=== PATIENT | male | born 1985 | race Two or more races ===

== ENCOUNTER 2023-12-23 13:46 | Inpatient (IN) | payer OTHER, SELFPAY ==
--- NOTE | 2023-12-23 | ECG_ITS ---
Test Reason : QTC Prolongation Blood Pressure : / mmHG Vent. Rate : 071 BPM Atrial Rate : 071 BPM P-R Int : 154 ms QRS Dur : 098 ms QT Int : 452 ms P-R-T Axes : 053 065 063 degrees QTc Int : 491 ms Normal sinus rhythm Nonspecific T wave abnormality Prolonged QT Abnormal ECG No previous ECGs available Referred By: Lucero Kauffman Electronically Signed By:ANTOINE GIRON
[2023-12-23 14:03] VITALS: BP 143/92; PULSE 73; RESP 16; TEMP 36.8; O2SAT 94
[2023-12-23 14:57] VITALS: BMI 35.6
--- NOTE | 2023-12-23 16:34 | HE.PHANOTE ---
Re Methadone Received Methadone verification from nursing. Pt gets 190 mg of Methadone from [facility] and last dose was given 12/23/2023 @1000 at [facility]
--- NOTE | 2023-12-23 17:31 | P.CONHOSP_ITS ---
History of Present Illness Data of Consult Service Date: 12/23/23 Primary Care Provider: Unknown Physician HPI Reason for consult: Admission H&P Pt is a 38-year-old male with a PMH significant for ymx-ntyuwag-lcnkgymqe type 2 diabetes, peripheral neuropathy, ADHD, polysubstance use disorder, and PTSD?who is admitted to [facility] psychiatry unit for increasing depression with SI. Medical consult for admission H&P. ?Patient reports that he is feeling quite depressed and does not want to do anything but lay in bed all day. Otherwise patient has no acute medical complaints. Denies chest pain/pressure, palpitations. No shortness a breath or difficulty breathing. Denies headache or acute vision changes. No fever, chills, nausea, vomiting. Denies diarrhea or abdominal pain. Review of Systems Review of Systems: Depression, anhedonia Patient otherwise denies any acute medical complaints at this time [facility] Medical History (Updated 12/23/23 @ 19:09 by ADILIA Sanford) ADHD Non-insulin dependent type 2 diabetes mellitus Polysubstance use disorder PTSD (post-traumatic stress disorder) Social History Housing: Homeless Do you presently have visiting nurse or other home services: No Patient Tobacco Use Status: Current everyday Tobacco user Tobacco use type: Cigarette Cigarette Packs Per Day: 1 Cigarettes Per Day: 20.0 Years Smoked: unsure Smoked in Last 30 Days: Yes e-Cigarette/Vaping Use: Currently Using Patient Interested in Nicotine Replacement: Yes Patient Given Instructions on How to Stop Smoking: No Second Hand Smoke Exposure: No Substance Use Type: Crack/Cocaine, Heroin, Marijuana and Other Substance Use Type Other:: fentanyl Substance Use Frequency: Chronic Longstanding Last Used Substance: Just Prior to Admission Currently Displaying Signs/Symptoms of Drug Intoxication Withdrawal: No Any prior treatment program specific to substance use: Yes Have you been hit, kicked, punched, or otherwise hurt by someone within the past year? If so, by whom?: No Do you feel safe in your current relationship?: No Current Relationship Is there a partner from a previous relationship who is making you feel unsafe now?: No Are you made to feel afraid or neglected: No Spiritual Healthcare Practices: none Sikhism Healthcare Practices: none Cultural Healthcare Practices: none Advance Directives: No Advance Directives Information Provided: No Do you have a plan to hurt others: No Plan Recently lost weight without trying: Yes How much weight loss: 2-13 pounds Eating poorly because of decreased appetite: No Nutrition screen score: 3 Nutrition Risks: No Nutritional Risk Poor oral hygiene: Yes Meds Allergies Allergy/AdvReac Type Severity Reaction Status Date / Time vancomycin Allergy Severe Rash Verified 12/23/23 14:11 Active Medications: Current Medications Acetaminophen (Acetaminophen 325 Mg Tablet) 650 mg PO Q6H PRN PRN Reason: Headache/Pain Mild Scale (1-3) Al Hydroxide/Mg Hydroxide (Magnesium Hydrox/Alum Hydrox 30 Ml Oral.Susp) 30 ml PO Q6H PRN PRN Reason: Heartburn/Nausea Hydroxyzine HCl (Hydroxyzine Hcl 25 Mg Tablet) 25 mg PO Q6H PRN PRN Reason: Anxiety Magnesium Hydroxide (Milk Of Magnesia 30 Ml Oral.Susp) 30 ml PO DAILY PRN PRN Reason: Constipation Nicotine (Nicotine 21 Mg Patch.Td24) 21 mg TRANSDERMA DAILY PRN PRN Reason: nicotine cravings Nicotine Polacrilex (Nicotine Polacrilex 2 Mg Gum) 4 mg BUCCAL Q2H PRN PRN Reason: Nicotine Cravings Trazodone HCl (Trazodone Hcl 50 Mg Tablet) 50 mg PO BEDTIME MRX1 PRN PRN Reason: Insomnia Home Medications ?Medication ?Instructions ?Recorded ?Confirmed ?Last Taken ?Type buspirone 5 mg tablet 5 mg PO BID 12/23/23 12/23/23 Unknown History escitalopram oxalate 10 mg tablet 10 mg PO DAILY 12/23/23 12/23/23 Unknown History gabapentin 300 mg capsule 600 mg PO TID 12/23/23 12/23/23 Unknown History hydroxyzine pamoate 50 mg capsule 50 mg PO QID PRN moderate to 12/23/23 12/23/23 Unknown History severe anxiety metformin 500 mg tablet 500 mg PO BID 12/23/23 12/23/23 Unknown History mirtazapine 30 mg tablet 30 mg PO BEDTIME 12/23/23 12/23/23 Unknown History nicotine (polacrilex) 4 mg gum 4 mg buccal Q1H 12/23/23 12/23/23 Unknown History nicotine 21 mg/24 hr daily 21 mg topical DAILY 12/23/23 12/23/23 Unknown History transdermal patch olanzapine 10 mg tablet 10 mg PO BEDTIME 12/23/23 12/23/23 Unknown History prazosin 1 mg capsule 1 mg PO BID 12/23/23 12/23/23 Unknown History trazodone 50 mg tablet 50 mg PO BEDTIME PRN Sleep 12/23/23 12/23/23 Unknown History Physical Exam Vital Signs and Narrative: Vital Signs: Last Vital Signs Temp 98.3 F 12/23/23 14:03 Pulse 73 12/23/23 14:03 Resp 16 12/23/23 14:03 BP 143/92 H 12/23/23 14:03 Pulse Ox 94 12/23/23 14:03 O2 Del Method Room Air 12/23/23 14:03 BMI result Body Mass Index 35.6 General: AOx3, no acute distress Resp: CTA bilaterally CVS: S1, S2, RRR GI: +BS, NT, no distention Skin: Warm, dry Neuro: Cranial nerves II-XII grossly intact bilaterally. Motor grossly intact bilaterally Extremities: No edema Psych: Flat affect Assessment and Plan (1) Medical clearance for psychiatric admission: Status: Acute Plan Pt is a 38-year-old male with a PMH significant for ibq-biyyncn-nwceovgbs type 2 diabetes, peripheral neuropathy, ADHD, polysubstance use disorder, and PTSD?who is admitted to [facility] psychiatry unit for increasing depression with SI. Medical consult for admission H&P. Mood disorder Plan as per Psychiatry Ypi-opdeket-ajwvsysrp type 2 diabetes Continue metformin Encouraged diabetic diet and diabetic snacking Peripheral neuropathy Continue gabapentin Polysubstance use disorder Plan as per Psychiatry Thank you for allowing us to participate in the care of this patient. Signing off at this time. Please re-consult if any acute complaints or issues arise.
--- NOTE | 2023-12-23 17:51 | PC.ADMIT ---
Aron arrived via ambulance from [facility] ED. He is awake, but eyes are reddened and teary. He complains of being so tired . He cooperated with skin and safety check. Skin check unremarkable except for healing bruises on either side of base of spine, those are old he says. Aron says he went to ED
--- NOTE | 2023-12-23 18:22 | PC.ADMIT ---
Aron arrived via ambulance from [facility] ED. He is awake, but eyes are reddened and teary. He complains of being so tired . He cooperated with skin and safety check. Skin check unremarkable except for healing bruises on either side of base of spine, those are old he says. He met with Oriana Santos NP but declined to sign a CV so he remains on a 12b. He is oriented x4. Aron says he went to ED on his own because I am so tired, so many things are going wrong in my life and I just want to hang myself or do something like that. He states that he will seek staff if he feels like he will act on it. Per crisis report, he has a lengthy substance use history including some periods of recovery (while at [facility]) His utox was positive for marijuana, cocaine, fentanyl. He reports using heroin at times and drinking alcohol occasionally. he is is 1 ppd cigarette smoker. He currently goes to [facility] clinic for his methadone. 190mg dose was confirmed, and last dose was given today at [facility]. He is currently homeless. Aron has a medical history consisting of type 2 diabetes, PTSD, ADD. During the intake, he was falling asleep and asked just to go lie down. He completed menu for tonight, but declined reviewing and/or signing any additional paperwork.
[2023-12-23 20:00] VITALS: BP 123/77; PULSE 73; RESP 16; TEMP 36.2; O2SAT 94
[2023-12-23] MEDS: Mirtazapine 30 MG TABLET PO (20:51)
[2023-12-23] MEDS: OLANZapine 10 MG TABLET PO (20:51)
[2023-12-23] MEDS: busPIRone HCl 5 MG TABLET PO (20:51)
[2023-12-23 20:52] VITALS: BP 146/85
[2023-12-23] MEDS: Gabapentin 600 MG TABLET PO (20:52)
[2023-12-23] MEDS: traZODone HCL 50 MG TABLET PO (20:52)
[2023-12-23] MEDS: Prazosin HCL 1 MG CAPSULE PO (20:52)
[2023-12-24 08:00] VITALS: BP 106/68; PULSE 63; RESP 16; TEMP 36.6; O2SAT 94
[2023-12-24] MEDS: methADONE HCl 20 MG/2 ML ORAL.CONC 190 MG PO (08:06)
[2023-12-24 08:49] VITALS: BP 126/68
[2023-12-24] MEDS: Escitalopram Oxalate 10 MG TABLET PO (08:49)
[2023-12-24] MEDS: metFORMIN HCl 500 MG TABLET PO ×2 (08:49→18:38)
[2023-12-24] MEDS: Prazosin HCL 1 MG CAPSULE PO ×2 (08:49→20:51)
[2023-12-24] MEDS: Gabapentin 600 MG TABLET PO (08:50)
[2023-12-24] MEDS: Nicotine Polacrilex 2 MG GUM 4 MG BUCCAL ×2 (08:50→14:31)
[2023-12-24] MEDS: busPIRone HCl 5 MG TABLET PO ×2 (08:50→20:52)
--- NOTE | 2023-12-24 09:58 | P.HPPS_ITS ---
HPI Date of Service: 12/24/23 Chief Complaint: Depression, substance use Sources of Information: patient interviewed, chart reviewed and crisis/core team assessment reviewed HPI Subjective Notes: Section 12B Narrative: Aron is a 38-year-old [place], single, unemployed, homeless man. He moved here from [place] over a year ago and stayed with his father and grandmother until 2 or 3 months ago and had to leave because the facilities for elderly people. He has been staying on the streets and has been feeling very stressed. He is seen at in for depression, anxiety and heroin dependence plus other substances such as cocaine, opiates. He is currently on methadone 190 mg. He still feels anxious. He self-referred to the emergency room because of wanting to hang himself. No prior history of attempts. Current medications include BuSpar 5.0 mg b.i.d. which I will increase to 10 mg b.i.d. he is also on Lexapro 10 mg daily, gabapentin 600 mg t.i.d., hydroxyzine p.r.n., Remeron 30 mg q.h.s., Zyprexa 10 mg q.h.s. and prazosin 1 mg b.i.d... He is a very poor historian and was falling asleep throughout the interview and had to be awakened. Past Psychiatric History: Outpatient Medical Evaluation Reviewed: Yes [facility] Medical History (Updated 12/24/23 @ 10:07 by Steve Clark MD) ADHD Non-insulin dependent type 2 diabetes mellitus Polysubstance use disorder PTSD (post-traumatic stress disorder) Family History: Could not obtain Social History: Could not obtain due to his current mental status Substance History: Percocets, cocaine, IV heroin use, last used several days ago Trauma History: Unobtainable Diagnostics Vital Signs (24Hr): Vital Signs - 24 hr 12/23/23 14:03 12/23/23 20:00 12/23/23 20:52 Temperature 98.3 F 97.2 F Pulse Rate 73 73 Respiratory Rate 16 16 Blood Pressure 143/92 H 123/77 146/85 H Pulse Oximetry 94 94 Oxygen Delivery Method Room Air Room Air 12/24/23 08:49 Temperature Pulse Rate Respiratory Rate Blood Pressure 126/68 Pulse Oximetry Oxygen Delivery Method BMI result Body Mass Index 35.6 Meds/Allergies Meds Home Medications ?Medication ?Instructions ?Recorded ?Confirmed ?Type buspirone 5 mg tablet 5 mg PO BID 12/23/23 12/23/23 History escitalopram oxalate 10 mg tablet 10 mg PO DAILY 12/23/23 12/23/23 History gabapentin 300 mg capsule 600 mg PO TID 12/23/23 12/23/23 History hydroxyzine pamoate 50 mg capsule 50 mg PO QID PRN moderate to 12/23/23 12/23/23 History severe anxiety metformin 500 mg tablet 500 mg PO BID 12/23/23 12/23/23 History mirtazapine 30 mg tablet 30 mg PO BEDTIME 12/23/23 12/23/23 History nicotine (polacrilex) 4 mg gum 4 mg buccal Q1H 12/23/23 12/23/23 History nicotine 21 mg/24 hr daily 21 mg topical DAILY 12/23/23 12/23/23 History transdermal patch olanzapine 10 mg tablet 10 mg PO BEDTIME 12/23/23 12/23/23 History prazosin 1 mg capsule 1 mg PO BID 12/23/23 12/23/23 History trazodone 50 mg tablet 50 mg PO BEDTIME PRN Sleep 12/23/23 12/23/23 History Allergies Allergies Allergy/AdvReac Type Severity Reaction Status Date / Time vancomycin Allergy Severe Rash Verified 12/23/23 14:11 Mental Status Exam Mental Status Exam Narrative: In today's visit he is drowsy and falling sleep. Speech is slurred and hard to understand. No eye contact. Affect is constricted and subdued. No acute signs of psychosis and denies any AVH. He admits to having had suicidal ideations and plans to hang himself but denies any currently. Thought processes are slowed. Judgment is grossly intact Assessment & Plan Assessment & Plan (1) Major depression, recurrent: Status: Acute Code(s): F33.9 - Major depressive disorder, recurrent, unspecified (2) Heroin dependence: Status: Acute Code(s): F11.20 - Opioid dependence, uncomplicated Plan Aron was admitted to the unit for safety and stabilization. He declined to sign a CV but we will approach him later on when he is more alert. Current medications were continued. He was requesting Klonopin which I did not order for him. Patient educated on: diagnosis, medication risk/benefits and substance abuse Reason for continued inpatient stay Substantial Risk for: harm to self and med/psych decompensation Statement Statement: I have reviewed the history and physical and performed a pertinent examination on my patient. No changes have occurred unless specified. If the History and Physical was not performed prior to admission, the Hospitalist's service will be consulted for completing the admission sallie swenson Time Spent With Patient Time: Total time managing care of this patient today ____ minutes.
[2023-12-24] MEDS: Gabapentin 300 MG CAPSULE 600 MG PO ×2 (14:31→20:51)
[2023-12-24] MEDS: hydrOXYzine HCL 50 MG TABLET PO (14:32)
[2023-12-24 20:00] VITALS: BP 117/71; PULSE 76; TEMP 36.7; O2SAT 98
[2023-12-24] MEDS: Mirtazapine 30 MG TABLET PO (20:51)
[2023-12-24] MEDS: busPIRone HCl 10 MG TABLET PO (20:52)
[2023-12-24] MEDS: OLANZapine 10 MG TABLET PO (20:52)
[2023-12-25] MEDS: methADONE HCl 20 MG/2 ML ORAL.CONC 190 MG PO (07:50)
[2023-12-25 08:00] VITALS: BP 139/84; PULSE 84; RESP 18; TEMP 2.7; TEMP 36.8; O2SAT 97
[2023-12-25 08:22] VITALS: BP 139/84
[2023-12-25] MEDS: Escitalopram Oxalate 10 MG TABLET PO (08:22)
[2023-12-25] MEDS: Gabapentin 300 MG CAPSULE 600 MG PO ×3 (08:22→20:02)
[2023-12-25] MEDS: Prazosin HCL 1 MG CAPSULE PO ×2 (08:22→20:02)
[2023-12-25] MEDS: busPIRone HCl 10 MG TABLET PO ×2 (08:22→20:02)
[2023-12-25] MEDS: metFORMIN HCl 500 MG TABLET PO ×2 (08:22→16:07)
[2023-12-25] MEDS: busPIRone HCl 5 MG TABLET PO (08:22)
--- NOTE | 2023-12-25 08:57 | P.PNPSI_ITS ---
Subjective Subjective Date of Service: 12/25/23 Reason For Visit: Depression, substance use Subjective Notes: Section 12B Interim History: Patient was seen and discussed in rounds today. Records and plans were reviewed. He continues to endorse auditory hallucinations, sometimes command in nature but contracts for safety on the unit. He is anxious at times. No SI. Mostly isolative and flat affect. No complaints. No changes were made today Review of Systems Review of Systems Yes all other systems are reviewed and are negative Mental Status Exam Mental Status Exam Narrative: In today's visit he is alert and more interactive.. Speech is still somewhat slow. Some eye contact. Affect is constricted and subdued. No acute signs of psychosis and admits to some auditory hallucinations that are at times command in nature. No active SI but has had thoughts of hanging.. Thought processes are slowed. Judgment is grossly intact Diagnostics Vital Signs (24Hr): Vital Signs - 24 hr 12/24/23 20:00 12/25/23 08:22 Temperature 98.1 F Pulse Rate 76 Blood Pressure 117/71 139/84 Pulse Oximetry 98 Oxygen Delivery Method Room Air BMI result Body Mass Index 35.6 Medications Medications Current Medications Acetaminophen (Acetaminophen 325 Mg Tablet) 650 mg PO Q6H PRN PRN Reason: Headache/Pain Mild Scale (1-3) Al Hydroxide/Mg Hydroxide (Magnesium Hydrox/Alum Hydrox 30 Ml Oral.Susp) 30 ml PO Q6H PRN PRN Reason: Heartburn/Nausea Buspirone HCl (Buspirone Hcl 5 Mg Tablet) 5 mg PO BID [facility] Last Admin: 12/25/23 08:22 Dose: 5 mg Buspirone HCl (Buspirone Hcl 10 Mg Tablet) 10 mg PO BID [facility] Last Admin: 12/25/23 08:22 Dose: 10 mg Escitalopram Oxalate (Escitalopram Oxalate 10 Mg Tablet) 10 mg PO DAILY [facility] Last Admin: 12/25/23 08:22 Dose: 10 mg Gabapentin (Gabapentin 300 Mg Capsule) 600 mg PO TID [facility] Last Admin: 12/25/23 08:22 Dose: 600 mg Hydroxyzine HCl (Hydroxyzine Hcl 50 Mg Tablet) 50 mg PO QID PRN PRN Reason: moderate to severe anxiety Last Admin: 12/24/23 14:32 Dose: 50 mg Magnesium Hydroxide (Milk Of Magnesia 30 Ml Oral.Susp) 30 ml PO DAILY PRN PRN Reason: Constipation Metformin HCl (Metformin Hcl 500 Mg Tablet) 500 mg PO BIDWM JENELLE Last Admin: 12/25/23 08:22 Dose: 500 mg Methadone HCl (Methadone Hcl 20 Mg/2 Ml Oral.Conc) 190 mg PO DAILY J[facility] Last Admin: 12/25/23 07:50 Dose: 190 mg Mirtazapine (Mirtazapine 30 Mg Tablet) 30 mg PO BEDTIME JENELLE Last Admin: 12/24/23 20:51 Dose: 30 mg Nicotine (Nicotine 21 Mg Patch.Td24) 21 mg TRANSDERMA DAILY PRN PRN Reason: nicotine cravings Nicotine Polacrilex (Nicotine Polacrilex 2 Mg Gum) 4 mg BUCCAL Q2H PRN PRN Reason: Nicotine Cravings Last Admin: 12/24/23 14:31 Dose: 4 mg Olanzapine (Olanzapine 10 Mg Tablet) 10 mg PO BEDTIME JENELLE Last Admin: 12/24/23 20:52 Dose: 10 mg Prazosin HCl (Prazosin Hcl 1 Mg Capsule) 1 mg PO BID JENELLE; Protocol Last Admin: 12/25/23 08:22 Dose: 1 mg Trazodone HCl (Trazodone Hcl 50 Mg Tablet) 50 mg PO BEDTIME MRX1 PRN PRN Reason: Insomnia Last Admin: 12/23/23 20:52 Dose: 50 mg Allergies Allergies Allergy/AdvReac Type Severity Reaction Status Date / Time vancomycin Allergy Severe Rash Verified 12/23/23 14:11 Assessment & Plan Assessment & Plan (1) Major depression, recurrent: Status: Acute Code(s): F33.9 - Major depressive disorder, recurrent, unspecified (2) Heroin dependence: Status: Acute Code(s): F11.20 - Opioid dependence, uncomplicated Plan Aron was admitted to the unit for safety and stabilization. He declined to sign a CV but we will approach him later on when he is more alert. Current medications were continued. He was requesting Klonopin which I did not order for him. 12/24: Continue current regimen and plans Reason for continued inpatient stay Substantial Risk for: med/psych decompensation Time Spent With Patient Time: Total time managing care of this patient today ____ minutes.
[2023-12-25] MEDS: Nicotine Polacrilex 2 MG GUM 4 MG BUCCAL (12:18)
[2023-12-25] MEDS: hydrOXYzine HCL 50 MG TABLET PO (12:18)
[2023-12-25 19:45] VITALS: BP 144/84; PULSE 86; TEMP 36.3; O2SAT 95
[2023-12-25] MEDS: OLANZapine 10 MG TABLET PO (20:02)
[2023-12-25] MEDS: traZODone HCL 50 MG TABLET PO (20:02)
[2023-12-25] MEDS: Mirtazapine 30 MG TABLET PO (20:02)
[2023-12-26] MEDS: methADONE HCl 20 MG/2 ML ORAL.CONC 190 MG PO (07:44)
[2023-12-26 08:00] VITALS: BP 120/66; PULSE 63; RESP 16; TEMP 36.3; O2SAT 97
[2023-12-26] MEDS: Gabapentin 300 MG CAPSULE 600 MG PO ×3 (08:44→21:01)
[2023-12-26 08:45] VITALS: BP 120/66
[2023-12-26] MEDS: Prazosin HCL 1 MG CAPSULE PO ×2 (08:45→21:01)
[2023-12-26] MEDS: busPIRone HCl 10 MG TABLET PO ×2 (08:45→21:01)
[2023-12-26] MEDS: metFORMIN HCl 500 MG TABLET PO ×2 (08:45→15:22)
[2023-12-26] MEDS: Escitalopram Oxalate 10 MG TABLET PO (08:45)
[2023-12-26] MEDS: Nicotine Polacrilex 2 MG GUM 4 MG BUCCAL ×4 (08:45→21:04)
[2023-12-26] MEDS: hydrOXYzine HCL 50 MG TABLET PO (12:53)
--- NOTE | 2023-12-26 15:04 | MHC.RECOVRN ---
AUDIT-C Brief Intervention Pt had positive screen for unhealthy alcohol use on admission, subsequently met with t/w to discuss alcohol use and recovery supports/options. Pt does not voice regarding alcohol use but is aware that drinking at unhealthy levels is known to increase risk of alcohol related health problems. Pt reports 1 bottle Yeimy daily, however, during AUDIT C pt reported alcohol use 2-4 times per month. Pt expresses how alcohol use can impact health, including negative impact on mental health. Discussed risk reduction strategies including drinking below the recommended limit. Provided pt with written resources including information on inpatient and outpatient treatment, [facility], harm reduction, and recovery coaching. Pt plans to meet with project manager/team coach on 12/26 to further discuss resources. Pt provided with t/w contact information if questions or concerns arise. Denies other questions or concerns at this time.
[2023-12-26] MEDS: LORazepam 1 MG TABLET PO ×2 (15:22→21:00)
--- NOTE | 2023-12-26 15:35 | P.PNPSI_ITS ---
Subjective Subjective Date of Service: 12/26/23 Reason For Visit: Depression, substance use Subjective Notes: Conditional Voluntary (signed today) Healthcare Proxy: No Guardianship: No Medical Problems Affecting Mental Status: No Interim History: Review of history, precipitants to admission. Reports depression, feeling down, tired, voices, SI. States the only med that helps is Klonopin. This was not prescribed. Discussed with pt risks due to high doses of Methadone, relapse risk, doc being fentanyl. Pt looking for CSS- Team will assist with applications to [facility] Medication Compliance: Yes Side effects from medications: No Attending Groups: Intermittent Review of Systems Acute medical concerns: No Medical Review of Systems: unchanged Review of Systems Review of Systems Yes all other systems are reviewed and are negative Mental Status Exam Mental Status Exam Narrative: In today's visit he is alert and more interactive.. Speech is still somewhat slow. Some eye contact. Affect is constricted and subdued. No acute signs of psychosis and admits to some auditory hallucinations that are at times command in nature. No active SI but has had thoughts of hanging.. Thought processes are slowed. Judgment is grossly intact Diagnostics Vital Signs (24Hr): Vital Signs - 24 hr 12/25/23 19:45 12/26/23 08:00 12/26/23 08:45 Temperature 97.4 F 97.3 F Pulse Rate 86 63 Respiratory Rate 16 Blood Pressure 144/84 H 120/66 120/66 Pulse Oximetry 95 97 Oxygen Delivery Method Room Air Room Air BMI result Body Mass Index 35.6 Labs 12/27/23 10:41 Medications Medications Current Medications Acetaminophen (Acetaminophen 325 Mg Tablet) 650 mg PO Q6H PRN PRN Reason: Headache/Pain Mild Scale (1-3) Al Hydroxide/Mg Hydroxide (Magnesium Hydrox/Alum Hydrox 30 Ml Oral.Susp) 30 ml PO Q6H PRN PRN Reason: Heartburn/Nausea Buspirone HCl (Buspirone Hcl 10 Mg Tablet) 10 mg PO BID [facility] Last Admin: 12/26/23 08:45 Dose: 10 mg Escitalopram Oxalate (Escitalopram Oxalate 10 Mg Tablet) 10 mg PO DAILY [facility] Last Admin: 12/26/23 08:45 Dose: 10 mg Gabapentin (Gabapentin 300 Mg Capsule) 600 mg PO TID [facility] Last Admin: 12/26/23 14:14 Dose: 600 mg Hydroxyzine HCl (Hydroxyzine Hcl 50 Mg Tablet) 50 mg PO QID PRN PRN Reason: moderate to severe anxiety Last Admin: 12/26/23 12:53 Dose: 50 mg Lorazepam (Lorazepam 1 Mg Tablet) 1 mg PO Q4H PRN PRN Reason: ciwa 6-15 Last Admin: 12/26/23 15:22 Dose: 1 mg Magnesium Hydroxide (Milk Of Magnesia 30 Ml Oral.Susp) 30 ml PO DAILY PRN PRN Reason: Constipation Metformin HCl (Metformin Hcl 500 Mg Tablet) 500 mg PO BIDWM JENELLE Last Admin: 12/26/23 15:22 Dose: 500 mg Methadone HCl (Methadone Hcl 20 Mg/2 Ml Oral.Conc) 190 mg PO DAILY [facility] Last Admin: 12/26/23 07:44 Dose: 190 mg Mirtazapine (Mirtazapine 30 Mg Tablet) 30 mg PO BEDTIME [facility]EL[facility] Last Admin: 12/25/23 20:02 Dose: 30 mg Nicotine (Nicotine 21 Mg Patch.Td24) 21 mg TRANSDERMA DAILY PRN PRN Reason: nicotine cravings Nicotine Polacrilex (Nicotine Polacrilex 2 Mg Gum) 4 mg BUCCAL Q2H PRN PRN Reason: Nicotine Cravings Last Admin: 12/26/23 14:15 Dose: 4 mg Olanzapine (Olanzapine 10 Mg Tablet) 10 mg PO BEDTIME JENELLE Last Admin: 12/25/23 20:02 Dose: 10 mg Prazosin HCl (Prazosin Hcl 1 Mg Capsule) 1 mg PO BID [facility]; Protocol Last Admin: 12/26/23 08:45 Dose: 1 mg Trazodone HCl (Trazodone Hcl 50 Mg Tablet) 50 mg PO BEDTIME MRX1 PRN PRN Reason: Insomnia Last Admin: 12/25/23 20:02 Dose: 50 mg Allergies Allergies Allergy/AdvReac Type Severity Reaction Status Date / Time vancomycin Allergy Severe Rash Verified 12/23/23 14:11 Assessment & Plan Assessment & Plan (1) Major depression, recurrent: Status: Acute Code(s): F33.9 - Major depressive disorder, recurrent, unspecified (2) Heroin dependence: Status: Acute Code(s): F11.20 - Opioid dependence, uncomplicated Plan Aron was admitted to the unit for safety and stabilization. He declined to sign a CV but we will approach him later on when he is more alert. Current medications were continued. He was requesting Klonopin which I did not order for him. 12/24: Continue current regimen and plans 12/26/23: Continue treatment Reason for continued inpatient stay Substantial Risk for: rapid decompensation Time Spent With Patient Time: Total time managing care of this patient today ____ minutes.
[2023-12-26 20:00] VITALS: BP 129/74; PULSE 85; RESP 16; TEMP 36.2; O2SAT 94
[2023-12-26 21:01] VITALS: BP 126/73
[2023-12-26] MEDS: Mirtazapine 30 MG TABLET PO (21:01)
[2023-12-26] MEDS: OLANZapine 10 MG TABLET PO (21:01)
[2023-12-26] MEDS: traZODone HCL 50 MG TABLET PO (21:23)
[2023-12-27] MEDS: methADONE HCl 20 MG/2 ML ORAL.CONC 190 MG PO (07:48)
[2023-12-27 08:00] VITALS: BP 119/71; PULSE 65; RESP 18; TEMP 36.6; O2SAT 97
[2023-12-27] MEDS: Nicotine Polacrilex 2 MG GUM 4 MG BUCCAL ×4 (08:00→19:28)
[2023-12-27] MEDS: Gabapentin 300 MG CAPSULE 600 MG PO ×3 (08:41→19:45)
[2023-12-27] MEDS: busPIRone HCl 10 MG TABLET PO ×2 (08:42→19:46)
[2023-12-27] MEDS: Prazosin HCL 1 MG CAPSULE PO ×2 (08:42→19:46)
[2023-12-27] MEDS: Escitalopram Oxalate 10 MG TABLET PO (08:42)
[2023-12-27] MEDS: metFORMIN HCl 500 MG TABLET PO ×2 (08:42→16:21)
[2023-12-27] MEDS: LORazepam 1 MG TABLET PO ×4 (08:46→19:47)
[2023-12-27 10:58] LABS: Creatinine Clr Calc Pharmacy 120.8; Estimated Glomerular Filt Rate > 60
[2023-12-27] MEDS: Acetaminophen 325 MG TABLET 650 MG PO (11:07)
[2023-12-27] MEDS: hydrOXYzine HCL 50 MG TABLET PO ×2 (11:56→19:46)
--- NOTE | 2023-12-27 12:34 | HO.PSYCHPN ---
Subjective Subjective Date of Service: 12/27/23 Reason For Visit: Depression, substance use Subjective Notes: Conditional Voluntary Healthcare Proxy: No Guardianship: No Medical Problems Affecting Mental Status: No Interim History: Pt continues to request Klonopin. Reports to addiction medicine that he is detoxing from alcohol. CIWA ordered with Lorazepam prn, however, pt reported no alcohol use to team when admitted. Discussed other options for anxiety/mood at this time. He will consider but declines. Met with team who reports pt states he speaks street Urdu . 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 Tells team of . Will trial Olanzapine at HS. Medication Compliance: Yes Side effects from medications: No Attending Groups: Intermittent Review of Systems Acute medical concerns: No Review of Systems Review of Systems Yes all other systems are reviewed and are negative Mental Status Exam Mental Status Exam Narrative: In today's visit he is alert and more interactive.. Speech is still somewhat slow. Some eye contact. Affect is constricted and subdued. No acute signs of psychosis and admits to some auditory hallucinations that are at times command in nature. No active SI but has had thoughts of hanging.. Thought processes are slowed. Judgment is grossly intact Diagnostics Vital Signs (24Hr): Vital Signs - 24 hr 12/26/23 20:00 12/26/23 21:01 12/27/23 08:00 Temperature 97.1 F 98 F Pulse Rate 85 65 Respiratory Rate 16 18 Blood Pressure 129/74 126/73 119/71 Pulse Oximetry 94 97 Oxygen Delivery Method Room Air Room Air BMI result Body Mass Index 35.6 Labs 12/27/23 10:41 Labs: Laboratory Results - last 48 hr 12/27/23 10:41 Creatinine 0.90 Estim Creat Clear Calc 120.8 Estimated GFR > 60 Medications Medications Current Medications Acetaminophen (Acetaminophen 325 Mg Tablet) 650 mg PO Q6H PRN PRN Reason: Headache/Pain Mild Scale (1-3) Last Admin: 12/27/23 11:07 Dose: 650 mg Al Hydroxide/Mg Hydroxide (Magnesium Hydrox/Alum Hydrox 30 Ml Oral.Susp) 30 ml PO Q6H PRN PRN Reason: Heartburn/Nausea Buspirone HCl (Buspirone Hcl 10 Mg Tablet) 10 mg PO BID [facility]ENELLE Last Admin: 12/27/23 08:42 Dose: 10 mg Escitalopram Oxalate (Escitalopram Oxalate 10 Mg Tablet) 10 mg PO DAILY [facility] Last Admin: 12/27/23 08:42 Dose: 10 mg Gabapentin (Gabapentin 300 Mg Capsule) 600 mg PO TID [facility] Last Admin: 12/27/23 08:41 Dose: 600 mg Hydroxyzine HCl (Hydroxyzine Hcl 50 Mg Tablet) 50 mg PO QID PRN PRN Reason: moderate to severe anxiety Last Admin: 12/27/23 11:56 Dose: 50 mg Lorazepam (Lorazepam 1 Mg Tablet) 1 mg PO Q4H PRN PRN Reason: ciwa 6-15 Last Admin: 12/27/23 11:56 Dose: 1 mg Magnesium Hydroxide (Milk Of Magnesia 30 Ml Oral.Susp) 30 ml PO DAILY PRN PRN Reason: Constipation Metformin HCl (Metformin Hcl 500 Mg Tablet) 500 mg PO BIDWM [facility] Last Admin: 12/27/23 08:42 Dose: 500 mg Methadone HCl (Methadone Hcl 20 Mg/2 Ml Oral.Conc) 190 mg PO DAILY [facility] Last Admin: 12/27/23 07:48 Dose: 190 mg Mirtazapine (Mirtazapine 30 Mg Tablet) 30 mg PO BEDTIME [facility] Last Admin: 12/26/23 21:01 Dose: 30 mg Nicotine (Nicotine 21 Mg Patch.Td24) 21 mg TRANSDERMA DAILY PRN PRN Reason: nicotine cravings Nicotine Polacrilex (Nicotine Polacrilex 2 Mg Gum) 4 mg BUCCAL Q2H PRN PRN Reason: Nicotine Cravings Last Admin: 12/27/23 08:00 Dose: 4 mg Olanzapine (Olanzapine 10 Mg Tablet) 10 mg PO BEDTIME [facility] Last Admin: 12/26/23 21:01 Dose: 10 mg Prazosin HCl (Prazosin Hcl 1 Mg Capsule) 1 mg PO BID [facility]; Protocol Last Admin: 12/27/23 08:42 Dose: 1 mg Trazodone HCl (Trazodone Hcl 50 Mg Tablet) 50 mg PO BEDTIME MRX1 PRN PRN Reason: Insomnia Last Admin: 12/26/23 21:23 Dose: 50 mg Allergies Allergies Allergy/AdvReac Type Severity Reaction Status Date / Time vancomycin Allergy Severe Rash Verified 12/23/23 14:11 Assessment & Plan Assessment & Plan (1) Major depression, recurrent: Status: Acute Code(s): F33.9 - Major depressive disorder, recurrent, unspecified (2) Heroin dependence: Status: Acute Code(s): F11.20 - Opioid dependence, uncomplicated Plan Aron was admitted to the unit for safety and stabilization. He declined to sign a CV but we will approach him later on when he is more alert. Current medications were continued. He was requesting Klonopin which I did not order for him. 12/24: Continue current regimen and plans 12/26: Olanzapine 10 mg HS Reason for continued inpatient stay Substantial Risk for: rapid decompensation Time Spent With Patient Time: Total time managing care of this patient today ____ minutes.
[2023-12-27 19:30] VITALS: BP 157/87; PULSE 75; RESP 20; TEMP 36.1; O2SAT 92
[2023-12-27] MEDS: Mirtazapine 30 MG TABLET PO (19:46)
[2023-12-27] MEDS: traZODone HCL 50 MG TABLET PO (19:46)
[2023-12-27] MEDS: OLANZapine 10 MG TABLET PO (19:46)
[2023-12-28] MEDS: traZODone HCL 50 MG TABLET PO ×2 (02:27→20:10)
[2023-12-28] MEDS: hydrOXYzine HCL 50 MG TABLET PO ×3 (02:27→20:10)
[2023-12-28] MEDS: LORazepam 1 MG TABLET PO ×5 (04:12→20:56)
[2023-12-28 08:00] VITALS: BP 160/100; PULSE 72; RESP 16; TEMP 36.6; O2SAT 96
[2023-12-28] MEDS: methADONE HCl 20 MG/2 ML ORAL.CONC 190 MG PO (08:04)
[2023-12-28 08:45] VITALS: BP 150/88
[2023-12-28 09:01] VITALS: BP 160/100
[2023-12-28] MEDS: Prazosin HCL 1 MG CAPSULE PO ×2 (09:01→20:10)
[2023-12-28] MEDS: metFORMIN HCl 500 MG TABLET PO ×2 (09:02→17:08)
[2023-12-28] MEDS: busPIRone HCl 10 MG TABLET PO ×2 (09:02→20:10)
[2023-12-28] MEDS: Escitalopram Oxalate 10 MG TABLET PO (09:02)
[2023-12-28] MEDS: Acetaminophen 325 MG TABLET 650 MG PO (09:02)
[2023-12-28] MEDS: Gabapentin 300 MG CAPSULE 600 MG PO ×3 (09:03→20:10)
[2023-12-28] MEDS: Nicotine Polacrilex 2 MG GUM 4 MG BUCCAL ×4 (09:05→20:10)
--- NOTE | 2023-12-28 11:15 | P.PNPSI_ITS ---
Subjective Subjective Date of Service: 12/28/23 Reason For Visit: Depression, substance use Subjective Notes: Conditional Voluntary Healthcare Proxy: No Guardianship: No Medical Problems Affecting Mental Status: No Interim History: Pt continues to request Lorazepam/Klonopin. Discussed with pt his Methadone dosing and risks with this high a dose and benzodiazepines. Everyone else gets it, and I want it too Visable in milieu. Labile at times. Discussed sx mgt with other agents which have a better safety profile. No, Klonopin . Medication Compliance: Yes Side effects from medications: No Attending Groups: Intermittent Review of Systems Acute medical concerns: No Medical Review of Systems: unchanged Review of Systems Review of Systems Yes all other systems are reviewed and are negative Mental Status Exam Mental Status Exam Patient Appearance: Appropriate Patient Orientation: Person, Place, Time and Situation Level of Consciousness: Alert Patient Behavior: Talkative and Good Eye Contact Mood Description: Hostile and Labile Affect Description: Labile Patient Cognition Impaired: No Ability to Follow Directions: Good Speech Pattern: Spontaneous Speech and Pressured Memory Description: Episodic Impaired Hallucinations: None Thought Process: Distracted Depressive Symptoms: Increased Irritability Abnormal Motor Activity Signs and Symptoms: Restlessness Judgement: Fair Diagnostics Vital Signs (24Hr): Vital Signs - 24 hr 12/27/23 19:30 12/28/23 08:00 12/28/23 08:45 Temperature 97.0 F 97.9 F Pulse Rate 75 72 Respiratory Rate 20 16 Blood Pressure 157/87 H 160/100 H 150/88 H Pulse Oximetry 92 96 Oxygen Delivery Method Room Air Room Air 12/28/23 09:01 Temperature Pulse Rate Respiratory Rate Blood Pressure 160/100 H Pulse Oximetry Oxygen Delivery Method BMI result Body Mass Index 35.6 Labs 12/27/23 10:41 Labs: Laboratory Results - last 48 hr 12/27/23 10:41 Creatinine 0.90 Estim Creat Clear Calc 120.8 Estimated GFR > 60 Medications Medications Current Medications Acetaminophen (Acetaminophen 325 Mg Tablet) 650 mg PO Q6H PRN PRN Reason: Headache/Pain Mild Scale (1-3) Last Admin: 12/28/23 09:02 Dose: 650 mg Al Hydroxide/Mg Hydroxide (Magnesium Hydrox/Alum Hydrox 30 Ml Oral.Susp) 30 ml PO Q6H PRN PRN Reason: Heartburn/Nausea Buspirone HCl (Buspirone Hcl 10 Mg Tablet) 10 mg PO BID [facility] Last Admin: 12/28/23 09:02 Dose: 10 mg Escitalopram Oxalate (Escitalopram Oxalate 10 Mg Tablet) 10 mg PO DAILY [facility] Last Admin: 12/28/23 09:02 Dose: 10 mg Gabapentin (Gabapentin 300 Mg Capsule) 600 mg PO TID JENELLE Last Admin: 12/28/23 09:03 Dose: 600 mg Hydroxyzine HCl (Hydroxyzine Hcl 50 Mg Tablet) 50 mg PO QID PRN PRN Reason: moderate to severe anxiety Last Admin: 12/28/23 09:02 Dose: 50 mg Lorazepam (Lorazepam 1 Mg Tablet) 1 mg PO Q4H PRN PRN Reason: ciwa 6-15 Last Admin: 12/28/23 09:02 Dose: 1 mg Magnesium Hydroxide (Milk Of Magnesia 30 Ml Oral.Susp) 30 ml PO DAILY PRN PRN Reason: Constipation Metformin HCl (Metformin Hcl 500 Mg Tablet) 500 mg PO BIDWM [facility] Last Admin: 12/28/23 09:02 Dose: 500 mg Methadone HCl (Methadone Hcl 20 Mg/2 Ml Oral.Conc) 190 mg PO DAILY [facility] Last Admin: 12/28/23 08:04 Dose: 190 mg Mirtazapine (Mirtazapine 30 Mg Tablet) 30 mg PO BEDTIME [facility] Last Admin: 12/27/23 19:46 Dose: 30 mg Nicotine (Nicotine 21 Mg Patch.Td24) 21 mg TRANSDERMA DAILY PRN PRN Reason: nicotine cravings Nicotine Polacrilex (Nicotine Polacrilex 2 Mg Gum) 4 mg BUCCAL Q2H PRN PRN Reason: Nicotine Cravings Last Admin: 12/28/23 09:05 Dose: 4 mg Olanzapine (Olanzapine 10 Mg Tablet) 10 mg PO BEDTIME [facility] Last Admin: 12/27/23 19:46 Dose: 10 mg Prazosin HCl (Prazosin Hcl 1 Mg Capsule) 1 mg PO BID [facility]; Protocol Last Admin: 12/28/23 09:01 Dose: 1 mg Trazodone HCl (Trazodone Hcl 50 Mg Tablet) 50 mg PO BEDTIME MRX1 PRN PRN Reason: Insomnia Last Admin: 12/28/23 02:27 Dose: 50 mg Allergies Allergies Allergy/AdvReac Type Severity Reaction Status Date / Time vancomycin Allergy Severe Rash Verified 12/23/23 14:11 Assessment & Plan Assessment & Plan (1) Major depression, recurrent: Status: Acute Code(s): F33.9 - Major depressive disorder, recurrent, unspecified (2) Heroin dependence: Status: Acute Code(s): F11.20 - Opioid dependence, uncomplicated Plan Aron was admitted to the unit for safety and stabilization. He declined to sign a CV but we will approach him later on when he is more alert. Current medications were continued. He was requesting Klonopin which I did not order for him. 12/24: Continue current regimen and plans 12/26: Olanzapine 10 mg HS 12/27: Continue tx Reason for continued inpatient stay Substantial Risk for: rapid decompensation Time Spent With Patient Time: Total time managing care of this patient today ____ minutes.
[2023-12-28 20:00] VITALS: BP 119/61; PULSE 92; RESP 20; TEMP 36.3; O2SAT 96
[2023-12-28] MEDS: OLANZapine 10 MG TABLET PO (20:10)
[2023-12-28] MEDS: Mirtazapine 30 MG TABLET PO (20:10)
[2023-12-29] MEDS: LORazepam 1 MG TABLET PO (04:05)
[2023-12-29] MEDS: methADONE HCl 20 MG/2 ML ORAL.CONC 190 MG PO (07:38)
[2023-12-29 08:00] VITALS: BP 138/91; PULSE 83; TEMP 36.9; O2SAT 94
[2023-12-29] MEDS: Escitalopram Oxalate 10 MG TABLET PO (08:21)
[2023-12-29] MEDS: Prazosin HCL 1 MG CAPSULE PO ×2 (08:21→20:01)
[2023-12-29] MEDS: metFORMIN HCl 500 MG TABLET PO ×2 (08:21→17:31)
[2023-12-29] MEDS: busPIRone HCl 10 MG TABLET PO ×2 (08:21→20:01)
[2023-12-29] MEDS: Gabapentin 300 MG CAPSULE 600 MG PO ×3 (08:21→20:02)
[2023-12-29] MEDS: hydrOXYzine HCL 50 MG TABLET PO ×2 (08:35→15:03)
[2023-12-29] MEDS: Nicotine Polacrilex 2 MG GUM 4 MG BUCCAL ×5 (08:35→20:02)
--- NOTE | 2023-12-29 10:29 | P.PNPSI_ITS ---
Subjective Subjective Date of Service: 12/29/23 Reason For Visit: Depression, substance use Subjective Notes: Conditional Voluntary Healthcare Proxy: No Guardianship: No Medical Problems Affecting Mental Status: No Interim History: Met with pt, team, [facility] [place] Team reports pt with poor boundaries, verbally abusive, sexually inappropriate sx. Pt reports headache, anxiety, light sensitivity. States he requires Klonopin/Lorazepam. Review of rationale for not offering these agents. Valproate initiated. Pt accepting of these parameters, states he is considering a three day notice as we are not providing the medicine he wants. Medication Compliance: Yes Side effects from medications: No Attending Groups: Intermittent Review of Systems Acute medical concerns: No Medical Review of Systems: unchanged Review of Systems Review of Systems Yes all other systems are reviewed and are negative Mental Status Exam Mental Status Exam Patient Appearance: Appropriate Patient Orientation: Person, Place, Time and Situation Level of Consciousness: Alert Patient Behavior: Talkative and Good Eye Contact Mood Description: Hostile and Labile Affect Description: Labile Patient Cognition Impaired: No Ability to Follow Directions: Good Speech Pattern: Spontaneous Speech and Pressured Memory Description: Episodic Impaired Hallucinations: None Thought Process: Distracted Depressive Symptoms: Increased Irritability Abnormal Motor Activity Signs and Symptoms: Restlessness Judgement: Fair Diagnostics Vital Signs (24Hr): Vital Signs - 24 hr 12/28/23 20:00 Temperature 97.3 F Pulse Rate 92 Respiratory Rate 20 Blood Pressure 119/61 Pulse Oximetry 96 Oxygen Delivery Method Room Air BMI result Body Mass Index 35.6 Labs 12/27/23 10:41 Labs: Laboratory Results - last 48 hr 12/27/23 10:41 Creatinine 0.90 Estim Creat Clear Calc 120.8 Estimated GFR > 60 Medications Medications Current Medications Acetaminophen (Acetaminophen 325 Mg Tablet) 650 mg PO Q6H PRN PRN Reason: Headache/Pain Mild Scale (1-3) Last Admin: 12/28/23 09:02 Dose: 650 mg Al Hydroxide/Mg Hydroxide (Magnesium Hydrox/Alum Hydrox 30 Ml Oral.Susp) 30 ml PO Q6H PRN PRN Reason: Heartburn/Nausea Buspirone HCl (Buspirone Hcl 10 Mg Tablet) 10 mg PO BID [facility] Last Admin: 12/29/23 08:21 Dose: 10 mg Escitalopram Oxalate (Escitalopram Oxalate 10 Mg Tablet) 10 mg PO DAILY [facility] Last Admin: 12/29/23 08:21 Dose: 10 mg Gabapentin (Gabapentin 300 Mg Capsule) 600 mg PO TID [facility]ENELLE Last Admin: 12/29/23 08:21 Dose: 600 mg Hydroxyzine HCl (Hydroxyzine Hcl 50 Mg Tablet) 50 mg PO QID PRN PRN Reason: moderate to severe anxiety Last Admin: 12/29/23 08:35 Dose: 50 mg Lorazepam (Lorazepam 1 Mg Tablet) 1 mg PO Q4H PRN PRN Reason: ciwa 6-15 Last Admin: 12/29/23 04:05 Dose: 1 mg Magnesium Hydroxide (Milk Of Magnesia 30 Ml Oral.Susp) 30 ml PO DAILY PRN PRN Reason: Constipation Metformin HCl (Metformin Hcl 500 Mg Tablet) 500 mg PO BIDWM [facility] Last Admin: 12/29/23 08:21 Dose: 500 mg Methadone HCl (Methadone Hcl 20 Mg/2 Ml Oral.Conc) 190 mg PO DAILY [facility] Last Admin: 12/29/23 07:38 Dose: 190 mg Mirtazapine (Mirtazapine 30 Mg Tablet) 30 mg PO BEDTIME [facility] Last Admin: 12/28/23 20:10 Dose: 30 mg Nicotine (Nicotine 21 Mg Patch.Td24) 21 mg TRANSDERMA DAILY PRN PRN Reason: nicotine cravings Nicotine Polacrilex (Nicotine Polacrilex 2 Mg Gum) 4 mg BUCCAL Q2H PRN PRN Reason: Nicotine Cravings Last Admin: 12/29/23 08:35 Dose: 4 mg Olanzapine (Olanzapine 10 Mg Tablet) 10 mg PO BEDTIME [facility] Last Admin: 12/28/23 20:10 Dose: 10 mg Prazosin HCl (Prazosin Hcl 1 Mg Capsule) 1 mg PO BID [facility]ELLE; Protocol Last Admin: 12/29/23 08:21 Dose: 1 mg Trazodone HCl (Trazodone Hcl 50 Mg Tablet) 50 mg PO BEDTIME MRX1 PRN PRN Reason: Insomnia Last Admin: 12/28/23 20:10 Dose: 50 mg Allergies Allergies Allergy/AdvReac Type Severity Reaction Status Date / Time vancomycin Allergy Severe Rash Verified 12/23/23 14:11 Assessment & Plan Assessment & Plan (1) Major depression, recurrent: Status: Acute Code(s): F33.9 - Major depressive disorder, recurrent, unspecified (2) Heroin dependence: Status: Acute Code(s): F11.20 - Opioid dependence, uncomplicated Plan Aron was admitted to the unit for safety and stabilization. He declined to sign a CV but we will approach him later on when he is more alert. Current medications were continued. He was requesting Klonopin which I did not order for him. 12/24: Continue current regimen and plans 12/26: Olanzapine 10 mg HS 12/29/23 Valproate 250 mg bid Chlorpromazine prn Informed Consent: understands Reason for continued inpatient stay Substantial Risk for: rapid decompensation Time Spent With Patient Time: Total time managing care of this patient today ____ minutes.
[2023-12-29] MEDS: chlorproMAZINE HCl 25 MG TABLET 50 MG PO ×2 (12:49→20:02)
[2023-12-29 14:20] VITALS: BMI 37.4
[2023-12-29 20:00] VITALS: BP 113/60; PULSE 78; RESP 16; TEMP 36.9; O2SAT 96
[2023-12-29] MEDS: OLANZapine 10 MG TABLET PO (20:00)
[2023-12-29 20:01] VITALS: BP 120/74
[2023-12-29] MEDS: Divalproex Sodium ER 250 MG TAB.ER.24H PO (20:01)
[2023-12-29] MEDS: Mirtazapine 30 MG TABLET PO (20:02)
[2023-12-29] MEDS: traZODone HCL 50 MG TABLET PO (20:02)
[2023-12-30] MEDS: Magnesium Hydrox/Alum Hydrox 30 ML ORAL.SUSP PO (00:13)
[2023-12-30] MEDS: traZODone HCL 50 MG TABLET PO ×2 (00:15→21:00)
[2023-12-30] MEDS: Nicotine Polacrilex 2 MG GUM 4 MG BUCCAL ×6 (00:17→21:01)
[2023-12-30] MEDS: methADONE HCl 20 MG/2 ML ORAL.CONC 190 MG PO (07:54)
[2023-12-30 08:00] VITALS: BP 132/82; PULSE 81; RESP 18; TEMP 36.4; O2SAT 95
[2023-12-30] MEDS: metFORMIN HCl 500 MG TABLET PO ×2 (08:32→18:00)
[2023-12-30] MEDS: Divalproex Sodium ER 250 MG TAB.ER.24H PO ×2 (08:32→21:00)
[2023-12-30] MEDS: Gabapentin 300 MG CAPSULE 600 MG PO ×3 (08:32→21:00)
[2023-12-30] MEDS: Prazosin HCL 1 MG CAPSULE PO ×2 (08:33→21:00)
[2023-12-30] MEDS: busPIRone HCl 10 MG TABLET PO ×2 (08:33→21:00)
[2023-12-30] MEDS: chlorproMAZINE HCl 25 MG TABLET 50 MG PO ×2 (08:33→14:22)
--- NOTE | 2023-12-30 11:44 | HO.PSYCHPN ---
Subjective Subjective Date of Service: 12/30/23 Reason For Visit: Depression, substance use Subjective Notes: Conditional Voluntary Interim History: Reviewed with Dr. Brown. Social with peers, active on unit. Guarded. Patient reports he feels like he is doing okay but continues to feel anxious about where he will live after discharge. Denies SI/HI/VH/AH. Medication Compliance: Yes Side effects from medications: No Review of Systems Constitutional: Reports as per HPI Eyes: Reports as per HPI Reports as per HPI Cardiovascular: Reports as per HPI Respiratory: Reports as per HPI Gastrointestinal: Reports as per HPI Genitourinary: Reports as per HPI Musculoskeletal: Reports as per HPI Skin/Breast: Reports as per HPI Reports as per HPI Psychiatric: Reports as per HPI Endocrine: Reports as per HPI Hematologic/Lymphatic: Reports as per HPI Allergic/Immunologic: Reports as per HPI Mental Status Exam Mental Status Exam Patient Appearance: Well Grooomed Patient Orientation: Person, Place, Time and Situation Level of Consciousness: Awake, Appropriate and Alert Patient Behavior: Guarded Mood Description: Calm and Blunted Affect Description: Calm and Blunted Ability to Follow Directions: Good Speech Pattern: Clear and Soft-Spoken Thought Process: Intact Thought Content: positive for Intact and positive for Goal Oriented Judgement: Fair Diagnostics Vital Signs (24Hr): Vital Signs - 24 hr 12/29/23 20:00 12/29/23 20:01 Temperature 98.5 F Pulse Rate 78 Respiratory Rate 16 Blood Pressure 113/60 120/74 Pulse Oximetry 96 Oxygen Delivery Method Room Air BMI result Body Mass Index 37.4 Labs 12/27/23 10:41 Medications Medications Current Medications Acetaminophen (Acetaminophen 325 Mg Tablet) 650 mg PO Q6H PRN PRN Reason: Headache/Pain Mild Scale (1-3) Last Admin: 12/28/23 09:02 Dose: 650 mg Al Hydroxide/Mg Hydroxide (Magnesium Hydrox/Alum Hydrox 30 Ml Oral.Susp) 30 ml PO Q6H PRN PRN Reason: Heartburn/Nausea Last Admin: 12/30/23 00:13 Dose: 30 ml Buspirone HCl (Buspirone Hcl 10 Mg Tablet) 10 mg PO BID JENELLE Last Admin: 12/30/23 08:33 Dose: 10 mg Chlorpromazine HCl (Chlorpromazine Hcl 25 Mg Tablet) 50 mg PO TID PRN PRN Reason: anxiety, agitation Last Admin: 12/30/23 08:33 Dose: 50 mg Divalproex Sodium (Divalproex Sodium Er 250 Mg Tab.Er.24h) 250 mg PO BID [facility] Last Admin: 12/30/23 08:32 Dose: 250 mg Gabapentin (Gabapentin 300 Mg Capsule) 600 mg PO TID [facility] Last Admin: 12/30/23 08:32 Dose: 600 mg Hydroxyzine HCl (Hydroxyzine Hcl 50 Mg Tablet) 50 mg PO QID PRN PRN Reason: moderate to severe anxiety Last Admin: 12/29/23 15:03 Dose: 50 mg Magnesium Hydroxide (Milk Of Magnesia 30 Ml Oral.Susp) 30 ml PO DAILY PRN PRN Reason: Constipation Metformin HCl (Metformin Hcl 500 Mg Tablet) 500 mg PO BIDWM [facility] Last Admin: 12/30/23 08:32 Dose: 500 mg Methadone HCl (Methadone Hcl 20 Mg/2 Ml Oral.Conc) 190 mg PO DAILY [facility] Last Admin: 12/30/23 07:54 Dose: 190 mg Mirtazapine (Mirtazapine 30 Mg Tablet) 30 mg PO BEDTIME [facility] Last Admin: 12/29/23 20:02 Dose: 30 mg Nicotine (Nicotine 21 Mg Patch.Td24) 21 mg TRANSDERMA DAILY PRN PRN Reason: nicotine cravings Nicotine Polacrilex (Nicotine Polacrilex 2 Mg Gum) 4 mg BUCCAL Q2H PRN PRN Reason: Nicotine Cravings Last Admin: 12/30/23 08:33 Dose: 4 mg Olanzapine (Olanzapine 10 Mg Tablet) 10 mg PO BEDTIME [facility] Last Admin: 12/29/23 20:00 Dose: 10 mg Prazosin HCl (Prazosin Hcl 1 Mg Capsule) 1 mg PO BID [facility]; Protocol Last Admin: 12/30/23 08:33 Dose: 1 mg Trazodone HCl (Trazodone Hcl 50 Mg Tablet) 50 mg PO BEDTIME MRX1 PRN PRN Reason: Insomnia Last Admin: 12/30/23 00:15 Dose: 50 mg Allergies Allergies Allergy/AdvReac Type Severity Reaction Status Date / Time vancomycin Allergy Severe Rash Verified 12/23/23 14:11 Assessment & Plan Assessment & Plan (1) Major depression, recurrent: Status: Acute Code(s): F33.9 - Major depressive disorder, recurrent, unspecified (2) Heroin dependence: Status: Acute Code(s): F11.20 - Opioid dependence, uncomplicated Plan Aron was admitted to the unit for safety and stabilization. He declined to sign a CV but we will approach him later on when he is more alert. Current medications were continued. He was requesting Klonopin which I did not order for him. 12/24: Continue current regimen and plans 12/26: Olanzapine 10 mg HS 12/29/23 Valproate 250 mg bid Chlorpromazine prn 12/29: Continue current treatment plan. Patient educated on: diagnosis and medication risk/benefits Reason for continued inpatient stay Substantial Risk for: med/psych decompensation Time Spent With Patient Time: Total time managing care of this patient today _20___ minutes.
[2023-12-30] MEDS: hydrOXYzine HCL 50 MG TABLET PO ×2 (12:07→18:00)
[2023-12-30 20:00] VITALS: BP 110/60; PULSE 80; RESP 18; TEMP 36.4; O2SAT 98
[2023-12-30] MEDS: Mirtazapine 30 MG TABLET PO (21:00)
[2023-12-30] MEDS: OLANZapine 10 MG TABLET PO (21:00)
[2023-12-31] MEDS: methADONE HCl 20 MG/2 ML ORAL.CONC 190 MG PO (07:49)
[2023-12-31 07:59] VITALS: BP 153/84; PULSE 62; RESP 16; TEMP 36.7; O2SAT 97
[2023-12-31] MEDS: Gabapentin 300 MG CAPSULE 600 MG PO ×3 (08:21→21:03)
[2023-12-31 08:22] VITALS: BP 153/84
[2023-12-31] MEDS: metFORMIN HCl 500 MG TABLET PO ×2 (08:22→16:08)
[2023-12-31] MEDS: Divalproex Sodium ER 250 MG TAB.ER.24H PO ×2 (08:22→21:03)
[2023-12-31] MEDS: Prazosin HCL 1 MG CAPSULE PO ×2 (08:22→21:04)
[2023-12-31] MEDS: busPIRone HCl 10 MG TABLET PO ×2 (08:24→21:03)
[2023-12-31] MEDS: chlorproMAZINE HCl 25 MG TABLET 50 MG PO ×3 (08:27→18:12)
[2023-12-31] MEDS: Nicotine Polacrilex 2 MG GUM 4 MG BUCCAL ×3 (09:27→16:08)
--- NOTE | 2023-12-31 10:00 | P.PNPSI_ITS ---
Subjective Subjective Date of Service: 12/31/23 Reason For Visit: Depression, substance use Interim History: Met with patient; discussed with team says still depressed but overall feeling better; anxiety still present but appreciates thorazine. When he wakes up, has a pedersen of thoughts regarding his psychosocial problems but then he gets up and is learning to cope with it. Remains in good behavioral and impulse control Mental Status Exam Mental Status Exam Patient Appearance: Well Grooomed Patient Orientation: Person, Place, Time and Situation Level of Consciousness: Awake, Appropriate and Alert Patient Behavior: Appropriate, Talkative, Cooperative and Good Eye Contact Mood Description: Calm, Depressed (but less) and Anxious Affect Description: Calm, Appropriate and Anxious Ability to Follow Directions: Good Speech Pattern: Clear and Soft-Spoken Hallucinations: None Delusions: Not Present Thought Process: Intact and Linear Thought Content: positive for Intact (no SI) and positive for Goal Oriented Judgement: Fair Diagnostics Vital Signs (24Hr): Vital Signs - 24 hr 12/30/23 20:00 12/31/23 07:59 12/31/23 08:22 Temperature 97.5 F 98.1 F Pulse Rate 80 62 Respiratory Rate 18 16 Blood Pressure 110/60 153/84 H 153/84 H Pulse Oximetry 98 97 Oxygen Delivery Method Room Air Room Air BMI result Body Mass Index 37.4 Labs 12/27/23 10:41 Medications Medications Current Medications Acetaminophen (Acetaminophen 325 Mg Tablet) 650 mg PO Q6H PRN PRN Reason: Headache/Pain Mild Scale (1-3) Last Admin: 12/28/23 09:02 Dose: 650 mg Al Hydroxide/Mg Hydroxide (Magnesium Hydrox/Alum Hydrox 30 Ml Oral.Susp) 30 ml PO Q6H PRN PRN Reason: Heartburn/Nausea Last Admin: 12/30/23 00:13 Dose: 30 ml Buspirone HCl (Buspirone Hcl 10 Mg Tablet) 10 mg PO BID [facility] Last Admin: 12/31/23 08:24 Dose: 10 mg Chlorpromazine HCl (Chlorpromazine Hcl 25 Mg Tablet) 50 mg PO TID PRN PRN Reason: anxiety, agitation Last Admin: 12/31/23 08:27 Dose: 50 mg Divalproex Sodium (Divalproex Sodium Er 250 Mg Tab.Er.24h) 250 mg PO BID [facility] Last Admin: 08/24/24 08:22 Dose: 250 mg Gabapentin (Gabapentin 300 Mg Capsule) 600 mg PO TID [facility] Last Admin: 12/31/23 08:21 Dose: 600 mg Hydroxyzine HCl (Hydroxyzine Hcl 50 Mg Tablet) 50 mg PO QID PRN PRN Reason: moderate to severe anxiety Last Admin: 12/30/23 18:00 Dose: 50 mg Magnesium Hydroxide (Milk Of Magnesia 30 Ml Oral.Susp) 30 ml PO DAILY PRN PRN Reason: Constipation Metformin HCl (Metformin Hcl 500 Mg Tablet) 500 mg PO BIDWM [facility] Last Admin: 12/31/23 08:22 Dose: 500 mg Methadone HCl (Methadone Hcl 20 Mg/2 Ml Oral.Conc) 190 mg PO DAILY [facility] Last Admin: 12/31/23 07:49 Dose: 190 mg Mirtazapine (Mirtazapine 30 Mg Tablet) 30 mg PO BEDTIME [facility] Last Admin: 12/30/23 21:00 Dose: 30 mg Nicotine (Nicotine 21 Mg Patch.Td24) 21 mg TRANSDERMA DAILY PRN PRN Reason: nicotine cravings Nicotine Polacrilex (Nicotine Polacrilex 2 Mg Gum) 4 mg BUCCAL Q2H PRN PRN Reason: Nicotine Cravings Last Admin: 12/31/23 09:27 Dose: 4 mg Olanzapine (Olanzapine 10 Mg Tablet) 10 mg PO BEDTIME [facility] Last Admin: 12/30/23 21:00 Dose: 10 mg Prazosin HCl (Prazosin Hcl 1 Mg Capsule) 1 mg PO BID [facility]; Protocol Last Admin: 12/31/23 08:22 Dose: 1 mg Trazodone HCl (Trazodone Hcl 50 Mg Tablet) 50 mg PO BEDTIME MRX1 PRN PRN Reason: Insomnia Last Admin: 12/30/23 21:00 Dose: 50 mg Allergies Allergies Allergy/AdvReac Type Severity Reaction Status Date / Time vancomycin Allergy Severe Rash Verified 12/23/23 14:11 Assessment & Plan Assessment & Plan (1) Major depression, recurrent: Status: Acute Code(s): F33.9 - Major depressive disorder, recurrent, unspecified (2) Heroin dependence: Status: Acute Code(s): F11.20 - Opioid dependence, uncomplicated Plan Aron was admitted to the unit for safety and stabilization. He declined to sign a CV but we will approach him later on when he is more alert. Current medications were continued. He was requesting Klonopin which I did not order for him. 12/24: Continue current regimen and plans 12/26: Olanzapine 10 mg HS 12/29/23 Valproate 250 mg bid Chlorpromazine prn 12/29: Continue current treatment plan. 12/30 says still depressed but overall feeling better; anxiety still present but appreciates thorazine. When he wakes up, has a pedersen of thoughts regarding his psychosocial problems but then he gets up and is learning to cope with it. -will order depakote levels; associated labs -Remains in good behavioral and impulse control Patient educated on: diagnosis and medication risk/benefits Informed Consent: understands Reason for continued inpatient stay Substantial Risk for: stable for discharge Time Spent With Patient Time: Total time managing care of this patient today ____ minutes.
[2023-12-31] MEDS: hydrOXYzine HCL 50 MG TABLET PO ×2 (12:06→16:08)
[2023-12-31] MEDS: traZODone HCL 50 MG TABLET PO (21:03)
[2023-12-31] MEDS: OLANZapine 10 MG TABLET PO (21:03)
[2023-12-31] MEDS: Mirtazapine 30 MG TABLET PO (21:03)
[2023-12-31 21:04] VITALS: BP 115/70
[2024-01-01] MEDS: methADONE HCl 20 MG/2 ML ORAL.CONC 190 MG PO (07:56)
[2024-01-01 08:20] VITALS: BP 124/78; PULSE 83; RESP 14; TEMP 36.4; O2SAT 96
[2024-01-01 08:28] VITALS: BP 124/78
[2024-01-01] MEDS: Divalproex Sodium ER 250 MG TAB.ER.24H PO ×2 (08:28→20:40)
[2024-01-01] MEDS: Gabapentin 300 MG CAPSULE 600 MG PO ×3 (08:28→20:39)
[2024-01-01] MEDS: Prazosin HCL 1 MG CAPSULE PO ×2 (08:28→20:39)
[2024-01-01] MEDS: chlorproMAZINE HCl 25 MG TABLET 50 MG PO ×2 (08:29→14:10)
[2024-01-01] MEDS: Nicotine Polacrilex 2 MG GUM 4 MG BUCCAL ×3 (08:30→15:39)
[2024-01-01] MEDS: metFORMIN HCl 500 MG TABLET PO ×2 (08:30→17:12)
[2024-01-01] MEDS: busPIRone HCl 10 MG TABLET PO ×2 (08:30→20:39)
[2024-01-01 09:05] LABS: Valproate 23.4 mcg/mL (50.0-100.0)
[2024-01-01 09:09] LABS: Alanine Aminotransferase 146 U/L (0-40); Albumin Level 4.5 g/dL (3.5-5.0); Alkaline Phosphatase 158 U/L (39-117); Aspartate Amino Transferase 118 U/L (5-37); Bilirubin Direct 0.1 mg/dL (0.0-0.5); Bilirubin Total 0.3 mg/dL (0.0-1.0); Total Protein 8.4 g/dL (6.5-8.0)
[2024-01-01 10:01] LABS: Ammonia 63 umol/L (13-55)
[2024-01-01] MEDS: hydrOXYzine HCL 50 MG TABLET PO (13:16)
[2024-01-01 20:00] VITALS: BP 125/66; PULSE 79; RESP 14; TEMP 36.9; O2SAT 96
[2024-01-01] MEDS: Mirtazapine 30 MG TABLET PO (20:39)
[2024-01-01] MEDS: OLANZapine 10 MG TABLET PO (20:40)
--- NOTE | 2024-01-01 22:53 | HO.PSYCHPN ---
Subjective Subjective Date of Service: 01/01/24 Reason For Visit: Depression, substance use Interim History: Met with patient; discussed with team Patient reports mood remains better. No SI. He says that here, in the structured setting he is overall doing well and not so overwhelmed by worries about life. However he is concerned about how he will deal with anxiety wants discharge. Continues to say Thorazine is helpful. Patient has remained in good behavioral and impulse control and overall appropriate with peers and staff. LFTs elevated with ALT higher than AST; denies any IV drug use; will get hep B/C profile Mental Status Exam Mental Status Exam Patient Appearance: Well Grooomed Patient Orientation: Person, Place, Time and Situation Level of Consciousness: Awake, Appropriate and Alert Patient Behavior: Appropriate, Talkative, Cooperative and Good Eye Contact Mood Description: Calm, Depressed (but less) and Anxious Affect Description: Calm, Appropriate and Anxious Ability to Follow Directions: Good Speech Pattern: Clear and Soft-Spoken Hallucinations: None Delusions: Not Present Thought Process: Intact and Linear Thought Content: positive for Intact (no SI) and positive for Goal Oriented Judgement: Fair Diagnostics Vital Signs (24Hr): Vital Signs - 24 hr 01/01/24 08:20 01/01/24 08:28 01/01/24 20:00 Temperature 97.6 F 98.4 F Pulse Rate 83 79 Respiratory Rate 14 14 Blood Pressure 124/78 124/78 125/66 Pulse Oximetry 96 96 Oxygen Delivery Method Room Air BMI result Body Mass Index 37.4 Labs 12/27/23 10:41 Labs: Laboratory Results - last 48 hr 01/01/24 08:27 Total Bilirubin 0.3 Direct Bilirubin 0.1 AST 118 H ALT 146 H Alkaline Phosphatase 158 H Ammonia 63 H Total Protein 8.4 H Albumin 4.5 Valproic Acid 23.4 L Medications Medications Current Medications Acetaminophen (Acetaminophen 325 Mg Tablet) 650 mg PO Q6H PRN PRN Reason: Headache/Pain Mild Scale (1-3) Last Admin: 12/28/23 09:02 Dose: 650 mg Al Hydroxide/Mg Hydroxide (Magnesium Hydrox/Alum Hydrox 30 Ml Oral.Susp) 30 ml PO Q6H PRN PRN Reason: Heartburn/Nausea Last Admin: 12/30/23 00:13 Dose: 30 ml Buspirone HCl (Buspirone Hcl 10 Mg Tablet) 10 mg PO BID [facility] Last Admin: 01/01/24 20:39 Dose: 10 mg Chlorpromazine HCl (Chlorpromazine Hcl 25 Mg Tablet) 50 mg PO TID PRN PRN Reason: anxiety, agitation Last Admin: 01/01/24 14:10 Dose: 50 mg Divalproex Sodium (Divalproex Sodium Er 250 Mg Tab.Er.24h) 250 mg PO BID [facility] Last Admin: 01/01/24 20:40 Dose: 250 mg Gabapentin (Gabapentin 300 Mg Capsule) 600 mg PO TID [facility] Last Admin: 01/01/24 20:39 Dose: 600 mg Hydroxyzine HCl (Hydroxyzine Hcl 50 Mg Tablet) 50 mg PO QID PRN PRN Reason: moderate to severe anxiety Last Admin: 01/01/24 13:16 Dose: 50 mg Magnesium Hydroxide (Milk Of Magnesia 30 Ml Oral.Susp) 30 ml PO DAILY PRN PRN Reason: Constipation Metformin HCl (Metformin Hcl 500 Mg Tablet) 500 mg PO BIDWM [facility] Last Admin: 01/01/24 17:12 Dose: 500 mg Methadone HCl (Methadone Hcl 20 Mg/2 Ml Oral.Conc) 190 mg PO DAILY [facility] Last Admin: 01/01/24 07:56 Dose: 190 mg Mirtazapine (Mirtazapine 30 Mg Tablet) 30 mg PO BEDTIME [facility] Last Admin: 01/01/24 20:39 Dose: 30 mg Nicotine (Nicotine 21 Mg Patch.Td24) 21 mg TRANSDERMA DAILY PRN PRN Reason: nicotine cravings Nicotine Polacrilex (Nicotine Polacrilex 2 Mg Gum) 4 mg BUCCAL Q2H PRN PRN Reason: Nicotine Cravings Last Admin: 01/01/24 15:39 Dose: 4 mg Olanzapine (Olanzapine 10 Mg Tablet) 10 mg PO BEDTIME [facility] Last Admin: 01/01/24 20:40 Dose: 10 mg Prazosin HCl (Prazosin Hcl 1 Mg Capsule) 1 mg PO BID [facility]; Protocol Last Admin: 01/01/24 20:39 Dose: 1 mg Trazodone HCl (Trazodone Hcl 50 Mg Tablet) 50 mg PO BEDTIME MRX1 PRN PRN Reason: Insomnia Last Admin: 12/31/23 21:03 Dose: 50 mg Allergies Allergies Allergy/AdvReac Type Severity Reaction Status Date / Time vancomycin Allergy Severe Rash Verified 12/23/23 14:11 Assessment & Plan Assessment & Plan (1) Major depression, recurrent: Status: Acute Code(s): F33.9 - Major depressive disorder, recurrent, unspecified (2) Heroin dependence: Status: Acute Code(s): F11.20 - Opioid dependence, uncomplicated Plan Aron was admitted to the unit for safety and stabilization. He declined to sign a CV but we will approach him later on when he is more alert. Current medications were continued. He was requesting Klonopin which I did not order for him. 12/24: Continue current regimen and plans 12/26: Olanzapine 10 mg HS 12/29/23 Valproate 250 mg bid Chlorpromazine prn 12/29: Continue current treatment plan. 12/30 says still depressed but overall feeling better; anxiety still present but appreciates thorazine. When he wakes up, has a pedersen of thoughts regarding his psychosocial problems but then he gets up and is learning to cope with it. -will order depakote levels; associated labs -Remains in good behavioral and impulse control 12/31Patient reports mood remains better. No SI. He says that here, in the structured setting he is overall doing well and not so overwhelmed by worries about life. However he is concerned about how he will deal with anxiety wants discharge. Continues to say Thorazine is helpful. Patient has remained in good behavioral and impulse control and overall appropriate with peers and staff. -LFTs elevated with ALT higher than AST; denies any IV drug use; will get hep B/C profile Patient educated on: diagnosis, medication risk/benefits and medical condition Informed Consent: understands Reason for continued inpatient stay Substantial Risk for: stable for discharge Time Spent With Patient Time: Total time managing care of this patient today ____ minutes.
[2024-01-02] MEDS: methADONE HCl 20 MG/2 ML ORAL.CONC 190 MG PO (07:40)
[2024-01-02] MEDS: Nicotine Polacrilex 2 MG GUM 4 MG BUCCAL ×5 (07:58→19:55)
[2024-01-02] MEDS: Divalproex Sodium ER 250 MG TAB.ER.24H PO (08:00)
[2024-01-02 08:01] VITALS: BP 148/86
[2024-01-02] MEDS: Prazosin HCL 1 MG CAPSULE PO ×2 (08:01→19:54)
[2024-01-02] MEDS: busPIRone HCl 10 MG TABLET PO ×2 (08:01→19:53)
[2024-01-02] MEDS: metFORMIN HCl 500 MG TABLET PO ×2 (08:02→16:49)
[2024-01-02] MEDS: Gabapentin 300 MG CAPSULE 600 MG PO ×3 (08:03→19:55)
[2024-01-02] MEDS: chlorproMAZINE HCl 25 MG TABLET 50 MG PO ×3 (08:05→19:53)
[2024-01-02 08:21] VITALS: BP 148/86; PULSE 79; RESP 16; TEMP 36.9; O2SAT 95
[2024-01-02 09:08] LABS: HBS Num1 76.96 mIU/mL (0-7.99); HBc Num1 0.06 S/CO (0.00-0.79); HBsAGNum1 0.29 S/CO (0.00-0.99); Hepatitis B Core Antibody Nonreactive (Nonreactive); Hepatitis B Surface Antigen Negative (Negative); ~HepC Num1 14.34 S/CO (0.00-0.79); ~Hepatitis B Surface Antibody REACTIVE (Nonreactive); ~Hepatitis C Antibody Reactive (Nonreactive)
[2024-01-02] MEDS: hydrOXYzine HCL 50 MG TABLET PO ×2 (10:59→19:53)
--- NOTE | 2024-01-02 12:40 | P.PNPSI_ITS ---
Subjective Subjective Date of Service: 01/02/24 Reason For Visit: Depression, substance use Subjective Notes: Conditional Voluntary Healthcare Proxy: No Guardianship: No Medical Problems Affecting Mental Status: No Interim History: Pt reports a decrease in anxiety and depressive sx. Finds chlorpromazine helpful [facility] application is pending. Weekend labs with +Hep C, elevated AST, ALT. Agrees to OP GI referral upon discharge to address these issues Will DC Valproate low dose to help with LFT's Reports heartburn and gas . Priolsec and Simethacone ordered. Medication Compliance: Yes Side effects from medications: No Attending Groups: Intermittent Review of Systems Acute medical concerns: No Medical Review of Systems: unchanged Review of Systems Review of Systems Reports heartburn and gas Mental Status Exam Mental Status Exam Patient Appearance: Well Grooomed Patient Orientation: Person, Place, Time and Situation Level of Consciousness: Awake, Appropriate and Alert Patient Behavior: Appropriate, Talkative, Cooperative and Good Eye Contact Mood Description: Calm, Depressed (but less) and Anxious Affect Description: Calm, Appropriate and Anxious Ability to Follow Directions: Good Speech Pattern: Clear and Soft-Spoken Hallucinations: None Delusions: Not Present Thought Process: Intact and Linear Thought Content: positive for Intact (no SI) and positive for Goal Oriented Judgement: Fair Diagnostics Vital Signs (24Hr): Vital Signs - 24 hr 01/01/24 20:00 01/02/24 08:01 01/02/24 08:21 Temperature 98.4 F 98.4 F Pulse Rate 79 79 Respiratory Rate 14 16 Blood Pressure 125/66 148/86 H 148/86 H Pulse Oximetry 96 95 Oxygen Delivery Method Room Air BMI result Body Mass Index 37.4 Labs 12/27/23 10:41 Labs: Laboratory Results - last 48 hr 01/01/24 01/02/24 08:27 08:04 Total Bilirubin 0.3 Direct Bilirubin 0.1 AST 118 H ALT 146 H Alkaline Phosphatase 158 H Ammonia 63 H Total Protein 8.4 H Albumin 4.5 Valproic Acid 23.4 L Hep Bs Antigen Negative Hep Bs Antibody REACTIVE Hep B Core Total Ab Nonreactive Hepatitis C Ab (EIA) Reactive H Medications Medications Current Medications Acetaminophen (Acetaminophen 325 Mg Tablet) 650 mg PO Q6H PRN PRN Reason: Headache/Pain Mild Scale (1-3) Last Admin: 12/28/23 09:02 Dose: 650 mg Al Hydroxide/Mg Hydroxide (Magnesium Hydrox/Alum Hydrox 30 Ml Oral.Susp) 30 ml PO Q6H PRN PRN Reason: Heartburn/Nausea Last Admin: 12/30/23 00:13 Dose: 30 ml Buspirone HCl (Buspirone Hcl 10 Mg Tablet) 10 mg PO BID [facility] Last Admin: 01/02/24 08:01 Dose: 10 mg Chlorpromazine HCl (Chlorpromazine Hcl 25 Mg Tablet) 50 mg PO TID PRN PRN Reason: anxiety, agitation Last Admin: 01/02/24 08:05 Dose: 50 mg Divalproex Sodium (Divalproex Sodium Er 250 Mg Tab.Er.24h) 250 mg PO BID [facility] Last Admin: 01/02/24 08:00 Dose: 250 mg Gabapentin (Gabapentin 300 Mg Capsule) 600 mg PO TID [facility] Last Admin: 01/02/24 08:03 Dose: 600 mg Hydroxyzine HCl (Hydroxyzine Hcl 50 Mg Tablet) 50 mg PO QID PRN PRN Reason: moderate to severe anxiety Last Admin: 01/02/24 10:59 Dose: 50 mg Magnesium Hydroxide (Milk Of Magnesia 30 Ml Oral.Susp) 30 ml PO DAILY PRN PRN Reason: Constipation Metformin HCl (Metformin Hcl 500 Mg Tablet) 500 mg PO BIDWM [facility] Last Admin: 01/02/24 08:02 Dose: 500 mg Methadone HCl (Methadone Hcl 20 Mg/2 Ml Oral.Conc) 190 mg PO DAILY [facility] Last Admin: 01/02/24 07:40 Dose: 190 mg Mirtazapine (Mirtazapine 30 Mg Tablet) 30 mg PO BEDTIME [facility] Last Admin: 01/01/24 20:39 Dose: 30 mg Nicotine (Nicotine 21 Mg Patch.Td24) 21 mg TRANSDERMA DAILY PRN PRN Reason: nicotine cravings Nicotine Polacrilex (Nicotine Polacrilex 2 Mg Gum) 4 mg BUCCAL Q2H PRN PRN Reason: Nicotine Cravings Last Admin: 01/02/24 11:02 Dose: 4 mg Olanzapine (Olanzapine 10 Mg Tablet) 10 mg PO BEDTIME [facility] Last Admin: 01/01/24 20:40 Dose: 10 mg Prazosin HCl (Prazosin Hcl 1 Mg Capsule) 1 mg PO BID [facility]; Protocol Last Admin: 01/02/24 08:01 Dose: 1 mg Trazodone HCl (Trazodone Hcl 50 Mg Tablet) 50 mg PO BEDTIME MRX1 PRN PRN Reason: Insomnia Last Admin: 12/31/23 21:03 Dose: 50 mg Allergies Allergies Allergy/AdvReac Type Severity Reaction Status Date / Time vancomycin Allergy Severe Rash Verified 12/23/23 14:11 Assessment & Plan Assessment & Plan (1) Major depression, recurrent: Status: Acute Code(s): F33.9 - Major depressive disorder, recurrent, unspecified (2) Heroin dependence: Status: Acute Code(s): F11.20 - Opioid dependence, uncomplicated Plan Aron was admitted to the unit for safety and stabilization. He declined to sign a CV but we will approach him later on when he is more alert. Current medications were continued. He was requesting Klonopin which I did not order for him. 12/24: Continue current regimen and plans 12/26: Olanzapine 10 mg HS 12/29/23 Valproate 250 mg bid Chlorpromazine prn 12/29: Continue current treatment plan. 12/30 says still depressed but overall feeling better; anxiety still present but appreciates thorazine. When he wakes up, has a pedersen of thoughts regarding his psychosocial problems but then he gets up and is learning to cope with it. -will order depakote levels; associated labs -Remains in good behavioral and impulse control 12/31Patient reports mood remains better. No SI. He says that here, in the structured setting he is overall doing well and not so overwhelmed by worries about life. However he is concerned about how he will deal with anxiety wants discharge. Continues to say Thorazine is helpful. Patient has remained in good behavioral and impulse control and overall appropriate with peers and staff. -LFTs elevated with ALT higher than AST; denies any IV drug use; will get hep B/C profile 01/02/24: DC Depakote Prilosec 20 mg bid Simethacone prn Will begin to work on OP GI referral for eval of +Hepatitis C Patient educated on: medical condition Reason for continued inpatient stay Substantial Risk for: med/psych decompensation Time Spent With Patient Time: Total time managing care of this patient today ____ minutes.
[2024-01-02] MEDS: Omeprazole 20 MG CAPSULE.DR PO (16:49)
[2024-01-02] MEDS: traZODone HCL 50 MG TABLET PO (19:53)
[2024-01-02 19:54] VITALS: BP 132/76
[2024-01-02] MEDS: Mirtazapine 30 MG TABLET PO (19:54)
[2024-01-02] MEDS: OLANZapine 10 MG TABLET PO (19:54)
[2024-01-02 20:00] VITALS: BP 140/80; PULSE 87; RESP 18; TEMP 36.3; O2SAT 97
[2024-01-03] MEDS: Omeprazole 20 MG CAPSULE.DR PO ×2 (06:34→16:35)
[2024-01-03] MEDS: methADONE HCl 20 MG/2 ML ORAL.CONC 190 MG PO (07:48)
[2024-01-03 08:00] VITALS: BP 128/83; PULSE 85; RESP 16; TEMP 36.3; O2SAT 95
[2024-01-03] MEDS: Prazosin HCL 1 MG CAPSULE PO ×2 (08:32→21:20)
[2024-01-03] MEDS: metFORMIN HCl 500 MG TABLET PO ×2 (08:32→16:35)
[2024-01-03] MEDS: busPIRone HCl 10 MG TABLET PO ×2 (08:32→21:18)
[2024-01-03] MEDS: Gabapentin 300 MG CAPSULE 600 MG PO ×3 (08:32→21:19)
[2024-01-03] MEDS: Nicotine Polacrilex 2 MG GUM 4 MG BUCCAL ×5 (08:36→21:24)
[2024-01-03] MEDS: chlorproMAZINE HCl 25 MG TABLET 50 MG PO ×2 (08:36→15:06)
--- NOTE | 2024-01-03 11:00 | HO.PSYCHPN ---
Subjective Subjective Date of Service: 01/03/24 Reason For Visit: Depression, substance use Subjective Notes: Conditional Voluntary and 3 Day Healthcare Proxy: No Guardianship: No Medical Problems Affecting Mental Status: No Interim History: Three day notice to 01/06/24. Asks for Methadone increase. Increase from 190 to 195. Discussed behavioral boundaries with pt. Plans to discharge to father's home in [place], return to [facility]. Reports feeling well, sleep, appetite are intact Some reports of ?hypomania at times, however pt able to maintain control when limits are addressed with him. Medication Compliance: Yes Side effects from medications: No Attending Groups: Intermittent Review of Systems Acute medical concerns: No Elevated LFT's Hepatitis C + Medical Review of Systems: unchanged Review of Systems Review of Systems Yes all other systems are reviewed and are negative Mental Status Exam Mental Status Exam Patient Appearance: Well Grooomed Patient Orientation: Person, Place, Time and Situation Level of Consciousness: Awake, Appropriate and Alert Patient Behavior: Appropriate, Talkative, Cooperative and Good Eye Contact Mood Description: Calm, Depressed (but less) and Anxious Affect Description: Calm, Appropriate and Anxious Ability to Follow Directions: Good Speech Pattern: Clear and Soft-Spoken Hallucinations: None Delusions: Not Present Thought Process: Intact and Linear Thought Content: positive for Intact (no SI) and positive for Goal Oriented Judgement: Fair Diagnostics Vital Signs (24Hr): Vital Signs - 24 hr 01/02/24 19:54 01/02/24 20:00 01/03/24 08:00 Temperature 97.4 F 97.4 F Pulse Rate 87 85 Respiratory Rate 18 16 Blood Pressure 132/76 140/80 H 128/83 Pulse Oximetry 97 95 Oxygen Delivery Method Room Air Room Air BMI result Body Mass Index 37.4 Labs 12/27/23 10:41 Labs: Laboratory Results - last 48 hr 01/02/24 08:04 Hep Bs Antigen Negative Hep Bs Antibody REACTIVE Hep B Core Total Ab Nonreactive Hepatitis C Ab (EIA) Reactive H Medications Medications Current Medications Acetaminophen (Acetaminophen 325 Mg Tablet) 650 mg PO Q6H PRN PRN Reason: Headache/Pain Mild Scale (1-3) Last Admin: 12/28/23 09:02 Dose: 650 mg Al Hydroxide/Mg Hydroxide (Magnesium Hydrox/Alum Hydrox 30 Ml Oral.Susp) 30 ml PO Q6H PRN PRN Reason: Heartburn/Nausea Last Admin: 12/30/23 00:13 Dose: 30 ml Buspirone HCl (Buspirone Hcl 10 Mg Tablet) 10 mg PO BID [facility] Last Admin: 01/03/24 08:32 Dose: 10 mg Chlorpromazine HCl (Chlorpromazine Hcl 25 Mg Tablet) 50 mg PO TID PRN PRN Reason: anxiety, agitation Last Admin: 01/03/24 08:36 Dose: 50 mg Gabapentin (Gabapentin 300 Mg Capsule) 600 mg PO TID [facility] Last Admin: 01/03/24 08:32 Dose: 600 mg Hydroxyzine HCl (Hydroxyzine Hcl 50 Mg Tablet) 50 mg PO QID PRN PRN Reason: moderate to severe anxiety Last Admin: 01/02/24 19:53 Dose: 50 mg Magnesium Hydroxide (Milk Of Magnesia 30 Ml Oral.Susp) 30 ml PO DAILY PRN PRN Reason: Constipation Metformin HCl (Metformin Hcl 500 Mg Tablet) 500 mg PO BIDWM [facility] Last Admin: 01/03/24 08:32 Dose: 500 mg Methadone HCl (Methadone Hcl 20 Mg/2 Ml Oral.Conc) 190 mg PO DAILY [facility] Last Admin: 01/03/24 07:48 Dose: 190 mg Mirtazapine (Mirtazapine 30 Mg Tablet) 30 mg PO BEDTIME [facility] Last Admin: 01/02/24 19:54 Dose: 30 mg Nicotine (Nicotine 21 Mg Patch.Td24) 21 mg TRANSDERMA DAILY PRN PRN Reason: nicotine cravings Nicotine Polacrilex (Nicotine Polacrilex 2 Mg Gum) 4 mg BUCCAL Q2H PRN PRN Reason: Nicotine Cravings Last Admin: 01/03/24 08:36 Dose: 4 mg Olanzapine (Olanzapine 10 Mg Tablet) 10 mg PO BEDTIME [facility] Last Admin: 01/02/24 19:54 Dose: 10 mg Omeprazole (Omeprazole 20 Mg Capsule.Dr) 20 mg PO BID@0630,1630 [facility] Last Admin: 01/03/24 06:34 Dose: 20 mg Prazosin HCl (Prazosin Hcl 1 Mg Capsule) 1 mg PO BID [facility]; Protocol Last Admin: 01/03/24 08:32 Dose: 1 mg Simethicone (Simethicone 80 Mg Tab.Chew) 80 mg PO QIDWMHS PRN PRN Reason: Indigestion Trazodone HCl (Trazodone Hcl 50 Mg Tablet) 50 mg PO BEDTIME MRX1 PRN PRN Reason: Insomnia Last Admin: 01/02/24 19:53 Dose: 50 mg Allergies Allergies Allergy/AdvReac Type Severity Reaction Status Date / Time vancomycin Allergy Severe Rash Verified 12/23/23 14:11 Assessment & Plan Assessment & Plan (1) Major depression, recurrent: Status: Acute Code(s): F33.9 - Major depressive disorder, recurrent, unspecified (2) Heroin dependence: Status: Acute Code(s): F11.20 - Opioid dependence, uncomplicated Plan Aron was admitted to the unit for safety and stabilization. He declined to sign a CV but we will approach him later on when he is more alert. Current medications were continued. He was requesting Klonopin which I did not order for him. 12/24: Continue current regimen and plans 12/26: Olanzapine 10 mg HS 12/29/23 Valproate 250 mg bid Chlorpromazine prn 12/29: Continue current treatment plan. 12/30 says still depressed but overall feeling better; anxiety still present but appreciates thorazine. When he wakes up, has a pedersen of thoughts regarding his psychosocial problems but then he gets up and is learning to cope with it. -will order depakote levels; associated labs -Remains in good behavioral and impulse control 12/31Patient reports mood remains better. No SI. He says that here, in the structured setting he is overall doing well and not so overwhelmed by worries about life. However he is concerned about how he will deal with anxiety wants discharge. Continues to say Thorazine is helpful. Patient has remained in good behavioral and impulse control and overall appropriate with peers and staff. -LFTs elevated with ALT higher than AST; denies any IV drug use; will get hep B/C profile 01/03/24 Increase Methadone from 190 mg daily to 195 mg daily Reason for continued inpatient stay Substantial Risk for: med/psych decompensation Time Spent With Patient Time: Total time managing care of this patient today ____ minutes.
[2024-01-03] MEDS: hydrOXYzine HCL 50 MG TABLET PO (11:33)
[2024-01-03 15:23] LABS: HCV Log PCR <1.18 NOT DETECTED Log IU/mL (NOT DETECTED); HepC Viral Load <15 NOT DETECTED IU/mL (NOT DETECTED)
[2024-01-03 20:00] VITALS: BP 129/79; PULSE 89; TEMP 36.5
[2024-01-03] MEDS: traZODone HCL 50 MG TABLET PO (21:17)
[2024-01-03] MEDS: Mirtazapine 30 MG TABLET PO (21:18)
[2024-01-03] MEDS: OLANZapine 10 MG TABLET PO (21:19)
[2024-01-03 21:20] VITALS: BP 129/74
[2024-01-04] MEDS: methADONE HCl 20 MG/2 ML ORAL.CONC 195 MG PO (08:04)
[2024-01-04] MEDS: Omeprazole 20 MG CAPSULE.DR PO ×2 (08:27→16:08)
[2024-01-04] MEDS: Prazosin HCL 1 MG CAPSULE PO ×2 (08:27→20:10)
[2024-01-04] MEDS: metFORMIN HCl 500 MG TABLET PO ×2 (08:27→16:08)
[2024-01-04] MEDS: Gabapentin 300 MG CAPSULE 600 MG PO ×3 (08:27→20:10)
[2024-01-04] MEDS: busPIRone HCl 10 MG TABLET PO ×2 (08:27→20:10)
[2024-01-04] MEDS: chlorproMAZINE HCl 25 MG TABLET 50 MG PO ×3 (08:37→20:10)
[2024-01-04] MEDS: Nicotine Polacrilex 2 MG GUM 4 MG BUCCAL ×6 (08:39→23:18)
[2024-01-04 09:07] VITALS: BP 160/88; PULSE 83; RESP 18; TEMP 36.6; O2SAT 97
[2024-01-04] MEDS: hydrOXYzine HCL 50 MG TABLET PO (15:20)
--- NOTE | 2024-01-04 19:03 | HO.PSYCHPN ---
Subjective Subjective Date of Service: 01/04/24 Reason For Visit: Depression, substance use Subjective Notes: Conditional Voluntary and 3 Day Healthcare Proxy: No Guardianship: No Medical Problems Affecting Mental Status: No Interim History: Reports methadone increase to be helpful with sx mgt. Continues to plan discharge for 01/06/24. Plans to go to father's home in [place], has declined [facility]. Denies SI/HI/AH/VH No sx of psychosis/heriberto Medication Compliance: Yes Side effects from medications: No Attending Groups: Intermittent Review of Systems Acute medical concerns: No Medical Review of Systems: unchanged Review of Systems Review of Systems Yes all other systems are reviewed and are negative Mental Status Exam Mental Status Exam Patient Appearance: Well Grooomed Patient Orientation: Person, Place, Time and Situation Level of Consciousness: Awake, Appropriate and Alert Patient Behavior: Appropriate, Talkative, Cooperative and Good Eye Contact Mood Description: Calm, Depressed (but less) and Anxious Affect Description: Calm, Appropriate and Anxious Ability to Follow Directions: Good Speech Pattern: Clear and Soft-Spoken Hallucinations: None Delusions: Not Present Thought Process: Intact and Linear Thought Content: positive for Intact (no SI) and positive for Goal Oriented Judgement: Fair Diagnostics Vital Signs (24Hr): Vital Signs - 24 hr 01/03/24 20:00 01/03/24 21:20 01/04/24 09:07 Temperature 97.7 F 97.9 F Pulse Rate 89 83 Respiratory Rate 18 Blood Pressure 129/79 129/74 160/88 H Pulse Oximetry 97 Oxygen Delivery Method Room Air BMI result Body Mass Index 37.4 Labs 12/27/23 10:41 Labs: Laboratory Results - last 48 hr 01/02/24 11:36 Hep C Viral Load <15 NOT DETECTED Hep C Viral Load Log <1.18 NOT DETECTED Medications Medications Current Medications Acetaminophen (Acetaminophen 325 Mg Tablet) 650 mg PO Q6H PRN PRN Reason: Headache/Pain Mild Scale (1-3) Last Admin: 12/28/23 09:02 Dose: 650 mg Al Hydroxide/Mg Hydroxide (Magnesium Hydrox/Alum Hydrox 30 Ml Oral.Susp) 30 ml PO Q6H PRN PRN Reason: Heartburn/Nausea Last Admin: 12/30/23 00:13 Dose: 30 ml Buspirone HCl (Buspirone Hcl 10 Mg Tablet) 10 mg PO BID JENELLE Last Admin: 01/04/24 08:27 Dose: 10 mg Chlorpromazine HCl (Chlorpromazine Hcl 25 Mg Tablet) 50 mg PO TID PRN PRN Reason: anxiety, agitation Last Admin: 01/04/24 15:20 Dose: 50 mg Gabapentin (Gabapentin 300 Mg Capsule) 600 mg PO TID [facility] Last Admin: 01/04/24 14:08 Dose: 600 mg Hydroxyzine HCl (Hydroxyzine Hcl 50 Mg Tablet) 50 mg PO QID PRN PRN Reason: moderate to severe anxiety Last Admin: 01/04/24 15:20 Dose: 50 mg Magnesium Hydroxide (Milk Of Magnesia 30 Ml Oral.Susp) 30 ml PO DAILY PRN PRN Reason: Constipation Metformin HCl (Metformin Hcl 500 Mg Tablet) 500 mg PO BIDWM [facility] Last Admin: 01/04/24 16:08 Dose: 500 mg Methadone HCl (Methadone Hcl 20 Mg/2 Ml Oral.Conc) 195 mg PO DAILY [facility] Last Admin: 01/04/24 08:04 Dose: 195 mg Mirtazapine (Mirtazapine 30 Mg Tablet) 30 mg PO BEDTIME [facility] Last Admin: 01/03/24 21:18 Dose: 30 mg Nicotine (Nicotine 21 Mg Patch.Td24) 21 mg TRANSDERMA DAILY PRN PRN Reason: nicotine cravings Nicotine Polacrilex (Nicotine Polacrilex 2 Mg Gum) 4 mg BUCCAL Q2H PRN PRN Reason: Nicotine Cravings Last Admin: 01/04/24 18:49 Dose: 4 mg Olanzapine (Olanzapine 10 Mg Tablet) 10 mg PO BEDTIME [facility] Last Admin: 01/03/24 21:19 Dose: 10 mg Omeprazole (Omeprazole 20 Mg Capsule.Dr) 20 mg PO BID@0630,1630 [facility] Last Admin: 01/04/24 16:08 Dose: 20 mg Prazosin HCl (Prazosin Hcl 1 Mg Capsule) 1 mg PO BID [facility]; Protocol Last Admin: 01/04/24 08:27 Dose: 1 mg Simethicone (Simethicone 80 Mg Tab.Chew) 80 mg PO QIDWMHS PRN PRN Reason: Indigestion Trazodone HCl (Trazodone Hcl 50 Mg Tablet) 50 mg PO BEDTIME MRX1 PRN PRN Reason: Insomnia Last Admin: 01/03/24 21:17 Dose: 50 mg Allergies Allergies Allergy/AdvReac Type Severity Reaction Status Date / Time vancomycin Allergy Severe Rash Verified 12/23/23 14:11 Assessment & Plan Assessment & Plan (1) Major depression, recurrent: Status: Acute Code(s): F33.9 - Major depressive disorder, recurrent, unspecified (2) Heroin dependence: Status: Acute Code(s): F11.20 - Opioid dependence, uncomplicated Plan Aron was admitted to the unit for safety and stabilization. He declined to sign a CV but we will approach him later on when he is more alert. Current medications were continued. He was requesting Klonopin which I did not order for him. 12/24: Continue current regimen and plans 12/26: Olanzapine 10 mg HS 12/29/23 Valproate 250 mg bid Chlorpromazine prn 12/29: Continue current treatment plan. 12/30 says still depressed but overall feeling better; anxiety still present but appreciates thorazine. When he wakes up, has a pedersen of thoughts regarding his psychosocial problems but then he gets up and is learning to cope with it. -will order depakote levels; associated labs -Remains in good behavioral and impulse control 12/31Patient reports mood remains better. No SI. He says that here, in the structured setting he is overall doing well and not so overwhelmed by worries about life. However he is concerned about how he will deal with anxiety wants discharge. Continues to say Thorazine is helpful. Patient has remained in good behavioral and impulse control and overall appropriate with peers and staff. -LFTs elevated with ALT higher than AST; denies any IV drug use; will get hep B/C profile 01/03/24 Increase Methadone from 190 mg daily to 195 mg daily 01/04/24: Continue tx. Reason for continued inpatient stay Substantial Risk for: rapid decompensation and med/psych decompensation Time Spent With Patient Time: Total time managing care of this patient today ____ minutes.
[2024-01-04 19:54] VITALS: BP 144/88; PULSE 93; TEMP 35.9; O2SAT 100
[2024-01-04] MEDS: Mirtazapine 30 MG TABLET PO (20:10)
[2024-01-04] MEDS: OLANZapine 10 MG TABLET PO (20:10)
[2024-01-04] MEDS: traZODone HCL 50 MG TABLET PO ×2 (20:10→23:18)
[2024-01-05] MEDS: Omeprazole 20 MG CAPSULE.DR PO ×2 (06:52→16:16)
[2024-01-05] MEDS: methADONE HCl 20 MG/2 ML ORAL.CONC 195 MG PO (07:45)
[2024-01-05 08:30] VITALS: BP 122/69; PULSE 75; RESP 18; TEMP 36.3; O2SAT 95
[2024-01-05] MEDS: busPIRone HCl 10 MG TABLET PO ×2 (09:00→20:02)
[2024-01-05] MEDS: Gabapentin 300 MG CAPSULE 600 MG PO ×3 (09:00→20:02)
[2024-01-05] MEDS: Prazosin HCL 1 MG CAPSULE PO ×2 (09:00→20:01)
[2024-01-05] MEDS: metFORMIN HCl 500 MG TABLET PO ×2 (09:00→16:16)
[2024-01-05] MEDS: chlorproMAZINE HCl 25 MG TABLET 50 MG PO ×2 (09:01→20:02)
[2024-01-05] MEDS: Nicotine Polacrilex 2 MG GUM 4 MG BUCCAL ×6 (09:42→23:25)
[2024-01-05 10:42] VITALS: BMI 37.7
--- NOTE | 2024-01-05 12:05 | HO.PSYCHPN ---
Subjective Subjective Date of Service: 01/05/24 Reason For Visit: Depression, substance use Subjective Notes: Conditional Voluntary and 3 Day Healthcare Proxy: No Guardianship: No Medical Problems Affecting Mental Status: No Interim History: TDN effective 01/06/24. Pt is planning discharge. Today discussed ongoing plans to maintain sobriety, continue medications and treatment. I feel better when I am doing the right things for myself. Medication Compliance: Yes Side effects from medications: No Attending Groups: Intermittent Review of Systems Acute medical concerns: No Medical Review of Systems: unchanged Review of Systems Review of Systems Yes all other systems are reviewed and are negative Mental Status Exam Mental Status Exam Patient Appearance: Well Grooomed Patient Orientation: Person, Place, Time and Situation Level of Consciousness: Awake, Appropriate and Alert Patient Behavior: Appropriate, Talkative, Cooperative and Good Eye Contact Mood Description: Calm, Depressed (but less) and Anxious Affect Description: Calm, Appropriate and Anxious Ability to Follow Directions: Good Speech Pattern: Clear and Soft-Spoken Hallucinations: None Delusions: Not Present Thought Process: Intact and Linear Thought Content: positive for Intact (no SI) and positive for Goal Oriented Judgement: Fair Diagnostics Vital Signs (24Hr): Vital Signs - 24 hr 01/04/24 19:54 01/05/24 08:30 Temperature 96.7 F L 97.3 F Pulse Rate 93 75 Respiratory Rate 18 Blood Pressure 144/88 H 122/69 Pulse Oximetry 100 95 Oxygen Delivery Method Room Air Room Air BMI result Body Mass Index 37.7 Labs 12/27/23 10:41 Labs: Laboratory Results - last 48 hr 01/02/24 11:36 Hep C Viral Load <15 NOT DETECTED Hep C Viral Load Log <1.18 NOT DETECTED Medications Medications Current Medications Acetaminophen (Acetaminophen 325 Mg Tablet) 650 mg PO Q6H PRN PRN Reason: Headache/Pain Mild Scale (1-3) Last Admin: 12/28/23 09:02 Dose: 650 mg Al Hydroxide/Mg Hydroxide (Magnesium Hydrox/Alum Hydrox 30 Ml Oral.Susp) 30 ml PO Q6H PRN PRN Reason: Heartburn/Nausea Last Admin: 12/30/23 00:13 Dose: 30 ml Buspirone HCl (Buspirone Hcl 10 Mg Tablet) 10 mg PO BID JENELLE Last Admin: 01/05/24 09:00 Dose: 10 mg Chlorpromazine HCl (Chlorpromazine Hcl 25 Mg Tablet) 50 mg PO TID PRN PRN Reason: anxiety, agitation Last Admin: 01/05/24 09:01 Dose: 50 mg Gabapentin (Gabapentin 300 Mg Capsule) 600 mg PO TID COUNT INCLUDES [facility] Last Admin: 01/05/24 09:00 Dose: 600 mg Hydroxyzine HCl (Hydroxyzine Hcl 50 Mg Tablet) 50 mg PO QID PRN PRN Reason: moderate to severe anxiety Last Admin: 01/04/24 15:20 Dose: 50 mg Magnesium Hydroxide (Milk Of Magnesia 30 Ml Oral.Susp) 30 ml PO DAILY PRN PRN Reason: Constipation Metformin HCl (Metformin Hcl 500 Mg Tablet) 500 mg PO BIDWM COUNT INCLUDES [facility] Last Admin: 01/05/24 09:00 Dose: 500 mg Methadone HCl (Methadone Hcl 20 Mg/2 Ml Oral.Conc) 195 mg PO DAILY COUNT INCLUDES [facility] Last Admin: 01/05/24 07:45 Dose: 195 mg Mirtazapine (Mirtazapine 30 Mg Tablet) 30 mg PO BEDTIME COUNT INCLUDES [facility] Last Admin: 01/04/24 20:10 Dose: 30 mg Nicotine (Nicotine 21 Mg Patch.Td24) 21 mg TRANSDERMA DAILY PRN PRN Reason: nicotine cravings Nicotine Polacrilex (Nicotine Polacrilex 2 Mg Gum) 4 mg BUCCAL Q2H PRN PRN Reason: Nicotine Cravings Last Admin: 01/05/24 09:42 Dose: 4 mg Olanzapine (Olanzapine 10 Mg Tablet) 10 mg PO BEDTIME [facility]CLUDES [facility] Last Admin: 01/04/24 20:10 Dose: 10 mg Omeprazole (Omeprazole 20 Mg Capsule.Dr) 20 mg PO BID@0630,1630 [facility]CLUDES [facility] Last Admin: 01/05/24 06:52 Dose: 20 mg Prazosin HCl (Prazosin Hcl 1 Mg Capsule) 1 mg PO BID COUNT INCLUDES [facility]; Protocol Last Admin: 01/05/24 09:00 Dose: 1 mg Simethicone (Simethicone 80 Mg Tab.Chew) 80 mg PO QIDWMHS PRN PRN Reason: Indigestion Trazodone HCl (Trazodone Hcl 50 Mg Tablet) 50 mg PO BEDTIME MRX1 PRN PRN Reason: Insomnia Last Admin: 01/04/24 23:18 Dose: 50 mg Allergies Allergies Allergy/AdvReac Type Severity Reaction Status Date / Time vancomycin Allergy Severe Rash Verified 12/23/23 14:11 Assessment & Plan Assessment & Plan (1) Major depression, recurrent: Status: Acute Code(s): F33.9 - Major depressive disorder, recurrent, unspecified (2) Heroin dependence: Status: Acute Code(s): F11.20 - Opioid dependence, uncomplicated Plan Aron was admitted to the unit for safety and stabilization. He declined to sign a CV but we will approach him later on when he is more alert. Current medications were continued. He was requesting Klonopin which I did not order for him. 12/24: Continue current regimen and plans 12/26: Olanzapine 10 mg HS 12/29/23 Valproate 250 mg bid Chlorpromazine prn 12/29: Continue current treatment plan. 12/30 says still depressed but overall feeling better; anxiety still present but appreciates thorazine. When he wakes up, has a pedersen of thoughts regarding his psychosocial problems but then he gets up and is learning to cope with it. -will order depakote levels; associated labs -Remains in good behavioral and impulse control 12/31Patient reports mood remains better. No SI. He says that here, in the structured setting he is overall doing well and not so overwhelmed by worries about life. However he is concerned about how he will deal with anxiety wants discharge. Continues to say Thorazine is helpful. Patient has remained in good behavioral and impulse control and overall appropriate with peers and staff. -LFTs elevated with ALT higher than AST; denies any IV drug use; will get hep B/C profile 01/03/24 Increase Methadone from 190 mg daily to 195 mg daily 01/05/24 Discharge 01/06/24 Patient educated on: therapeutic strategies Informed Consent: understands Reason for continued inpatient stay Substantial Risk for: rapid decompensation Time Spent With Patient Time: Total time managing care of this patient today ____ minutes.
[2024-01-05] MEDS: Milk of Magnesia 30 ML ORAL.SUSP PO (14:39)
[2024-01-05 20:00] VITALS: BP 152/83; PULSE 94; TEMP 36.4; O2SAT 99
[2024-01-05 20:01] VITALS: BP 152/83
[2024-01-05] MEDS: traZODone HCL 50 MG TABLET PO ×2 (20:02→23:25)
[2024-01-05] MEDS: OLANZapine 10 MG TABLET PO (20:02)
[2024-01-05] MEDS: Mirtazapine 30 MG TABLET PO (20:02)
[2024-01-06] MEDS: Omeprazole 20 MG CAPSULE.DR PO (06:43)
[2024-01-06] MEDS: Nicotine Polacrilex 2 MG GUM 4 MG BUCCAL ×2 (06:49→09:16)
[2024-01-06] MEDS: methADONE HCl 20 MG/2 ML ORAL.CONC 195 MG PO (07:52)
[2024-01-06 08:00] VITALS: BP 142/85; PULSE 98; RESP 14; TEMP 36.8; O2SAT 94
[2024-01-06] MEDS: Gabapentin 300 MG CAPSULE 600 MG PO (09:01)
[2024-01-06] MEDS: metFORMIN HCl 500 MG TABLET PO (09:01)
[2024-01-06] MEDS: Prazosin HCL 1 MG CAPSULE PO (09:01)
[2024-01-06] MEDS: busPIRone HCl 10 MG TABLET PO (09:01)
--- NOTE | 2024-01-06 10:36 | PM.PSYDC ---
DS: Providers Provider Date of Service: 01/06/24 Date of admission: 12/23/23 13:46 Date of discharge: 01/06/24 Primary care physician: Unknown Physician Admitting clinician: Steve Clark Attending physician on admission: Steve Clark Consults: 12/23/23 14:11 Consult to Hospitalist Routine Comment: Consulting Provider: Hospitalist Reason For Exam: Transfer pt 12/23/23 17:00 Addiction Medicine Routine Consulting Provider: Addiction Covering Reason for consultation: active cocaine, heroin, MJ, fentanyl use Has provider been notified: Yes Attending physician on discharge: Saji Brown Discharging clinician: Lucero aKuffman DS: Diagnosis Discharge Diagnosis (1) Major depression, recurrent: Status: Acute (2) Heroin dependence: Status: Acute DS: Medications Discharge Medications Home Medications: Home Medications ?Medication ?Instructions ?Recorded ?Confirmed metformin 500 mg tablet 500 mg PO BID 12/23/23 12/23/23 Previous Rx's ?Medication ?Instructions ?Recorded buspirone 10 mg tablet 10 mg PO BID #60 tabs 01/06/24 chlorpromazine 25 mg tablet 50 mg (2 x 25 mg) PO TID PRN 01/06/24 anxiety, agitation #15 tabs gabapentin 600 mg tablet 600 mg PO TID #21 tabs 01/06/24 hydroxyzine pamoate 50 mg capsule 50 mg PO QID PRN moderate to 01/06/24 severe anxiety #30 caps methadone 10 mg/mL oral 195 mg (19.5 mL) PO DAILY #0 mL 01/06/24 concentrate (Methadose) mirtazapine 30 mg tablet 30 mg PO BEDTIME #30 tabs 01/06/24 nicotine (polacrilex) 4 mg gum 4 mg buccal Q1H #110 ea 01/06/24 olanzapine 10 mg tablet 10 mg PO BEDTIME #30 tabs 01/06/24 omeprazole 20 mg capsule,delayed 20 mg PO BID@0630,1630 #60 caps 01/06/24 release prazosin 1 mg capsule 1 mg PO BID #60 caps 01/06/24 trazodone 50 mg tablet 50 mg PO BEDTIME PRN Sleep #30 tabs 01/06/24 Mental Status Exam Mental Status Exam Patient Appearance: Well Grooomed Patient Orientation: Person, Place, Time and Situation Level of Consciousness: Awake, Appropriate and Alert Patient Behavior: Appropriate, Talkative, Cooperative and Good Eye Contact Mood Description: Calm, Depressed (but less) and Anxious Affect Description: Calm, Appropriate and Anxious Ability to Follow Directions: Good Speech Pattern: Clear and Soft-Spoken Hallucinations: None Delusions: Not Present Thought Process: Intact and Linear Thought Content: positive for Intact (no SI) and positive for Goal Oriented Judgement: Fair Data Data Completed and Pending Completed studies during hospitalization [Text1]: 01/01/24 01/02/24 01/02/24 08:27 08:04 11:36 Total Bilirubin 0.3 Direct Bilirubin 0.1 AST 118 H ALT 146 H Alkaline Phosphatase 158 H Ammonia 63 H Total Protein 8.4 H Albumin 4.5 Valproic Acid 23.4 L Hep Bs Antigen Negative Hep Bs Antibody REACTIVE Hep B Core Total Ab Nonreactive Hepatitis C Ab (EIA) Reactive H Hep C Viral Load <15 NOT DETECTED Hep C Viral Load Log <1.18 NOT DETECTED Hepatitis C Genotype Pending DS: Summary Hospital Course Hospital Course: Admission to adult psychiatry for exacerbation of recurrent major depression with psychosis and opiate use disorder, currently on Methadone. Pt has been in [place] for over a year, coming from [place]. He was staying with family, then became homeless due to conflicts with family, break up with a partner with resulting SI, and family not being able to take him in due to housing regulations. He discussed that he feels his family does not care for him, thus wanting to increase independence and find new independent activities for himself along with work. Medications were evaluated and adjusted. Full milieu was offered to pt. Pt, when feeling improved, signed a three day notice of intent. He plans to go to his fathers home for a visit and will continue out patient care locally. Time spent discussing smoking cessation with patient: 3 to 10 minutes Status at Discharge Functional status at discharge: independent ambulation Overall status at discharge: patient is progressing back to baseline Time Spent with Patient Time attestation: Total time managing care of this patient today ____ minutes. Time spent: Less than 30 minutes Discharge Plan Discharge Anticipated Discharge Date/Time: 01/06/24 12:00 Patient Disposition: Xfer Other Discharge Diagnosis: Opiate use disorder- Methadone maintenance Recurrent major depression Referrals: N Medication Management with [facility] [Other] - 01/17/24 2:00 pm (Virtual Appointment - they will send a link to your phone.) Physician,Unknown J [Primary Care Provider] - 1 Week (Pt declined) Discharge Medications: New chlorpromazine 25 mg Tablet 50 mg PO TID PRN (Reason: anxiety, agitation) Qty: 15 0RF buspirone 10 mg Tablet 10 mg PO BID Qty: 60 0RF omeprazole 20 mg Capsule,Delayed Release(Dr/Ec) 20 mg PO BID@0630,1630 Qty: 60 0RF methadone [Methadose] 10 mg/mL Concentrate 195 mg PO DAILY Qty: 0 0RF Rx Instructions: Partial Fill upon patient request. gabapentin 600 mg tablet 600 mg PO TID Qty: 21 4RF naloxone [Narcan] 4 mg/actuation spray,non-aerosol 4 mg intranasal Q2M PRN (Reason: opioid overdose) Qty: 2 0RF Rx Instructions: spray 1 dose into ONE nostril; alternate nostrils w each dose until help arrives Continued metformin 500 mg Tablet 500 mg PO BID trazodone 50 mg Tablet 50 mg PO BEDTIME PRN (Reason: Sleep) Qty: 30 0RF prazosin 1 mg Capsule 1 mg PO BID Qty: 60 0RF Rx Instructions: 1 capsule for flashbacks and 1 for nightmares hydroxyzine pamoate 50 mg Capsule 50 mg PO QID PRN (Reason: moderate to severe anxiety) Qty: 30 0RF olanzapine 10 mg Tablet 10 mg PO BEDTIME Qty: 30 0RF nicotine (polacrilex) 4 mg Gum 4 mg BUCCAL Q1H Qty: 110 0RF mirtazapine 30 mg Tablet 30 mg PO BEDTIME Qty: 30 0RF Discontinued buspirone 5 mg Tablet 5 mg PO BID nicotine 21 mg/24 hr Patch 24 Hour 21 mg topical DAILY gabapentin 300 mg Capsule 600 mg PO TID escitalopram oxalate 10 mg Tablet 10 mg PO DAILY Discharge Orders: Discharge Order (Routine); Ordered 01/06/24 Ordered By: Lucero Kauffman Diet: Advance to usual diet Activity on Discharge: As tolerated Stand Alone Forms: Patient Portal Discharge page, Community Support Print Language: [place] Care Plan Goals: Mood and Behavioral Stabilization Abstinence from Substances Health Concerns: Mood and Behavioral Stabilization Abstinence from Substances Plan of Treatment: Attend scheduled appointments Take medications as directed Assessment: Discharges today on a three day notice of intent No SI/HI/AH/VH, sx of psychosis or heriberto Discharge Date/Time: 01/06/24 11:00
[2024-01-06 10:44] LABS: Hepatitis C Genotype Not Detected
== END 2024-01-06 11:00 | disposition other institution (70) | DRG 751 ==
PROVIDERS: Psychiatry & Neurology Psychiatry; Admitting Provider Clinical Nurse Specialist Psychiatric/Mental Health, Adult; Visit Provider Clinical Nurse Specialist Psychiatric/Mental Health, Adult
DX: F33.9 Major depressive disorder, recurrent, unspecified (principal); R45.851 Suicidal ideations; E11.42 Type 2 diabetes mellitus with diabetic polyneuropathy; F19.90 Other psychoactive substance use, unspecified, uncomplicated; F11.20 Opioid dependence, uncomplicated; F90.9 Attention-deficit hyperactivity disorder, unspecified type; F17.210 Nicotine dependence, cigarettes, uncomplicated; F43.10 Post-traumatic stress disorder, unspecified; Z71.6 Tobacco abuse counseling; Z59.02 Unsheltered homelessness; Z79.84 Long term (current) use of oral hypoglycemic drugs; Z79.899 Other long term (current) drug therapy
CPT/HCPCS: 36415; 80076; 80164; 82140; 82565; 86704; 86706; 86803; 87340; 87522; 87902; 93005

== ENCOUNTER → 2023-12-23 13:46 | Outpatient (BNV) | payer MEDICAID, SELFPAY | PROVIDERS: Admitting Provider Clinical Nurse Specialist Psychiatric/Mental Health, Adult; Visit Provider Student in an Organized Health Care Education/Training Program | DX: Z02.2 Encounter for examination for admission to residential institution (principal) | CPT/HCPCS: 99429 ==

== ENCOUNTER → 2023-12-23 13:46 | Outpatient (BNV) | payer OTHER, SELFPAY | PROVIDERS: Admitting Provider Clinical Nurse Specialist Psychiatric/Mental Health, Adult; Visit Provider Psychiatry & Neurology Psychiatry | DX: F33.2 Major depressive disorder, recurrent severe without psychotic features (principal); F11.20 Opioid dependence, uncomplicated | CPT/HCPCS: 99231; 99232 ==

== ENCOUNTER 2024-06-01 07:26 | Inpatient (IN) | payer OTHER, SELFPAY ==
[2024-06-01 07:31] VITALS: BP 134/95; PULSE 103; PULSE 107; RESP 18; TEMP 36.4; O2SAT 96; O2SAT 99; BMI 39.5
--- NOTE | 2024-06-01 07:33 | ECG_ITS ---
Test Reason : check qtc Blood Pressure : */* mmHG Vent. Rate : 83 BPM Atrial Rate : 83 BPM P-R Int : 138 ms QRS Dur : 88 ms QT Int : 402 ms P-R-T Axes : 46 46 61 degrees QTcB Int : 472 ms Normal sinus rhythm Nonspecific T wave abnormality Prolonged QT Abnormal ECG When compared with ECG of 23-Dec-2023 15:19, No significant change was found Referred By: Renetta Banks Electronically Signed By: TIMMY LOZOYA MD
--- NOTE | 2024-06-01 07:46 | ED.PSYCH ---
HPI - Psych General Chief Complaint: Psychiatric Symptoms Stated Complaint: SI W/PLAN PER EMS Source: patient Mode of arrival: ambulatory Limitations: no limitations History of Present Illness ED Provider: EMELYN ZAMARRIPA Narrative: 39 yo male with PMH of opiate use disorder on methadone 195mg daily, depression he states he is not doing well has been at a long-term and c/o SI and depression. He notes AH as well. He states he is not actively using. He has no medical complaints - cough, fever, rash. MD complaint: suicidal ideation, feels depressed and hallucinations Onset (ago): week(s) Duration: intermittent History of same: Yes Relieving factors: none Exacerbating factors: other Context: significant life stressor Associated psychiatric symptoms: depression, suicidal ideation and auditory hallucinations Associated symptoms: denies other symptoms Treatments prior to arrival: none Related Data Home Medications ?Medication ?Instructions ?Recorded ?Confirmed metformin 500 mg tablet 500 mg PO BID 12/23/23 06/01/24 Previous Rx's ?Medication ?Instructions ?Recorded buspirone 10 mg tablet 10 mg PO BID #60 tabs 01/06/24 chlorpromazine 25 mg tablet 50 mg (2 x 25 mg) PO TID PRN 01/06/24 anxiety, agitation #15 tabs gabapentin 600 mg tablet 600 mg PO TID #21 tabs 01/06/24 hydroxyzine pamoate 50 mg capsule 50 mg PO QID PRN moderate to 01/06/24 severe anxiety #30 caps methadone 10 mg/mL oral 195 mg (19.5 mL) PO DAILY #0 mL 01/06/24 concentrate (Methadose) mirtazapine 30 mg tablet 30 mg PO BEDTIME #30 tabs 01/06/24 naloxone 4 mg/actuation nasal 4 mg intranasal Q2M PRN opioid 01/06/24 spray (Narcan) overdose #2 ea nicotine (polacrilex) 4 mg gum 4 mg buccal Q1H #110 ea 01/06/24 olanzapine 10 mg tablet 10 mg PO BEDTIME #30 tabs 01/06/24 omeprazole 20 mg capsule,delayed 20 mg PO BID@0630,1630 #60 caps 01/06/24 release prazosin 1 mg capsule 1 mg PO BID #60 caps 01/06/24 trazodone 50 mg tablet 50 mg PO BEDTIME PRN Sleep #30 tabs 01/06/24 Allergies Allergy/AdvReac Type Severity Reaction Status Date / Time vancomycin Allergy Severe Rash Verified 06/01/24 07:38 Review of Systems Review of Systems: Constitutional : No Fever, No Chills ENT/Mouth : No Ear Pain, No Nasal Congestion, No sore throat Eyes: No Eye Pain, No Swelling, No Redness Cardiovascular : No Chest Pain, No SOB Respiratory : No Cough, No Sputum, No Dyspnea Gastrointestinal : No Nausea, No Vomiting, No Diarrhea, No Hematochezia, No Melena Genitourinary : No Dysuria, No Urinary Frequency, No Hematuria Musculoskeletal : No Myalgias Skin : No Skin Lesions, No rash Neuro : No Weakness, No Numbness, No Paresthesias, No Dizziness, No Headache Psych : positive Anxiety, positive Depression, positive SI no HI, pos AH All other systems reviewed and are negative PMFSH Past Medical History Attestation statement: The following information was validated with the patient. Source: old records reviewed Medical History ADHD Non-insulin dependent type 2 diabetes mellitus Polysubstance use disorder PTSD (post-traumatic stress disorder) Social History Social History Housing: Homeless Do you presently have visiting nurse or other home services: No Patient Tobacco Use Status: Current everyday Tobacco user Tobacco use type: Cigarette Cigarette Packs Per Day: 1 Cigarettes Per Day: 20.0 Years Smoked: unsure Smoked in Last 30 Days: No e-Cigarette/Vaping Use: Currently Using Second Hand Smoke Exposure: No Use of substances other than those prescribed or required for medical reasons: Yes Substance Use Type: Crack/Cocaine, Heroin, Marijuana and Other Advance Directives: No Advance Directives Information Provided: Yes Do you have a plan to hurt others: No Plan service: No Sexual orientation: Straight/Heterosexual Physical Exam Vital Signs: Vital Signs: Last Vital Signs Temp 97.6 F 06/01/24 07:31 Pulse 103 H 06/01/24 07:31 Resp 18 06/01/24 07:31 BP 134/95 H 06/01/24 07:31 Pulse Ox 96 06/01/24 07:31 O2 Del Method Room Air 06/01/24 07:31 BMI result Body Mass Index 39.5 Appearance: Alert. Oriented X3. No acute distress. Flat affect Eyes: Pupils equal, round and reactive to light. ENT: Pharynx normal. Neck: Normal inspection. Neck supple. CVS: Normal heart rate and rhythm. Pulses normal. Respiratory: No respiratory distress. Breath sounds normal. Abdomen: Soft and nontender. Skin: Skin warm and dry. Normal skin color. Normal skin turgor. Extremities: No lower extremity edema. No calf ttp Neuro: Oriented X 3. No motor deficit. No sensory deficit. CN2-12 intact Course Course Course Narrative: observation care revealed that the patient does meet psychiatric necessity for hospitalization. final disposition discussed with the patient. The patient completed observation care at 4pm admit here Medications Administered Generic Name Dose Route Start Last Admin Trade Name Freq PRN Reason Stop Dose Admin Gabapentin 600 mg 06/01/24 15:00 06/01/24 15:34 Gabapentin 600 Mg Tablet PO 600 mg TID JENELLE Administration Methadone HCl 195 mg 06/01/24 09:45 06/01/24 10:00 Methadone Hcl 20 Mg/2 Ml Oral.Conc PO 195 mg DAILY JENELLE Administration Nicotine Polacrilex 4 mg 06/01/24 13:30 06/01/24 15:10 Nicotine Polacrilex 2 Mg Gum BUCCAL Not Given Q1H JENLELE Omeprazole 20 mg 06/01/24 16:30 06/01/24 15:34 Omeprazole 20 Mg Capsule. PO 20 mg BID@1470,4454 JNEELLE Administration Medical Decision Making Medical Decision Making [facility] Narrative: 39 yo male with PMH of opiate use disorder on methadone 195mg daily, depression here with c/o SI, depression, AH at this time he denies medical complaints will obtain labs, care team consult. Start on his methadone Differential Diagnosis Differential Diagnoses: The differential diagnosis associated with the presentation includes depression, poor social support Admission/Observation Consideration of admission/observation: Escalation of care including admission/observation considered physician observation started at 755am Lab Data [facility] Lab Attestation statement: I reviewed the patient's lab results. 06/01/24 13:07 06/01/24 13:07 Labs: Lab Results 06/01/24 06/01/24 Range/Units 08:02 13:07 WBC 10.1 (4.8-10.8) X10*3/uL RBC 5.75 (4.60-5.80) X10*6/uL Hgb 16.6 (14.0-18.0) g/dl Hct 46.7 (42.0-52.0) % MCV 81.2 (80.0-98.0) fL MCH 28.9 (27.0-33.0) pg MCHC 35.5 (31.0-36.0) g/dl RDW 13.2 (11.0-16.0) % Plt Count 302 (160-400) X10*3/uL MPV 10.2 (9.4-12.4) fL Immature Gran % (Auto) 0.4 (0.0-0.4) % Neut % (Auto) 58.8 (45-73) % Lymph % (Auto) 29.7 (20-40) % Gila % (Auto) 7.9 (2-11) % Eos % (Auto) 2.4 (0-4) % Baso % (Auto) 0.8 (0-2) % Lymph # (Auto) 3.0 (1.2-4.9) X10*3/uL [place]ila # (Auto) 0.8 (0.1-1.2) X10*3/uL Eos # (Auto) 0.2 (0.0-0.4) X10*3/uL Baso # (Auto) 0.1 (0.0-0.2) X10*3/uL Abs Immat Gran (auto) 0.04 H (0.00-0.03) X10*3/uL Absolute Neuts (auto) 6.0 (2.0-8.3) x10*3/uL Absolute Nucleated RBC 0.000 (0.0-0.012) X10*3/uL Nucleated RBC % (auto) 0.0 (0.0-0.2) /100WBC Sodium 135 (135-145) mmol/L Potassium 4.7 (3.3-5.1) mmol/L Chloride 100 (96-108) mmol/L Carbon Dioxide 23 (22-29) mmol/L Anion Gap 17 (12-20) BUN 13 (9-16) mg/dL Creatinine 0.79 (0.5-1.4) mg/dL Estim Creat Clear Calc 134.4 Estimated GFR > 60 Random Glucose 182 H (60-115) mg/dL Calcium 10.6 H (8.4-10.2) mg/dL Magnesium 2.4 (1.6-2.6) mg/dL Total Bilirubin 0.6 (0.0-1.0) mg/dL Direct Bilirubin 0.2 (0.0-0.5) mg/dL AST 217 H (5-37) U/L ALT 222 H (0-40) U/L Alkaline Phosphatase 114 (39-117) U/L Total Protein 9.9 H (6.5-8.0) g/dL Albumin 5.0 (3.5-5.0) g/dL Urine Color Yellow Urine Appearance Clear Urine pH 5.5 (5.0-9.0) Ur Specific [place] 1.015 (1.005-1.025) Urine Protein Negative (Neg-Trace) mg/dL Urine Glucose (UA) Negative (Negative) mg/dL Urine Ketones Negative (Negative) mg/dL Urine Blood Negative (Negative) Urine Nitrite Negative (Negative) Ur Leukocyte Esterase Negative (Negative) Urine RBC 0-2 (0-2) /HPF Urine WBC 0-5 (0-5) /HPF Ur Squamous Epith Cells 0-2 (0-2) /HPF Urine Bacteria None Seen (None Seen) Hyaline Casts 0-2 (0-2) /LPF Urine Opiates Screen POSITIVE H (Not Detect) Ur Buprenorphine Scrn Not Detected (Not Detect) ng/mL Ur Oxycodone Screen Not Detected (Not Detect) ng/mL Urine Methadone Screen Positive H (Not Detect) ng/mL Urine Fentanyl Screen POSITIVE H (Not Detect) Ur Barbiturates Screen Not Detected (Not Detect) Ur Phencyclidine Scrn Not Detected (Not Detect) Ur Amphetamines Screen Not Detected (Not Detect) U Benzodiazepines Scrn Not Detected (Not Detect) Urine Cocaine Screen POSITIVE H (Not Detect) U Marijuana (THC) Screen POSITIVE H (Not Detect) Ethyl Alcohol < 10 mg/dL Independent Interpretation I performed an independent interpretation of an: EKG Interpretation: Rate: 83 Rhythm: NSR Pony: normal Normal P waves. Normal JUSTINE. Normal QRS complex. ST T wave : no ASHELY inverted t waves V1 and V2 qTC: 472 prior studies: no acute ischemia The study has been interpreted contemporaneously by me. . Independent Historian Clinical information obtained from an independent historian. History obtained from or confirmed by: EMS External Record Review External record reviewed: Inpatient record and Outpatient record Discharge Plan Discharge Clinical Impression: Major depression, recurrent Patient Disposition: Admitted As Inpatient Interventions: Bennet-Suicide Risk Severity Scale Last Done: 06/01/24 12:35
--- NOTE | 2024-06-01 07:59 | PC.NURSE ---
pt presents to the ED via EMS from a homeless snf in [place]. PD on scene upon EMS arrival. per EMS, pt told staff at snf that he has SI w/ a plan to hang himself. pt states he is having auditory hallucinations (x2 months) telling him to harm himself. pt denies any previous attempts as well as any thoughts of HI. denies recent ETOH/substance use. upon ED arrival - a&ox4. vss and up to date aside from being slightly tachycardic. pt denies any chest pain/palpitations. pt calm/cooperative upon EMS arrival. changed over by security - belongings placed in locker #6. belongings list created by [employer]. urine sample obtained/sent to lab. pt verbalizes noncompliance w/ medication - stating, i don't know what i take anymore. it's been a long time. pt states he is aware he takes 195mg of methadone. says he was last dosed at [facility] on 05/30. last dose letter obtained from pt belongings. verification form filled out/faxed to pharmacy. pt currently resting in bed in no apparent distress. respirations even/unlabored. plan of care ongoing.
[2024-06-01 08:09] LABS: Appearance Urine Clear; Color Urine Yellow; Glucose Urine UA Negative (Negative); Leukocyte Esterase Urine Negative (Negative); Nitrite Urine Negative (Negative); PH 5.5 (5.0-9.0); Specific Gravity - Urine 1.015 (1.005-1.025); Urine Blood Negative (Negative); Urine Ketones Negative (Negative); Urine Protein Negative (Neg-Trace)
[2024-06-01 08:13] LABS: Bacteria Urine None Seen (None Seen); Hyaline Casts Urine 0-2 /LPF (0-2); RBC Urine 0-2 /HPF (0-2); Squamous Epithelial Cell Urine 0-2 /HPF (0-2); WBC Urine 0-5 /HPF (0-5)
[2024-06-01 08:32] LABS: Amphetamine Screen Urine Not Detected (Not Detect); Barbiturates, Urine Not Detected (Not Detect); Benzodiazepines Screen Urine Not Detected (Not Detect); Buprenorphine Scr Not Detected (Not Detect); Cannabinoid Screen Urine POSITIVE (Not Detect); Cocaine Screen Urine POSITIVE (Not Detect); Fentanyl, urine POSITIVE (Not Detect); Methadone Screen, Urine Positive (Not Detect); Opiate Screen Urine POSITIVE (Not Detect); Oxycodone Screen Urine Not Detected (Not Detect); Phencyclidine Screen Urine Not Detected (Not Detect)
--- NOTE | 2024-06-01 08:36 | HE.PHANOTE ---
Re Methadone Pt receives dose from [facility], last got 195mg on 05/30/24 @0600. Verified by Samantha Gil RN
[2024-06-01] MEDS: methADONE HCl 20 MG/2 ML ORAL.CONC 195 MG PO (10:00)
--- NOTE | 2024-06-01 10:08 | PC.NURSE ---
methadone administered per provider order. pt otherwise continues to rest in no apparent distress.
[2024-06-01 13:14] LABS: Basophils Absolute Auto 0.1 X10*3/uL (0.0-0.2); Basophils Percent Auto 0.8 % (0-2); Eosinophils Absolute Auto 0.2 X10*3/uL (0.0-0.4); Eosinophils Percent Auto 2.4 % (0-4); Hematocrit 46.7 % (42.0-52.0); Hemoglobin 16.6 g/dl (14.0-18.0); Imm Gran Abs Auto 0.04 X10*3/uL (0.00-0.03); Imm Gran Pct Auto 0.4 % (0.0-0.4); Lymphocytes Percent Auto 29.7 % (20-40); Mean Corpuscular HGB Conc 35.5 g/dl (31.0-36.0); Mean Corpuscular Hemoglobin 28.9 pg (27.0-33.0); Mean Corpuscular Volume 81.2 fL (80.0-98.0); Mean Platelet Volume 10.2 fL (9.4-12.4); Monocytes Absolute Auto 0.8 X10*3/uL (0.1-1.2); Monocytes Percent Auto 7.9 % (2-11); Neutrophils Percent Auto 58.8 % (45-73); Platelet Count 302 X10*3/uL (160-400); Red Blood Count 5.75 X10*6/uL (4.60-5.80); Red Cell Distribution Width 13.2 % (11.0-16.0); White Blood Count 10.1 X10*3/uL (4.8-10.8)
[2024-06-01 13:47] LABS: Alanine Aminotransferase 222 U/L (0-40); Anion Gap 17 (12-20); Aspartate Amino Transferase 217 U/L (5-37); Bilirubin Direct 0.2 mg/dL (0.0-0.5); Bilirubin Total 0.6 mg/dL (0.0-1.0); Blood Urea Nitrogen 13 mg/dL (9-16); Calcium 10.6 mg/dL (8.4-10.2); Carbon Dioxide 23 mmol/L (22-29); Chloride 100 mmol/L (96-108); Creatinine Clr Calc Pharmacy 134.4; Estimated Glomerular Filt Rate > 60; Ethanol < 10 mg/dL; Glucose Random 182 mg/dL (60-115); Magnesium 2.4 mg/dL (1.6-2.6); Potassium 4.7 mmol/L (3.3-5.1); Sodium 135 mmol/L (135-145); Total Protein 9.9 g/dL (6.5-8.0)
[2024-06-01 13:55] LABS: Alkaline Phosphatase 114 U/L (39-117)
[2024-06-01] MEDS: Omeprazole 20 MG CAPSULE.DR PO (15:34)
[2024-06-01] MEDS: Gabapentin 600 MG TABLET PO ×2 (15:34→20:26)
--- NOTE | 2024-06-01 15:36 | PC.NURSE ---
pt medicated per provider order. pt continues to remain calm/cooperative. resting comfortably in room in no apparent distress. pt pending bed assignment at this time. plan of care ongoing.
[2024-06-01 15:59] VITALS: BP 113/56; PULSE 74; RESP 18; TEMP 36.4; O2SAT 94
--- NOTE | 2024-06-01 15:59 | PC.NURSE ---
report given to SHREYA Moore on M3 at this time.
[2024-06-01] MEDS: Nicotine Polacrilex 2 MG GUM 4 MG BUCCAL ×3 (16:32→22:10)
[2024-06-01 16:40] VITALS: BP 127/80; PULSE 88; TEMP 37; O2SAT 97
[2024-06-01 17:49] VITALS: BMI 36.2
[2024-06-01] MEDS: LORazepam 1 MG TABLET 2 MG PO ×2 (17:55→20:25)
--- NOTE | 2024-06-01 18:17 | PC.NURSE ---
Aron was admitted to m3 at 1630 from [facility] [place] Pod on cv for treatment of psychosis and polysubstance abuse. In pod he denies etoh or drug use. Tox screen was positive for opiates, cocaine, methadone, cannabis, heroin, and fentanyl. ETOH was negative.? On arrival to the unit pt was sweating, tremorous, ? headache, sensitivity to light, ah, and nausea. Although VSS, CIWA assessment was 16 and ativan 2mg was administered per provider order.? Pt reports mother in his arms recently of liver cancer and father is ailing / on dialysis. Pt is feeling hopeless. He is undomiciled and has not other family supports. He was recently living in a retirement after discharge from [facility]. He is getting methadone daily from the [facility] but is off his other medications. He is alert and fully oriented Mood is depressed. Affect is anxious. He ? command auditory hallucinations telling him to kill himself by OD or hanging. He has a history of suicide attempts.? Thought Process? is organized with no signs of internal preoccupation. He denies current ideation, plan or intent to harm self or others. He reports fair appetite with no recent weight change.? Sleep is reportedly poor with nightmares of mother?s .? LFTs are elevated. Pt reports history of Hep C but says it is inactive. Pt reports mother dies of liver cancer. Provider informed. He denies current physical complaint.? Goal of admission is to restart medications and stay safe.? Safety Checks are q 15 minutes.
[2024-06-01 20:24] VITALS: BP 126/78; PULSE 98; RESP 17; TEMP 36.7; O2SAT 94
[2024-06-01] MEDS: metFORMIN HCl 500 MG TABLET PO (20:26)
[2024-06-01] MEDS: busPIRone HCl 10 MG TABLET PO (20:26)
[2024-06-01] MEDS: OLANZapine 10 MG TABLET PO (20:26)
[2024-06-01] MEDS: Acetaminophen 325 MG TABLET 650 MG PO (20:35)
[2024-06-01] MEDS: chlorproMAZINE HCl 25 MG TABLET 50 MG PO (20:37)
[2024-06-01 20:40] LABS: Alanine Aminotransferase 230 U/L (0-40); Albumin Level 4.6 g/dL (3.5-5.0); Alkaline Phosphatase 108 U/L (39-117); Anion Gap 19 (12-20); Aspartate Amino Transferase 228 U/L (5-37); Bilirubin Total 0.5 mg/dL (0.0-1.0); Blood Urea Nitrogen 14 mg/dL (9-16); Calcium 10.2 mg/dL (8.4-10.2); Carbon Dioxide 21 mmol/L (22-29); Chloride 100 mmol/L (96-108); Creatinine Clr Calc Pharmacy 117.9; Estimated Glomerular Filt Rate > 60; Glucose Random 237 mg/dL (60-115); Sodium 135 mmol/L (135-145); Total Protein 9.3 g/dL (6.5-8.0)
[2024-06-01 22:04] VITALS: BP 119/71; PULSE 96
[2024-06-01] MEDS: LORazepam 1 MG TABLET PO (22:05)
[2024-06-01] MEDS: Prazosin HCL 1 MG CAPSULE PO (22:05)
[2024-06-01] MEDS: Mirtazapine 30 MG TABLET PO (22:06)
[2024-06-02] MEDS: traZODone HCL 50 MG TABLET PO ×3 (00:24→22:27)
[2024-06-02] MEDS: hydrOXYzine HCL 50 MG TABLET PO ×2 (01:51→20:03)
[2024-06-02] MEDS: LORazepam 1 MG TABLET 2 MG PO ×2 (01:55→22:27)
[2024-06-02] MEDS: Acetaminophen 325 MG TABLET 650 MG PO (05:51)
[2024-06-02] MEDS: LORazepam 1 MG TABLET PO ×5 (05:51→20:02)
[2024-06-02] MEDS: Omeprazole 20 MG CAPSULE.DR PO ×2 (05:52→16:30)
[2024-06-02 07:30] VITALS: BP 116/59; PULSE 98; RESP 14; TEMP 36.5; O2SAT 92
[2024-06-02] MEDS: methADONE HCl 20 MG/2 ML ORAL.CONC 195 MG PO (08:10)
[2024-06-02 08:41] VITALS: BP 116/59
[2024-06-02] MEDS: Multivitamin TABLET 1 TAB PO (08:41)
[2024-06-02] MEDS: Gabapentin 600 MG TABLET PO ×3 (08:41→20:02)
[2024-06-02] MEDS: busPIRone HCl 10 MG TABLET PO ×2 (08:41→20:02)
[2024-06-02] MEDS: Thiamine HCL 100 MG TABLET PO (08:41)
[2024-06-02] MEDS: Prazosin HCL 1 MG CAPSULE PO ×2 (08:41→20:03)
[2024-06-02] MEDS: metFORMIN HCl 500 MG TABLET PO ×2 (08:41→20:02)
[2024-06-02] MEDS: Folic Acid 1 MG TABLET PO (08:41)
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
[2024-06-02] MEDS: Nicotine Polacrilex 2 MG GUM 4 MG BUCCAL ×4 (11:05→19:11)
[2024-06-02 11:54] VITALS: BP 127/76; PULSE 107; RESP 18; TEMP 35.9; O2SAT 94
[2024-06-02 15:50] VITALS: BP 107/73; PULSE 105; RESP 16; TEMP 36.7; O2SAT 93
[2024-06-02 19:59] VITALS: BP 116/80; PULSE 108; RESP 16; TEMP 36.6; O2SAT 95
[2024-06-02] MEDS: OLANZapine 10 MG TABLET PO (20:02)
[2024-06-02] MEDS: Mirtazapine 30 MG TABLET PO (20:03)
[2024-06-02] MEDS: chlorproMAZINE HCl 25 MG TABLET 50 MG PO (20:03)
[2024-06-02 22:28] VITALS: BP 134/69; PULSE 92; RESP 16; TEMP 36.6; O2SAT 96
[2024-06-03 02:30] VITALS: BP 130/72; PULSE 100; RESP 16; TEMP 36.6; O2SAT 96
[2024-06-03] MEDS: LORazepam 1 MG TABLET 2 MG PO ×2 (02:46→08:48)
[2024-06-03] MEDS: traZODone HCL 50 MG TABLET PO ×3 (02:46→21:54)
[2024-06-03] MEDS: LORazepam 1 MG TABLET PO (05:11)
[2024-06-03] MEDS: chlorproMAZINE HCl 25 MG TABLET 50 MG PO ×2 (05:12→20:06)
[2024-06-03] MEDS: Omeprazole 20 MG CAPSULE.DR PO ×2 (05:12→20:06)
[2024-06-03] MEDS: Nicotine Polacrilex 2 MG GUM 4 MG BUCCAL ×3 (05:36→21:09)
--- NOTE | 2024-06-03 06:25 | PC.NURSE ---
male MHC reported that patient approached him about the scrubs he was wearing and asked staff to bring a set into the hospital for him. reported ''I want those clothes, I want to leave'' patient then went to room. after being informed of interaction t/w approached patient to talk with him. patient was found in bed sleeping. snoring loudly.
[2024-06-03 07:25] VITALS: BP 127/80; PULSE 123; RESP 14; TEMP 36.4; O2SAT 94
[2024-06-03] MEDS: methADONE HCl 20 MG/2 ML ORAL.CONC 195 MG PO (08:08)
[2024-06-03] MEDS: Thiamine HCL 100 MG TABLET PO (08:32)
[2024-06-03] MEDS: metFORMIN HCl 500 MG TABLET PO ×2 (08:32→20:06)
[2024-06-03] MEDS: Gabapentin 600 MG TABLET PO ×2 (08:32→20:06)
[2024-06-03 08:33] VITALS: BP 127/80
[2024-06-03] MEDS: Prazosin HCL 1 MG CAPSULE PO (08:33)
[2024-06-03] MEDS: Folic Acid 1 MG TABLET PO (08:33)
[2024-06-03] MEDS: Multivitamin TABLET 1 TAB PO (08:34)
[2024-06-03] MEDS: busPIRone HCl 10 MG TABLET PO ×2 (08:34→20:06)
--- NOTE | 2024-06-03 09:49 | HO.PSYCHPN ---
Subjective Subjective Date of Service: 06/03/24 Reason For Visit: crisis Interim History: Patient sedated throughout the day. He had received Ativan 2mg in the morning for CIWA 11 (one symptom was sweating but VSS) and GBP. Falling asleep in the day room. Snoring in the chair in the common area. He has slurred speech. Difficult to understand. Barely keeping eyes open. Review of Systems Review of Systems Constitutional : No Fever, No Chills ENT/Mouth : No Ear Pain, No Nasal Congestion, No sore throat Eyes: No Eye Pain, No Swelling, No Redness Cardiovascular : No Chest Pain, No SOB Respiratory : No Cough, No Sputum, No Dyspnea Gastrointestinal : No Nausea, No Vomiting, No Diarrhea, No Hematochezia, No Melena Genitourinary : No Dysuria, No Urinary Frequency, No Hematuria Musculoskeletal : No Myalgias Skin : No Skin Lesions, No rash Neuro : No Weakness, No Numbness, No Paresthesias, No Dizziness, No Headache Psych : positive Anxiety, positive Depression, positive SI no HI, pos AH All other systems reviewed and are negative Mental Status Exam Mental Status Exam Patient Appearance: Fatigued and Unkempt Level of Consciousness: Awake, Drowsy, Sedated and Restless Patient Behavior: Appropriate, Sedated, Fatigued and Distractible Mood Description: Withdrawn, Depressed and Sad Affect Description: Sad Ability to Follow Directions: Excellent Speech Pattern: Slurred and Spontaneous Speech Diagnostics Vital Signs (24Hr): Vital Signs - 24 hr 06/02/24 11:54 06/02/24 15:50 06/02/24 19:59 Temperature 96.6 F L 98.1 F 97.8 F Pulse Rate 107 H 105 H 108 H Respiratory Rate 18 16 16 Blood Pressure 127/76 107/73 116/80 Pulse Oximetry 94 93 95 Oxygen Delivery Method Room Air Room Air Room Air 06/02/24 22:28 06/03/24 02:30 06/03/24 07:25 Temperature 97.8 F 97.9 F 97.6 F Pulse Rate 92 100 123 H Respiratory Rate 16 16 14 Blood Pressure 134/69 130/72 127/80 Pulse Oximetry 96 96 94 Oxygen Delivery Method Room Air Room Air Room Air 06/03/24 08:33 Temperature Pulse Rate Respiratory Rate Blood Pressure 127/80 Pulse Oximetry Oxygen Delivery Method BMI result Body Mass Index 36.2 Labs 06/01/24 13:07 06/01/24 20:06 Labs: Laboratory Results - last 48 hr 06/01/24 06/01/24 13:07 20:06 WBC 10.1 RBC 5.75 Hgb 16.6 Hct 46.7 MCV 81.2 MCH 28.9 MCHC 35.5 RDW 13.2 Plt Count 302 MPV 10.2 Immature Gran % (Auto) 0.4 Neut % (Auto) 58.8 Lymph % (Auto) 29.7 [place] % (Auto) 7.9 Eos % (Auto) 2.4 Baso % (Auto) 0.8 Lymph # (Auto) 3.0 [place] # (Auto) 0.8 Eos # (Auto) 0.2 Baso # (Auto) 0.1 Abs Immat Gran (auto) 0.04 H Absolute Neuts (auto) 6.0 Absolute Nucleated RBC 0.000 Nucleated RBC % (auto) 0.0 Sodium 135 135 Potassium 4.7 5.0 Chloride 100 100 Carbon Dioxide 23 21 L Anion Gap 17 19 BUN 13 14 Creatinine 0.79 0.86 Estim Creat Clear Calc 134.4 117.9 Estimated GFR > 60 > 60 Random Glucose 182 H 237 H Calcium 10.6 H 10.2 Magnesium 2.4 Total Bilirubin 0.6 0.5 Direct Bilirubin 0.2 AST 217 H 228 H ALT 222 H 230 H Alkaline Phosphatase 114 108 Total Protein 9.9 H 9.3 H Albumin 5.0 4.6 Ethyl Alcohol < 10 Medications Medications Current Medications Acetaminophen (Acetaminophen 325 Mg Tablet) 650 mg PO Q6H PRN PRN Reason: Headache/Pain Mild Scale (1-3) Last Admin: 06/02/24 05:51 Dose: 650 mg Al Hydroxide/Mg Hydroxide (Magnesium Hydrox/Alum Hydrox 30 Ml Oral.Susp) 30 ml PO Q6H PRN PRN Reason: Heartburn/Nausea Buspirone HCl (Buspirone Hcl 10 Mg Tablet) 10 mg PO BID [facility] Last Admin: 06/03/24 08:34 Dose: 10 mg Chlorpromazine HCl (Chlorpromazine Hcl 25 Mg Tablet) 50 mg PO TID PRN PRN Reason: anxiety, agitation Last Admin: 06/03/24 05:12 Dose: 50 mg Folic Acid (Folic Acid 1 Mg Tablet) 1 mg PO DAILY [facility] Last Admin: 06/03/24 08:33 Dose: 1 mg Gabapentin (Gabapentin 600 Mg Tablet) 600 mg PO TID [facility] Last Admin: 06/03/24 08:32 Dose: 600 mg Hydroxyzine HCl (Hydroxyzine Hcl 50 Mg Tablet) 50 mg PO QID PRN PRN Reason: moderate to severe anxiety Last Admin: 06/02/24 20:03 Dose: 50 mg Lorazepam (Lorazepam 1 Mg Tablet) 1 mg PO Q2H PRN PRN Reason: ciwa 6-10 Last Admin: 06/03/24 05:11 Dose: 1 mg Lorazepam (Lorazepam 1 Mg Tablet) 2 mg PO Q2H PRN PRN Reason: ciwa 11+ Last Admin: 06/03/24 08:48 Dose: 2 mg Magnesium Hydroxide (Milk Of Magnesia 30 Ml Oral.Susp) 30 ml PO DAILY PRN PRN Reason: Constipation Metformin HCl (Metformin Hcl 500 Mg Tablet) 500 mg PO BID [facility] Last Admin: 06/03/24 08:32 Dose: 500 mg Methadone HCl (Methadone Hcl 20 Mg/2 Ml Oral.Conc) 195 mg PO DAILY [facility] Last Admin: 06/03/24 08:08 Dose: 195 mg Mirtazapine (Mirtazapine 30 Mg Tablet) 30 mg PO BEDTIME [facility] Last Admin: 06/02/24 20:03 Dose: 30 mg Multivitamins/Vitamin C (Multivitamin Tablet) 1 tab PO DAILY [facility] Last Admin: 06/03/24 08:34 Dose: 1 tab Nicotine (Nicotine 21 Mg Patch.Td24) 21 mg TRANSDERMA DAILY [facility] Last Admin: 06/03/24 08:35 Dose: Not Given Nicotine Polacrilex (Nicotine Polacrilex 2 Mg Gum) 4 mg BUCCAL Q2H PRN PRN Reason: nicotine cravings Last Admin: 06/03/24 09:31 Dose: 4 mg Olanzapine (Olanzapine 10 Mg Tablet) 10 mg PO BEDTIME [facility] Last Admin: 06/02/24 20:02 Dose: 10 mg Omeprazole (Omeprazole 20 Mg Capsule.Dr) 20 mg PO BID@0630,1630 [facility] Last Admin: 06/03/24 05:12 Dose: 20 mg Prazosin HCl (Prazosin Hcl 1 Mg Capsule) 1 mg PO BID [facility]; Protocol Last Admin: 06/03/24 08:33 Dose: 1 mg Thiamine HCl (Thiamine Hcl 100 Mg Tablet) 100 mg PO DAILY [facility] Last Admin: 06/03/24 08:32 Dose: 100 mg Trazodone HCl (Trazodone Hcl 50 Mg Tablet) 50 mg PO BEDTIME MRX1 PRN PRN Reason: Insomnia Last Admin: 06/03/24 02:46 Dose: 50 mg Allergies Allergies Allergy/AdvReac Type Severity Reaction Status Date / Time vancomycin Allergy Severe Rash Verified 06/01/24 07:38 Assessment & Plan Assessment & Plan (1) Major depression, recurrent: Qualifiers: Active/Remission status: currently active Major depression episode severity: moderate Qualified Code(s): F33.1 - Major depressive disorder, recurrent, moderate Status: Acute Code(s): F33.9 - Major depressive disorder, recurrent, unspecified (2) Opiate abuse, continuous: Status: Acute Code(s): F11.10 - Opioid abuse, uncomplicated (3) Polysubstance (including opioids) dependence with physiological dependence: Status: Acute Code(s): F19.20 - Other psychoactive substance dependence, uncomplicated Assessment and Plan: 39 yo male with MDD and polysubstance use disorder on methadone presents with increase SI, CAH to kill himself in the setting of non-adherence, homelessness and continued drug use. PLAN: - Admit to inpatient psychiatry - CV - Collateral information from family and providers. - Milieu treatment and group therapy. - Medications: Restart OP regimen - Social work evaluation. - Disposition planning. 06/03: VI Teixeira. Hold GBP for sedation. Monitor sedation and consider collaterals from methadone clinic re dosing of methadone if excessive sedation continues. Reason for continued inpatient stay Substantial Risk for: harm to self, inability to function and rapid decompensation Time Spent With Patient Time: Total time managing care of this patient today ____ minutes.
[2024-06-03 12:56] VITALS: PULSE 92; O2SAT 92
[2024-06-03 16:51] VITALS: BP 115/64; PULSE 80; RESP 16; TEMP 36.9; O2SAT 93
[2024-06-03 20:00] VITALS: RESP 18
[2024-06-03] MEDS: Mirtazapine 30 MG TABLET PO (20:06)
[2024-06-03] MEDS: OLANZapine 10 MG TABLET PO (20:07)
[2024-06-04] MEDS: Omeprazole 20 MG CAPSULE.DR PO ×2 (06:23→16:45)
[2024-06-04] MEDS: Nicotine Polacrilex 2 MG GUM 4 MG BUCCAL ×6 (06:23→20:32)
[2024-06-04 07:33] VITALS: BP 131/75; PULSE 98; RESP 18; TEMP 36.4; O2SAT 97
[2024-06-04] MEDS: methADONE HCl 20 MG/2 ML ORAL.CONC 195 MG PO (07:52)
[2024-06-04] MEDS: metFORMIN HCl 500 MG TABLET PO ×2 (08:14→20:16)
[2024-06-04] MEDS: Folic Acid 1 MG TABLET PO (08:14)
[2024-06-04] MEDS: Thiamine HCL 100 MG TABLET PO (08:14)
[2024-06-04] MEDS: busPIRone HCl 10 MG TABLET PO ×2 (08:14→20:17)
[2024-06-04] MEDS: Gabapentin 600 MG TABLET PO (08:15)
[2024-06-04] MEDS: Multivitamin TABLET 1 TAB PO (08:16)
--- NOTE | 2024-06-04 10:17 | HO.PSYCHPN ---
Subjective Subjective Date of Service: 06/04/24 Reason For Visit: crisis Subjective Notes: Conditional Voluntary Interim History: Active on unit. Falling asleep during conversation. Pt reports increased depression since his mother last year and his father had his leg amputated. He reports suicidal ideation with plan to hang himself. denies HI/VH. Pt reports auditory hallucinations that tell me to kill myself ; he states voices come and go . Decreased gabapentin to 400mg PO TID. Increased Zyprexa to 15mg PO bedtime. Addiction medicine to evaluate methadone dose d/t sedation. Medication Compliance: Yes Side effects from medications: No Mental Status Exam Mental Status Exam Patient Appearance: Appropriate Patient Orientation: Person, Place, Time and Situation Level of Consciousness: Drowsy Patient Behavior: Cooperative Mood Description: Calm Affect Description: Blunted Ability to Follow Directions: Good Speech Pattern: Slurred Memory Description: Intact Hallucinations: Auditory Thought Process: Intact Thought Content: positive for Intact Judgement: Poor Diagnostics Vital Signs (24Hr): Vital Signs - 24 hr 06/03/24 12:56 06/03/24 16:51 06/03/24 20:00 Temperature 98.5 F Pulse Rate 92 80 Respiratory Rate 16 18 Blood Pressure 115/64 Pulse Oximetry 92 93 Oxygen Delivery Method Room Air Room Air 06/04/24 07:33 Temperature 97.6 F Pulse Rate 98 Respiratory Rate 18 Blood Pressure 131/75 Pulse Oximetry 97 Oxygen Delivery Method Room Air BMI result Body Mass Index 36.2 Labs 06/01/24 13:07 06/01/24 20:06 Medications Medications Current Medications Acetaminophen (Acetaminophen 325 Mg Tablet) 650 mg PO Q6H PRN PRN Reason: Headache/Pain Mild Scale (1-3) Last Admin: 06/02/24 05:51 Dose: 650 mg Al Hydroxide/Mg Hydroxide (Magnesium Hydrox/Alum Hydrox 30 Ml Oral.Susp) 30 ml PO Q6H PRN PRN Reason: Heartburn/Nausea Buspirone HCl (Buspirone Hcl 10 Mg Tablet) 10 mg PO BID [facility] Last Admin: 06/04/24 08:14 Dose: 10 mg Chlorpromazine HCl (Chlorpromazine Hcl 25 Mg Tablet) 50 mg PO TID PRN PRN Reason: anxiety, agitation Last Admin: 06/03/24 20:06 Dose: 50 mg Folic Acid (Folic Acid 1 Mg Tablet) 1 mg PO DAILY [facility] Last Admin: 06/04/24 08:14 Dose: 1 mg Gabapentin (Gabapentin 600 Mg Tablet) 600 mg PO TID [facility] Last Admin: 06/04/24 08:15 Dose: 600 mg Hydroxyzine HCl (Hydroxyzine Hcl 50 Mg Tablet) 50 mg PO QID PRN PRN Reason: moderate to severe anxiety Last Admin: 06/02/24 20:03 Dose: 50 mg Magnesium Hydroxide (Milk Of Magnesia 30 Ml Oral.Susp) 30 ml PO DAILY PRN PRN Reason: Constipation Metformin HCl (Metformin Hcl 500 Mg Tablet) 500 mg PO BID [facility] Last Admin: 06/04/24 08:14 Dose: 500 mg Methadone HCl (Methadone Hcl 20 Mg/2 Ml Oral.Conc) 195 mg PO DAILY@0800 [facility] Last Admin: 06/04/24 07:52 Dose: 195 mg Mirtazapine (Mirtazapine 30 Mg Tablet) 30 mg PO BEDTIME [facility] Last Admin: 06/03/24 20:06 Dose: 30 mg Multivitamins/Vitamin C (Multivitamin Tablet) 1 tab PO DAILY [facility] Last Admin: 06/04/24 08:16 Dose: 1 tab Nicotine (Nicotine 21 Mg Patch.Td24) 21 mg TRANSDERMA DAILY [facility] Last Admin: 06/04/24 09:16 Dose: Not Given Nicotine Polacrilex (Nicotine Polacrilex 2 Mg Gum) 4 mg BUCCAL Q2H PRN PRN Reason: nicotine cravings Last Admin: 06/04/24 08:26 Dose: 4 mg Olanzapine (Olanzapine 10 Mg Tablet) 10 mg PO BEDTIME [facility] Last Admin: 06/03/24 20:07 Dose: 10 mg Omeprazole (Omeprazole 20 Mg Capsule.Dr) 20 mg PO BID@0630,1630 [facility] Last Admin: 06/04/24 06:23 Dose: 20 mg Thiamine HCl (Thiamine Hcl 100 Mg Tablet) 100 mg PO DAILY [facility] Last Admin: 06/04/24 08:14 Dose: 100 mg Trazodone HCl (Trazodone Hcl 50 Mg Tablet) 50 mg PO BEDTIME MRX1 PRN PRN Reason: Insomnia Last Admin: 06/03/24 21:54 Dose: 50 mg Allergies Allergies Allergy/AdvReac Type Severity Reaction Status Date / Time vancomycin Allergy Severe Rash Verified 06/01/24 07:38 Assessment & Plan Assessment & Plan (1) Major depression, recurrent: Qualifiers: Active/Remission status: currently active Major depression episode severity: moderate Qualified Code(s): F33.1 - Major depressive disorder, recurrent, moderate Status: Acute Code(s): F33.9 - Major depressive disorder, recurrent, unspecified (2) Opiate abuse, continuous: Status: Acute Code(s): F11.10 - Opioid abuse, uncomplicated (3) Polysubstance (including opioids) dependence with physiological dependence: Status: Acute Code(s): F19.20 - Other psychoactive substance dependence, uncomplicated Assessment and Plan: 39 yo male with MDD and polysubstance use disorder on methadone presents with increase SI, CAH to kill himself in the setting of non-adherence, homelessness and continued drug use. PLAN: - Admit to inpatient psychiatry - CV - Collateral information from family and providers. - Milieu treatment and group therapy. - Medications: Restart OP regimen - Social work evaluation. - Disposition planning. 06/03: DC Ativan. Hold GBP for sedation. Monitor sedation and consider collaterals from methadone clinic re dosing of methadone if excessive sedation continues. 06/04:Decreased gabapentin to 400mg PO TID. Increased Zyprexa to 15mg PO bedtime. Addiction medicine to evaluate methadone dose d/t sedation. Patient educated on: medication risk/benefits Reason for continued inpatient stay Substantial Risk for: harm to self and med/psych decompensation Time Spent With Patient Time: Total time managing care of this patient today _20___ minutes.
[2024-06-04] MEDS: Ibuprofen 600 MG TABLET PO (11:35)
--- NOTE | 2024-06-04 13:36 | MHC.RECOVRN ---
Met with pt, along with hospital admissions clerk, on M3 after provider reached out requesting evaluation due to pt sedation. Addiction Medicine consult also received. Pt awake upon meeting, met in the sensory room. Pt currently a part of [facility], reports he has been on 195 mg methadone x 1 year. Reports it has been helpful. Pt reports using heroin/fentanyl, 2 bundles daily, IV, and cocaine, IV, the same amount. Pt reports longest period of recovery was 1 year (last year). Pt reports 5-7 [facility] admissions, 2 [facility] admissions, and 1 admission to [facility] in [place]. During conversation, pt frequently has eyes closed but does not need verbal cues to respond. The conversation flowed, even though the pt appeared sedated. Pt reports he does not feel like his eyelids are heavy (as they appear). Pt reports he is interested in continuing AJIT treatment at [facility] if there is a bed. Pt is interested in a oil recovery operator. Pt denies other questions or concerns for t/w. Discussed with Katelin Ramirez APRN. coach operator referral placed.
[2024-06-04] MEDS: Gabapentin 400 MG CAPSULE PO ×2 (15:08→20:17)
[2024-06-04] MEDS: chlorproMAZINE HCl 25 MG TABLET 50 MG PO (16:46)
--- NOTE | 2024-06-04 18:01 | PM.EVENT ---
Event Note Date of Service: 06/04/24 Event Note: Attending provider questioning if methadone dose should be decreased due to presentation on unit (difficulty staying awake) Chart reviewed and group fitness assistant department head met with patient, whop reports he has been on current methadone dose for over a year (195mg) Rec: Currently patient is ordered Gabapentin 600mg TID in addition to other BH medications. Consider holding gabapentin or reducing dose. Also, avoid administering with methadone Will follow up in AM and reassess level of sedation. If necessary dose can be reduced Time Spent With Patient Time: Total time managing care of this patient today ____ minutes.
[2024-06-04 19:15] VITALS: BP 130/75; PULSE 84; RESP 16; TEMP 36.9; O2SAT 95
[2024-06-04] MEDS: OLANZapine 7.5 MG TABLET 15 MG PO (20:16)
[2024-06-04] MEDS: traZODone HCL 50 MG TABLET PO (20:16)
[2024-06-04] MEDS: Mirtazapine 30 MG TABLET PO (20:17)
[2024-06-05] MEDS: Nicotine Polacrilex 2 MG GUM 4 MG BUCCAL ×3 (06:05→11:01)
[2024-06-05] MEDS: Omeprazole 20 MG CAPSULE.DR PO (06:05)
[2024-06-05] MEDS: hydrOXYzine HCL 50 MG TABLET PO (06:29)
[2024-06-05 07:24] VITALS: BP 137/72; PULSE 90; RESP 14; TEMP 36.9; O2SAT 92
[2024-06-05] MEDS: methADONE HCl 20 MG/2 ML ORAL.CONC 195 MG PO (07:49)
[2024-06-05] MEDS: busPIRone HCl 10 MG TABLET PO (08:12)
[2024-06-05] MEDS: Gabapentin 400 MG CAPSULE PO (08:12)
[2024-06-05] MEDS: metFORMIN HCl 500 MG TABLET PO (08:12)
--- NOTE | 2024-06-05 10:27 | P.DS_ITS ---
DS: Providers Provider Date of Service: 06/05/24 Date of admission: 06/01/24 15:28 Date of discharge: 06/05/24 Primary care physician: Unknown Physician Consults: 06/02/24 18:10 Addiction Medicine Routine Consulting Provider: Addiction Covering Reason for consultation: hx polysubstance abuse and on methadone, requesting addictions recovery specialist DS: Diagnosis Discharge Diagnosis (1) Major depression, recurrent: Status: Acute (2) Opiate abuse, continuous: Status: Acute (3) Polysubstance (including opioids) dependence with physiological dependence: Status: Acute DS: Medications Discharge Medications Home Medications: Home Medications ?Medication ?Instructions ?Recorded ?Confirmed metformin 500 mg tablet 500 mg PO BID 12/23/23 06/01/24 Previous Rx's ?Medication ?Instructions ?Recorded buspirone 10 mg tablet 10 mg PO BID #60 tabs 01/06/24 chlorpromazine 25 mg tablet 50 mg (2 x 25 mg) PO TID PRN 01/06/24 anxiety, agitation #15 tabs gabapentin 600 mg tablet 600 mg PO TID #21 tabs 01/06/24 hydroxyzine pamoate 50 mg capsule 50 mg PO QID PRN moderate to 01/06/24 severe anxiety #30 caps methadone 10 mg/mL oral 195 mg (19.5 mL) PO DAILY #0 mL 01/06/24 concentrate (Methadose) mirtazapine 30 mg tablet 30 mg PO BEDTIME #30 tabs 01/06/24 nicotine (polacrilex) 4 mg gum 4 mg buccal Q1H #110 ea 01/06/24 olanzapine 10 mg tablet 10 mg PO BEDTIME #30 tabs 01/06/24 omeprazole 20 mg capsule,delayed 20 mg PO BID@0630,1630 #60 caps 01/06/24 release trazodone 50 mg tablet 50 mg PO BEDTIME PRN Sleep #30 tabs 01/06/24 naloxone 4 mg/actuation nasal 4 mg intranasal Q2M PRN opioid 06/05/24 spray (Narcan) overdose 1 day #2 ea Mental Status Exam Mental Status Exam Narrative: adequately dressed and groomed. cooperative, no PMA/PMR. speech nml rate, amount, loudness, tone, latency. thoughts linear and logical. affect full range, normo-intense, non-labile. mood good. denies SI/HI/AVH. Data Data Completed and Pending Completed studies during hospitalization [Text1]: 06/01/24 06/01/24 06/01/24 08:02 13:07 20:06 WBC 10.1 RBC 5.75 Hgb 16.6 Hct 46.7 MCV 81.2 MCH 28.9 MCHC 35.5 RDW 13.2 Plt Count 302 MPV 10.2 Immature Gran % (Auto) 0.4 Neut % (Auto) 58.8 Lymph % (Auto) 29.7 [place] % (Auto) 7.9 Eos % (Auto) 2.4 Baso % (Auto) 0.8 Lymph # (Auto) 3.0 [place] # (Auto) 0.8 Eos # (Auto) 0.2 Baso # (Auto) 0.1 Abs Immat Gran (auto) 0.04 H Absolute Neuts (auto) 6.0 Absolute Nucleated RBC 0.000 Nucleated RBC % (auto) 0.0 Sodium 135 135 Potassium 4.7 5.0 Chloride 100 100 Carbon Dioxide 23 21 L Anion Gap 17 19 BUN 13 14 Creatinine 0.79 0.86 Estim Creat Clear Calc 134.4 117.9 Estimated GFR > 60 > 60 Random Glucose 182 H 237 H Calcium 10.6 H 10.2 Magnesium 2.4 Total Bilirubin 0.6 0.5 Direct Bilirubin 0.2 AST 217 H 228 H ALT 222 H 230 H Alkaline Phosphatase 114 108 Total Protein 9.9 H 9.3 H Albumin 5.0 4.6 Urine Color Yellow Urine Appearance Clear Urine pH 5.5 Ur Specific [place] 1.015 Urine Protein Negative Urine Glucose (UA) Negative Urine Ketones Negative Urine Blood Negative Urine Nitrite Negative Ur Leukocyte Esterase Negative Urine RBC 0-2 Urine WBC 0-5 Ur Squamous Epith Cells 0-2 Urine Bacteria None Seen Hyaline Casts 0-2 Urine Opiates Screen POSITIVE H Ur Buprenorphine Scrn Not Detected Ur Oxycodone Screen Not Detected Urine Methadone Screen Positive H Urine Fentanyl Screen POSITIVE H Ur Barbiturates Screen Not Detected Ur Phencyclidine Scrn Not Detected Ur Amphetamines Screen Not Detected U Benzodiazepines Scrn Not Detected Urine Cocaine Screen POSITIVE H U Marijuana (THC) Screen POSITIVE H Ethyl Alcohol < 10 06/05/24 10:15 WBC RBC Hgb Hct MCV MCH MCHC RDW Plt Count MPV Immature Gran % (Auto) Neut % (Auto) Lymph % (Auto) [place] % (Auto) Eos % (Auto) Baso % (Auto) Lymph # (Auto) [place] # (Auto) Eos # (Auto) Baso # (Auto) Abs Immat Gran (auto) Absolute Neuts (auto) Absolute Nucleated RBC Nucleated RBC % (auto) Sodium Potassium Chloride Carbon Dioxide Anion Gap BUN Creatinine Estim Creat Clear Calc Estimated GFR Random Glucose Calcium Magnesium Total Bilirubin Pending Direct Bilirubin Pending AST Pending ALT Pending Alkaline Phosphatase Pending Total Protein Pending Albumin Pending Urine Color Urine Appearance Urine pH Ur Specific [place] Urine Protein Urine Glucose (UA) Urine Ketones Urine Blood Urine Nitrite Ur Leukocyte Esterase Urine RBC Urine WBC Ur Squamous Epith Cells Urine Bacteria Hyaline Casts Urine Opiates Screen Ur Buprenorphine Scrn Ur Oxycodone Screen Urine Methadone Screen Urine Fentanyl Screen Ur Barbiturates Screen Ur Phencyclidine Scrn Ur Amphetamines Screen U Benzodiazepines Scrn Urine Cocaine Screen U Marijuana (THC) Screen Ethyl Alcohol DS: Summary Time Spent with Patient Time attestation: Total time managing care of this patient today ____ minutes. Discharge Plan Discharge Anticipated Discharge Date/Time: 06/05/24 13:00 Patient Disposition: Home, Self-Care Discharge Diagnosis: Major Depressive Disorder, Recurrent, Moderate Opioid Use Disorder Referrals: Therapy & Psychiatry [Other] - 1 Week (Please present to the clinic listed above, Tuesday through Tuesday between the hours of 8am and 8pm, in order to obtain outpatient mental health providers. ) Physician,Unknown J [Primary Care Provider] - 1 Week Discharge Medications: Continued metformin 500 mg Tablet 500 mg PO BID chlorpromazine 25 mg Tablet 50 mg PO TID PRN (Reason: anxiety, agitation) Qty: 15 0RF buspirone 10 mg Tablet 10 mg PO BID Qty: 60 0RF omeprazole 20 mg Capsule,Delayed Release(Dr/Ec) 20 mg PO BID@0630,1630 Qty: 60 0RF methadone [Methadose] 10 mg/mL Concentrate 195 mg PO DAILY Qty: 0 0RF Rx Instructions: Partial Fill upon patient request. gabapentin 600 mg tablet 600 mg PO TID Qty: 21 4RF trazodone 50 mg Tablet 50 mg PO BEDTIME PRN (Reason: Sleep) Qty: 30 0RF hydroxyzine pamoate 50 mg Capsule 50 mg PO QID PRN (Reason: moderate to severe anxiety) Qty: 30 0RF olanzapine 10 mg Tablet 10 mg PO BEDTIME Qty: 30 0RF nicotine (polacrilex) 4 mg Gum 4 mg BUCCAL Q1H Qty: 110 0RF mirtazapine 30 mg Tablet 30 mg PO BEDTIME Qty: 30 0RF naloxone [Narcan] 4 mg/actuation spray,non-aerosol 4 mg intranasal Q2M PRN (Reason: opioid overdose) 1 Days Qty: 2 0RF Rx Instructions: spray 1 dose into ONE nostril; alternate nostrils w each dose until help arrives Discontinued prazosin 1 mg Capsule 1 mg PO BID Qty: 60 0RF Rx Instructions: 1 capsule for flashbacks and 1 for nightmares Discharge Orders: Discharge Order (Routine); Ordered 06/05/24 Ordered By: Jb Ornelas Diet: Diabetic diet Activity on Discharge: As tolerated Stand Alone Forms: Patient Portal Discharge page Print Language: Turkish Care Plan Goals: remain safe, stable, and sober in the outpatient treatment setting Health Concerns: Diabetes Mellitus Plan of Treatment: take medications as prescribed, attend appointments as scheduled Assessment: not at imminent risk of harm to self or others
[2024-06-05 10:34] LABS: Alanine Aminotransferase 162 U/L (0-40); Albumin Level 4.4 g/dL (3.5-5.0); Alkaline Phosphatase 110 U/L (39-117); Aspartate Amino Transferase 73 U/L (5-37); Bilirubin Direct 0.1 mg/dL (0.0-0.5); Bilirubin Total 0.3 mg/dL (0.0-1.0); Total Protein 8.3 g/dL (6.5-8.0)
== END 2024-06-05 12:14 | disposition home or self-care (01) | DRG 751 ==
LOC: HO.ED 09:27 → HO.PADLT16 15:33
PROVIDERS: Admitting Provider Registered Nurse; Emergency Provider Emergency Medicine; Visit Provider Psychiatry & Neurology Psychiatry
DX: F33.1 Major depressive disorder, recurrent, moderate (principal); R45.851 Suicidal ideations; F11.20 Opioid dependence, uncomplicated; F19.20 Other psychoactive substance dependence, uncomplicated; F17.210 Nicotine dependence, cigarettes, uncomplicated; Z59.01 Sheltered homelessness; Z71.6 Tobacco abuse counseling; Z79.899 Other long term (current) drug therapy
CPT/HCPCS: 36415; 80048; 80053; 80076; 80307; 81001; 83735; 85025; 93005; 99285; S9485

== ENCOUNTER → 2024-06-01 07:33 | Outpatient (BNV) | payer OTHER, SELFPAY | PROVIDERS: Emergency Provider Emergency Medicine; Visit Provider Internal Medicine Cardiovascular Disease | DX: R94.31 Abnormal electrocardiogram [ECG] [EKG] (principal) | CPT/HCPCS: 93010 ==

== ENCOUNTER → 2024-06-01 15:28 | Outpatient (BNV) | payer OTHER, SELFPAY | PROVIDERS: Admitting Provider Registered Nurse; Emergency Provider Emergency Medicine; Visit Provider Psychiatry & Neurology Psychiatry | DX: F33.1 Major depressive disorder, recurrent, moderate (principal); F11.10 Opioid abuse, uncomplicated; F19.20 Other psychoactive substance dependence, uncomplicated | CPT/HCPCS: 99232 ==

== ENCOUNTER 2024-06-27 19:32 | Inpatient (IN) | payer OTHER, SELFPAY ==
[2024-06-27 20:00] VITALS: BP 133/75; PULSE 76; RESP 18; TEMP 36.3; O2SAT 97
[2024-06-27 20:13] VITALS: BMI 35.9
[2024-06-27] MEDS: Nicotine Polacrilex 2 MG GUM 4 MG BUCCAL ×2 (20:47→22:47)
[2024-06-27 21:00] LABS: Glucose, Whole Blood 191 mg/dL (60-115)
[2024-06-27] MEDS: metFORMIN HCl 500 MG TABLET PO (22:46)
[2024-06-27] MEDS: busPIRone HCl 10 MG TABLET PO (22:46)
[2024-06-27] MEDS: OLANZapine 10 MG TABLET PO (22:46)
[2024-06-27] MEDS: Omeprazole 20 MG CAPSULE.DR PO (22:46)
[2024-06-27] MEDS: Mirtazapine 30 MG TABLET PO (22:47)
[2024-06-27] MEDS: Gabapentin 600 MG TABLET PO (22:47)
--- NOTE | 2024-06-28 04:41 | PC.ADMIT ---
Aron is a 39 year old male admitted from [facility] to [facility] at 19:48 on a CV from treatment of depression and suicidal ideation. Pt has a hx of recent previous psychiatric hospitalizations. Tox screen was positive for cocaine, methadone, and THC. Last use was just prior to admission. Patient utilizes [facility] on [address] and is reported to have 195mg of methadone daily. Upon arrival to pt was pleasant and cooperative. Skin check complete which revealed small, healed, circular scars on stomach. Aron?s affect was flat. Pt reports anxiety related to recent life stressors regarding his father?s disability from an amputation and his mothers about one year ago. Thought process is linear. Denies SI/HI and No VH, except for, intermittent AH. Pt placed on 15 minute safety checks.?Admission completed, treatment plan signed.
[2024-06-28] MEDS: Omeprazole 20 MG CAPSULE.DR PO ×2 (06:47→17:12)
[2024-06-28 07:00] VITALS: BMI 36.0
[2024-06-28 07:35] VITALS: BP 128/74; PULSE 65; RESP 14; TEMP 36.6; O2SAT 97
[2024-06-28] MEDS: Gabapentin 600 MG TABLET PO ×3 (09:12→20:22)
[2024-06-28] MEDS: metFORMIN HCl 500 MG TABLET PO ×2 (09:13→20:22)
[2024-06-28] MEDS: busPIRone HCl 10 MG TABLET PO ×2 (09:13→20:22)
--- NOTE | 2024-06-28 09:50 | P.HPPS_ITS ---
[facility] Date of Service: 06/28/24 Chief Complaint: Major depressive episode, cannabis use d/o Sources of Information: patient interviewed, chart reviewed and crisis/core team assessment reviewed HPI Subjective Notes: Conditional Voluntary Narrative: Patient is a 39-year-old male with history MDD, opiate use disorder and cocaine use disorder who presented to ER due to suicidal ideation secondary to increased depression and auditory hallucinations telling him to hang himself. Per crisis report, patient reports depression and suicidal ideation with voices telling him to hang himself. History of multiple inpatient psychiatric hospitalizations. Patient reports his stress increased which increased his auditory hallucinations telling him that he is no good and should kill himself . He denied current drug use and reports cocaine use a week ago; Utox positive for cocaine, marijuana. Denies HI/VH. Patient reports his main stressors are regarding the of his mother and is a frequent trigger for his depression. During admission assessment, patient presents alert and oriented x3. Calm and cooperative. Patient reports feeling stressed and anxious ; patient stated, I'm thinking of hanging myself because of the problems in my life. I'm having a lot of voices. I have no family here, everything is hard for me . Patient reports he has not been taking his medications daily due to losing them . He reports outpatient psychiatric providers through [facility]. Patient reports he stopped using cocaine and heroin a week ago. Utox positive for cocaine and marijuana. Denies HI/VH. Patient reports he would like a referral to a substance abuse program and be restarted on his home medications. Past Psychiatric History: History of multiple inpatient psychiatric hospitalizations. Outpatient providers through [facility]. Denies SA/SIB. Medical Evaluation Reviewed: Yes [facility] Medical History (Updated 06/28/24 @ 15:27 by Saundra Christianson NP) Polysubstance (including opioids) dependence with physiological dependence ADHD Non-insulin dependent type 2 diabetes mellitus Polysubstance use disorder PTSD (post-traumatic stress disorder) Family History: Unknown Social History: Lives with father. Single. 3 kids (2 adult, 1 16y/o lives with his mother). Unemployed. Substance History: Utox positive for cocaine and marijuana. Patient reports history of cocaine, heroin, marijuana use. Trauma History: yes Diagnostics Vital Signs (24Hr): Vital Signs - 24 hr 06/27/24 20:00 06/28/24 07:35 Temperature 97.4 F 97.9 F Pulse Rate 76 65 Respiratory Rate 18 14 Blood Pressure 133/75 128/74 Pulse Oximetry 97 97 Oxygen Delivery Method Room Air Room Air BMI result Body Mass Index 35.9 Labs Labs: Laboratory Results - last 48 hr 06/27/24 20:54 POC Glucose 191 H Meds/Allergies Meds Home Medications ?Medication ?Instructions ?Recorded ?Confirmed ?Type metformin 500 mg tablet 500 mg PO BID 12/23/23 06/27/24 History Allergies Allergies Allergy/AdvReac Type Severity Reaction Status Date / Time vancomycin Allergy Severe Rash Verified 06/01/24 07:38 Mental Status Exam Mental Status Exam Narrative: Pt is alert and oriented; behavior is cooperative and calm; dressed in casual attire; mood is described as depressed and anxious ; eye contact appropriate; Speech is normal rate, volume and not pressured; thought process is organized and goal directed; Thought content is on tx; denies HI/VH. Patient reports suicidal ideation with plan to hang himself. He reports auditory hallucinations that tell him to harm himself. Assessment & Plan Assessment & Plan (1) Major depression, recurrent: Status: Acute Qualifiers: Active/Remission status: currently active Major depression episode severity: moderate Qualified Code(s): F33.1 - Major depressive disorder, recurrent, moderate Code(s): F33.9 - Major depressive disorder, recurrent, unspecified (2) PTSD (post-traumatic stress disorder): Status: Acute Code(s): F43.10 - Post-traumatic stress disorder, unspecified (3) Cocaine use disorder: Status: Acute Code(s): F14.10 - Cocaine abuse, uncomplicated (4) Opioid use disorder: Status: Acute Code(s): F11.90 - Opioid use, unspecified, uncomplicated Plan Patient is a 39-year-old male with history MDD, opiate use disorder and cocaine use disorder who presented to ER due to suicidal ideation secondary to increased depression and auditory hallucinations telling him to hang himself. Plan: CV 15 minute safety checks Continue home medications Encourage groups Referral to substance abuse program Discharge planning Patient educated on: diagnosis and medication risk/benefits Reason for continued inpatient stay Substantial Risk for: harm to self and med/psych decompensation Statement Statement: I have reviewed the history and physical and performed a pertinent examination on my patient. No changes have occurred unless specified. If the History and Physical was not performed prior to admission, the Hospitalist's service will be consulted for completing the admission physical. Time Spent With Patient Time: Total time managing care of this patient today _60___ minutes.
--- NOTE | 2024-06-28 10:25 | HE.PHANOTE ---
Re MEthadone Received med administration record from RN, pt was at [facility] and was receiving 195mg, last dosed yesterday 06/27/24
[2024-06-28] MEDS: methADONE HCl 20 MG/2 ML ORAL.CONC 195 MG PO (10:38)
[2024-06-28] MEDS: Nicotine Polacrilex 2 MG GUM 4 MG BUCCAL ×3 (11:29→17:20)
[2024-06-28] MEDS: chlorproMAZINE HCl 25 MG TABLET 50 MG PO (15:01)
--- NOTE | 2024-06-28 15:27 | P.CONHOSP_ITS ---
History of Present Illness Data of Consult Service Date: 06/28/24 Primary Care Provider: None Physician HPI Reason for consult: Routine medical H&P 39-year-old male with a past medical history significant for diabetes type 2, peripheral neuropathy, ADHD, polysubstance use, PTSD who is admitted to the inpatient psychiatry unit. Medical consult has been requested for routine medical H&P. Patient is seen and examined in his room. He denies any acute medical complaints. Endorses chronic pain due to prior surgeries. [facility] Medical History (Updated 06/28/24 @ 15:49 by Carter Brasher MD) Polysubstance (including opioids) dependence with physiological dependence ADHD Non-insulin dependent type 2 diabetes mellitus Polysubstance use disorder PTSD (post-traumatic stress disorder) Social History Household Members: Family Housing: Apartment Do you presently have visiting nurse or other home services: No Patient Tobacco Use Status: Current everyday Tobacco user Tobacco use type: Cigarette Cigarette Packs Per Day: 1.5 Cigarettes Per Day: 30.0 Years Smoked: unsure Smoked in Last 30 Days: Yes e-Cigarette/Vaping Use: Currently Using Patient Interested in Nicotine Replacement: Yes Patient Given Instructions on How to Stop Smoking: Yes Date Education Initiated: 06/27/24 Second Hand Smoke Exposure: Yes Use of substances other than those prescribed or required for medical reasons: No Substance Use Type: Crack/Cocaine, Heroin, Marijuana and Opiates Currently Displaying Signs/Symptoms of Drug Intoxication Withdrawal: No Any prior treatment program specific to substance use: Yes ([facility]) Have you been hit, kicked, punched, or otherwise hurt by someone within the past year? If so, by whom?: No Do you feel safe in your current relationship?: No Current Relationship Is there a partner from a previous relationship who is making you feel unsafe now?: No Are you made to feel afraid or neglected: No Advance Directives: No Advance Directives Information Provided: No Do you have thoughts of harming others: None Do you have a plan to hurt others: No Plan Recently lost weight without trying: No Nutrition Risks: No Nutritional Risk Poor oral hygiene: No service: No Sexual orientation: Straight/Heterosexual Meds Allergies Allergy/AdvReac Type Severity Reaction Status Date / Time vancomycin Allergy Severe Rash Verified 06/01/24 07:38 Active Medications: Current Medications Acetaminophen (Acetaminophen 325 Mg Tablet) 650 mg PO Q6H PRN PRN Reason: Headache/Pain, Scale 1-10 Al Hydroxide/Mg Hydroxide (Magnesium Hydrox/Alum Hydrox 30 Ml Oral.Susp) 30 ml PO Q6H PRN PRN Reason: Heartburn/Nausea Buspirone HCl (Buspirone Hcl 10 Mg Tablet) 10 mg PO BID [facility] Last Admin: 06/28/24 09:13 Dose: 10 mg Chlorpromazine HCl (Chlorpromazine Hcl 25 Mg Tablet) 50 mg PO TID PRN PRN Reason: anxiety, agitation Last Admin: 06/28/24 15:01 Dose: 50 mg Gabapentin (Gabapentin 600 Mg Tablet) 600 mg PO TID [facility] Last Admin: 06/28/24 14:58 Dose: 600 mg Hydroxyzine HCl (Hydroxyzine Hcl 25 Mg Tablet) 25 mg PO Q6H PRN PRN Reason: mild anxiety Hydroxyzine HCl (Hydroxyzine Hcl 50 Mg Tablet) 50 mg PO QID PRN PRN Reason: moderate to severe anxiety Magnesium Hydroxide (Milk Of Magnesia 30 Ml Oral.Susp) 30 ml PO DAILY PRN PRN Reason: Constipation Metformin HCl (Metformin Hcl 500 Mg Tablet) 500 mg PO BID [facility] Last Admin: 06/28/24 09:13 Dose: 500 mg Methadone HCl (Methadone Hcl 20 Mg/2 Ml Oral.Conc) 195 mg PO DAILY [facility] Last Admin: 06/28/24 10:38 Dose: 195 mg Mirtazapine (Mirtazapine 30 Mg Tablet) 30 mg PO BEDTIME [facility] Last Admin: 06/27/24 22:47 Dose: 30 mg Naloxone HCl (Naloxone Hcl Nasal 4 Mg [place]) 4 mg NOSTRILALT Q2M PRN PRN Reason: opioid overdose Nicotine Polacrilex (Nicotine Polacrilex 2 Mg Gum) 4 mg BUCCAL Q2H PRN PRN Reason: Nicotine Cravings Last Admin: 06/28/24 15:18 Dose: 4 mg Olanzapine (Olanzapine 10 Mg Tablet) 10 mg PO BEDTIME [facility] Last Admin: 06/27/24 22:46 Dose: 10 mg Omeprazole (Omeprazole 20 Mg Capsule.Dr) 20 mg PO BID@0630,1630 [facility] Last Admin: 06/28/24 06:47 Dose: 20 mg Trazodone HCl (Trazodone Hcl 50 Mg Tablet) 50 mg PO BEDTIME MRX1 PRN PRN Reason: Insomnia Trazodone HCl (Trazodone Hcl 50 Mg Tablet) 50 mg PO BEDTIME PRN PRN Reason: Sleep Home Medications ?Medication ?Instructions ?Recorded ?Confirmed ?Last Taken ?Type metformin 500 mg tablet 500 mg PO BID 12/23/23 06/27/24 06/05/24 History Physical Exam Vital Signs and Narrative: Vital Signs: Last Vital Signs Temp 97.9 F 06/28/24 07:35 Pulse 65 06/28/24 07:35 Resp 14 06/28/24 07:35 BP 128/74 06/28/24 07:35 Pulse Ox 97 06/28/24 07:35 O2 Del Method Room Air 06/28/24 07:35 BMI result Body Mass Index 35.9 Const: Other: General - no acute distress, appears comfortable Cardiovascular - regular rate and rhythm, S1-S2 Lungs - normal respiratory effort, clear to auscultation bilaterally, no wheezing Abdomen - soft, nontender, no rebound or guarding Extremities - no edema bilaterally Neuro - awake and alert, no focal deficits; cn 2-12 intact bilaterally Results Labs Labs: Laboratory Results - last 24 hr 06/27/24 20:54 POC Glucose 191 H Assessment and Plan (1) Routine medical exam: Status: Acute Plan 38 yo M with multiple chronic med. issues admitted to inpt psych. Medical consult requested for routine medical H&P 1. DM metformin ADA diet 2. peripheral neuropathy gabapentin 3. chronic opiate dependence methadone Medically stable. Continue care per primary team. Will sign off, please reconsult PRN
[2024-06-28 20:00] VITALS: BP 91/49; PULSE 81; RESP 16; TEMP 36.9; O2SAT 93
[2024-06-28] MEDS: hydrOXYzine HCL 25 MG TABLET PO (20:22)
[2024-06-28] MEDS: Mirtazapine 30 MG TABLET PO (20:22)
[2024-06-28] MEDS: traZODone HCL 50 MG TABLET PO (20:22)
[2024-06-28] MEDS: OLANZapine 10 MG TABLET PO (20:22)
[2024-06-29] MEDS: traZODone HCL 50 MG TABLET PO ×2 (01:25→20:26)
[2024-06-29] MEDS: Omeprazole 20 MG CAPSULE.DR PO ×2 (06:31→15:39)
[2024-06-29] MEDS: Nicotine Polacrilex 2 MG GUM 4 MG BUCCAL ×4 (06:31→16:07)
[2024-06-29 07:45] VITALS: BP 113/71; PULSE 87; RESP 16; TEMP 36.3; O2SAT 95
[2024-06-29] MEDS: methADONE HCl 20 MG/2 ML ORAL.CONC 195 MG PO (08:04)
[2024-06-29] MEDS: busPIRone HCl 10 MG TABLET PO ×2 (08:42→20:26)
[2024-06-29] MEDS: Gabapentin 600 MG TABLET PO (08:42)
[2024-06-29] MEDS: metFORMIN HCl 500 MG TABLET PO ×2 (08:42→20:25)
[2024-06-29] MEDS: chlorproMAZINE HCl 25 MG TABLET 50 MG PO (09:10)
--- NOTE | 2024-06-29 09:47 | HO.PSYCHPN ---
Subjective Subjective Date of Service: 06/29/24 Reason For Visit: Major depressive episode, cannabis use d/o Subjective Notes: Conditional Voluntary Interim History: Drowsy during conversation. Pt continues to report feeling depressed ; pt stated, I don't have an apartment or a job. I have so many problems . Discussed decreasing gabapentin d/t sedation and increasing zyprexa for AH. denies SI/HI/VH. per nursing, slept 8 hours last night. Decreased gabapentin to 400mg PO TID. Increased Zyprexa to 15mg PO bedtime. Medication Compliance: Yes Side effects from medications: No Mental Status Exam Mental Status Exam Narrative: Pt is alert and oriented; behavior is cooperative and calm, drowsy; dressed in casual attire; mood is described as depressed ; eye contact appropriate; Speech is normal rate, volume and not pressured; thought process is organized; Thought content is on tx; denies SI/HI/VH. He reports auditory hallucinations that tell him to harm himself. Diagnostics Vital Signs (24Hr): Vital Signs - 24 hr 06/28/24 20:00 06/29/24 07:45 Temperature 98.4 F 97.4 F Pulse Rate 81 87 Respiratory Rate 16 16 Blood Pressure 91/49 L 113/71 Pulse Oximetry 93 95 Oxygen Delivery Method Room Air Room Air BMI result Body Mass Index 36.0 Labs 06/29/24 13:17 Labs: Laboratory Results - last 48 hr 06/27/24 20:54 POC Glucose 191 H Medications Medications Current Medications Acetaminophen (Acetaminophen 325 Mg Tablet) 650 mg PO Q6H PRN PRN Reason: Headache/Pain, Scale 1-10 Al Hydroxide/Mg Hydroxide (Magnesium Hydrox/Alum Hydrox 30 Ml Oral.Susp) 30 ml PO Q6H PRN PRN Reason: Heartburn/Nausea Buspirone HCl (Buspirone Hcl 10 Mg Tablet) 10 mg PO BID [facility] Last Admin: 06/29/24 08:42 Dose: 10 mg Chlorpromazine HCl (Chlorpromazine Hcl 25 Mg Tablet) 50 mg PO TID PRN PRN Reason: anxiety, agitation Last Admin: 06/29/24 09:10 Dose: 50 mg Gabapentin (Gabapentin 600 Mg Tablet) 600 mg PO TID [facility] Last Admin: 06/29/24 08:42 Dose: 600 mg Hydroxyzine HCl (Hydroxyzine Hcl 25 Mg Tablet) 25 mg PO Q6H PRN PRN Reason: mild anxiety Last Admin: 06/28/24 20:22 Dose: 25 mg Hydroxyzine HCl (Hydroxyzine Hcl 50 Mg Tablet) 50 mg PO QID PRN PRN Reason: moderate to severe anxiety Magnesium Hydroxide (Milk Of Magnesia 30 Ml Oral.Susp) 30 ml PO DAILY PRN PRN Reason: Constipation Metformin HCl (Metformin Hcl 500 Mg Tablet) 500 mg PO BID [facility] Last Admin: 06/29/24 08:42 Dose: 500 mg Methadone HCl (Methadone Hcl 20 Mg/2 Ml Oral.Conc) 195 mg PO DAILY [facility] Last Admin: 06/29/24 08:04 Dose: 195 mg Mirtazapine (Mirtazapine 30 Mg Tablet) 30 mg PO BEDTIME [facility] Last Admin: 06/28/24 20:22 Dose: 30 mg Naloxone HCl (Naloxone Hcl Nasal 4 Mg [place]) 4 mg NOSTRILALT Q2M PRN PRN Reason: opioid overdose Nicotine Polacrilex (Nicotine Polacrilex 2 Mg Gum) 4 mg BUCCAL Q2H PRN PRN Reason: Nicotine Cravings Last Admin: 06/29/24 09:17 Dose: 4 mg Olanzapine (Olanzapine 10 Mg Tablet) 10 mg PO BEDTIME [facility] Last Admin: 06/28/24 20:22 Dose: 10 mg Omeprazole (Omeprazole 20 Mg Capsule.Dr) 20 mg PO BID@0630,1630 [facility] Last Admin: 06/29/24 06:31 Dose: 20 mg Trazodone HCl (Trazodone Hcl 50 Mg Tablet) 50 mg PO BEDTIME MRX1 PRN PRN Reason: Insomnia Last Admin: 06/29/24 01:25 Dose: 50 mg Trazodone HCl (Trazodone Hcl 50 Mg Tablet) 50 mg PO BEDTIME PRN PRN Reason: Sleep Allergies Allergies Allergy/AdvReac Type Severity Reaction Status Date / Time vancomycin Allergy Severe Rash Verified 06/01/24 07:38 Assessment & Plan Assessment & Plan (1) Major depression, recurrent: Qualifiers: Active/Remission status: currently active Major depression episode severity: moderate Qualified Code(s): F33.1 - Major depressive disorder, recurrent, moderate Status: Acute Code(s): F33.9 - Major depressive disorder, recurrent, unspecified (2) PTSD (post-traumatic stress disorder): Status: Acute Code(s): F43.10 - Post-traumatic stress disorder, unspecified (3) Cocaine use disorder: Status: Acute Code(s): F14.10 - Cocaine abuse, uncomplicated (4) Opioid use disorder: Status: Acute Code(s): F11.90 - Opioid use, unspecified, uncomplicated Plan Patient is a 39-year-old male with history MDD, opiate use disorder and cocaine use disorder who presented to ER due to suicidal ideation secondary to increased depression and auditory hallucinations telling him to hang himself. Plan: CV 15 minute safety checks Continue home medications Encourage groups Referral to substance abuse program Discharge planning 06/29: Drowsy during conversation. Pt continues to report feeling depressed ; pt stated, I don't have an apartment or a job. I have so many problems . Discussed decreasing gabapentin d/t sedation and increasing zyprexa for AH. denies SI/HI/VH. per nursing, slept 8 hours last night. Decreased gabapentin to 400mg PO TID. Increased Zyprexa to 15mg PO bedtime. Patient educated on: diagnosis and medication risk/benefits Reason for continued inpatient stay Substantial Risk for: med/psych decompensation Time Spent With Patient Time: Total time managing care of this patient today _20___ minutes.
[2024-06-29] MEDS: Acetaminophen 325 MG TABLET 650 MG PO (10:29)
[2024-06-29 13:47] LABS: Creatinine Clr Calc Pharmacy 129.7; Estimated Glomerular Filt Rate > 60
[2024-06-29 13:52] LABS: Estimated Average Glucose 126 mg/dL; Hemoglobin A1C 150.4002 umol/L; Total Hemoglobin (HGBA1C) 3537.0955 umol/L
[2024-06-29 13:55] LABS: Cholesterol 193 mg/dL (<200); Creatinine Clr Calc Pharmacy 126.5; Estimated Glomerular Filt Rate > 60; HDL Cholesterol 27 mg/dL (>40); Triglycerides 572 mg/dL (<150)
[2024-06-29] MEDS: hydrOXYzine HCL 50 MG TABLET PO (14:06)
[2024-06-29 14:11] LABS: Free T4 (Free Thyroxine) 1.01 ng/dL (0.71-1.85)
[2024-06-29 14:23] LABS: Folate 9.9 ng/mL (> or = 4.0); Vitamin B12 427 pg/mL (200-900)
[2024-06-29] MEDS: Gabapentin 400 MG CAPSULE PO ×2 (15:39→20:26)
[2024-06-29 20:00] VITALS: BP 130/63; PULSE 91; RESP 16; TEMP 37.1; O2SAT 95
[2024-06-29] MEDS: OLANZapine 7.5 MG TABLET 15 MG PO (20:25)
[2024-06-29] MEDS: Mirtazapine 30 MG TABLET PO (20:25)
[2024-06-30] MEDS: chlorproMAZINE HCl 25 MG TABLET 50 MG PO ×2 (01:17→20:02)
[2024-06-30] MEDS: Omeprazole 20 MG CAPSULE.DR PO ×2 (06:26→15:45)
[2024-06-30] MEDS: Nicotine Polacrilex 2 MG GUM 4 MG BUCCAL ×2 (07:28→15:45)
[2024-06-30 07:30] VITALS: BP 118/75; PULSE 97; RESP 16; TEMP 36.5; O2SAT 98
[2024-06-30] MEDS: methADONE HCl 20 MG/2 ML ORAL.CONC 195 MG PO (08:15)
[2024-06-30] MEDS: metFORMIN HCl 500 MG TABLET PO ×2 (09:03→20:04)
[2024-06-30] MEDS: busPIRone HCl 10 MG TABLET PO ×2 (09:03→20:04)
[2024-06-30] MEDS: Gabapentin 400 MG CAPSULE PO ×3 (09:03→20:03)
--- NOTE | 2024-06-30 10:38 | P.PNPSI_ITS ---
Subjective Subjective Date of Service: 06/30/24 Reason For Visit: Major depressive episode, cannabis use d/o Interim History: Remains drowsy but complains of anxiety and depression. Pt continues to report feeling depressed Tolerating medication changes. Denies SI/HI/VH. per nursing, slept 8 hours last night. Reports he is still having AH. He doesn't appear to be responding to internal stimuli. Mental Status Exam Mental Status Exam Narrative: Pt is alert and oriented; behavior is cooperative and calm, drowsy; dressed in casual attire; mood is described as depressed ; eye contact appropriate; Speech is normal rate, volume and not pressured; thought process is organized; Thought content is on tx; denies SI/HI/VH. He reports auditory hallucinations that tell him to harm himself. Diagnostics Vital Signs (24Hr): Vital Signs - 24 hr 06/29/24 20:00 06/30/24 07:30 Temperature 98.7 F 97.7 F Pulse Rate 91 97 Respiratory Rate 16 16 Blood Pressure 130/63 118/75 Pulse Oximetry 95 98 Oxygen Delivery Method Room Air Room Air BMI result Body Mass Index 36.0 Labs 06/29/24 13:17 Labs: Laboratory Results - last 48 hr 06/29/24 06/29/24 06/29/24 13:17 13:17 13:17 Creatinine 0.80 0.78 Estim Creat Clear Calc 126.5 129.7 Estimated GFR > 60 Estimat Average Glucose Hemoglobin A1c % Triglycerides Cholesterol LDL Cholesterol, Calc HDL Cholesterol Vitamin B12 Folate TSH Free T4 06/29/24 06/29/24 13:17 13:27 Creatinine Estim Creat Clear Calc Estimated GFR > 60 Estimat Average Glucose 126 Hemoglobin A1c % 6.0 Triglycerides 572 H Cholesterol 193 LDL Cholesterol, Calc TNP HDL Cholesterol 27 L Vitamin B12 427 Folate 9.9 TSH 1.30 Free T4 1.01 Medications Medications Current Medications Acetaminophen (Acetaminophen 325 Mg Tablet) 650 mg PO Q6H PRN PRN Reason: Headache/Pain, Scale 1-10 Last Admin: 06/29/24 10:29 Dose: 650 mg Al Hydroxide/Mg Hydroxide (Magnesium Hydrox/Alum Hydrox 30 Ml Oral.Susp) 30 ml PO Q6H PRN PRN Reason: Heartburn/Nausea Buspirone HCl (Buspirone Hcl 10 Mg Tablet) 10 mg PO BID [facility] Last Admin: 06/30/24 09:03 Dose: 10 mg Chlorpromazine HCl (Chlorpromazine Hcl 25 Mg Tablet) 50 mg PO TID PRN PRN Reason: anxiety, agitation Last Admin: 06/30/24 01:17 Dose: 50 mg Gabapentin (Gabapentin 400 Mg Capsule) 400 mg PO TID [facility] Last Admin: 06/30/24 09:03 Dose: 400 mg Hydroxyzine HCl (Hydroxyzine Hcl 50 Mg Tablet) 50 mg PO TID PRN PRN Reason: moderate to severe anxiety Last Admin: 06/29/24 14:06 Dose: 50 mg Magnesium Hydroxide (Milk Of Magnesia 30 Ml Oral.Susp) 30 ml PO DAILY PRN PRN Reason: Constipation Metformin HCl (Metformin Hcl 500 Mg Tablet) 500 mg PO BID [facility] Last Admin: 06/30/24 09:03 Dose: 500 mg Methadone HCl (Methadone Hcl 20 Mg/2 Ml Oral.Conc) 195 mg PO DAILY [facility] Last Admin: 06/30/24 08:15 Dose: 195 mg Mirtazapine (Mirtazapine 30 Mg Tablet) 30 mg PO BEDTIME [facility] Last Admin: 06/29/24 20:25 Dose: 30 mg Naloxone HCl (Naloxone Hcl Nasal 4 Mg [place]) 4 mg NOSTRILALT Q2M PRN PRN Reason: opioid overdose Nicotine Polacrilex (Nicotine Polacrilex 2 Mg Gum) 4 mg BUCCAL Q2H PRN PRN Reason: Nicotine Cravings Last Admin: 06/30/24 07:28 Dose: 4 mg Olanzapine (Olanzapine 7.5 Mg Tablet) 15 mg PO BEDTIME [facility] Last Admin: 06/29/24 20:25 Dose: 15 mg Omeprazole (Omeprazole 20 Mg Capsule.Dr) 20 mg PO BID@0630,1630 [facility] Last Admin: 06/30/24 06:26 Dose: 20 mg Trazodone HCl (Trazodone Hcl 50 Mg Tablet) 50 mg PO BEDTIME PRN PRN Reason: Sleep Last Admin: 06/29/24 20:26 Dose: 50 mg Allergies Allergies Allergy/AdvReac Type Severity Reaction Status Date / Time vancomycin Allergy Severe Rash Verified 06/01/24 07:38 Assessment & Plan Assessment & Plan (1) Major depression, recurrent: Qualifiers: Active/Remission status: currently active Major depression episode severity: moderate Qualified Code(s): F33.1 - Major depressive disorder, recurrent, moderate Status: Acute Code(s): F33.9 - Major depressive disorder, recurrent, unspecified (2) PTSD (post-traumatic stress disorder): Status: Acute Code(s): F43.10 - Post-traumatic stress disorder, unspecified (3) Cocaine use disorder: Status: Acute Code(s): F14.10 - Cocaine abuse, uncomplicated (4) Opioid use disorder: Status: Acute Code(s): F11.90 - Opioid use, unspecified, uncomplicated Plan Patient is a 39-year-old male with history MDD, opiate use disorder and cocaine use disorder who presented to ER due to suicidal ideation secondary to increased depression and auditory hallucinations telling him to hang himself. Plan: CV 15 minute safety checks Continue home medications Encourage groups Referral to substance abuse program Discharge planning 06/29: Drowsy during conversation. Pt continues to report feeling depressed ; pt stated, I don't have an apartment or a job. I have so many problems . Discussed decreasing gabapentin d/t sedation and increasing zyprexa for AH. denies SI/HI/VH. per nursing, slept 8 hours last night. Decreased gabapentin to 400mg PO TID. Increased Zyprexa to 15mg PO bedtime. 06/30: Continue current management and treatment plan. Had recent medication changes. Reason for continued inpatient stay Substantial Risk for: inability to function and rapid decompensation Time Spent With Patient Time: Total time managing care of this patient today ____ minutes.
[2024-06-30 20:00] VITALS: BP 135/74; PULSE 89; RESP 16; TEMP 36.8; O2SAT 97
[2024-06-30] MEDS: OLANZapine 7.5 MG TABLET 15 MG PO (20:02)
[2024-06-30] MEDS: hydrOXYzine HCL 50 MG TABLET PO (20:03)
[2024-06-30] MEDS: Mirtazapine 30 MG TABLET PO (20:03)
[2024-06-30] MEDS: traZODone HCL 50 MG TABLET PO (20:16)
[2024-07-01] MEDS: chlorproMAZINE HCl 25 MG TABLET 50 MG PO ×2 (01:06→18:14)
[2024-07-01] MEDS: hydrOXYzine HCL 50 MG TABLET PO (01:06)
[2024-07-01] MEDS: Omeprazole 20 MG CAPSULE.DR PO ×2 (06:26→15:26)
[2024-07-01 07:50] VITALS: BP 108/63; PULSE 82; RESP 16; TEMP 36.8; O2SAT 94
[2024-07-01] MEDS: methADONE HCl 20 MG/2 ML ORAL.CONC 195 MG PO (08:06)
[2024-07-01] MEDS: Nicotine Polacrilex 2 MG GUM 4 MG BUCCAL ×2 (08:40→17:13)
[2024-07-01] MEDS: metFORMIN HCl 500 MG TABLET PO ×2 (08:40→20:34)
[2024-07-01] MEDS: busPIRone HCl 10 MG TABLET PO ×2 (08:40→20:34)
[2024-07-01] MEDS: Gabapentin 400 MG CAPSULE PO ×3 (08:40→20:34)
--- NOTE | 2024-07-01 11:09 | P.PNPSI_ITS ---
Subjective Subjective Date of Service: 07/01/24 Reason For Visit: Major depressive episode, cannabis use d/o Interim History: Anxiety and depression somewhat improved today. Tolerating medication changes. Denies SI/HI/VH. per nursing, slept 8 hours last night. He sometimes falls asleep at the table when talking. He doesn't appear to be responding to internal stimuli. Limited milieu engagement. Mental Status Exam Mental Status Exam Narrative: Pt is alert and oriented; behavior is cooperative and calm, drowsy; dressed in casual attire; mood is described as depressed ; eye contact appropriate; Speech is normal rate, volume and not pressured; thought process is organized; Thought content is on tx; denies SI/HI/VH. He reports auditory hallucinations that tell him to harm himself. Diagnostics Vital Signs (24Hr): Vital Signs - 24 hr 06/30/24 20:00 07/01/24 07:50 Temperature 98.2 F 98.2 F Pulse Rate 89 82 Respiratory Rate 16 16 Blood Pressure 135/74 108/63 Pulse Oximetry 97 94 Oxygen Delivery Method Room Air Room Air BMI result Body Mass Index 36.0 Labs 06/29/24 13:17 Labs: Laboratory Results - last 48 hr 06/29/24 06/29/24 06/29/24 13:17 13:17 13:17 Creatinine 0.80 0.78 Estim Creat Clear Calc 126.5 129.7 Estimated GFR > 60 Estimat Average Glucose Hemoglobin A1c % Triglycerides Cholesterol LDL Cholesterol, Calc HDL Cholesterol Vitamin B12 Folate TSH Free T4 06/29/24 06/29/24 13:17 13:27 Creatinine Estim Creat Clear Calc Estimated GFR > 60 Estimat Average Glucose 126 Hemoglobin A1c % 6.0 Triglycerides 572 H Cholesterol 193 LDL Cholesterol, Calc TNP HDL Cholesterol 27 L Vitamin B12 427 Folate 9.9 TSH 1.30 Free T4 1.01 Medications Medications Current Medications Acetaminophen (Acetaminophen 325 Mg Tablet) 650 mg PO Q6H PRN PRN Reason: Headache/Pain, Scale 1-10 Last Admin: 06/29/24 10:29 Dose: 650 mg Al Hydroxide/Mg Hydroxide (Magnesium Hydrox/Alum Hydrox 30 Ml Oral.Susp) 30 ml PO Q6H PRN PRN Reason: Heartburn/Nausea Buspirone HCl (Buspirone Hcl 10 Mg Tablet) 10 mg PO BID JENELLE Last Admin: 07/01/24 08:40 Dose: 10 mg Chlorpromazine HCl (Chlorpromazine Hcl 25 Mg Tablet) 50 mg PO TID PRN PRN Reason: anxiety, agitation Last Admin: 07/01/24 01:06 Dose: 50 mg Gabapentin (Gabapentin 400 Mg Capsule) 400 mg PO TID [facility] Last Admin: 07/01/24 08:40 Dose: 400 mg Hydroxyzine HCl (Hydroxyzine Hcl 50 Mg Tablet) 50 mg PO TID PRN PRN Reason: moderate to severe anxiety Last Admin: 07/01/24 01:06 Dose: 50 mg Magnesium Hydroxide (Milk Of Magnesia 30 Ml Oral.Susp) 30 ml PO DAILY PRN PRN Reason: Constipation Metformin HCl (Metformin Hcl 500 Mg Tablet) 500 mg PO BID [facility] Last Admin: 07/01/24 08:40 Dose: 500 mg Methadone HCl (Methadone Hcl 20 Mg/2 Ml Oral.Conc) 195 mg PO DAILY [facility] Last Admin: 07/01/24 08:06 Dose: 195 mg Mirtazapine (Mirtazapine 30 Mg Tablet) 30 mg PO BEDTIME [facility] Last Admin: 06/30/24 20:03 Dose: 30 mg Naloxone HCl (Naloxone Hcl Nasal 4 Mg [place]) 4 mg NOSTRILALT Q2M PRN PRN Reason: opioid overdose Nicotine Polacrilex (Nicotine Polacrilex 2 Mg Gum) 4 mg BUCCAL Q2H PRN PRN Reason: Nicotine Cravings Last Admin: 07/01/24 08:40 Dose: 4 mg Olanzapine (Olanzapine 7.5 Mg Tablet) 15 mg PO BEDTIME [facility] Last Admin: 06/30/24 20:02 Dose: 15 mg Omeprazole (Omeprazole 20 Mg Capsule.Dr) 20 mg PO BID@0630,1630 [facility] Last Admin: 07/01/24 06:26 Dose: 20 mg Trazodone HCl (Trazodone Hcl 50 Mg Tablet) 50 mg PO BEDTIME PRN PRN Reason: Sleep Last Admin: 06/30/24 20:16 Dose: 50 mg Allergies Allergies Allergy/AdvReac Type Severity Reaction Status Date / Time vancomycin Allergy Severe Rash Verified 06/01/24 07:38 Assessment & Plan Assessment & Plan (1) Major depression, recurrent: Qualifiers: Active/Remission status: currently active Major depression episode severity: moderate Qualified Code(s): F33.1 - Major depressive disorder, recurrent, moderate Status: Acute Code(s): F33.9 - Major depressive disorder, recurrent, unspecified (2) PTSD (post-traumatic stress disorder): Status: Acute Code(s): F43.10 - Post-traumatic stress disorder, unspecified (3) Cocaine use disorder: Status: Acute Code(s): F14.10 - Cocaine abuse, uncomplicated (4) Opioid use disorder: Status: Acute Code(s): F11.90 - Opioid use, unspecified, uncomplicated Plan Patient is a 39-year-old male with history MDD, opiate use disorder and cocaine use disorder who presented to ER due to suicidal ideation secondary to increased depression and auditory hallucinations telling him to hang himself. Plan: CV 15 minute safety checks Continue home medications Encourage groups Referral to substance abuse program Discharge planning 06/29: Drowsy during conversation. Pt continues to report feeling depressed ; pt stated, I don't have an apartment or a job. I have so many problems . Discussed decreasing gabapentin d/t sedation and increasing zyprexa for AH. denies SI/HI/VH. per nursing, slept 8 hours last night. Decreased gabapentin to 400mg PO TID. Increased Zyprexa to 15mg PO bedtime. 06/30: Continue current management and treatment plan. Had recent medication changes. 07/01: Continue current management and treatment plan. Reason for continued inpatient stay Substantial Risk for: inability to function and rapid decompensation Time Spent With Patient Time: Total time managing care of this patient today ____ minutes.
[2024-07-01] MEDS: Ibuprofen 400 MG TABLET PO ×2 (15:35→22:20)
[2024-07-01 20:00] VITALS: BP 98/51; PULSE 78; RESP 18; TEMP 36.4; O2SAT 95
[2024-07-01] MEDS: OLANZapine 7.5 MG TABLET 15 MG PO (20:34)
[2024-07-01] MEDS: Mirtazapine 30 MG TABLET PO (20:34)
[2024-07-02] MEDS: Omeprazole 20 MG CAPSULE.DR PO ×2 (06:17→15:44)
[2024-07-02] MEDS: Ibuprofen 400 MG TABLET PO ×3 (06:51→21:56)
[2024-07-02 07:25] VITALS: BP 132/79; PULSE 81; RESP 16; TEMP 36.4; O2SAT 96
[2024-07-02] MEDS: methADONE HCl 20 MG/2 ML ORAL.CONC 195 MG PO (07:52)
[2024-07-02] MEDS: busPIRone HCl 10 MG TABLET PO ×2 (08:53→20:48)
[2024-07-02] MEDS: metFORMIN HCl 500 MG TABLET PO ×2 (08:53→20:48)
[2024-07-02] MEDS: Gabapentin 400 MG CAPSULE PO ×3 (08:53→20:49)
[2024-07-02] MEDS: Nicotine Polacrilex 2 MG GUM 4 MG BUCCAL ×4 (09:14→17:29)
--- NOTE | 2024-07-02 09:27 | HO.PSYCHPN ---
Subjective Subjective Date of Service: 07/02/24 Reason For Visit: Major depressive episode, cannabis use d/o Subjective Notes: Conditional Voluntary Interim History: Active on unit, social with peers. Patient reports he feels his mood is starting to improve; states voices have stopped. Discussed going to retirement if he was not able to obtain [facility] bed. Pt reports he would plan on going to [facility] in [place], [place]. denies SI/HI/VH/AH. Planning for discharge this week if continues to improve. Medication Compliance: Yes Side effects from medications: No Attending Groups: No Mental Status Exam Mental Status Exam Narrative: Pt is alert and oriented; behavior is cooperative and calm; dressed in casual attire; mood is described as better ; eye contact appropriate; Speech is normal rate, volume and not pressured; thought process is organized; Thought content is on tx; denies SI/HI/VH/AH. Diagnostics Vital Signs (24Hr): Vital Signs - 24 hr 07/01/24 20:00 07/02/24 07:25 Temperature 97.6 F 97.5 F Pulse Rate 78 81 Respiratory Rate 18 16 Blood Pressure 98/51 L 132/79 Pulse Oximetry 95 96 Oxygen Delivery Method Room Air Room Air BMI result Body Mass Index 36.0 Labs 06/29/24 13:17 Medications Medications Current Medications Acetaminophen (Acetaminophen 325 Mg Tablet) 650 mg PO Q6H PRN PRN Reason: Headache/Pain, Scale 1-10 Last Admin: 06/29/24 10:29 Dose: 650 mg Al Hydroxide/Mg Hydroxide (Magnesium Hydrox/Alum Hydrox 30 Ml Oral.Susp) 30 ml PO Q6H PRN PRN Reason: Heartburn/Nausea Buspirone HCl (Buspirone Hcl 10 Mg Tablet) 10 mg PO BID [facility] Last Admin: 07/02/24 08:53 Dose: 10 mg Chlorpromazine HCl (Chlorpromazine Hcl 25 Mg Tablet) 50 mg PO TID PRN PRN Reason: anxiety, agitation Last Admin: 07/01/24 18:14 Dose: 50 mg Gabapentin (Gabapentin 400 Mg Capsule) 400 mg PO TID [facility] Last Admin: 07/02/24 08:53 Dose: 400 mg Hydroxyzine HCl (Hydroxyzine Hcl 50 Mg Tablet) 50 mg PO TID PRN PRN Reason: moderate to severe anxiety Last Admin: 07/01/24 01:06 Dose: 50 mg Ibuprofen (Ibuprofen 400 Mg Tablet) 400 mg PO Q6H PRN PRN Reason: Pain, Moderate(Pain Scale 4-6) Last Admin: 07/02/24 06:51 Dose: 400 mg Magnesium Hydroxide (Milk Of Magnesia 30 Ml Oral.Susp) 30 ml PO DAILY PRN PRN Reason: Constipation Metformin HCl (Metformin Hcl 500 Mg Tablet) 500 mg PO BID [facility] Last Admin: 07/02/24 08:53 Dose: 500 mg Methadone HCl (Methadone Hcl 20 Mg/2 Ml Oral.Conc) 195 mg PO DAILY [facility] Last Admin: 07/02/24 07:52 Dose: 195 mg Mirtazapine (Mirtazapine 30 Mg Tablet) 30 mg PO BEDTIME [facility] Last Admin: 07/01/24 20:34 Dose: 30 mg Naloxone HCl (Naloxone Hcl Nasal 4 Mg [place]) 4 mg NOSTRILALT Q2M PRN PRN Reason: opioid overdose Nicotine Polacrilex (Nicotine Polacrilex 2 Mg Gum) 4 mg BUCCAL Q2H PRN PRN Reason: Nicotine Cravings Last Admin: 07/02/24 09:14 Dose: 4 mg Olanzapine (Olanzapine 7.5 Mg Tablet) 15 mg PO BEDTIME [facility] Last Admin: 07/01/24 20:34 Dose: 15 mg Omeprazole (Omeprazole 20 Mg Capsule.Dr) 20 mg PO BID@0630,1630 [facility] Last Admin: 07/02/24 06:17 Dose: 20 mg Trazodone HCl (Trazodone Hcl 50 Mg Tablet) 50 mg PO BEDTIME PRN PRN Reason: Sleep Last Admin: 06/30/24 20:16 Dose: 50 mg Allergies Allergies Allergy/AdvReac Type Severity Reaction Status Date / Time vancomycin Allergy Severe Rash Verified 06/01/24 07:38 Assessment & Plan Assessment & Plan (1) Major depression, recurrent: Qualifiers: Active/Remission status: currently active Major depression episode severity: moderate Qualified Code(s): F33.1 - Major depressive disorder, recurrent, moderate Status: Acute Code(s): F33.9 - Major depressive disorder, recurrent, unspecified (2) PTSD (post-traumatic stress disorder): Status: Acute Code(s): F43.10 - Post-traumatic stress disorder, unspecified (3) Cocaine use disorder: Status: Acute Code(s): F14.10 - Cocaine abuse, uncomplicated (4) Opioid use disorder: Status: Acute Code(s): F11.90 - Opioid use, unspecified, uncomplicated Plan Patient is a 39-year-old male with history MDD, opiate use disorder and cocaine use disorder who presented to ER due to suicidal ideation secondary to increased depression and auditory hallucinations telling him to hang himself. Plan: CV 15 minute safety checks Continue home medications Encourage groups Referral to substance abuse program Discharge planning 06/29: Drowsy during conversation. Pt continues to report feeling depressed ; pt stated, I don't have an apartment or a job. I have so many problems . Discussed decreasing gabapentin d/t sedation and increasing zyprexa for AH. denies SI/HI/VH. per nursing, slept 8 hours last night. Decreased gabapentin to 400mg PO TID. Increased Zyprexa to 15mg PO bedtime. 06/30: Continue current management and treatment plan. Had recent medication changes. 07/01: Continue current management and treatment plan. 07/02: Active on unit, social with peers. Patient reports he feels his mood is starting to improve; states voices have stopped. Discussed going to retirement if he was not able to obtain [facility] bed. Pt reports he would plan on going to [facility] in [place], [place]. denies SI/HI/VH/AH. Planning for discharge this week if continues to improve. Patient educated on: diagnosis and medication risk/benefits Reason for continued inpatient stay Substantial Risk for: med/psych decompensation Time Spent With Patient Time: Total time managing care of this patient today _20___ minutes.
[2024-07-02] MEDS: hydrOXYzine HCL 50 MG TABLET PO ×2 (18:38→21:55)
[2024-07-02] MEDS: chlorproMAZINE HCl 25 MG TABLET 50 MG PO ×2 (18:38→21:55)
[2024-07-02 20:00] VITALS: BP 130/71; PULSE 78; RESP 18; TEMP 36.5; O2SAT 96
[2024-07-02] MEDS: traZODone HCL 50 MG TABLET PO (20:48)
[2024-07-02] MEDS: OLANZapine 7.5 MG TABLET 15 MG PO (20:48)
[2024-07-02] MEDS: Mirtazapine 30 MG TABLET PO (20:49)
[2024-07-02] MEDS: Acetaminophen 325 MG TABLET 650 MG PO (20:49)
[2024-07-03] MEDS: Acetaminophen 325 MG TABLET 650 MG PO ×3 (02:58→18:36)
[2024-07-03] MEDS: traZODone HCL 50 MG TABLET PO ×2 (03:12→20:10)
[2024-07-03] MEDS: Ibuprofen 400 MG TABLET PO ×3 (06:15→19:04)
[2024-07-03] MEDS: Omeprazole 20 MG CAPSULE.DR PO ×2 (06:15→15:58)
[2024-07-03 07:53] VITALS: BP 126/63; PULSE 74; RESP 14; TEMP 36.4; O2SAT 98
[2024-07-03] MEDS: methADONE HCl 20 MG/2 ML ORAL.CONC 195 MG PO (07:54)
[2024-07-03] MEDS: Gabapentin 400 MG CAPSULE PO ×3 (08:38→20:10)
[2024-07-03] MEDS: Nicotine Polacrilex 2 MG GUM 4 MG BUCCAL (08:39)
[2024-07-03] MEDS: metFORMIN HCl 500 MG TABLET PO ×2 (08:39→20:10)
[2024-07-03] MEDS: busPIRone HCl 10 MG TABLET PO ×2 (08:39→20:10)
--- NOTE | 2024-07-03 09:19 | HO.PSYCHPN ---
Subjective Subjective Date of Service: 07/03/24 Reason For Visit: Major depressive episode, cannabis use d/o Subjective Notes: Conditional Voluntary Interim History: Patient reports feeling better today; plan to discharge on to [facility] in [place], [place] if he continues to improve. denies SI/HI/VH/AH. encouraged to attend groups. denies any issues at this time. Medication Compliance: Yes Side effects from medications: No Attending Groups: No Mental Status Exam Mental Status Exam Narrative: Pt is alert and oriented; behavior is cooperative and calm; dressed in casual attire; mood is described as better ; eye contact appropriate; Speech is normal rate, volume and not pressured; thought process is organized; Thought content is on discharge; denies SI/HI/VH/AH. Diagnostics Vital Signs (24Hr): Vital Signs - 24 hr 07/02/24 20:00 07/03/24 07:53 Temperature 97.7 F 97.6 F Pulse Rate 78 74 Respiratory Rate 18 14 Blood Pressure 130/71 126/63 Pulse Oximetry 96 98 Oxygen Delivery Method Room Air Room Air BMI result Body Mass Index 36.0 Labs 06/29/24 13:17 Medications Medications Current Medications Acetaminophen (Acetaminophen 325 Mg Tablet) 650 mg PO Q6H PRN PRN Reason: Headache/Pain, Scale 1-10 Last Admin: 07/03/24 02:58 Dose: 650 mg Al Hydroxide/Mg Hydroxide (Magnesium Hydrox/Alum Hydrox 30 Ml Oral.Susp) 30 ml PO Q6H PRN PRN Reason: Heartburn/Nausea Buspirone HCl (Buspirone Hcl 10 Mg Tablet) 10 mg PO BID [facility] Last Admin: 07/03/24 08:39 Dose: 10 mg Chlorpromazine HCl (Chlorpromazine Hcl 25 Mg Tablet) 50 mg PO TID PRN PRN Reason: anxiety, agitation Last Admin: 07/02/24 21:55 Dose: 50 mg Gabapentin (Gabapentin 400 Mg Capsule) 400 mg PO TID [facility] Last Admin: 07/03/24 08:38 Dose: 400 mg Hydroxyzine HCl (Hydroxyzine Hcl 50 Mg Tablet) 50 mg PO TID PRN PRN Reason: moderate to severe anxiety Last Admin: 07/02/24 21:55 Dose: 50 mg Ibuprofen (Ibuprofen 400 Mg Tablet) 400 mg PO Q6H PRN PRN Reason: Pain, Moderate(Pain Scale 4-6) Last Admin: 07/03/24 06:15 Dose: 400 mg Magnesium Hydroxide (Milk Of Magnesia 30 Ml Oral.Susp) 30 ml PO DAILY PRN PRN Reason: Constipation Metformin HCl (Metformin Hcl 500 Mg Tablet) 500 mg PO BID [facility] Last Admin: 07/03/24 08:39 Dose: 500 mg Methadone HCl (Methadone Hcl 20 Mg/2 Ml Oral.Conc) 195 mg PO DAILY [facility] Last Admin: 07/03/24 07:54 Dose: 195 mg Mirtazapine (Mirtazapine 30 Mg Tablet) 30 mg PO BEDTIME [facility] Last Admin: 07/02/24 20:49 Dose: 30 mg Naloxone HCl (Naloxone Hcl Nasal 4 Mg [place]) 4 mg NOSTRILALT Q2M PRN PRN Reason: opioid overdose Nicotine Polacrilex (Nicotine Polacrilex 2 Mg Gum) 4 mg BUCCAL Q2H PRN PRN Reason: Nicotine Cravings Last Admin: 07/03/24 08:39 Dose: 4 mg Olanzapine (Olanzapine 7.5 Mg Tablet) 15 mg PO BEDTIME [facility] Last Admin: 07/02/24 20:48 Dose: 15 mg Omeprazole (Omeprazole 20 Mg Capsule.Dr) 20 mg PO BID@0630,1630 [facility] Last Admin: 07/03/24 06:15 Dose: 20 mg Trazodone HCl (Trazodone Hcl 50 Mg Tablet) 50 mg PO BEDTIME PRN PRN Reason: Sleep Last Admin: 07/02/24 20:48 Dose: 50 mg Allergies Allergies Allergy/AdvReac Type Severity Reaction Status Date / Time vancomycin Allergy Severe Rash Verified 06/01/24 07:38 Assessment & Plan Assessment & Plan (1) Major depression, recurrent: Qualifiers: Active/Remission status: currently active Major depression episode severity: moderate Qualified Code(s): F33.1 - Major depressive disorder, recurrent, moderate Status: Acute Code(s): F33.9 - Major depressive disorder, recurrent, unspecified (2) PTSD (post-traumatic stress disorder): Status: Acute Code(s): F43.10 - Post-traumatic stress disorder, unspecified (3) Cocaine use disorder: Status: Acute Code(s): F14.10 - Cocaine abuse, uncomplicated (4) Opioid use disorder: Status: Acute Code(s): F11.90 - Opioid use, unspecified, uncomplicated Plan Patient is a 39-year-old male with history MDD, opiate use disorder and cocaine use disorder who presented to ER due to suicidal ideation secondary to increased depression and auditory hallucinations telling him to hang himself. Plan: CV 15 minute safety checks Continue home medications Encourage groups Referral to substance abuse program Discharge planning 06/29: Drowsy during conversation. Pt continues to report feeling depressed ; pt stated, I don't have an apartment or a job. I have so many problems . Discussed decreasing gabapentin d/t sedation and increasing zyprexa for AH. denies SI/HI/VH. per nursing, slept 8 hours last night. Decreased gabapentin to 400mg PO TID. Increased Zyprexa to 15mg PO bedtime. 06/30: Continue current management and treatment plan. Had recent medication changes. 07/01: Continue current management and treatment plan. 07/02: Active on unit, social with peers. Patient reports he feels his mood is starting to improve; states voices have stopped. Discussed going to jail if he was not able to obtain [facility] bed. Pt reports he would plan on going to [facility] in [place], [place]. denies SI/HI/VH/AH. Planning for discharge this week if continues to improve. 07/03: Patient reports feeling better today; plan to discharge on to [facility] in [place], [place] if he continues to improve. denies SI/HI/VH/AH. encouraged to attend groups. denies any issues at this time. Patient educated on: diagnosis and medication risk/benefits Reason for continued inpatient stay Substantial Risk for: med/psych decompensation Time Spent With Patient Time: Total time managing care of this patient today _20___ minutes.
[2024-07-03] MEDS: chlorproMAZINE HCl 25 MG TABLET 50 MG PO (15:20)
[2024-07-03] MEDS: hydrOXYzine HCL 50 MG TABLET PO (17:52)
[2024-07-03] MEDS: Benzocaine 20 % Oral Gel 9 GM TUBE 1 APPL MUCOUS MEM (18:33)
[2024-07-03 19:55] VITALS: BP 139/74; PULSE 76; RESP 16; TEMP 36.4; O2SAT 99
[2024-07-03] MEDS: Mirtazapine 30 MG TABLET PO (20:10)
[2024-07-03] MEDS: OLANZapine 7.5 MG TABLET 15 MG PO (20:11)
[2024-07-04] MEDS: traZODone HCL 50 MG TABLET PO ×3 (00:28→23:58)
[2024-07-04] MEDS: hydrOXYzine HCL 50 MG TABLET PO ×2 (00:28→23:58)
[2024-07-04] MEDS: Omeprazole 20 MG CAPSULE.DR PO ×2 (06:23→16:54)
[2024-07-04 07:25] VITALS: BP 137/83; PULSE 77; RESP 18; TEMP 36.4; O2SAT 95
[2024-07-04] MEDS: methADONE HCl 20 MG/2 ML ORAL.CONC 195 MG PO (07:59)
[2024-07-04] MEDS: Ibuprofen 400 MG TABLET PO ×2 (08:00→20:08)
[2024-07-04] MEDS: Gabapentin 400 MG CAPSULE PO ×3 (08:00→20:07)
[2024-07-04] MEDS: Nicotine Polacrilex 2 MG GUM 4 MG BUCCAL ×3 (08:01→14:31)
[2024-07-04] MEDS: busPIRone HCl 10 MG TABLET PO ×2 (08:01→20:07)
[2024-07-04] MEDS: metFORMIN HCl 500 MG TABLET PO ×2 (08:01→20:08)
--- NOTE | 2024-07-04 09:33 | HO.PSYCHPN ---
Subjective Subjective Date of Service: 07/04/24 Reason For Visit: Major depressive episode, cannabis use d/o Subjective Notes: Conditional Voluntary Interim History: Patient reports feeling good today; plan to discharge and go to [facility] in [place], [place]. denies SI/HI/VH/AH. denies any issues at this time. pt plans on following up with his outpatient providers. Medication Compliance: Yes Side effects from medications: No Attending Groups: No Mental Status Exam Mental Status Exam Narrative: Pt is alert and oriented; behavior is cooperative and calm; dressed in casual attire; mood is described as good ; eye contact appropriate; Speech is normal rate, volume and not pressured; thought process is organized; Thought content is on discharge; denies SI/HI/VH/AH. Diagnostics Vital Signs (24Hr): Vital Signs - 24 hr 07/03/24 19:55 07/04/24 07:25 Temperature 97.6 F 97.6 F Pulse Rate 76 77 Respiratory Rate 16 18 Blood Pressure 139/74 137/83 Pulse Oximetry 99 95 Oxygen Delivery Method Room Air Room Air BMI result Body Mass Index 36.0 Labs 06/29/24 13:17 Medications Medications Current Medications Acetaminophen (Acetaminophen 325 Mg Tablet) 650 mg PO Q6H PRN PRN Reason: Headache/Pain, Scale 1-10 Last Admin: 07/03/24 18:36 Dose: 650 mg Al Hydroxide/Mg Hydroxide (Magnesium Hydrox/Alum Hydrox 30 Ml Oral.Susp) 30 ml PO Q6H PRN PRN Reason: Heartburn/Nausea Benzocaine (Benzocaine 20 % Oral Gel 9 Gm Tube) 1 appl MUCOUS MEM TID PRN; Protocol PRN Reason: mouth pain Last Admin: 07/03/24 18:33 Dose: 1 appl Buspirone HCl (Buspirone Hcl 10 Mg Tablet) 10 mg PO BID JENELLE Last Admin: 07/04/24 08:01 Dose: 10 mg Chlorpromazine HCl (Chlorpromazine Hcl 25 Mg Tablet) 50 mg PO BID PRN PRN Reason: anxiety, agitation Last Admin: 07/03/24 15:20 Dose: 50 mg Gabapentin (Gabapentin 400 Mg Capsule) 400 mg PO TID [facility]EL[facility] Last Admin: 07/04/24 08:00 Dose: 400 mg Hydroxyzine HCl (Hydroxyzine Hcl 50 Mg Tablet) 50 mg PO TID PRN PRN Reason: moderate to severe anxiety Last Admin: 07/04/24 00:28 Dose: 50 mg Ibuprofen (Ibuprofen 400 Mg Tablet) 400 mg PO Q6H PRN PRN Reason: Pain, Moderate(Pain Scale 4-6) Last Admin: 07/04/24 08:00 Dose: 400 mg Magnesium Hydroxide (Milk Of Magnesia 30 Ml Oral.Susp) 30 ml PO DAILY PRN PRN Reason: Constipation Metformin HCl (Metformin Hcl 500 Mg Tablet) 500 mg PO BID [facility] Last Admin: 07/04/24 08:01 Dose: 500 mg Methadone HCl (Methadone Hcl 20 Mg/2 Ml Oral.Conc) 195 mg PO DAILY [facility] Last Admin: 07/04/24 07:59 Dose: 195 mg Mirtazapine (Mirtazapine 30 Mg Tablet) 30 mg PO BEDTIME [facility] Last Admin: 07/03/24 20:10 Dose: 30 mg Naloxone HCl (Naloxone Hcl Nasal 4 Mg [place]) 4 mg NOSTRILALT Q2M PRN PRN Reason: opioid overdose Nicotine Polacrilex (Nicotine Polacrilex 2 Mg Gum) 4 mg BUCCAL Q2H PRN PRN Reason: Nicotine Cravings Last Admin: 07/04/24 08:01 Dose: 4 mg Olanzapine (Olanzapine 7.5 Mg Tablet) 15 mg PO BEDTIME [facility] Last Admin: 07/03/24 20:11 Dose: 15 mg Omeprazole (Omeprazole 20 Mg Capsule.Dr) 20 mg PO BID@0630,1630 [facility] Last Admin: 07/04/24 06:23 Dose: 20 mg Trazodone HCl (Trazodone Hcl 50 Mg Tablet) 50 mg PO BEDTIME [facility] PRN PRN Reason: Sleep Last Admin: 07/04/24 00:28 Dose: 50 mg Allergies Allergies Allergy/AdvReac Type Severity Reaction Status Date / Time vancomycin Allergy Severe Rash Verified 06/01/24 07:38 Assessment & Plan Assessment & Plan (1) Major depression, recurrent: Qualifiers: Active/Remission status: currently active Major depression episode severity: moderate Qualified Code(s): F33.1 - Major depressive disorder, recurrent, moderate Status: Acute Code(s): F33.9 - Major depressive disorder, recurrent, unspecified (2) PTSD (post-traumatic stress disorder): Status: Acute Code(s): F43.10 - Post-traumatic stress disorder, unspecified (3) Cocaine use disorder: Status: Acute Code(s): F14.10 - Cocaine abuse, uncomplicated (4) Opioid use disorder: Status: Acute Code(s): F11.90 - Opioid use, unspecified, uncomplicated Plan Patient is a 39-year-old male with history MDD, opiate use disorder and cocaine use disorder who presented to ER due to suicidal ideation secondary to increased depression and auditory hallucinations telling him to hang himself. Plan: CV 15 minute safety checks Continue home medications Encourage groups Referral to substance abuse program Discharge planning 06/29: Drowsy during conversation. Pt continues to report feeling depressed ; pt stated, I don't have an apartment or a job. I have so many problems . Discussed decreasing gabapentin d/t sedation and increasing zyprexa for AH. denies SI/HI/VH. per nursing, slept 8 hours last night. Decreased gabapentin to 400mg PO TID. Increased Zyprexa to 15mg PO bedtime. 06/30: Continue current management and treatment plan. Had recent medication changes. 07/01: Continue current management and treatment plan. 07/02: Active on unit, social with peers. Patient reports he feels his mood is starting to improve; states voices have stopped. [facility] not able [facility] obtain [facility] bed. Pt reports he would plan on going to [facility] in [place], [place]. denies SI/HI/VH/AH. Planning for discharge this week if continues to improve. 07/03: Patient reports feeling better today; plan to discharge on to [facility] in [place], [place] if he continues to improve. denies SI/HI/VH/AH. encouraged to attend groups. denies any issues at this time. 07/04: Patient reports feeling good today; plan to discharge and go to [facility] in [place], [place]. denies SI/HI/VH/AH. denies any issues at this time. pt plans on following up with his outpatient providers. Patient educated on: diagnosis and medication risk/benefits Reason for continued inpatient stay Substantial Risk for: stable for discharge Time Spent With Patient Time: Total time managing care of this patient today _20___ minutes.
[2024-07-04 20:00] VITALS: BP 116/63; PULSE 78; RESP 18; TEMP 36.6; O2SAT 93
[2024-07-04] MEDS: Mirtazapine 30 MG TABLET PO (20:08)
[2024-07-04] MEDS: chlorproMAZINE HCl 25 MG TABLET 50 MG PO (20:08)
[2024-07-04] MEDS: OLANZapine 7.5 MG TABLET 15 MG PO (20:08)
[2024-07-05] MEDS: Omeprazole 20 MG CAPSULE.DR PO (06:42)
[2024-07-05 07:00] VITALS: BMI 38.5
[2024-07-05] MEDS: Nicotine Polacrilex 2 MG GUM 4 MG BUCCAL (07:07)
[2024-07-05] MEDS: methADONE HCl 20 MG/2 ML ORAL.CONC 195 MG PO (07:44)
[2024-07-05 07:55] VITALS: BP 125/71; PULSE 80; RESP 16; TEMP 36.1; O2SAT 96
[2024-07-05] MEDS: metFORMIN HCl 500 MG TABLET PO (08:21)
[2024-07-05] MEDS: Gabapentin 400 MG CAPSULE PO (08:21)
[2024-07-05] MEDS: busPIRone HCl 10 MG TABLET PO (08:21)
[2024-07-05] MEDS: Naloxone HCl Nasal TAKE HOME 4 MG SPRAY 8 MG NOSTRILALT (08:23)
--- NOTE | 2024-07-05 09:21 | PM.PSYDC ---
DS: Providers Provider Date of Service: 07/05/24 Date of admission: 06/27/24 19:32 Date of discharge: 07/05/24 Primary care physician: Fiona Physician Admitting clinician: Saundra Christianson Attending physician on admission: Saji Brown Consults: 06/27/24 19:57 Consult to Hospitalist Routine Comment: Consulting Provider: [facility] Hospitalists Reason For Exam: OSH admission Attending physician on discharge: Saji Brown Discharging clinician: Saundra Christianson DS: Diagnosis Discharge Diagnosis (1) Major depression, recurrent: Status: Acute (2) PTSD (post-traumatic stress disorder): Status: Acute (3) Cocaine use disorder: Status: Acute (4) Opioid use disorder: Status: Acute DS: Medications Discharge Medications Home Medications: Previous Rx's ?Medication ?Instructions ?Recorded methadone 10 mg/mL oral 195 mg (19.5 mL) PO DAILY #0 mL 01/06/24 concentrate (Methadose) nicotine (polacrilex) 4 mg gum 4 mg buccal Q1H #110 ea 01/06/24 naloxone 4 mg/actuation nasal 4 mg intranasal Q2M PRN opioid 06/05/24 spray (Narcan) overdose 1 day #2 ea buspirone 10 mg tablet 10 mg PO BID 30 days #60 tabs 07/04/24 chlorpromazine 50 mg tablet 50 mg PO BID 30 days #60 tabs 07/04/24 gabapentin 400 mg capsule 400 mg PO TID 30 days #90 caps 07/04/24 hydroxyzine HCl 50 mg tablet 50 mg PO TID PRN moderate to 07/04/24 severe anxiety 30 days #90 tabs metformin 500 mg tablet 500 mg PO BID 30 days #60 tabs 07/04/24 mirtazapine 30 mg tablet 30 mg PO BEDTIME 30 days #30 tabs 07/04/24 olanzapine 15 mg tablet 15 mg PO BEDTIME 30 days #30 tabs 07/04/24 omeprazole 20 mg capsule,delayed 20 mg PO BID@0630,1630 30 days #60 07/04/24 release caps trazodone 50 mg tablet 50 mg PO BEDTIME PRN Sleep 14 days 07/04/24 #14 tabs Mental Status Exam Mental Status Exam Narrative: Pt is alert and oriented; behavior is cooperative and calm; dressed in casual attire; mood is described as good ; eye contact appropriate; Speech is normal rate, volume and not pressured; thought process is organized; Thought content is on discharge; denies SI/HI/VH/AH. Data Data Completed and Pending Completed studies during hospitalization [Text1]: 06/29/24 06/29/24 06/29/24 13:17 13:17 13:17 Creatinine 0.80 0.78 Estim Creat Clear Calc 126.5 129.7 Estimated GFR > 60 Estimat Average Glucose Hemoglobin A1c % Triglycerides Cholesterol LDL Cholesterol, Calc HDL Cholesterol Vitamin B12 Folate TSH Free T4 06/29/24 06/29/24 13:17 13:27 Creatinine Estim Creat Clear Calc Estimated GFR > 60 Estimat Average Glucose 126 Hemoglobin A1c % 6.0 Triglycerides 572 H Cholesterol 193 LDL Cholesterol, Calc TNP HDL Cholesterol 27 L Vitamin B12 427 Folate 9.9 TSH 1.30 Free T4 1.01 DS: Summary Hospital Course Hospital Course: Patient is a 39-year-old male with history MDD, opiate use disorder and cocaine use disorder who presented to ER due to suicidal ideation secondary to increased depression and auditory hallucinations telling him to hang himself. Per crisis report, patient reports depression and suicidal ideation with voices telling him to hang himself. History of multiple inpatient psychiatric hospitalizations. Patient reports his stress increased which increased his auditory hallucinations telling him that he is no good and should kill himself . He denied current drug use and reports cocaine use a week ago; Utox positive for cocaine, marijuana. Denies HI/VH. Patient reports his main stressors are regarding the of his mother and is a frequent trigger for his depression. During admission assessment, patient presents alert and oriented x3. Calm and cooperative. Patient reports feeling stressed and anxious ; patient stated, I'm thinking of hanging myself because of the problems in my life. I'm having a lot of voices. I have no family here, everything is hard for me . Patient reports he has not been taking his medications daily due to losing them . He reports outpatient psychiatric providers through [facility]. Patient reports he stopped using cocaine and heroin a week ago. Utox positive for cocaine and marijuana. Denies HI/VH. Patient reports he would like a referral to a substance abuse program and be restarted on his home medications. Plan: CV 15 minute safety checks Continue home medications Encourage groups Referral to substance abuse program Discharge planning Drowsy during conversation. Pt continues to report feeling depressed ; pt stated, I don't have an apartment or a job. I have so many problems . Discussed decreasing gabapentin d/t sedation and increasing zyprexa for AH. denies SI/HI/VH. per nursing, slept 8 hours last night. Decreased gabapentin to 400mg PO TID. Increased Zyprexa to 15mg PO bedtime. Active on unit, social with peers. Patient reports he feels his mood is starting to improve; states voices have stopped. Discussed going to alf if he was not able to obtain [facility] bed. Pt reports he would plan on going to [facility] in [place], [place]. denies SI/HI/VH/AH. Planning for discharge this week if continues to improve. Patient reports feeling better today; plan to discharge on to [facility] in [place], [place] if he continues to improve. denies SI/HI/VH/AH. encouraged to attend groups. denies any issues at this time. Patient reports feeling good today; plan to discharge and go to [facility] in [place], [place]. denies SI/HI/VH/AH. denies any issues at this time. pt plans on following up with his outpatient providers. Status at Discharge Cognitive/behavioral status at discharge: Patient has insight and demonstrates good judgment in terms of wanting to pursue treatment. Patient has a safety plan that includes presenting to the closest ER or calling 911 if feeling unsafe. Functional status at discharge: independent ambulation Overall status at discharge: patient is back to baseline Time Spent with Patient Time attestation: Total time managing care of this patient today _20___ minutes. Time spent: Less than 30 minutes Discharge Plan Discharge Anticipated Discharge Date/Time: 07/05/24 10:00 Patient Disposition: Prison Discharge Diagnosis: MDD, PTSD, Cocaine use d/o, opioid use d/o Referrals: [facility] ([facility]) [Other] - 1 Week (*You have been referred to the [facility]. You can call the phone number listed above to follow up regarding possible placement. ) [facility] [Other] - 1 Week (*You can present to the clinic above, Tuesday through Tuesday during the hours of 8am and 8pm, in order to obtain outpatient mental health providers. ) [facility] [Provider Group] - 1 Week (07-04-24 [facility] was added to patients chart. Please call [phone] to schedule your follow up appt within 7-10 days of discharge.) Discharge Medications: New chlorpromazine 50 mg tablet 50 mg PO BID 30 Days Qty: 60 0RF gabapentin 400 mg Capsule 400 mg PO TID 30 Days Qty: 90 0RF hydroxyzine HCl 50 mg Tablet 50 mg PO TID PRN (Reason: moderate to severe anxiety) 30 Days Qty: 90 0RF olanzapine 15 mg tablet 15 mg PO BEDTIME 30 Days Qty: 30 0RF Continued methadone [Methadose] 10 mg/mL Concentrate 195 mg PO DAILY Qty: 0 0RF Rx Instructions: Partial Fill upon patient request. nicotine (polacrilex) 4 mg Gum 4 mg BUCCAL Q1H Qty: 110 0RF naloxone [Narcan] 4 mg/actuation spray,non-aerosol 4 mg intranasal Q2M PRN (Reason: opioid overdose) 1 Days Qty: 2 0RF Rx Instructions: spray 1 dose into ONE nostril; alternate nostrils w each dose until help arrives metformin 500 mg Tablet 500 mg PO BID 30 Days Qty: 60 0RF trazodone 50 mg Tablet 50 mg PO BEDTIME PRN (Reason: Sleep) 14 Days Qty: 14 0RF mirtazapine 30 mg Tablet 30 mg PO BEDTIME 30 Days Qty: 30 0RF buspirone 10 mg Tablet 10 mg PO BID 30 Days Qty: 60 0RF omeprazole 20 mg Capsule,Delayed Release(Dr/Ec) 20 mg PO BID@0630,1630 30 Days Qty: 60 0RF Discontinued chlorpromazine 25 mg Tablet 50 mg PO TID PRN (Reason: anxiety, agitation) Qty: 15 0RF gabapentin 600 mg tablet 600 mg PO TID Qty: 21 4RF hydroxyzine pamoate 50 mg Capsule 50 mg PO QID PRN (Reason: moderate to severe anxiety) Qty: 30 0RF olanzapine 10 mg Tablet 10 mg PO BEDTIME Qty: 30 0RF Discharge Orders: Discharge Order (Routine); Ordered 07/05/24 Ordered By: Saundra Christianson Diet: Regular diet Activity on Discharge: As tolerated Stand Alone Forms: Patient Portal Discharge page, Community Support Print Language: Rwandan Care Plan Goals: Maintain mood and safe behaviors Take medications as prescribed Continue to pursue sobriety Practice coping skills Continue with outpatient providers and reach out to them as needed Health Concerns: Mood stability and behaviors Sobriety Plan of Treatment: Follow up with your PCP, psychiatric provider and other outpatient providers regarding above concerns Take medications as prescribed Assessment: Patient has insight and demonstrates good judgment in terms of wanting to pursue treatment. Patient has a safety plan that includes presenting to the closest ER or calling 911 if feeling unsafe. Discharge Date/Time: 07/05/24 10:00
== END 2024-07-05 10:00 | disposition home or self-care (01) | DRG 751 ==
PROVIDERS: Psychiatry & Neurology Psychiatry; Admitting Provider Registered Nurse; Responsible Provider Registered Nurse; Visit Provider Psychiatry & Neurology Psychiatry
DX: F33.9 Major depressive disorder, recurrent, unspecified (principal); E11.42 Type 2 diabetes mellitus with diabetic polyneuropathy; F90.9 Attention-deficit hyperactivity disorder, unspecified type; F11.20 Opioid dependence, uncomplicated; F17.210 Nicotine dependence, cigarettes, uncomplicated; Z71.6 Tobacco abuse counseling; F43.10 Post-traumatic stress disorder, unspecified; F14.10 Cocaine abuse, uncomplicated; Z79.84 Long term (current) use of oral hypoglycemic drugs; Z79.899 Other long term (current) drug therapy
CPT/HCPCS: 36415; 80061; 82565; 82607; 82746; 82947; 83036; 84439; 84443

== ENCOUNTER → 2024-06-27 19:32 | Outpatient (BNV) | payer OTHER, SELFPAY | PROVIDERS: Admitting Provider Registered Nurse; Responsible Provider Registered Nurse; Visit Provider Family Medicine | DX: Z00.00 Encounter for general adult medical examination without abnormal findings (principal) | CPT/HCPCS: 99429 ==

== ENCOUNTER → 2024-06-27 19:32 | Outpatient (BNV) | payer OTHER, SELFPAY | PROVIDERS: Admitting Provider Registered Nurse; Responsible Provider Registered Nurse; Visit Provider Registered Nurse | DX: F33.1 Major depressive disorder, recurrent, moderate (principal); F43.10 Post-traumatic stress disorder, unspecified; F14.10 Cocaine abuse, uncomplicated; F11.90 Opioid use, unspecified, uncomplicated | CPT/HCPCS: 99231; 99232; 99233 ==

== ENCOUNTER 2024-08-15 13:39 | Inpatient (IN) | payer MEDICAID, SELFPAY ==
--- NOTE | ~2024-08-15 | XR_ITS ---
EXAMINATION: XR SHOULDER, RIGHT CLINICAL INFORMATION: Right shoulder pain COMPARISON: None available. TECHNIQUE: AP external rotation, Grashey, scapular Y, and axillary views of the right shoulder. FINDINGS: Normal bone mineralization. No fracture, dislocation, or suspicious bone lesion. Normal alignment. The glenohumeral joint is normal. The AC joint demonstrates mild undersurface spurring. There is a neutral lateral acromion. No undersurface spurring. The subacromial space is preserved. Remainder of the soft tissue and bony structures appear normal. XR/XR shoulder RT min 2V IMPRESSION: Mild arthritic changes of the AC joint. Otherwise normal exam. Electronically signed by: Aden Boland MD 08/16/2024 01:54 PM EDT
[2024-08-15 14:00] VITALS: BMI 35.2
[2024-08-15 14:01] VITALS: BP 119/62; PULSE 75; RESP 16; TEMP 36.4; O2SAT 96
--- NOTE | 2024-08-15 14:31 | HE.PHANOTE ---
methadone dose verified [address] [facility] 08/15/24 @[id number]
--- NOTE | 2024-08-15 16:49 | P.HPPS_ITS ---
[facility] Date of Service: 08/15/24 Chief Complaint: Major depression recurrent, severe; opiate use Sources of Information: patient interviewed, chart reviewed and crisis/core team assessment reviewed HPI Subjective Notes: Georges Warning and Conditional Voluntary Narrative: Patient is a 39-year-old male with history MDD, opiate use disorder, alcohol use disorder and cocaine use disorder who presented to ER due to suicidal ideation secondary to increased depression and auditory hallucinations telling him to hang himself. Per crisis report, patient reports that there is too much stress and I was going to hang myself . Patient stated, the voices are telling me to hang myself. I just don't care and want to . I'm tired of my life . Patient stated he has been off of his medications for 2 weeks. Utox positive for cocaine, methadone and marijuana. History of multiple inpatient psychiatric hospitalizations. During admission assessment, patient presents alert and oriented x3. Calm and cooperative. Patient reports feeling anxious and depressed ; patient stated, I got too much problems. I got into an argument with my grandma. The voices were telling me to hang myself. I haven't taken my medications in 2 weeks because I didn't want to walk to the pharmacy since my legs were hurting . Patient denies HI/VH. Patient reports he would like to restart his medications and be referred to a substance abuse program. Past Psychiatric History: History of multiple inpatient psychiatric hospitalizations. Outpatient providers through [facility]. Denies SA/SIB. Medical Evaluation Reviewed: Hospitalist Mago Pending [facility] Medical History (Updated 08/15/24 @ 17:14 by Saundra Christianson NP) Routine medical exam Polysubstance (including opioids) dependence with physiological dependence ADHD Non-insulin dependent type 2 diabetes mellitus Polysubstance use disorder PTSD (post-traumatic stress disorder) Family History: Unknown Social History: Lives with father and grandmother. Single. 3 kids (2 adult, 1 16y/o lives with his mother). Unemployed. Substance History: U tox positive for cocaine, methadone and marijuana. Trauma History: yes Diagnostics Vital Signs (24Hr): Vital Signs - 24 hr 08/15/24 14:01 Temperature 97.5 F Pulse Rate 75 Respiratory Rate 16 Blood Pressure 119/62 Pulse Oximetry 96 Oxygen Delivery Method Room Air BMI result Body Mass Index 35.2 Meds/Allergies Meds Home Medications ?Medication ?Instructions ?Recorded ?Confirmed ?Type buspirone 10 mg tablet 20 mg PO TID 08/15/24 08/15/24 History escitalopram oxalate 20 mg tablet 20 mg PO DAILY 08/15/24 08/15/24 History (Lexapro) gabapentin 400 mg capsule 300 mg PO TID 08/15/24 08/15/24 History hydroxyzine HCl 50 mg tablet 50 mg PO BID PRN moderate to 08/15/24 08/15/24 History severe anxiety metformin 500 mg tablet 1,000 mg PO BIDWMEAL 08/15/24 08/15/24 History prazosin 1 mg capsule 1 mg PO BID 08/15/24 08/15/24 History trazodone 100 mg tablet 150 mg PO BEDTIME PRN Insomnia 08/15/24 08/15/24 History Allergies Allergies Allergy/AdvReac Type Severity Reaction Status Date / Time vancomycin Allergy Severe Rash Verified 06/01/24 07:38 Mental Status Exam Mental Status Exam Narrative: Pt is alert and oriented; behavior is cooperative and calm; dressed in casual attire; mood is described as anxious and depressed ; eye contact appropriate; Speech is normal rate, volume and not pressured; thought process is organized and goal directed; Thought content is on tx; denies HI/VH. Patient reports auditory hallucinations telling him to hang himself. He reports suicidal ideation. Assessment & Plan Assessment & Plan (1) Major depression, recurrent: Status: Acute Qualifiers: Active/Remission status: currently active Major depression episode severity: moderate Qualified Code(s): F33.1 - Major depressive disorder, recurrent, moderate Code(s): F33.9 - Major depressive disorder, recurrent, unspecified (2) PTSD (post-traumatic stress disorder): Status: Acute Code(s): F43.10 - Post-traumatic stress disorder, unspecified (3) Cocaine use disorder: Status: Acute Code(s): F14.10 - Cocaine abuse, uncomplicated (4) Opioid use disorder: Status: Acute Code(s): F11.90 - Opioid use, unspecified, uncomplicated (5) Alcohol use disorder: Status: Acute Code(s): F10.90 - Alcohol use, unspecified, uncomplicated Plan Patient is a 39-year-old male with history MDD, opiate use disorder, alcohol use disorder and cocaine use disorder who presented to ER due to suicidal ideation secondary to increased depression and auditory hallucinations telling him to hang himself. Plan: CV 15 minute safety checks CIWA protocol Continue home medications Obtain collateral Encourage groups Referral to substance abuse program Discharge planning Patient educated on: diagnosis and medication risk/benefits Reason for continued inpatient stay Substantial Risk for: harm to self and med/psych decompensation Statement Statement: I have reviewed the history and physical and performed a pertinent examination on my patient. No changes have occurred unless specified. If the History and Physical was not performed prior to admission, the Hospitalist's service will be consulted for completing the admission physical. Time Spent With Patient Time: Total time managing care of this patient today _60___ minutes.
--- NOTE | 2024-08-15 16:51 | PC.ADMIT ---
Aron was admitted to [facility] from [facility] on a CV for treatment of MDD, Cocaine use and Opiate use disorder. He declined to do full admission assessment so much of admission is completed off of crisis assessment. According to crisis, Aron came to the hospital experiencing AH telling him to hang himself and SI with plan to hang himself. Per assessment, he has a lot of stress and has been off of his medications for 2 weeks. He is calm and cooperative with skin check and some of assessment, but declines to complete full assessment due to sleeping. His thought process was linear and clear, no thought disturbances. His mood is depressed and his affect is congruent with his mood. He denies current SI/HI/AVH. He reports a history of insomnia. He denies any appetite disturbances. He has a history of cocaine and opiate use, his tox screen was positive for cocaine, marijuana and methadone. He has a history of Diabetes Mellitus Type 2 and Hypertension. He denies any physical complaints. He was placed on 15 minute checks for safety. Methadone was verified and sent to pharmacy. Skin check revealed skin picking scabs on L and R buttock but otherwise unremarkable.
[2024-08-15 20:00] VITALS: BP 101/60; PULSE 63; RESP 16; TEMP 36.9; O2SAT 96
[2024-08-15] MEDS: busPIRone HCl 10 MG TABLET 20 MG PO (20:38)
[2024-08-15] MEDS: Mirtazapine 30 MG TABLET PO (20:39)
[2024-08-15] MEDS: OLANZapine 7.5 MG TABLET 15 MG PO (20:39)
[2024-08-15] MEDS: LORazepam 1 MG TABLET PO (20:51)
[2024-08-15] MEDS: Gabapentin 300 MG CAPSULE PO (20:51)
[2024-08-16] MEDS: Omeprazole 20 MG CAPSULE.DR PO ×2 (05:30→17:23)
[2024-08-16] MEDS: Nicotine Polacrilex 2 MG GUM 4 MG BUCCAL ×3 (05:31→13:17)
[2024-08-16] MEDS: hydrOXYzine HCL 25 MG TABLET PO ×2 (05:35→22:27)
[2024-08-16 07:00] VITALS: BMI 36.7
[2024-08-16 07:42] VITALS: BP 122/68; PULSE 71; RESP 16; TEMP 36.4; O2SAT 93
[2024-08-16] MEDS: methADONE HCl 20 MG/2 ML ORAL.CONC 195 MG PO (08:00)
[2024-08-16] MEDS: metFORMIN HCl 1,000 MG TABLET 1000 MG PO ×2 (09:01→17:23)
[2024-08-16] MEDS: Gabapentin 300 MG CAPSULE PO ×3 (09:01→20:42)
[2024-08-16] MEDS: Thiamine HCL 100 MG TABLET PO (09:01)
[2024-08-16] MEDS: busPIRone HCl 10 MG TABLET 20 MG PO ×3 (09:01→20:42)
[2024-08-16] MEDS: Escitalopram Oxalate 20 MG TABLET PO (09:02)
--- NOTE | 2024-08-16 09:31 | HO.PSYCHPN ---
Subjective Subjective Date of Service: 08/16/24 Reason For Visit: Major depression recurrent, severe; opiate use Subjective Notes: 3 Day Interim History: Pt signed 3 day notice, up on 08/21/24. Patient reports feeling a little better today; pt stated, the medication is working. I feel more relaxed and not have voices . Pt reports he signed a 3 day notice since he is feeling better and he spoke to his father who told him he can possibly stay with him. denies SI/HI/VH/AH. Encouraged to attend groups. Continue current tx plan. Medication Compliance: Yes Side effects from medications: No Attending Groups: No Mental Status Exam Mental Status Exam Narrative: Pt is alert and oriented; behavior is cooperative and calm; dressed in casual attire; mood is described as a little better ; eye contact appropriate; Speech is normal rate, volume and not pressured; thought process is organized; Thought content is on tx; denies SI/HI/VH/AH. Diagnostics Vital Signs (24Hr): Vital Signs - 24 hr 08/15/24 14:01 08/15/24 20:00 08/16/24 07:42 Temperature 97.5 F 98.5 F 97.5 F Pulse Rate 75 63 71 Respiratory Rate 16 16 16 Blood Pressure 119/62 101/60 122/68 Pulse Oximetry 96 96 93 Oxygen Delivery Method Room Air Room Air Room Air BMI result Body Mass Index 35.2 Medications Medications Current Medications Acetaminophen (Acetaminophen 325 Mg Tablet) 650 mg PO Q6H PRN PRN Reason: Headache/Pain, Scale 1-10 Al Hydroxide/Mg Hydroxide (Magnesium Hydrox/Alum Hydrox 30 Ml Oral.Susp) 30 ml PO Q6H PRN PRN Reason: Heartburn/Nausea Buspirone HCl (Buspirone Hcl 10 Mg Tablet) 20 mg PO TID [facility] Last Admin: 08/16/24 09:01 Dose: 20 mg Escitalopram Oxalate (Escitalopram Oxalate 20 Mg Tablet) 20 mg PO DAILY [facility] Last Admin: 08/16/24 09:02 Dose: 20 mg Gabapentin (Gabapentin 300 Mg Capsule) 300 mg PO TID [facility] Last Admin: 08/16/24 09:01 Dose: 300 mg Hydroxyzine HCl (Hydroxyzine Hcl 25 Mg Tablet) 25 mg PO Q6H PRN PRN Reason: mild anxiety Last Admin: 08/16/24 05:35 Dose: 25 mg Lorazepam (Lorazepam 1 Mg Tablet) 1 mg PO Q2H PRN PRN Reason: CIWA 8-11 Last Admin: 08/15/24 20:51 Dose: 1 mg Lorazepam (Lorazepam 1 Mg Tablet) 2 mg PO Q2H PRN PRN Reason: CIWA 12-15 Lorazepam (Lorazepam 1 Mg Tablet) 3 mg PO Q2H PRN PRN Reason: CIWA > 15, and call Magnesium Hydroxide (Milk Of Magnesia 30 Ml Oral.Susp) 30 ml PO DAILY PRN PRN Reason: Constipation Metformin HCl (Metformin Hcl 1,000 Mg Tablet) 1,000 mg PO BIDWM [facility] Last Admin: 08/16/24 09:01 Dose: 1,000 mg Methadone HCl (Methadone Hcl 20 Mg/2 Ml Oral.Conc) 195 mg PO DAILY [facility] Last Admin: 08/16/24 08:00 Dose: 195 mg Mirtazapine (Mirtazapine 30 Mg Tablet) 30 mg PO BEDTIME [facility] Last Admin: 08/15/24 20:39 Dose: 30 mg Nicotine (Nicotine 21 Mg Patch.Td24) 21 mg TRANSDERMA DAILY [facility] Last Admin: 08/16/24 09:02 Dose: Not Given Nicotine Polacrilex (Nicotine Polacrilex 2 Mg Gum) 4 mg BUCCAL Q2H PRN PRN Reason: Nicotine Cravings Last Admin: 08/16/24 05:31 Dose: 4 mg Olanzapine (Olanzapine 7.5 Mg Tablet) 15 mg PO BEDTIME [facility] Last Admin: 08/15/24 20:39 Dose: 15 mg Omeprazole (Omeprazole 20 Mg Capsule.Dr) 20 mg PO BID@0630,1630 [facility] Last Admin: 08/16/24 05:30 Dose: 20 mg Thiamine HCl (Thiamine Hcl 100 Mg Tablet) 100 mg PO DAILY [facility] Last Admin: 08/16/24 09:01 Dose: 100 mg Trazodone HCl (Trazodone Hcl 50 Mg Tablet) 150 mg PO BEDTIME PRN PRN Reason: Insomnia Allergies Allergies Allergy/AdvReac Type Severity Reaction Status Date / Time vancomycin Allergy Severe Rash Verified 06/01/24 07:38 Assessment & Plan Assessment & Plan (1) Major depression, recurrent: Qualifiers: Active/Remission status: currently active Major depression episode severity: moderate Qualified Code(s): F33.1 - Major depressive disorder, recurrent, moderate Status: Acute Code(s): F33.9 - Major depressive disorder, recurrent, unspecified (2) PTSD (post-traumatic stress disorder): Status: Acute Code(s): F43.10 - Post-traumatic stress disorder, unspecified (3) Cocaine use disorder: Status: Acute Code(s): F14.10 - Cocaine abuse, uncomplicated (4) Opioid use disorder: Status: Acute Code(s): F11.90 - Opioid use, unspecified, uncomplicated (5) Alcohol use disorder: Status: Acute Code(s): F10.90 - Alcohol use, unspecified, uncomplicated Plan Patient is a 39-year-old male with history MDD, opiate use disorder, alcohol use disorder and cocaine use disorder who presented to ER due to suicidal ideation secondary to increased depression and auditory hallucinations telling him to hang himself. Plan: CV 15 minute safety checks CIWA protocol Continue home medications Obtain collateral Encourage groups Referral to substance abuse program Discharge planning 08/16: Pt signed 3 day notice, up on 08/21/24. Patient reports feeling a little better today; pt stated, the medication is working. I feel more relaxed and not have voices . Pt reports he signed a 3 day notice since he is feeling better and he spoke to his father who told him he can possibly stay with him. denies SI/HI/VH/AH. Encouraged to attend groups. Continue current tx plan. Patient educated on: diagnosis, medication risk/benefits and therapeutic strategies Reason for continued inpatient stay Substantial Risk for: med/psych decompensation Time Spent With Patient Time: Total time managing care of this patient today _20___ minutes.
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
[2024-08-16] MEDS: LORazepam 1 MG TABLET PO (12:14)
[2024-08-16 16:23] VITALS: BP 113/53; PULSE 65; RESP 18; TEMP 36.9
[2024-08-16 20:00] VITALS: BP 106/55; PULSE 70; RESP 18; TEMP 36.6; O2SAT 94
[2024-08-16] MEDS: OLANZapine 7.5 MG TABLET 15 MG PO (20:42)
[2024-08-16] MEDS: Mirtazapine 30 MG TABLET PO (20:42)
[2024-08-16] MEDS: traZODone HCL 50 MG TABLET 150 MG PO (22:27)
[2024-08-17] MEDS: LORazepam 1 MG TABLET PO ×2 (03:09→20:37)
[2024-08-17] MEDS: Omeprazole 20 MG CAPSULE.DR PO ×2 (05:53→17:02)
[2024-08-17 07:35] VITALS: BP 132/61; PULSE 72; RESP 16; TEMP 36.7; O2SAT 96
[2024-08-17] MEDS: methADONE HCl 20 MG/2 ML ORAL.CONC 195 MG PO (08:03)
[2024-08-17 08:26] VITALS: BP 132/61; PULSE 72; O2SAT 96
[2024-08-17] MEDS: busPIRone HCl 10 MG TABLET 20 MG PO ×3 (08:28→20:30)
[2024-08-17] MEDS: Escitalopram Oxalate 20 MG TABLET PO (08:28)
[2024-08-17] MEDS: Gabapentin 300 MG CAPSULE PO ×3 (08:28→20:31)
[2024-08-17] MEDS: metFORMIN HCl 1,000 MG TABLET 1000 MG PO ×2 (08:28→17:02)
[2024-08-17] MEDS: Thiamine HCL 100 MG TABLET PO (08:29)
[2024-08-17] MEDS: Nicotine Polacrilex 2 MG GUM 4 MG BUCCAL ×4 (09:09→21:05)
[2024-08-17] MEDS: hydrOXYzine HCL 25 MG TABLET PO (13:07)
--- NOTE | 2024-08-17 14:26 | P.PNPSI_ITS ---
Subjective Subjective Date of Service: 08/17/24 Reason For Visit: Major depression recurrent, severe; opiate use Interim History: appears very sedated, talking about being on the beach, women, sand and sea. appears confused to hear from MD that we are not at the beach. next begins talking about some food he has in the fridge; again appears confused when MD lets him know we're not in a place where he has food in the fridge. falling asleep at the table. no questions or complaints. per staff, 3-day up tuesday. dep/anx 10. +AH - feel like a dream. slept 3-4 hours overnight. CIWA - scored x 1 yesterday. intermittent SI. Mental Status Exam Mental Status Exam Narrative: Pt is sedated and somnolent; behavior is cooperative and calm; dressed in casual attire; mood is not assessed. eye contact poor; Speech is decreased rate, volume and not pressured; thought process is disorganized; Thought content is on delirious fantasies; no SI/HI/VH/AH. Diagnostics Vital Signs (24Hr): Vital Signs - 24 hr 08/16/24 16:23 08/16/24 20:00 08/17/24 07:35 Temperature 98.4 F 97.8 F 98.0 F Pulse Rate 65 70 72 Respiratory Rate 18 18 16 Blood Pressure 113/53 L 106/55 L 132/61 Pulse Oximetry 94 96 Oxygen Delivery Method Room Air Room Air 08/17/24 08:26 Temperature Pulse Rate 72 Respiratory Rate Blood Pressure 132/61 Pulse Oximetry 96 Oxygen Delivery Method BMI result Body Mass Index 36.7 Imaging Radiology Impressions: ITS Impressions Shoulder X-Ray 08/16/24 12:42 IMPRESSION: Mild arthritic changes of the AC joint. Otherwise normal exam. Electronically signed by: Aden Boland MD 08/16/2024 01:54 PM EDT Medications Medications Current Medications Acetaminophen (Acetaminophen 325 Mg Tablet) 650 mg PO Q6H PRN PRN Reason: Headache/Pain, Scale 1-10 Al Hydroxide/Mg Hydroxide (Magnesium Hydrox/Alum Hydrox 30 Ml Oral.Susp) 30 ml PO Q6H PRN PRN Reason: Heartburn/Nausea Buspirone HCl (Buspirone Hcl 10 Mg Tablet) 20 mg PO TID [facility] Last Admin: 08/17/24 08:28 Dose: 20 mg Escitalopram Oxalate (Escitalopram Oxalate 20 Mg Tablet) 20 mg PO DAILY [facility] Last Admin: 08/17/24 08:28 Dose: 20 mg Gabapentin (Gabapentin 300 Mg Capsule) 300 mg PO TID [facility] Last Admin: 08/17/24 08:28 Dose: 300 mg Hydroxyzine HCl (Hydroxyzine Hcl 25 Mg Tablet) 25 mg PO Q6H PRN PRN Reason: mild anxiety Last Admin: 08/17/24 13:07 Dose: 25 mg Lorazepam (Lorazepam 1 Mg Tablet) 1 mg PO Q2H PRN PRN Reason: CIWA 8-11 Last Admin: 08/17/24 03:09 Dose: 1 mg Lorazepam (Lorazepam 1 Mg Tablet) 2 mg PO Q2H PRN PRN Reason: CIWA 12-15 Lorazepam (Lorazepam 1 Mg Tablet) 3 mg PO Q2H PRN PRN Reason: CIWA > 15, and call MD Magnesium Hydroxide (Milk Of Magnesia 30 Ml Oral.Susp) 30 ml PO DAILY PRN PRN Reason: Constipation Metformin HCl (Metformin Hcl 1,000 Mg Tablet) 1,000 mg PO BIDWM [facility] Last Admin: 08/17/24 08:28 Dose: 1,000 mg Methadone HCl (Methadone Hcl 20 Mg/2 Ml Oral.Conc) 190 mg PO DAILY [facility] Mirtazapine (Mirtazapine 30 Mg Tablet) 30 mg PO BEDTIME [facility] Last Admin: 08/16/24 20:42 Dose: 30 mg Nicotine (Nicotine 21 Mg Patch.Td24) 21 mg TRANSDERMA DAILY [facility] Last Admin: 08/17/24 08:30 Dose: Not Given Nicotine Polacrilex (Nicotine Polacrilex 2 Mg Gum) 4 mg BUCCAL Q1H PRN PRN Reason: Nicotine Cravings Olanzapine (Olanzapine 7.5 Mg Tablet) 15 mg PO BEDTIME [facility] Last Admin: 08/16/24 20:42 Dose: 15 mg Omeprazole (Omeprazole 20 Mg Capsule.Dr) 20 mg PO BID@0630,1630 [facility] Last Admin: 08/17/24 05:53 Dose: 20 mg Thiamine HCl (Thiamine Hcl 100 Mg Tablet) 100 mg PO DAILY [facility] Last Admin: 08/17/24 08:29 Dose: 100 mg Trazodone HCl (Trazodone Hcl 50 Mg Tablet) 150 mg PO BEDTIME PRN PRN Reason: Insomnia Last Admin: 08/16/24 22:27 Dose: 150 mg Allergies Allergies Allergy/AdvReac Type Severity Reaction Status Date / Time vancomycin Allergy Severe Rash Verified 06/01/24 07:38 Assessment & Plan Assessment & Plan (1) Medical clearance for psychiatric admission: Status: Acute Code(s): Z00.8 - Encounter for other general examination Assessment and Plan: Pt is a 39-year-old male with a PMH significant for?anj-xuwknha-lxjprfsua type 2 diabetes, peripheral neuropathy, ADHD, polysubstance use disorder, and PTSD who is admitted to [facility] unit for increasing depression, alcohol use, and SI with plan to hang himself. Medical consult for admission H&P. ? Mood disorder Plan as per Psychiatry Right shoulder pain Ongoing times 2-3 weeks, occasional numbness especially after waking up Right shoulder nonpainful to palpation, reduced ROM of flexion, elevation, and external rotation secondary to pain Etiology unclear: Pt denies fall or trauma to the area Get right shoulder x-ray If x-ray negative, we will get PT consult Rsg-[id number]-[id number] type 2 diabetes Continue metformin Encourage diabetic diet and diabetic snacking Peripheral neuropathy Continue gabapentin Polysubstance use disorder Plan as per Psychiatry, Addiction Medicine Thank you for allowing us to participate in the care of this patient. Signing off at this time. Please re-consult if any acute complaints or issues arise. (2) Alcohol use disorder: Status: Acute Code(s): F10.90 - Alcohol use, unspecified, uncomplicated (3) Opioid use disorder: Status: Acute Code(s): F11.90 - Opioid use, unspecified, uncomplicated (4) Cocaine use disorder: Status: Acute Code(s): F14.10 - Cocaine abuse, uncomplicated (5) PTSD (post-traumatic stress disorder): Status: Acute Code(s): F43.10 - Post-traumatic stress disorder, unspecified (6) Major depression, recurrent: Qualifiers: Active/Remission status: currently active Major depression episode severity: moderate Qualified Code(s): F33.1 - Major depressive disorder, recurrent, moderate Status: Acute Code(s): F33.9 - Major depressive disorder, recurrent, unspecified Plan Patient is a 39-year-old male with history MDD, opiate use disorder, alcohol use disorder and cocaine use disorder who presented to ER due to suicidal ideation secondary to increased depression and auditory hallucinations telling him to hang himself. Plan: CV 15 minute safety checks CIWA protocol Continue home medications Obtain collateral Encourage groups Referral to substance abuse program Discharge planning 08/16: Pt signed 3 day notice, up on 08/21/24. Patient reports feeling a little better today; pt stated, the medication is working. I feel more relaxed and not have voices . Pt reports he signed a 3 day notice since he is feeling better and he spoke to his father who told him he can possibly stay with him. denies SI/HI/VH/AH. Encouraged to attend groups. Continue current tx plan. 08/17: appearing very overmedicated. decrease methadone from 195 to 190 daily as of tomorrow. check utox. otherwise continnue current mgmt. Reason for continued inpatient stay Substantial Risk for: inability to function Time Spent With Patient Time: Total time managing care of this patient today __25__ minutes.
[2024-08-17 15:21] LABS: Amphetamine Screen Urine Not Detected (Not Detect); Barbiturates, Urine Not Detected (Not Detect); Benzodiazepines Screen Urine Not Detected (Not Detect); Buprenorphine Scr Not Detected (Not Detect); Cannabinoid Screen Urine POSITIVE (Not Detect); Cocaine Screen Urine POSITIVE (Not Detect); Fentanyl, urine Not Detected (Not Detect); Methadone Screen, Urine Positive (Not Detect); Opiate Screen Urine Not Detected (Not Detect); Oxycodone Screen Urine Not Detected (Not Detect); Phencyclidine Screen Urine Not Detected (Not Detect)
--- NOTE | 2024-08-17 16:18 | MHC.RECOVRN ---
AUDIT-C Brief Intervention Pt had positive screen for unhealthy alcohol use on admission, subsequently met with t/w to discuss alcohol use and recovery supports/options. This card writer hand met with patient to discuss current alcohol use and concerns related to increased risk of alcohol related problems. Pt reports 2 tall bottles Fireball daily. Discussed how alcohol use has impacted health, including negative impact on mental health. Withdrawal History: denies history of withdrawal seizures Treatment History: pt did not report tx history Supports: family, providers, OTP Discussed risk reduction strategies including drinking below the recommended limit. Provided pt with written resources including information on inpatient and outpatient treatment, [facility], harm reduction, and recovery coaching. Pt plans to review resources and follow up with outpatient providers. Pt is interested in [facility]--- Katelin Ramirez APRN aware. Pt provided with t/w contact information if questions or concerns arise. Denies other questions or concerns at this time.
[2024-08-17 20:31] VITALS: BP 132/77; PULSE 78; RESP 18; TEMP 36.6; O2SAT 96
[2024-08-17] MEDS: OLANZapine 7.5 MG TABLET 15 MG PO (20:31)
[2024-08-17] MEDS: traZODone HCL 50 MG TABLET 150 MG PO (20:31)
[2024-08-17] MEDS: Mirtazapine 30 MG TABLET PO (20:31)
[2024-08-18] MEDS: Omeprazole 20 MG CAPSULE.DR PO ×2 (05:53→16:26)
[2024-08-18] MEDS: methADONE HCl 20 MG/2 ML ORAL.CONC 190 MG PO (08:10)
[2024-08-18] MEDS: Gabapentin 300 MG CAPSULE PO ×3 (09:15→20:57)
[2024-08-18] MEDS: Thiamine HCL 100 MG TABLET PO (09:15)
[2024-08-18] MEDS: busPIRone HCl 10 MG TABLET 20 MG PO ×3 (09:15→20:57)
[2024-08-18] MEDS: metFORMIN HCl 1,000 MG TABLET 1000 MG PO ×2 (09:15→16:26)
[2024-08-18] MEDS: Escitalopram Oxalate 20 MG TABLET PO (09:15)
[2024-08-18] MEDS: hydrOXYzine HCL 25 MG TABLET PO ×2 (12:12→20:57)
--- NOTE | 2024-08-18 12:21 | PC.NURSE ---
Requesting Ativan Carlos Manuel preformed and he scored a 1, offered Hydroxyzine , BP 124/72. He was explained in nicaraguan that his present symptoms are not alcohol related.
[2024-08-18 12:32] VITALS: BP 124/72; O2SAT 95
[2024-08-18] MEDS: Nicotine Polacrilex 2 MG GUM 4 MG BUCCAL ×3 (12:44→19:33)
--- NOTE | 2024-08-18 13:18 | PC.NURSE ---
Refused to have his blood work drawn today
--- NOTE | 2024-08-18 18:00 | P.PNPSI_ITS ---
Subjective Subjective Date of Service: 08/18/24 Reason For Visit: Major depression recurrent, severe; opiate use Interim History: ambulating about the unit. nothing you can help me with. per staff, 3-day up 08/21. not attending groups. denies depression. +anxiety. expansive. called RN molina orozco. very flirtatious. scored 8 on CIWA on re-do after having asked for ativan by name previously. Mental Status Exam Mental Status Exam Narrative: far less sedated and somnolent; behavior is cooperative and calm; dressed in casual attire; mood is not assessed. eye contact poor; Speech is decreased rate, volume and not pressured; thought process is linear and logical; Thought content lacking delusions; no SI/HI/VH/AH expressed. Diagnostics Vital Signs (24Hr): Vital Signs - 24 hr 08/17/24 20:31 08/18/24 12:32 Temperature 97.8 F Pulse Rate 78 Respiratory Rate 18 Blood Pressure 132/77 124/72 Pulse Oximetry 96 95 Oxygen Delivery Method Room Air Room Air BMI result Body Mass Index 36.7 Labs 08/17/24 14:40 Labs: Laboratory Results - last 48 hr 08/17/24 14:40 Creatinine Cancelled Estim Creat Clear Calc Cancelled Estimated GFR Cancelled Urine Opiates Screen Not Detected Ur Buprenorphine Scrn Not Detected Ur Oxycodone Screen Not Detected Urine Methadone Screen Positive H Urine Fentanyl Screen Not Detected Ur Barbiturates Screen Not Detected Ur Phencyclidine Scrn Not Detected Ur Amphetamines Screen Not Detected U Benzodiazepines Scrn Not Detected Urine Cocaine Screen POSITIVE H U Marijuana (THC) Screen POSITIVE H Imaging Radiology Impressions: ITS Impressions Shoulder X-Ray 08/16/24 12:42 IMPRESSION: Mild arthritic changes of the AC joint. Otherwise normal exam. Electronically signed by: Aden Boland MD 08/16/2024 01:54 PM EDT RP Medications Medications Current Medications Acetaminophen (Acetaminophen 325 Mg Tablet) 650 mg PO Q6H PRN PRN Reason: Headache/Pain, Scale 1-10 Al Hydroxide/Mg Hydroxide (Magnesium Hydrox/Alum Hydrox 30 Ml Oral.Susp) 30 ml PO Q6H PRN PRN Reason: Heartburn/Nausea Buspirone HCl (Buspirone Hcl 10 Mg Tablet) 20 mg PO TID JENELLE Last Admin: 08/18/24 14:35 Dose: 20 mg Escitalopram Oxalate (Escitalopram Oxalate 20 Mg Tablet) 20 mg PO DAILY [facility] Last Admin: 08/18/24 09:15 Dose: 20 mg Gabapentin (Gabapentin 300 Mg Capsule) 300 mg PO TID [facility] Last Admin: 08/18/24 14:35 Dose: 300 mg Hydroxyzine HCl (Hydroxyzine Hcl 25 Mg Tablet) 25 mg PO Q6H PRN PRN Reason: mild anxiety Last Admin: 08/18/24 12:12 Dose: 25 mg Lorazepam (Lorazepam 1 Mg Tablet) 1 mg PO Q2H PRN PRN Reason: CIWA 8-11 Last Admin: 08/17/24 20:37 Dose: 1 mg Lorazepam (Lorazepam 1 Mg Tablet) 2 mg PO Q2H PRN PRN Reason: CIWA 12-15 Lorazepam (Lorazepam 1 Mg Tablet) 3 mg PO Q2H PRN PRN Reason: CIWA > 15, and call MD Magnesium Hydroxide (Milk Of Magnesia 30 Ml Oral.Susp) 30 ml PO DAILY PRN PRN Reason: Constipation Metformin HCl (Metformin Hcl 1,000 Mg Tablet) 1,000 mg PO BIDWM [facility] Last Admin: 08/18/24 16:26 Dose: 1,000 mg Methadone HCl (Methadone Hcl 20 Mg/2 Ml Oral.Conc) 190 mg PO DAILY [facility] Last Admin: 08/18/24 08:10 Dose: 190 mg Mirtazapine (Mirtazapine 30 Mg Tablet) 30 mg PO BEDTIME [facility] Last Admin: 08/17/24 20:31 Dose: 30 mg Nicotine (Nicotine 21 Mg Patch.Td24) 21 mg TRANSDERMA DAILY [facility] Last Admin: 08/18/24 09:19 Dose: Not Given Nicotine Polacrilex (Nicotine Polacrilex 2 Mg Gum) 4 mg BUCCAL Q1H PRN PRN Reason: Nicotine Cravings Last Admin: 08/18/24 17:18 Dose: 4 mg Olanzapine (Olanzapine 7.5 Mg Tablet) 15 mg PO BEDTIME [facility] Last Admin: 08/17/24 20:31 Dose: 15 mg Omeprazole (Omeprazole 20 Mg Capsule.Dr) 20 mg PO BID@0630,1630 [facility] Last Admin: 08/18/24 16:26 Dose: 20 mg Thiamine HCl (Thiamine Hcl 100 Mg Tablet) 100 mg PO DAILY [facility] Last Admin: 08/18/24 09:15 Dose: 100 mg Trazodone HCl (Trazodone Hcl 50 Mg Tablet) 150 mg PO BEDTIME PRN PRN Reason: Insomnia Last Admin: 08/17/24 20:31 Dose: 150 mg Allergies Allergies Allergy/AdvReac Type Severity Reaction Status Date / Time vancomycin Allergy Severe Rash Verified 06/01/24 07:38 Assessment & Plan Assessment & Plan (1) Medical clearance for psychiatric admission: Status: Acute Code(s): Z00.8 - Encounter for other general examination Assessment and Plan: Pt is a 39-year-old male with a PMH significant for?rfg-orgriap-krchifjvt type 2 diabetes, peripheral neuropathy, ADHD, polysubstance use disorder, and PTSD who is admitted to [facility] psychiatry unit for increasing depression, alcohol use, and SI with plan to hang himself. Medical consult for admission H&P. ? Mood disorder Plan as per Psychiatry Right shoulder pain Ongoing times 2-3 weeks, occasional numbness especially after waking up Right shoulder nonpainful to palpation, reduced ROM of flexion, elevation, and external rotation secondary to pain Etiology unclear: Pt denies fall or trauma to the area Get right shoulder x-ray If x-ray negative, we will get PT consult [id number]-[id number] type 2 diabetes Continue metformin Encourage diabetic diet and diabetic snacking Peripheral neuropathy Continue gabapentin Polysubstance use disorder Plan as per Psychiatry, Addiction Medicine Thank you for allowing us to participate in the care of this patient. Signing off at this time. Please re-consult if any acute complaints or issues arise. (2) Alcohol use disorder: Status: Acute Code(s): F10.90 - Alcohol use, unspecified, uncomplicated (3) Opioid use disorder: Status: Acute Code(s): F11.90 - Opioid use, unspecified, uncomplicated (4) Cocaine use disorder: Status: Acute Code(s): F14.10 - Cocaine abuse, uncomplicated (5) PTSD (post-traumatic stress disorder): Status: Acute Code(s): F43.10 - Post-traumatic stress disorder, unspecified (6) Major depression, recurrent: Qualifiers: Active/Remission status: currently active Major depression episode severity: moderate Qualified Code(s): F33.1 - Major depressive disorder, recurrent, moderate Status: Acute Code(s): F33.9 - Major depressive disorder, recurrent, unspecified Plan Patient is a 39-year-old male with history MDD, opiate use disorder, alcohol use disorder and cocaine use disorder who presented to ER due to suicidal ideation secondary to increased depression and auditory hallucinations telling him to hang himself. Plan: CV 15 minute safety checks CIWA protocol Continue home medications Obtain collateral Encourage groups Referral to substance abuse program Discharge planning 08/16: Pt signed 3 day notice, up on 08/21/24. Patient reports feeling a little better today; pt stated, the medication is working. I feel more relaxed and not have voices . Pt reports he signed a 3 day notice since he is feeling better and he spoke to his father who told him he can possibly stay with him. denies SI/HI/VH/AH. Encouraged to attend groups. Continue current tx plan. 08/17: appearing very overmedicated. decrease methadone from 195 to 190 daily as of tomorrow. check utox. otherwise continue current mgmt. 08/18: appears with improved level of consciousness this morning. continue current mgmt. utox results unilluminating. Reason for continued inpatient stay Substantial Risk for: inability to function Time Spent With Patient Time: Total time managing care of this patient today ____ minutes.
[2024-08-18 19:09] VITALS: BP 125/73; PULSE 76; RESP 14; TEMP 36.9; O2SAT 96
[2024-08-18] MEDS: Mirtazapine 30 MG TABLET PO (20:57)
[2024-08-18] MEDS: traZODone HCL 50 MG TABLET 150 MG PO (20:57)
[2024-08-18] MEDS: OLANZapine 7.5 MG TABLET 15 MG PO (20:57)
[2024-08-19] MEDS: chlorproMAZINE HCl 100 MG TABLET PO (02:52)
[2024-08-19] MEDS: hydrOXYzine HCL 25 MG TABLET PO ×2 (02:53→20:59)
[2024-08-19 08:00] VITALS: BP 114/58; PULSE 90; RESP 16; TEMP 36.3; O2SAT 93
[2024-08-19] MEDS: methADONE HCl 20 MG/2 ML ORAL.CONC 190 MG PO (08:06)
[2024-08-19] MEDS: Omeprazole 20 MG CAPSULE.DR PO ×2 (08:09→16:42)
[2024-08-19] MEDS: Gabapentin 300 MG CAPSULE PO ×3 (08:56→20:58)
[2024-08-19] MEDS: metFORMIN HCl 1,000 MG TABLET 1000 MG PO ×2 (08:56→16:42)
[2024-08-19] MEDS: busPIRone HCl 10 MG TABLET 20 MG PO ×3 (08:56→20:59)
[2024-08-19] MEDS: Thiamine HCL 100 MG TABLET PO (08:56)
[2024-08-19] MEDS: Escitalopram Oxalate 20 MG TABLET PO (08:57)
[2024-08-19] MEDS: Nicotine Polacrilex 2 MG GUM 4 MG BUCCAL ×2 (11:22→12:52)
[2024-08-19 19:27] VITALS: BP 110/63; PULSE 80; RESP 18; TEMP 36.8; O2SAT 96
[2024-08-19] MEDS: traZODone HCL 50 MG TABLET 150 MG PO (20:58)
[2024-08-19] MEDS: Mirtazapine 15 MG TABLET 45 MG PO (20:58)
[2024-08-19] MEDS: OLANZapine 7.5 MG TABLET 15 MG PO (20:58)
--- NOTE | 2024-08-19 21:28 | P.PNPSI_ITS ---
Subjective Subjective Date of Service: 08/19/24 Reason For Visit: Major depression recurrent, severe; opiate use Interim History: c/o insomnia. asking for temazepam, irritated with MD's answer of no. agreeable to increase remeron to 45 mg QHS. per staff, not scoring on CIWA. khoaer today. 3-day up tuesday. thorazine last NOC for insomnia. blood draw unsuccessful. Mental Status Exam Mental Status Exam Narrative: far less sedated and somnolent; behavior is cooperative and calm; dressed in casual attire; mood is not assessed. eye contact poor; Speech is decreased rate, volume and not pressured; thought process is linear and logical; Thought content lacking delusions; no SI/HI/VH/AH expressed. Diagnostics Vital Signs (24Hr): Vital Signs - 24 hr 08/19/24 08:00 08/19/24 19:27 Temperature 97.4 F 98.2 F Pulse Rate 90 80 Respiratory Rate 16 18 Blood Pressure 114/58 L 110/63 Pulse Oximetry 93 96 Oxygen Delivery Method Room Air Room Air BMI result Body Mass Index 36.7 Labs 08/17/24 14:40 Imaging Radiology Impressions: ITS Impressions Shoulder X-Ray 08/16/24 12:42 IMPRESSION: Mild arthritic changes of the AC joint. Otherwise normal exam. Electronically signed by: Aden Boland MD 08/16/2024 01:54 PM EDT Medications Medications Current Medications Acetaminophen (Acetaminophen 325 Mg Tablet) 650 mg PO Q6H PRN PRN Reason: Headache/Pain, Scale 1-10 Al Hydroxide/Mg Hydroxide (Magnesium Hydrox/Alum Hydrox 30 Ml Oral.Susp) 30 ml PO Q6H PRN PRN Reason: Heartburn/Nausea Buspirone HCl (Buspirone Hcl 10 Mg Tablet) 20 mg PO TID [facility] Last Admin: 08/19/24 20:59 Dose: 20 mg Chlorpromazine HCl (Chlorpromazine Hcl 100 Mg Tablet) 100 mg PO DAILY PRN PRN Reason: insomnia Last Admin: 08/19/24 02:52 Dose: 100 mg Escitalopram Oxalate (Escitalopram Oxalate 20 Mg Tablet) 20 mg PO DAILY [facility] Last Admin: 08/19/24 08:57 Dose: 20 mg Gabapentin (Gabapentin 300 Mg Capsule) 300 mg PO TID [facility] Last Admin: 08/19/24 20:58 Dose: 300 mg Hydroxyzine HCl (Hydroxyzine Hcl 25 Mg Tablet) 25 mg PO Q6H PRN PRN Reason: mild anxiety Last Admin: 08/19/24 20:59 Dose: 25 mg Magnesium Hydroxide (Milk Of Magnesia 30 Ml Oral.Susp) 30 ml PO DAILY PRN PRN Reason: Constipation Metformin HCl (Metformin Hcl 1,000 Mg Tablet) 1,000 mg PO BIDWM [facility] Last Admin: 08/19/24 16:42 Dose: 1,000 mg Methadone HCl (Methadone Hcl 20 Mg/2 Ml Oral.Conc) 190 mg PO DAILY@0800 [facility] Last Admin: 08/19/24 08:06 Dose: 190 mg Mirtazapine (Mirtazapine 15 Mg Tablet) 45 mg PO BEDTIME [facility] Last Admin: 08/19/24 20:58 Dose: 45 mg Nicotine (Nicotine 21 Mg Patch.Td24) 21 mg TRANSDERMA DAILY [facility] Last Admin: 08/19/24 09:00 Dose: Not Given Nicotine Polacrilex (Nicotine Polacrilex 2 Mg Gum) 4 mg BUCCAL Q1H PRN PRN Reason: Nicotine Cravings Last Admin: 08/19/24 12:52 Dose: 4 mg Olanzapine (Olanzapine 7.5 Mg Tablet) 15 mg PO BEDTIME [facility] Last Admin: 08/19/24 20:58 Dose: 15 mg Omeprazole (Omeprazole 20 Mg Capsule.Dr) 20 mg PO BID@0630,1630 [facility] Last Admin: 08/19/24 16:42 Dose: 20 mg Trazodone HCl (Trazodone Hcl 50 Mg Tablet) 150 mg PO BEDTIME PRN PRN Reason: Insomnia Last Admin: 08/19/24 20:58 Dose: 150 mg Allergies Allergies Allergy/AdvReac Type Severity Reaction Status Date / Time vancomycin Allergy Severe Rash Verified 06/01/24 07:38 Assessment & Plan Assessment & Plan (1) Medical clearance for psychiatric admission: Status: Acute Code(s): Z00.8 - Encounter for other general examination Assessment and Plan: Pt is a 39-year-old male with a PMH significant for?wvy-dohotex-sriuapjxj type 2 diabetes, peripheral neuropathy, ADHD, polysubstance use disorder, and PTSD who is admitted to psychiatry unit for increasing depression, alcohol use, and SI with plan to hang himself. Medical consult for admission H&P. ? Mood disorder Plan as per Psychiatry Right shoulder pain Ongoing times 2-3 weeks, occasional numbness especially after waking up Right shoulder nonpainful to palpation, reduced ROM of flexion, elevation, and external rotation secondary to pain Etiology unclear: Pt denies fall or trauma to the area Get right shoulder x-ray If x-ray negative, we will get PT consult Jrr-[id number]-[id number] type 2 diabetes Continue metformin Encourage diabetic diet and diabetic snacking Peripheral neuropathy Continue gabapentin Polysubstance use disorder Plan as per Psychiatry, Addiction Medicine Thank you for allowing us to participate in the care of this patient. Signing off at this time. Please re-consult if any acute complaints or issues arise. (2) Alcohol use disorder: Status: Acute Code(s): F10.90 - Alcohol use, unspecified, uncomplicated (3) Opioid use disorder: Status: Acute Code(s): F11.90 - Opioid use, unspecified, uncomplicated (4) Cocaine use disorder: Status: Acute Code(s): F14.10 - Cocaine abuse, uncomplicated (5) PTSD (post-traumatic stress disorder): Status: Acute Code(s): F43.10 - Post-traumatic stress disorder, unspecified (6) Major depression, recurrent: Qualifiers: Active/Remission status: currently active Major depression episode severity: moderate Qualified Code(s): F33.1 - Major depressive disorder, recurrent, moderate Status: Acute Code(s): F33.9 - Major depressive disorder, recurrent, unspecified Plan Patient is a 39-year-old male with history MDD, opiate use disorder, alcohol use disorder and cocaine use disorder who presented to ER due to suicidal ideation secondary to increased depression and auditory hallucinations telling him to hang himself. Plan: CV 15 minute safety checks CIWA protocol Continue home medications Obtain collateral Encourage groups Referral to substance abuse program Discharge planning 08/16: Pt signed 3 day notice, up on 08/21/24. Patient reports feeling a little better today; pt stated, the medication is working. I feel more relaxed and not have voices . Pt reports he signed a 3 day notice since he is feeling better and he spoke to his father who told him he can possibly stay with him. denies SI/HI/VH/AH. Encouraged to attend groups. Continue current tx plan. 08/17: appearing very overmedicated. decrease methadone from 195 to 190 daily as of tomorrow. check utox. otherwise continue current mgmt. 08/18: appears with improved level of consciousness this morning. continue current mgmt. utox results unilluminating. 08/19: asking for temazepam, increases HS remeron to 45 mg instead. not scoring on CIWA, CIWA DCed. blood draw unsuccessful. 3-day up 08/21. Reason for continued inpatient stay Substantial Risk for: inability to function Time Spent With Patient Time: Total time managing care of this patient today ____ minutes.
[2024-08-20] MEDS: Omeprazole 20 MG CAPSULE.DR PO ×2 (07:00→16:37)
[2024-08-20 08:00] VITALS: TEMP 36.6
[2024-08-20] MEDS: methADONE HCl 20 MG/2 ML ORAL.CONC 190 MG PO (08:03)
[2024-08-20 08:29] LABS: Estimated Average Glucose 123 mg/dL; Hemoglobin A1C 147.9403 umol/L; Hemoglobin A1c % 5.9 % (<6.0); Total Hemoglobin (HGBA1C) 3575.2107 umol/L
[2024-08-20] MEDS: Gabapentin 300 MG CAPSULE PO ×3 (08:34→20:49)
[2024-08-20] MEDS: busPIRone HCl 10 MG TABLET 20 MG PO ×3 (08:34→20:49)
[2024-08-20] MEDS: metFORMIN HCl 1,000 MG TABLET 1000 MG PO ×2 (08:34→16:37)
[2024-08-20] MEDS: Escitalopram Oxalate 20 MG TABLET PO (08:34)
[2024-08-20 08:45] LABS: Alanine Aminotransferase 105 U/L (0-40); Albumin Level 3.7 g/dL (3.5-5.0); Alkaline Phosphatase 101 U/L (39-117); Anion Gap 17 (12-20); Aspartate Amino Transferase 66 U/L (5-37); Bilirubin Total 0.2 mg/dL (0.0-1.0); Blood Urea Nitrogen 9 mg/dL (9-16); Calcium 9.1 mg/dL (8.4-10.2); Carbon Dioxide 18 mmol/L (22-29); Chloride 104 mmol/L (96-108); Cholesterol 274 mg/dL (<200); Creatinine Clr Calc Pharmacy 141.8; Estimated Glomerular Filt Rate > 60; Glucose Random 222 mg/dL (60-115); HDL Cholesterol 27 mg/dL (>40); Potassium 4.1 mmol/L (3.3-5.1); Sodium 135 mmol/L (135-145); Total Protein 7.1 g/dL (6.5-8.0)
[2024-08-20] MEDS: Nicotine Polacrilex 2 MG GUM 4 MG BUCCAL ×2 (08:51→11:37)
[2024-08-20 08:54] LABS: Triglycerides 1552 mg/dL (<150)
--- NOTE | 2024-08-20 10:20 | HO.PSYCHPN ---
Subjective Subjective Date of Service: 08/20/24 Reason For Visit: Major depression recurrent, severe; opiate use Subjective Notes: 3 Day Interim History: Active on unit, social with peers. 3 day up on 08/20/24. Patient reports feeling good today; pt stated, I'm feeling a lot better. I'm going to stay with my father when I leave . denies SI/HI/VH/AH. Pt reports he plans on following up with his outpatient providers. Medication Compliance: Yes Side effects from medications: No Attending Groups: No Diagnostics Vital Signs (24Hr): Vital Signs - 24 hr 08/19/24 19:27 Temperature 98.2 F Pulse Rate 80 Respiratory Rate 18 Blood Pressure 110/63 Pulse Oximetry 96 Oxygen Delivery Method Room Air BMI result Body Mass Index 36.7 Labs 08/20/24 08:03 Labs: Laboratory Results - last 48 hr 08/20/24 08/20/24 08/20/24 08:03 08:03 08:03 Sodium 135 Potassium 4.1 Chloride 104 Carbon Dioxide 18 L Anion Gap 17 BUN 9 Creatinine 0.72 Cancelled Cancelled Estim Creat Clear Calc 141.8 Estimated GFR Random Glucose Estimat Average Glucose Hemoglobin A1c % Calcium Total Bilirubin AST ALT Alkaline Phosphatase Total Protein Albumin Triglycerides Cholesterol LDL Cholesterol, Calc HDL Cholesterol 08/20/24 08/20/24 08/20/24 08:03 08:03 08:03 Sodium Potassium Chloride Carbon Dioxide Anion Gap BUN Creatinine Estim Creat Clear Calc Cancelled Cancelled Estimated GFR > 60 Cancelled Random Glucose Estimat Average Glucose Hemoglobin A1c % Calcium Total Bilirubin AST ALT Alkaline Phosphatase Total Protein Albumin Triglycerides Cholesterol LDL Cholesterol, Calc HDL Cholesterol 08/20/24 08:03 Sodium Potassium Chloride Carbon Dioxide Anion Gap BUN Creatinine Estim Creat Clear Calc Estimated GFR Cancelled Random Glucose 222 H Estimat Average Glucose 123 Hemoglobin A1c % 5.9 Calcium 9.1 D Total Bilirubin 0.2 AST 66 H ALT 105 H Alkaline Phosphatase 101 Total Protein 7.1 Albumin 3.7 Triglycerides 1552 H Cholesterol 274 H LDL Cholesterol, Calc TNP HDL Cholesterol 27 L Imaging Radiology Impressions: ITS Impressions Shoulder X-Ray 08/16/24 12:42 IMPRESSION: Mild arthritic changes of the AC joint. Otherwise normal exam. Electronically signed by: Aden Boland MD 08/16/2024 01:54 PM EDT Medications Medications Current Medications Acetaminophen (Acetaminophen 325 Mg Tablet) 650 mg PO Q6H PRN PRN Reason: Headache/Pain, Scale 1-10 Al Hydroxide/Mg Hydroxide (Magnesium Hydrox/Alum Hydrox 30 Ml Oral.Susp) 30 ml PO Q6H PRN PRN Reason: Heartburn/Nausea Buspirone HCl (Buspirone Hcl 10 Mg Tablet) 20 mg PO TID [facility] Last Admin: 08/20/24 08:34 Dose: 20 mg Chlorpromazine HCl (Chlorpromazine Hcl 100 Mg Tablet) 100 mg PO DAILY PRN PRN Reason: insomnia Last Admin: 08/19/24 02:52 Dose: 100 mg Escitalopram Oxalate (Escitalopram Oxalate 20 Mg Tablet) 20 mg PO DAILY [facility] Last Admin: 08/20/24 08:34 Dose: 20 mg Gabapentin (Gabapentin 300 Mg Capsule) 300 mg PO TID [facility] Last Admin: 08/20/24 08:34 Dose: 300 mg Hydroxyzine HCl (Hydroxyzine Hcl 25 Mg Tablet) 25 mg PO Q6H PRN PRN Reason: mild anxiety Last Admin: 08/19/24 20:59 Dose: 25 mg Magnesium Hydroxide (Milk Of Magnesia 30 Ml Oral.Susp) 30 ml PO DAILY PRN PRN Reason: Constipation Metformin HCl (Metformin Hcl 1,000 Mg Tablet) 1,000 mg PO BIDWM [facility] Last Admin: 08/20/24 08:34 Dose: 1,000 mg Methadone HCl (Methadone Hcl 20 Mg/2 Ml Oral.Conc) 190 mg PO DAILY@0800 [facility] Last Admin: 08/20/24 08:03 Dose: 190 mg Mirtazapine (Mirtazapine 15 Mg Tablet) 45 mg PO BEDTIME [facility] Last Admin: 08/19/24 20:58 Dose: 45 mg Nicotine (Nicotine 21 Mg Patch.Td24) 21 mg TRANSDERMA DAILY [facility] Last Admin: 08/20/24 08:34 Dose: Not Given Nicotine Polacrilex (Nicotine Polacrilex 2 Mg Gum) 4 mg BUCCAL Q1H PRN PRN Reason: Nicotine Cravings Last Admin: 08/20/24 08:51 Dose: 4 mg Olanzapine (Olanzapine 7.5 Mg Tablet) 15 mg PO BEDTIME [facility] Last Admin: 08/19/24 20:58 Dose: 15 mg Omeprazole (Omeprazole 20 Mg Capsule.Dr) 20 mg PO BID@0630,1630 [facility] Last Admin: 08/20/24 07:00 Dose: 20 mg Trazodone HCl (Trazodone Hcl 50 Mg Tablet) 150 mg PO BEDTIME PRN PRN Reason: Insomnia Last Admin: 08/19/24 20:58 Dose: 150 mg Allergies Allergies Allergy/AdvReac Type Severity Reaction Status Date / Time vancomycin Allergy Severe Rash Verified 06/01/24 07:38 Assessment & Plan Assessment & Plan (1) Major depression, recurrent: Qualifiers: Active/Remission status: currently active Major depression episode severity: moderate Qualified Code(s): F33.1 - Major depressive disorder, recurrent, moderate Status: Acute Code(s): F33.9 - Major depressive disorder, recurrent, unspecified (2) PTSD (post-traumatic stress disorder): Status: Acute Code(s): F43.10 - Post-traumatic stress disorder, unspecified (3) Alcohol use disorder: Status: Acute Code(s): F10.90 - Alcohol use, unspecified, uncomplicated (4) Opioid use disorder: Status: Acute Code(s): F11.90 - Opioid use, unspecified, uncomplicated (5) Cocaine use disorder: Status: Acute Code(s): F14.10 - Cocaine abuse, uncomplicated Plan Patient is a 39-year-old male with history MDD, opiate use disorder, alcohol use disorder and cocaine use disorder who presented to ER due to suicidal ideation secondary to increased depression and auditory hallucinations telling him to hang himself. Plan: CV 15 minute safety checks CIWA protocol Continue home medications Obtain collateral Encourage groups Referral to substance abuse program Discharge planning 08/16: Pt signed 3 day notice, up on 08/21/24. Patient reports feeling a little better today; pt stated, the medication is working. I feel more relaxed and not have voices . Pt reports he signed a 3 day notice since he is feeling better and he spoke to his father who told him he can possibly stay with him. denies SI/HI/VH/AH. Encouraged to attend groups. Continue current tx plan. 08/17: appearing very overmedicated. decrease methadone from 195 to 190 daily as of tomorrow. check utox. otherwise continue current mgmt. 08/18: appears with improved level of consciousness this morning. continue current mgmt. utox results unilluminating. 08/19: asking for temazepamMD increases HS remeron to 45 mg instead. not scoring on CIWA, CIWA DCed. blood draw unsuccessful. 3-day up 08/21. 08/20: Active on unit, social with peers. 3 day up on 08/20/24. Patient reports feeling good today; pt stated, I'm feeling a lot better. I'm going to stay with my father when I leave . denies SI/HI/VH/AH. Pt reports he plans on following up with his outpatient providers. Patient educated on: diagnosis and medication risk/benefits Reason for continued inpatient stay Substantial Risk for: stable for discharge Time Spent With Patient Time: Total time managing care of this patient today _20___ minutes.
[2024-08-20 11:59] VITALS: BP 110/63; PULSE 80; O2SAT 96
[2024-08-20] MEDS: hydrOXYzine HCL 25 MG TABLET PO (16:59)
[2024-08-20 20:00] VITALS: BP 119/62; PULSE 81; RESP 14; TEMP 36.6; O2SAT 95
[2024-08-20] MEDS: chlorproMAZINE HCl 100 MG TABLET PO (20:48)
[2024-08-20] MEDS: Mirtazapine 15 MG TABLET 45 MG PO (20:48)
[2024-08-20] MEDS: OLANZapine 7.5 MG TABLET 15 MG PO (20:49)
[2024-08-21] MEDS: hydrOXYzine HCL 25 MG TABLET PO (05:32)
[2024-08-21] MEDS: chlorproMAZINE HCl 100 MG TABLET PO (05:32)
[2024-08-21] MEDS: Omeprazole 20 MG CAPSULE.DR PO (05:32)
[2024-08-21] MEDS: methADONE HCl 20 MG/2 ML ORAL.CONC 190 MG PO (07:57)
[2024-08-21] MEDS: busPIRone HCl 10 MG TABLET 20 MG PO (08:24)
[2024-08-21] MEDS: Escitalopram Oxalate 20 MG TABLET PO (08:24)
[2024-08-21] MEDS: Gabapentin 300 MG CAPSULE PO (08:24)
[2024-08-21] MEDS: metFORMIN HCl 1,000 MG TABLET 1000 MG PO (08:24)
[2024-08-21] MEDS: Naloxone HCl Nasal TAKE HOME 4 MG SPRAY 8 MG NOSTRILALT (08:25)
--- NOTE | 2024-08-21 08:34 | P.DS_ITS ---
DS: Providers Provider Date of Service: 08/21/24 Date of admission: 08/15/24 13:39 Date of discharge: 08/21/24 Primary care physician: Unknown Physician Admitting clinician: Saundra Christianson Attending physician on admission: Saji Brown Consults: 08/15/24 16:16 Addiction Medicine Provider Routine Consulting Provider: Addiction Covering Reason for consultation: Positive AUDIT-C 08/15/24 16:38 Consult to Hospitalist Routine Comment: Consulting Provider: [facility] Hospitalists Reason For Exam: H&P, new admit Attending physician on discharge: Saji Brown Discharging clinician: Saundra Christianson DS: Diagnosis Discharge Diagnosis (1) Major depression, recurrent: Status: Acute (2) PTSD (post-traumatic stress disorder): Status: Acute (3) Alcohol use disorder: Status: Acute (4) Opioid use disorder: Status: Acute (5) Cocaine use disorder: Status: Acute DS: Medications Discharge Medications Home Medications: Home Medications ?Medication ?Instructions ?Recorded ?Confirmed buspirone 10 mg tablet 20 mg PO TID 08/15/24 08/15/24 hydroxyzine HCl 50 mg tablet 50 mg PO BID PRN moderate to 08/15/24 08/15/24 severe anxiety metformin 500 mg tablet 1,000 mg PO BIDWMEAL 08/15/24 08/15/24 Previous Rx's ?Medication ?Instructions ?Recorded nicotine (polacrilex) 4 mg gum 4 mg buccal Q1H #110 ea 01/06/24 omeprazole 20 mg capsule,delayed 20 mg PO BID@0630,1630 30 days #60 07/04/24 release caps chlorpromazine 100 mg tablet 100 mg PO DAILY PRN insomnia 30 08/20/24 days #30 tabs escitalopram oxalate 20 mg tablet 20 mg PO DAILY 30 days #30 tabs 08/20/24 (Lexapro) gabapentin 300 mg capsule 300 mg PO TID 30 days #90 caps 08/20/24 methadone 10 mg/mL oral 190 mg (19 mL) PO DAILY@0800 #0 mL 08/20/24 concentrate (Methadose) mirtazapine 45 mg tablet 45 mg PO BEDTIME 30 days #30 tabs 08/20/24 olanzapine 15 mg tablet 15 mg PO BEDTIME 30 days #30 tabs 08/20/24 trazodone 150 mg tablet 150 mg PO BEDTIME PRN insomnia 30 08/20/24 days #30 tabs Mental Status Exam Mental Status Exam Narrative: Pt is alert and oriented; behavior is cooperative and calm; dressed in casual attire; mood is described as good ; eye contact appropriate; Speech is normal rate, volume and not pressured; thought process is organized; Thought content is on discharge; denies SI/HI/VH/AH. Data Data Completed and Pending Completed studies during hospitalization [Text1]: 08/17/24 08/20/24 08/20/24 14:40 08:03 08:03 Sodium 135 Potassium 4.1 Chloride 104 Carbon Dioxide 18 L Anion Gap 17 BUN 9 Creatinine Cancelled 0.72 Cancelled Estim Creat Clear Calc Cancelled Estimated GFR Cancelled Random Glucose Estimat Average Glucose Hemoglobin A1c % Calcium Total Bilirubin AST ALT Alkaline Phosphatase Total Protein Albumin Triglycerides Cholesterol LDL Cholesterol, Calc HDL Cholesterol Urine Opiates Screen Not Detected Ur Buprenorphine Scrn Not Detected Ur Oxycodone Screen Not Detected Urine Methadone Screen Positive H Urine Fentanyl Screen Not Detected Ur Barbiturates Screen Not Detected Ur Phencyclidine Scrn Not Detected Ur Amphetamines Screen Not Detected U Benzodiazepines Scrn Not Detected Urine Cocaine Screen POSITIVE H U Marijuana (THC) Screen POSITIVE H 08/20/24 08/20/24 08/20/24 08:03 08:03 08:03 Sodium Potassium Chloride Carbon Dioxide Anion Gap BUN Creatinine Cancelled Estim Creat Clear Calc 141.8 Cancelled Cancelled Estimated GFR > 60 Random Glucose Estimat Average Glucose Hemoglobin A1c % Calcium Total Bilirubin AST ALT Alkaline Phosphatase Total Protein Albumin Triglycerides Cholesterol LDL Cholesterol, Calc HDL Cholesterol Urine Opiates Screen Ur Buprenorphine Scrn Ur Oxycodone Screen Urine Methadone Screen Urine Fentanyl Screen Ur Barbiturates Screen Ur Phencyclidine Scrn Ur Amphetamines Screen U Benzodiazepines Scrn Urine Cocaine Screen U Marijuana (THC) Screen 08/20/24 08/20/24 08:03 08:03 Sodium Potassium Chloride Carbon Dioxide Anion Gap BUN Creatinine Estim Creat Clear Calc Estimated GFR Cancelled Cancelled Random Glucose 222 H Estimat Average Glucose 123 Hemoglobin A1c % 5.9 Calcium 9.1 D Total Bilirubin 0.2 AST 66 H ALT 105 H Alkaline Phosphatase 101 Total Protein 7.1 Albumin 3.7 Triglycerides 1552 H Cholesterol 274 H LDL Cholesterol, Calc TNP HDL Cholesterol 27 L Urine Opiates Screen Ur Buprenorphine Scrn Ur Oxycodone Screen Urine Methadone Screen Urine Fentanyl Screen Ur Barbiturates Screen Ur Phencyclidine Scrn Ur Amphetamines Screen U Benzodiazepines Scrn Urine Cocaine Screen U Marijuana (THC) Screen Imaging Diagnostic Imaging Impressions Shoulder X-Ray 08/16/24 12:42 IMPRESSION: Mild arthritic changes of the AC joint. Otherwise normal exam. Electronically signed by: Aden Boland MD 08/16/2024 01:54 PM EDT RP DS: Summary Hospital Course Hospital Course: Patient is a 39-year-old male with history MDD, opiate use disorder, alcohol use disorder and cocaine use disorder who presented to ER due to suicidal ideation secondary to increased depression and auditory hallucinations telling him to hang himself. Per crisis report, patient reports that there is too much stress and I was going to hang myself . Patient stated, the voices are telling me to hang myself. I just don't care and want to . I'm tired of my life . Patient stated he has been off of his medications for 2 weeks. Utox positive for cocaine, methadone and marijuana. History of multiple inpatient psychiatric hospitalizations. During admission assessment, patient presents alert and oriented x3. Calm and c ooperative. Patient reports feeling anxious and depressed ; patient stated, I got too much problems. I got into an argument with my grandma. The voices were telling me to hang myself. I haven't taken my medications in 2 weeks because I didn't want to walk to the pharmacy since my legs were hurting . Patient denies HI/VH. Patient reports he would like to restart his medications and be referred to a substance abuse program. Plan: CV 15 minute safety checks CIWA protocol Continue home medications Obtain collateral Encourage groups Referral to substance abuse program Discharge planning Pt signed 3 day notice, up on 08/21/24. Patient reports feeling a little better today; pt stated, the medication is working. I feel more relaxed and not have voices . Pt reports he signed a 3 day notice since he is feeling better and he spoke to his father who told him he can possibly stay with him. denies SI/HI/VH/AH. Encouraged to attend groups. Continue current tx plan. appearing very overmedicated. decrease methadone from 195 to 190 daily as of tomorrow. check utox. otherwise continue current mgmt. appears with improved level of consciousness this morning. continue current mgmt. utox results unilluminating. asking for temazepam, increases HS remeron to 45 mg instead. not scoring on CIWA, CIWA DCed. blood draw unsuccessful. 3-day up 08/21. Active on unit, social with peers. 3 day up on 08/20/24. Patient reports feeling good today; pt stated, I'm feeling a lot better. I'm going to stay with my father when I leave . denies SI/HI/VH/AH. Pt reports he plans on following up with his outpatient providers. Status at Discharge Cognitive/behavioral status at discharge: Patient has insight and demonstrates good judgment in terms of wanting to pursue treatment. Patient has a safety plan that includes presenting to the closest ER or calling 911 if feeling unsafe. Functional status at discharge: independent ambulation Overall status at discharge: patient is back to baseline Time Spent with Patient Time attestation: Total time managing care of this patient today _20___ minutes. Time spent: Less than 30 minutes Discharge Plan Discharge Anticipated Discharge Date/Time: 08/21/24 10:30 Patient Disposition: Home, Self-Care Discharge Diagnosis: MDD, PTSD, Cocaine use d/o, opioid use d/o, alcohol use d/o Referrals: [facility] ([facility] [Other] - 1 Week (*you can reach out to the case management specialist at the phone number listed above to see what services are offered through your insurance company. ) [facility] [Other] - 1 Week (*You can present to the clinic above, Tuesday through Tuesday between the hours of 8am and 8pm, in order to obtain outpatient mental health providers. ) [facility] [Provider Group] - 1 Week (08-21-24 [facility] was added to patients chart. Please call [phone] to schedule a follow up appt within 7-10 days of discharge.) Discharge Medications: New chlorpromazine 100 mg Tablet 100 mg PO DAILY PRN (Reason: insomnia) 30 Days Qty: 30 0RF methadone [Methadose] 10 mg/mL Concentrate 190 mg PO DAILY@0800 Qty: 0 0RF Rx Instructions: Partial Fill upon patient request. mirtazapine 45 mg tablet 45 mg PO BEDTIME 30 Days Qty: 30 0RF Continued nicotine (polacrilex) 4 mg Gum 4 mg BUCCAL Q1H Qty: 110 0RF omeprazole 20 mg Capsule,Delayed Release(Dr/Ec) 20 mg PO BID@0630,1630 30 Days Qty: 60 0RF metformin 500 mg tablet 1,000 mg PO BIDWMEAL hydroxyzine HCl 50 mg tablet 50 mg PO BID PRN (Reason: moderate to severe anxiety) buspirone 10 mg tablet 20 mg PO TID trazodone 150 mg tablet 150 mg PO BEDTIME PRN (Reason: insomnia) 30 Days Qty: 30 0RF olanzapine 15 mg tablet 15 mg PO BEDTIME 30 Days Qty: 30 0RF escitalopram oxalate [Lexapro] 20 mg Tablet 20 mg PO DAILY 30 Days Qty: 30 0RF Changed gabapentin 300 mg capsule 300 mg PO TID 30 Days Qty: 90 0RF Discontinued methadone [Methadose] 10 mg/mL Concentrate 195 mg PO DAILY Qty: 0 0RF Rx Instructions: Partial Fill upon patient request. chlorpromazine 50 mg tablet 50 mg PO BID 30 Days Qty: 60 0RF mirtazapine 30 mg Tablet 30 mg PO BEDTIME 30 Days Qty: 30 0RF prazosin 1 mg Capsule 1 mg PO BID Discharge Orders: Discharge Order (Routine); Ordered 08/21/24 Ordered By: Saundra Christianson Diet: Regular diet Activity on Discharge: As tolerated Stand Alone Forms: Patient Portal Discharge page, Community Support Print Language: Unable To Collect Care Plan Goals: Maintain mood and safe behaviors Take medications as prescribed Continue to pursue sobriety Practice coping skills Continue with outpatient providers and reach out to them as needed Health Concerns: Mood stability and behaviors Sobriety Plan of Treatment: Follow up with your PCP, psychiatric provider and other outpatient providers regarding above concerns Take medications as prescribed Assessment: Patient has insight and demonstrates good judgment in terms of wanting to pursue treatment. Patient has a safety plan that includes presenting to the closest ER or calling 911 if feeling unsafe. Discharge Date/Time: 08/21/24 09:40
[2024-08-21 08:39] VITALS: BP 123/71; PULSE 80; RESP 15; TEMP 36.5; O2SAT 93
== END 2024-08-21 09:40 | disposition home or self-care (01) | DRG 751 ==
PROVIDERS: Admitting Provider Psychiatry & Neurology Psychiatry; Responsible Provider Registered Nurse; Visit Provider Psychiatry & Neurology Psychiatry
DX: F33.1 Major depressive disorder, recurrent, moderate (principal); E11.42 Type 2 diabetes mellitus with diabetic polyneuropathy; F10.90 Alcohol use, unspecified, uncomplicated; M19.011 Primary osteoarthritis, right shoulder; F11.20 Opioid dependence, uncomplicated; F17.210 Nicotine dependence, cigarettes, uncomplicated; F14.10 Cocaine abuse, uncomplicated; F19.90 Other psychoactive substance use, unspecified, uncomplicated; F43.10 Post-traumatic stress disorder, unspecified; Z71.6 Tobacco abuse counseling; Z79.84 Long term (current) use of oral hypoglycemic drugs; Z79.899 Other long term (current) drug therapy
CPT/HCPCS: 36415; 73030; 80053; 80061; 80307; 82565; 83036; 97110; 97161

== ENCOUNTER 2024-08-15 13:39 | Outpatient (BNV) | payer MEDICAID, SELFPAY | END 2024-08-16 12:42 | PROVIDERS: Admitting Provider Psychiatry & Neurology Psychiatry; Responsible Provider Registered Nurse; Visit Provider Radiology Diagnostic Radiology | DX: M25.511 Pain in right shoulder (principal) | CPT/HCPCS: 73030 ==

== ENCOUNTER → 2024-08-15 13:39 | Outpatient (BNV) | payer MEDICAID, SELFPAY | PROVIDERS: Admitting Provider Psychiatry & Neurology Psychiatry; Responsible Provider Registered Nurse; Visit Provider Student in an Organized Health Care Education/Training Program | DX: Z00.8 Encounter for other general examination (principal) | CPT/HCPCS: 99222 ==

== ENCOUNTER → 2024-08-15 13:39 | Outpatient (BNV) | payer OTHER, SELFPAY | PROVIDERS: Admitting Provider Psychiatry & Neurology Psychiatry; Responsible Provider Registered Nurse; Visit Provider Registered Nurse | DX: F14.10 Cocaine abuse, uncomplicated (principal); F10.90 Alcohol use, unspecified, uncomplicated; F11.90 Opioid use, unspecified, uncomplicated; F43.11 Post-traumatic stress disorder, acute; F33.1 Major depressive disorder, recurrent, moderate | CPT/HCPCS: 99232 ==

== ENCOUNTER 2024-10-15 12:54 | Inpatient (IN) | payer OTHER, SELFPAY ==
[2024-10-15 13:19] VITALS: BMI 34.8
[2024-10-15] MEDS: hydrOXYzine HCL 25 MG TABLET PO (13:37)
--- NOTE | 2024-10-15 13:45 | HE.PHANOTE ---
METHADONE Pt last received 190mg on 10/15/24 @ 0642 at [facility], per Violeta CASH. [phone]
--- NOTE | 2024-10-15 13:58 | PC.NURSE ---
Med list completed per previous admission and list from previous facility. Saundra Christianson NP made aware. Patient unable to recall last time he took his medications and medications have not been filled since 05/2024 per [facility].
--- NOTE | 2024-10-15 14:40 | HO.PM.IMCN ---
History of Present Illness Data of Consult Service Date: 10/15/24 Primary Care Provider: None Physician HPI Reason for consult: Medical H and P 39-year-old male with a past medical history of major depressive disorder, PTSD, history of polysubstance abuse, [id number] diabetes, peripheral neuropathy, and ADHD. He also has a history of chronic pain. He presents to [facility] ED with increased depression and anxiety with suicidal ideation. Labs were unremarkable, tox screen with cocaine, fentanyl, marijuana, and methadone. Patient has no medical concerns. He reports that he is having a ?panic ? attack right now and would like to received medication for anxiety. He otherwise denies any concerns. Denies any pain at present. Denies shortness of breath, chest pain, dizziness lightheadedness or any other concerns. Review of Systems Review of Systems: Denies any shortness of breath, chest pain, dizziness, lightheadedness, abdominal pain or discomfort, nausea vomiting or diarrhea PMFSH Medical History (Updated 10/15/24 @ 14:58 by Georgie Coates DNP) Medical clearance for psychiatric admission Routine medical exam Polysubstance (including opioids) dependence with physiological dependence ADHD Non-insulin dependent type 2 diabetes mellitus Polysubstance use disorder PTSD (post-traumatic stress disorder) Social History Household Members: None Housing: Homeless Do you presently have visiting nurse or other home services: No Patient Tobacco Use Status: Current everyday Tobacco user Tobacco use type: Cigarette Cigarette Packs Per Day: 0.5 Cigarettes Per Day: 10.0 Years Smoked: unsure e-Cigarette/Vaping Use: Never Used Second Hand Smoke Exposure: No Substance Use Type: Crack/Cocaine and Marijuana service: No Sexual orientation: Straight/Heterosexual Meds Allergies Allergy/AdvReac Type Severity Reaction Status Date / Time vancomycin Allergy Severe Rash Verified 06/01/24 07:38 Active Medications: Current Medications Acetaminophen (Acetaminophen 325 Mg Tablet) 650 mg PO Q6H PRN PRN Reason: Headache/Pain, Scale 1-10 Al Hydroxide/Mg Hydroxide (Magnesium Hydrox/Alum Hydrox 30 Ml Oral.Susp) 30 ml PO Q6H PRN PRN Reason: Heartburn/Nausea Hydroxyzine HCl (Hydroxyzine Hcl 25 Mg Tablet) 25 mg PO Q6H PRN PRN Reason: mild anxiety Last Admin: 10/15/24 13:37 Dose: 25 mg Magnesium Hydroxide (Milk Of Magnesia 30 Ml Oral.Susp) 30 ml PO DAILY PRN PRN Reason: Constipation Nicotine (Nicotine 21 Mg Patch.Td24) 21 mg TRANSDERMA DAILY JENELLE Nicotine Polacrilex (Nicotine Polacrilex 2 Mg Gum) 4 mg BUCCAL Q2H PRN PRN Reason: Nicotine Cravings Trazodone HCl (Trazodone Hcl 50 Mg Tablet) 50 mg PO BEDTIME MRX1 PRN PRN Reason: Insomnia Home Medications ?Medication ?Instructions ?Recorded ?Confirmed ?Last Taken ?Type buspirone 10 mg tablet 20 mg PO TID 08/15/24 10/15/24 Unknown History hydroxyzine HCl 50 mg tablet 50 mg PO BID PRN moderate to 08/15/24 10/15/24 Unknown History severe anxiety metformin 500 mg tablet 1,000 mg PO BIDWMEAL 08/15/24 10/15/24 Unknown History Physical Exam Vital Signs and Narrative: Vital Signs: BMI result Body Mass Index 34.8 CONST: Alert and oriented, in NAD. Well nourished HEENT: Normocephalic, atraumatic, MMM, Eyes clear, Neck supple RESP: Lungs clear, RRR even and regular HEART:,RRR, S1, S2. No murmur, no edema GI:Abdomen Soft NT, ND. + BS times four :Deferred SKIN: Warm dry and intact, no visible lesions or rashes NEURO:CN II-XII Intact bilaterally, Sensation intact. Speech clear PSYCH: Normal affect Assessment and Plan (1) Non-insulin dependent type 2 diabetes mellitus: Status: Acute Plan MDD/anxiety/PTSD/polysubstance use Plan per psychiatric team Type 2 diabetes/peripheral neuropathy Last A1c recorded August 2024 was 5.9 Continue metformin twice daily Continue gabapentin 300 p.o. t.i.d. per recommendation of psychiatric team. Thank you for allowing me to participate in the care of this patient. Signing off at this time. Please reconsult of any acute complaints or issues arise
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
--- NOTE | 2024-10-15 15:51 | P.HPPS_ITS ---
[facility] Date of Service: 10/15/24 Chief Complaint: Unspec Anxiety Major Depression Recurrent/Severe Sources of Information: patient interviewed, chart reviewed and crisis/core team assessment reviewed HPI Subjective Notes: Georges Warning and Conditional Voluntary Narrative: Patient is a 39-year-old male with history MDD, opiate use disorder, alcohol use disorder and cocaine use disorder who presented to ER due to suicidal ideation of wanting to jump off a bridge secondary to increased depression. Per crisis report, patient presented to [facility] due to suicidal ideation with plan to jump off a bridge due to increased depression and anxiety for the past 2 days. Patient reports he is currently depressed due to being homeless and his grandmother does not want him living with her. He denied HI/VH. He reports auditory hallucinations. Utox positive for cocaine, THC, fentanyl and methadone. History of medication noncompliance. During admission assessment, patient presents alert and oriented x3. Calm and cooperative. Irritable edge. Patient reports feeling depressed; patient stated, I got too many problems and I'm thinking about hanging myself. My mother . My dad got amputated. My dad has housing so I stay with him for 14 days and then I stay on the street. I'm tired of it . Denies HI/VH. He reports auditory hallucinations telling him that he is no good . Patient reports he has not been taking medications since being discharged from the hospital. Patient reports he goes to [facility] walk-in hours for his psychiatric medications. He reports he would like a referral to [facility] for substance treatment. Past Psychiatric History: History of multiple inpatient psychiatric hospitalizations. Denies SA/SIB. Medical Evaluation Reviewed: Yes [facility] Medical History (Updated 10/15/24 @ 14:58 by Georgie Coates DNP) Medical clearance for psychiatric admission Routine medical exam Polysubstance (including opioids) dependence with physiological dependence ADHD Non-insulin dependent type 2 diabetes mellitus Polysubstance use disorder PTSD (post-traumatic stress disorder) Family History: Unknown Social History: Lives with father and grandmother. Single. 3 kids (2 adult, 1 16y/o lives with his mother). Unemployed. Substance History: Utox positive for cocaine, THC, Fentanyl and methadone. Trauma History: yes Diagnostics Vital Signs (24Hr): BMI result Body Mass Index 34.8 Meds/Allergies Meds Home Medications ?Medication ?Instructions ?Recorded ?Confirmed ?Type buspirone 10 mg tablet 20 mg PO TID 08/15/24 10/15/24 History hydroxyzine HCl 50 mg tablet 50 mg PO BID PRN moderate to 08/15/24 10/15/24 History severe anxiety metformin 500 mg tablet 1,000 mg PO BIDWMEAL 08/15/24 10/15/24 History Allergies Allergies Allergy/AdvReac Type Severity Reaction Status Date / Time vancomycin Allergy Severe Rash Verified 06/01/24 07:38 Mental Status Exam Mental Status Exam Narrative: Pt is alert and oriented; behavior is cooperative and calm, irritable edge; dressed in casual attire; mood is described as depressed ; eye contact appropriate; Speech is normal rate, volume and not pressured; thought process is organized and goal directed; Thought content is on tx; denies HI/VH. Pt reports auditory hallucinations and suicidal ideation to hang myself . Assessment & Plan Assessment & Plan (1) Major depression, recurrent: Status: Acute Qualifiers: Active/Remission status: currently active Major depression episode severity: moderate Qualified Code(s): F33.1 - Major depressive disorder, recurrent, moderate Code(s): F33.9 - Major depressive disorder, recurrent, unspecified (2) PTSD (post-traumatic stress disorder): Status: Acute Code(s): F43.10 - Post-traumatic stress disorder, unspecified (3) Cocaine use disorder: Status: Acute Code(s): F14.10 - Cocaine abuse, uncomplicated (4) Opioid use disorder: Status: Acute Code(s): F11.90 - Opioid use, unspecified, uncomplicated (5) Homelessness: Status: Acute Code(s): Z59.00 - Homelessness unspecified Plan Patient is a 39-year-old male with history MDD, opiate use disorder, alcohol use disorder and cocaine use disorder who presented to ER due to suicidal ideation of wanting to jump off a bridge secondary to increased depression. Plan: CV 15 minute safety checks Reviewed medications from previous admission; Continue home medications. obtain collateral encourage groups referral to substance abuse program discharge planning Patient educated on: diagnosis and medication risk/benefits Reason for continued inpatient stay Substantial Risk for: harm to self and med/psych decompensation Statement Statement: I have reviewed the history and physical and performed a pertinent examination on my patient. No changes have occurred unless specified. If the History and Physical was not performed prior to admission, the Hospitalist's service will be consulted for completing the admission physical. Time Spent With Patient Time: Total time managing care of this patient today _60___ minutes.
[2024-10-15] MEDS: Omeprazole 20 MG CAPSULE.DR PO (16:45)
[2024-10-15] MEDS: metFORMIN HCl 1,000 MG TABLET 1000 MG PO (16:46)
[2024-10-15] MEDS: OLANZapine 7.5 MG TABLET 15 MG PO (20:40)
[2024-10-15] MEDS: busPIRone HCl 10 MG TABLET 20 MG PO (20:40)
[2024-10-15] MEDS: Mirtazapine 15 MG TABLET 45 MG PO (20:41)
[2024-10-15 21:00] VITALS: RESP 16; TEMP 36.6
[2024-10-15] MEDS: traZODone HCL 50 MG TABLET 150 MG PO (21:10)
[2024-10-15] MEDS: chlorproMAZINE HCl 100 MG TABLET PO (21:10)
[2024-10-15] MEDS: Nicotine Polacrilex 2 MG GUM 4 MG BUCCAL (21:10)
[2024-10-16] MEDS: Omeprazole 20 MG CAPSULE.DR PO ×2 (06:42→15:49)
[2024-10-16] MEDS: Acetaminophen 325 MG TABLET 650 MG PO ×2 (07:18→17:04)
[2024-10-16 08:00] VITALS: RESP 16
[2024-10-16] MEDS: methADONE HCl 20 MG/2 ML ORAL.CONC 190 MG PO (08:00)
[2024-10-16] MEDS: Escitalopram Oxalate 20 MG TABLET PO (08:29)
[2024-10-16] MEDS: metFORMIN HCl 1,000 MG TABLET 1000 MG PO ×2 (08:29→17:41)
[2024-10-16] MEDS: busPIRone HCl 10 MG TABLET 20 MG PO ×3 (08:29→20:54)
--- NOTE | 2024-10-16 09:17 | HO.PSYCHPN ---
Subjective Subjective Date of Service: 10/16/24 Reason For Visit: Unspec Anxiety Major Depression Recurrent/Severe Subjective Notes: Conditional Voluntary Interim History: Keeping to self. in bed most of day. Pt continues to report feeling depressed; focused on going to [facility], pt stated, I want to go there and stay sober . Encouraged to shower and attend groups. denies SI/HI/VH/AH. He reports sleeping well last night. Continue current tx plan. Medication Compliance: Yes Side effects from medications: No Attending Groups: No Mental Status Exam Mental Status Exam Narrative: Pt is alert and oriented; behavior is cooperative and calm; dressed in casual attire; mood is described as depressed ; eye contact appropriate; Speech is normal rate, volume and not pressured; thought process is organized and goal directed; Thought content is on tx; denies SI/HI/VH/AH. Diagnostics Vital Signs (24Hr): Vital Signs - 24 hr 10/15/24 21:00 10/16/24 08:00 Temperature 97.8 F Respiratory Rate 16 16 BMI result Body Mass Index 34.8 Medications Medications Current Medications Acetaminophen (Acetaminophen 325 Mg Tablet) 650 mg PO Q6H PRN PRN Reason: Headache/Pain, Scale 1-10 Last Admin: 10/16/24 07:18 Dose: 650 mg Al Hydroxide/Mg Hydroxide (Magnesium Hydrox/Alum Hydrox 30 Ml Oral.Susp) 30 ml PO Q6H PRN PRN Reason: Heartburn/Nausea Buspirone HCl (Buspirone Hcl 10 Mg Tablet) 20 mg PO TID [facility] Last Admin: 10/16/24 08:29 Dose: 20 mg Chlorpromazine HCl (Chlorpromazine Hcl 100 Mg Tablet) 100 mg PO DAILY PRN PRN Reason: insomnia Last Admin: 10/15/24 21:10 Dose: 100 mg Escitalopram Oxalate (Escitalopram Oxalate 20 Mg Tablet) 20 mg PO DAILY [facility] Last Admin: 10/16/24 08:29 Dose: 20 mg Hydroxyzine HCl (Hydroxyzine Hcl 25 Mg Tablet) 25 mg PO Q6H PRN PRN Reason: mild anxiety Last Admin: 10/15/24 13:37 Dose: 25 mg Magnesium Hydroxide (Milk Of Magnesia 30 Ml Oral.Susp) 30 ml PO DAILY PRN PRN Reason: Constipation Metformin HCl (Metformin Hcl 1,000 Mg Tablet) 1,000 mg PO BIDWM [facility] Last Admin: 10/16/24 08:29 Dose: 1,000 mg Methadone HCl (Methadone Hcl 20 Mg/2 Ml Oral.Conc) 190 mg PO DAILY@0800 [facility] Last Admin: 10/16/24 08:00 Dose: 190 mg Mirtazapine (Mirtazapine 15 Mg Tablet) 45 mg PO BEDTIME [facility] Last Admin: 10/15/24 20:41 Dose: 45 mg Nicotine (Nicotine 21 Mg Patch.Td24) 21 mg TRANSDERMA DAILY [facility] Last Admin: 10/16/24 08:30 Dose: Not Given Nicotine Polacrilex (Nicotine Polacrilex 2 Mg Gum) 4 mg BUCCAL Q2H PRN PRN Reason: Nicotine Cravings Last Admin: 10/15/24 21:10 Dose: 4 mg Olanzapine (Olanzapine 7.5 Mg Tablet) 15 mg PO BEDTIME [facility] Last Admin: 10/15/24 20:40 Dose: 15 mg Omeprazole (Omeprazole 20 Mg Capsule.Dr) 20 mg PO BID@0630,1630 [facility] Last Admin: 10/16/24 06:42 Dose: 20 mg Trazodone HCl (Trazodone Hcl 50 Mg Tablet) 150 mg PO BEDTIME PRN PRN Reason: insomnia Last Admin: 10/15/24 21:10 Dose: 150 mg Allergies Allergies Allergy/AdvReac Type Severity Reaction Status Date / Time vancomycin Allergy Severe Rash Verified 06/01/24 07:38 Assessment & Plan Assessment & Plan (1) Major depression, recurrent: Qualifiers: Active/Remission status: currently active Major depression episode severity: moderate Qualified Code(s): F33.1 - Major depressive disorder, recurrent, moderate Status: Acute Code(s): F33.9 - Major depressive disorder, recurrent, unspecified (2) PTSD (post-traumatic stress disorder): Status: Acute Code(s): F43.10 - Post-traumatic stress disorder, unspecified (3) Cocaine use disorder: Status: Acute Code(s): F14.10 - Cocaine abuse, uncomplicated (4) Opioid use disorder: Status: Acute Code(s): F11.90 - Opioid use, unspecified, uncomplicated (5) Homelessness: Status: Acute Code(s): Z59.00 - Homelessness unspecified Plan Patient is a 39-year-old male with history MDD, opiate use disorder, alcohol use disorder and cocaine use disorder who presented to ER due to suicidal ideation of wanting to jump off a bridge secondary to increased depression. Plan: CV 15 minute safety checks Reviewed medications from previous admission; Continue home medications. obtain collateral encourage groups referral to substance abuse program discharge planning 10/16: Keeping to self. in bed most of day. Pt continues to report feeling depressed; focused on going to [facility], pt stated, I want to go there and stay sober . Encouraged to shower and attend groups. denies SI/HI/VH/AH. He reports sleeping well last night. Continue current tx plan. Patient educated on: diagnosis, medication risk/benefits and therapeutic strategies Reason for continued inpatient stay Substantial Risk for: med/psych decompensation Time Spent With Patient Time: Total time managing care of this patient today _20___ minutes.
[2024-10-16 20:00] VITALS: BP 121/76; PULSE 54; RESP 16; TEMP 36.7; O2SAT 93
[2024-10-16] MEDS: OLANZapine 7.5 MG TABLET 15 MG PO (20:54)
[2024-10-16] MEDS: Mirtazapine 15 MG TABLET 45 MG PO (20:54)
[2024-10-16] MEDS: chlorproMAZINE HCl 100 MG TABLET PO (20:54)
[2024-10-16] MEDS: traZODone HCL 50 MG TABLET 150 MG PO (20:54)
[2024-10-17] MEDS: Omeprazole 20 MG CAPSULE.DR PO ×2 (06:50→15:51)
[2024-10-17] MEDS: methADONE HCl 20 MG/2 ML ORAL.CONC 190 MG PO (08:00)
[2024-10-17] MEDS: busPIRone HCl 10 MG TABLET 20 MG PO ×3 (08:31→20:27)
[2024-10-17] MEDS: Escitalopram Oxalate 20 MG TABLET PO (08:31)
[2024-10-17] MEDS: metFORMIN HCl 1,000 MG TABLET 1000 MG PO ×2 (08:36→17:06)
--- NOTE | 2024-10-17 13:40 | HO.PSYCHPN ---
Subjective Subjective Date of Service: 10/17/24 Reason For Visit: Unspec Anxiety Major Depression Recurrent/Severe Subjective Notes: Conditional Voluntary Interim History: Keeping to self. in bed most of day. difficulty staying awake. addiction medicine consult placed; ? need for adjustment of methadone d/t oversedation. Pt continues to report feeling depressed; encouraged to attend groups, however continues to say later . denies SI/HI/VH/AH. Continue current tx plan. Medication Compliance: Yes Side effects from medications: No Attending Groups: No Mental Status Exam Mental Status Exam Narrative: Pt is alert and oriented; behavior is calm, sedated, difficulty staying awake; dressed in casual attire; mood is described as depressed ; eye contact appropriate; Speech is normal rate, volume and not pressured; thought process is organized and goal directed; Thought content is on tx; denies SI/HI/VH/AH. Diagnostics Vital Signs (24Hr): Vital Signs - 24 hr 10/16/24 20:00 Temperature 98.1 F Pulse Rate 54 Respiratory Rate 16 Blood Pressure 121/76 Pulse Oximetry 93 Oxygen Delivery Method Room Air BMI result Body Mass Index 34.8 Medications Medications Current Medications Acetaminophen (Acetaminophen 325 Mg Tablet) 650 mg PO Q6H PRN PRN Reason: Headache/Pain, Scale 1-10 Last Admin: 10/16/24 17:04 Dose: 650 mg Al Hydroxide/Mg Hydroxide (Magnesium Hydrox/Alum Hydrox 30 Ml Oral.Susp) 30 ml PO Q6H PRN PRN Reason: Heartburn/Nausea Buspirone HCl (Buspirone Hcl 10 Mg Tablet) 20 mg PO TID [facility] Last Admin: 10/17/24 08:31 Dose: 20 mg Chlorpromazine HCl (Chlorpromazine Hcl 100 Mg Tablet) 100 mg PO DAILY PRN PRN Reason: insomnia Last Admin: 10/16/24 20:54 Dose: 100 mg Escitalopram Oxalate (Escitalopram Oxalate 20 Mg Tablet) 20 mg PO DAILY [facility] Last Admin: 10/17/24 08:31 Dose: 20 mg Hydroxyzine HCl (Hydroxyzine Hcl 25 Mg Tablet) 25 mg PO Q6H PRN PRN Reason: mild anxiety Last Admin: 10/15/24 13:37 Dose: 25 mg Magnesium Hydroxide (Milk Of Magnesia 30 Ml Oral.Susp) 30 ml PO DAILY PRN PRN Reason: Constipation Metformin HCl (Metformin Hcl 1,000 Mg Tablet) 1,000 mg PO BIDWM [facility] Last Admin: 10/17/24 08:36 Dose: 1,000 mg Methadone HCl (Methadone Hcl 20 Mg/2 Ml Oral.Conc) 190 mg PO DAILY@0800 [facility] Last Admin: 10/17/24 08:00 Dose: 190 mg Mirtazapine (Mirtazapine 15 Mg Tablet) 45 mg PO BEDTIME [facility] Last Admin: 10/16/24 20:54 Dose: 45 mg Nicotine (Nicotine 21 Mg Patch.Td24) 21 mg TRANSDERMA DAILY [facility] Last Admin: 10/17/24 08:40 Dose: Not Given Nicotine Polacrilex (Nicotine Polacrilex 2 Mg Gum) 4 mg BUCCAL Q2H PRN PRN Reason: Nicotine Cravings Last Admin: 10/15/24 21:10 Dose: 4 mg Olanzapine (Olanzapine 7.5 Mg Tablet) 15 mg PO BEDTIME [facility] Last Admin: 10/16/24 20:54 Dose: 15 mg Omeprazole (Omeprazole 20 Mg Capsule.Dr) 20 mg PO BID@0630,1630 [facility] Last Admin: 10/17/24 06:50 Dose: 20 mg Trazodone HCl (Trazodone Hcl 50 Mg Tablet) 150 mg PO BEDTIME PRN PRN Reason: insomnia Last Admin: 10/16/24 20:54 Dose: 150 mg Allergies Allergies Allergy/AdvReac Type Severity Reaction Status Date / Time vancomycin Allergy Severe Rash Verified 06/01/24 07:38 Assessment & Plan Assessment & Plan (1) Major depression, recurrent: Qualifiers: Active/Remission status: currently active Major depression episode severity: moderate Qualified Code(s): F33.1 - Major depressive disorder, recurrent, moderate Status: Acute Code(s): F33.9 - Major depressive disorder, recurrent, unspecified (2) PTSD (post-traumatic stress disorder): Status: Acute Code(s): F43.10 - Post-traumatic stress disorder, unspecified (3) Cocaine use disorder: Status: Acute Code(s): F14.10 - Cocaine abuse, uncomplicated (4) Opioid use disorder: Status: Acute Code(s): F11.90 - Opioid use, unspecified, uncomplicated (5) Homelessness: Status: Acute Code(s): Z59.00 - Homelessness unspecified Plan Patient is a 39-year-old male with history MDD, opiate use disorder, alcohol use disorder and cocaine use disorder who presented to ER due to suicidal ideation of wanting to jump off a bridge secondary to increased depression. Plan: CV 15 minute safety checks Reviewed medications from previous admission; Continue home medications. obtain collateral encourage groups referral to substance abuse program discharge planning 10/16: Keeping to self. in bed most of day. Pt continues to report feeling depressed; focused on going to [facility], pt stated, I want to go there and stay sober . Encouraged to shower and attend groups. denies SI/HI/VH/AH. He reports sleeping well last night. Continue current tx plan. 10/17: Keeping to self. in bed most of day. difficulty staying awake. addiction medicine consult placed; ? need for adjustment of methadone d/t oversedation. Pt continues to report feeling depressed; encouraged to attend groups, however continues to say later . denies SI/HI/VH/AH. Continue current tx plan. Patient educated on: diagnosis, medication risk/benefits and therapeutic strategies Reason for continued inpatient stay Substantial Risk for: med/psych decompensation Time Spent With Patient Time: Total time managing care of this patient today _10___ minutes.
[2024-10-17] MEDS: Acetaminophen 325 MG TABLET 650 MG PO (17:08)
[2024-10-17 20:10] VITALS: BP 131/68; PULSE 66; RESP 18; TEMP 36.8; O2SAT 96
[2024-10-17] MEDS: Ibuprofen 800 MG TABLET PO (20:26)
[2024-10-17] MEDS: Mirtazapine 15 MG TABLET 45 MG PO (20:26)
[2024-10-17] MEDS: OLANZapine 7.5 MG TABLET 15 MG PO (20:26)
[2024-10-17] MEDS: traZODone HCL 50 MG TABLET 150 MG PO (20:27)
[2024-10-18] MEDS: Omeprazole 20 MG CAPSULE.DR PO ×2 (06:25→15:52)
[2024-10-18 07:00] VITALS: BMI 35.3
[2024-10-18] MEDS: methADONE HCl 20 MG/2 ML ORAL.CONC 190 MG PO (07:54)
[2024-10-18 08:00] VITALS: BP 131/84; PULSE 57; RESP 18; TEMP 36.9; O2SAT 93
[2024-10-18] MEDS: metFORMIN HCl 1,000 MG TABLET 1000 MG PO ×2 (08:17→17:17)
[2024-10-18] MEDS: Escitalopram Oxalate 20 MG TABLET PO (08:18)
[2024-10-18] MEDS: busPIRone HCl 10 MG TABLET 20 MG PO ×3 (08:18→20:41)
[2024-10-18] MEDS: Nicotine Polacrilex 2 MG GUM 4 MG BUCCAL ×3 (08:20→17:17)
--- NOTE | 2024-10-18 12:56 | HO.PSYCHPN ---
Subjective Subjective Date of Service: 10/18/24 Reason For Visit: Unspec Anxiety Major Depression Recurrent/Severe Subjective Notes: Conditional Voluntary Interim History: Patient continues to report feeling depressed but states he is improving. attending some groups. continues focused on [facility] referral; social science professor aware. denies SI/HI/VH/AH. Continue current tx plan. Medication Compliance: Yes Side effects from medications: No Attending Groups: Intermittent Mental Status Exam Mental Status Exam Narrative: Pt is alert and oriented; behavior is calm and cooperative; dressed in casual attire; mood is described as depressed ; eye contact appropriate; Speech is normal rate, volume and not pressured; thought process is organized and goal directed; Thought content is on tx; denies SI/HI/VH/AH. Diagnostics Vital Signs (24Hr): Vital Signs - 24 hr 10/17/24 20:10 10/18/24 08:00 Temperature 98.2 F 98.4 F Pulse Rate 66 57 Respiratory Rate 18 18 Blood Pressure 131/68 131/84 Pulse Oximetry 96 93 Oxygen Delivery Method Room Air Room Air BMI result Body Mass Index 35.3 Medications Medications Current Medications Acetaminophen (Acetaminophen 325 Mg Tablet) 650 mg PO Q6H PRN PRN Reason: Headache/Pain, Scale 1-10 Last Admin: 10/17/24 17:08 Dose: 650 mg Al Hydroxide/Mg Hydroxide (Magnesium Hydrox/Alum Hydrox 30 Ml Oral.Susp) 30 ml PO Q6H PRN PRN Reason: Heartburn/Nausea Buspirone HCl (Buspirone Hcl 10 Mg Tablet) 20 mg PO TID [facility] Last Admin: 10/18/24 08:18 Dose: 20 mg Chlorpromazine HCl (Chlorpromazine Hcl 100 Mg Tablet) 100 mg PO DAILY PRN PRN Reason: insomnia Last Admin: 10/16/24 20:54 Dose: 100 mg Escitalopram Oxalate (Escitalopram Oxalate 20 Mg Tablet) 20 mg PO DAILY [facility] Last Admin: 10/18/24 08:18 Dose: 20 mg Hydroxyzine HCl (Hydroxyzine Hcl 25 Mg Tablet) 25 mg PO Q6H PRN PRN Reason: mild anxiety Last Admin: 10/15/24 13:37 Dose: 25 mg Ibuprofen (Ibuprofen 800 Mg Tablet) 800 mg PO Q8H PRN PRN Reason: tooth pain Last Admin: 10/17/24 20:26 Dose: 800 mg Magnesium Hydroxide (Milk Of Magnesia 30 Ml Oral.Susp) 30 ml PO DAILY PRN PRN Reason: Constipation Metformin HCl (Metformin Hcl 1,000 Mg Tablet) 1,000 mg PO BIDWM [facility] Last Admin: 10/18/24 08:17 Dose: 1,000 mg Methadone HCl (Methadone Hcl 20 Mg/2 Ml Oral.Conc) 190 mg PO DAILY@0800 [facility] Last Admin: 10/18/24 07:54 Dose: 190 mg Mirtazapine (Mirtazapine 15 Mg Tablet) 45 mg PO BEDTIME [facility] Last Admin: 10/17/24 20:26 Dose: 45 mg Nicotine (Nicotine 21 Mg Patch.Td24) 21 mg TRANSDERMA DAILY [facility] Last Admin: 10/18/24 08:37 Dose: Not Given Nicotine Polacrilex (Nicotine Polacrilex 2 Mg Gum) 4 mg BUCCAL Q2H PRN PRN Reason: Nicotine Cravings Last Admin: 10/18/24 08:20 Dose: 4 mg Olanzapine (Olanzapine 7.5 Mg Tablet) 15 mg PO BEDTIME [facility] Last Admin: 10/17/24 20:26 Dose: 15 mg Omeprazole (Omeprazole 20 Mg Capsule.Dr) 20 mg PO BID@0630,1630 [facility] Last Admin: 10/18/24 06:25 Dose: 20 mg Trazodone HCl (Trazodone Hcl 50 Mg Tablet) 150 mg PO BEDTIME PRN PRN Reason: insomnia Last Admin: 10/17/24 20:27 Dose: 150 mg Allergies Allergies Allergy/AdvReac Type Severity Reaction Status Date / Time vancomycin Allergy Severe Rash Verified 06/01/24 07:38 Assessment & Plan Assessment & Plan (1) Major depression, recurrent: Qualifiers: Active/Remission status: currently active Major depression episode severity: moderate Qualified Code(s): F33.1 - Major depressive disorder, recurrent, moderate Status: Acute Code(s): F33.9 - Major depressive disorder, recurrent, unspecified (2) PTSD (post-traumatic stress disorder): Status: Acute Code(s): F43.10 - Post-traumatic stress disorder, unspecified (3) Cocaine use disorder: Status: Acute Code(s): F14.10 - Cocaine abuse, uncomplicated (4) Opioid use disorder: Status: Acute Code(s): F11.90 - Opioid use, unspecified, uncomplicated (5) Homelessness: Status: Acute Code(s): Z59.00 - Homelessness unspecified Plan Patient is a 39-year-old male with history MDD, opiate use disorder, alcohol use disorder and cocaine use disorder who presented to ER due to suicidal ideation of wanting to jump off a bridge secondary to increased depression. Plan: CV 15 minute safety checks Reviewed medications from previous admission; Continue home medications. obtain collateral encourage groups referral to substance abuse program discharge planning 10/16: Keeping to self. in bed most of day. Pt continues to report feeling depressed; focused on going to [place], pt stated, I want to go there and stay sober . Encouraged to shower and attend groups. denies SI/HI/VH/AH. He reports sleeping well last night. Continue current tx plan. 10/17: Keeping to self. in bed most of day. difficulty staying awake. addiction medicine consult placed; ? need for adjustment of methadone d/t oversedation. Pt continues to report feeling depressed; encouraged to attend groups, however continues to say later . denies SI/HI/VH/AH. Continue current tx plan. 10/18: Patient continues to report feeling depressed but states he is improving. attending some groups. continues focused on [facility] referral; social science professor aware. denies SI/HI/VH/AH. Continue current tx plan. Patient educated on: diagnosis, medication risk/benefits and therapeutic strategies Reason for continued inpatient stay Substantial Risk for: med/psych decompensation Time Spent With Patient Time: Total time managing care of this patient today _20___ minutes.
--- NOTE | 2024-10-18 13:57 | HO.ADDICT_ITS ---
History of Present Illness Date of Service: 10/18/2024 Chief Complaint: Unspec Anxiety Major Depression Recurrent/Severe Reason for Consult: concern for sedation ?methadone dose adjustment Sources of Information: patient interviewed and chart reviewed HPI Narrative: Patient is a 39 year old male, speaks both Wolof and Congolese, however interview conducted in Congolese. He is currently admitted to with worsening depression and suicidal ideation. Consult requested as patient appeared sedated on unit, and spent most of days in bed sleeping. Patient seen on unit, he was in his room, sleeping when approached by t/w, woke easily and agreed to meet in another room. He is alert and engaged during interview. he acknowledges that he has been in his room, in bed, and states that this is due to feeling overwhelmed with his living situation. He says that he would rather sleep, then think about what's happening in his life, and not having a place to live or supports in his life. Inquired about methadone dosing. He states he has been at this dose for over a year and finds that his use of opiates has decreased significantly. Of note, last admission, 08/2024, patient was noted to be sedated in various situations and methadone dose was reduced from 195-190mg. T/W discussed with patient concern that methadone dose may be contributing to presentation on unit, and patient disputes this, again stating that he feels good on this dose and will now be attending groups and staying out of his room. When asked if he feels tired or sleepy at home, he stated only at first . Past Psychiatric History: History of multiple inpatient psychiatric hospitalizations. Denies SA/SIB. Review of Systems Constitutional: Reports as per HPI and Reports no additional constitutional complaints Diagnostics Vital Signs (24Hr): Vital Signs - 24 hr 10/17/24 20:10 10/18/24 08:00 Temperature 98.2 F 98.4 F Pulse Rate 66 57 Respiratory Rate 18 18 Blood Pressure 131/68 131/84 Pulse Oximetry 96 93 Oxygen Delivery Method Room Air Room Air BMI result Body Mass Index 35.3 Mental Status Exam Mental Status Exam Level of Consciousness: Awake, Appropriate and Alert Patient Behavior: Appropriate, Talkative and Cooperative Affect Description: Calm and Appropriate Speech Pattern: Clear Thought Process: Intact Thought Content: positive for Intact Judgement: Fair Medications Medications Current Medications Acetaminophen (Acetaminophen 325 Mg Tablet) 650 mg PO Q6H PRN PRN Reason: Headache/Pain, Scale 1-10 Last Admin: 10/17/24 17:08 Dose: 650 mg Al Hydroxide/Mg Hydroxide (Magnesium Hydrox/Alum Hydrox 30 Ml Oral.Susp) 30 ml PO Q6H PRN PRN Reason: Heartburn/Nausea Buspirone HCl (Buspirone Hcl 10 Mg Tablet) 20 mg PO TID [facility] Last Admin: 10/18/24 08:18 Dose: 20 mg Chlorpromazine HCl (Chlorpromazine Hcl 100 Mg Tablet) 100 mg PO DAILY PRN PRN Reason: insomnia Last Admin: 10/16/24 20:54 Dose: 100 mg Escitalopram Oxalate (Escitalopram Oxalate 20 Mg Tablet) 20 mg PO DAILY [facility] Last Admin: 10/18/24 08:18 Dose: 20 mg Hydroxyzine HCl (Hydroxyzine Hcl 25 Mg Tablet) 25 mg PO Q6H PRN PRN Reason: mild anxiety Last Admin: 10/15/24 13:37 Dose: 25 mg Ibuprofen (Ibuprofen 800 Mg Tablet) 800 mg PO Q8H PRN PRN Reason: tooth pain Last Admin: 10/17/24 20:26 Dose: 800 mg Magnesium Hydroxide (Milk Of Magnesia 30 Ml Oral.Susp) 30 ml PO DAILY PRN PRN Reason: Constipation Metformin HCl (Metformin Hcl 1,000 Mg Tablet) 1,000 mg PO BIDWM [facility] Last Admin: 10/18/24 08:17 Dose: 1,000 mg Methadone HCl (Methadone Hcl 20 Mg/2 Ml Oral.Conc) 190 mg PO DAILY@0800 [facility] Last Admin: 10/18/24 07:54 Dose: 190 mg Mirtazapine (Mirtazapine 15 Mg Tablet) 45 mg PO BEDTIME [facility] Last Admin: 10/17/24 20:26 Dose: 45 mg Nicotine (Nicotine 21 Mg Patch.Td24) 21 mg TRANSDERMA DAILY [facility] Last Admin: 10/18/24 08:37 Dose: Not Given Nicotine Polacrilex (Nicotine Polacrilex 2 Mg Gum) 4 mg BUCCAL Q2H PRN PRN Reason: Nicotine Cravings Last Admin: 10/18/24 13:44 Dose: 4 mg Olanzapine (Olanzapine 7.5 Mg Tablet) 15 mg PO BEDTIME [facility] Last Admin: 10/17/24 20:26 Dose: 15 mg Omeprazole (Omeprazole 20 Mg Capsule.Dr) 20 mg PO BID@0630,1630 [facility] Last Admin: 10/18/24 06:25 Dose: 20 mg Trazodone HCl (Trazodone Hcl 50 Mg Tablet) 150 mg PO BEDTIME PRN PRN Reason: insomnia Last Admin: 10/17/24 20:27 Dose: 150 mg Allergies Allergies Allergy/AdvReac Type Severity Reaction Status Date / Time vancomycin Allergy Severe Rash Verified 06/01/24 07:38 Assessment & Plan Assessment & Plan (1) Opioid use disorder: Status: Acute Code(s): F11.90 - Opioid use, unspecified, uncomplicated Assessment and Plan: * a this time, no indication for dose change--peak effect for methadone is usually btwn 2-3 hours following dose administration, and it is not uncommon for patients to report feeling tired during this time period, in particular if they are not engaged in anything. * reinforced with patient, in Congolese, the importance of remaining in the milieu and participating in his treatment. Patient verbalized understanding, and stated that he attended one group earlier today and planned to attend remainder of groups. * with addition of Thorazine, consider updated EKG d/t potential for QT prolongation * if sedation continues to be a concern, consider 5mg decrease. Do not advise decreasing beyond that as alec of overdose increases with ongoing use. Total time managing care of this patient today _25___ minutes. PMFSH Past Medical History Medical History (Updated 10/15/24 @ 14:58 by Georgie Coates DNP) Medical clearance for psychiatric admission Routine medical exam Polysubstance (including opioids) dependence with physiological dependence ADHD Non-insulin dependent type 2 diabetes mellitus Polysubstance use disorder PTSD (post-traumatic stress disorder) Social History Social History Household Members: None Housing: Homeless Do you presently have visiting nurse or other home services: No Patient Tobacco Use Status: Current everyday Tobacco user Tobacco use type: Cigarette Cigarette Packs Per Day: 0.5 Cigarettes Per Day: 10.0 Years Smoked: unsure Smoked in Last 30 Days: Yes e-Cigarette/Vaping Use: Never Used Patient Interested in Nicotine Replacement: Yes Patient Given Instructions on How to Stop Smoking: Yes Date Education Initiated: 10/15/24 Second Hand Smoke Exposure: No Substance Use Type: Crack/Cocaine and Marijuana Currently Displaying Signs/Symptoms of Drug Intoxication Withdrawal: No Have you been hit, kicked, punched, or otherwise hurt by someone within the past year? If so, by whom?: No Do you feel safe in your current relationship?: No Current Relationship Is there a partner from a previous relationship who is making you feel unsafe now?: No Are you made to feel afraid or neglected: No Advance Directives: No Advance Directives Information Provided: No Do you have thoughts of harming others: None Do you have a plan to hurt others: No Plan Recently lost weight without trying: No How much weight loss: Not applicable Eating poorly because of decreased appetite: No Nutrition screen score: 0 Nutrition Risks: No Nutritional Risk Poor oral hygiene: No service: No Sexual orientation: Straight/Heterosexual
[2024-10-18] MEDS: Ibuprofen 800 MG TABLET PO (14:23)
[2024-10-18] MEDS: Acetaminophen 325 MG TABLET 650 MG PO (15:51)
[2024-10-18 20:00] VITALS: BP 131/66; PULSE 74; RESP 18; TEMP 36.8; O2SAT 100
[2024-10-18] MEDS: traZODone HCL 50 MG TABLET 150 MG PO (20:40)
[2024-10-18] MEDS: Mirtazapine 15 MG TABLET 45 MG PO (20:41)
[2024-10-18] MEDS: OLANZapine 7.5 MG TABLET 15 MG PO (20:41)
[2024-10-18] MEDS: Benzocaine 20 % Oral Gel 14 GM TUBE 1 APPL MUCOUS MEM (21:05)
[2024-10-19] MEDS: Omeprazole 20 MG CAPSULE.DR PO ×2 (06:31→17:03)
[2024-10-19 07:25] VITALS: BP 113/59; PULSE 70; RESP 18; TEMP 36.9; O2SAT 98
[2024-10-19] MEDS: methADONE HCl 20 MG/2 ML ORAL.CONC 190 MG PO (08:20)
[2024-10-19] MEDS: Escitalopram Oxalate 20 MG TABLET PO (08:21)
[2024-10-19] MEDS: metFORMIN HCl 1,000 MG TABLET 1000 MG PO ×2 (08:21→17:03)
[2024-10-19] MEDS: busPIRone HCl 10 MG TABLET 20 MG PO ×3 (08:21→20:04)
[2024-10-19] MEDS: Nicotine Polacrilex 2 MG GUM 4 MG BUCCAL ×5 (08:21→20:05)
--- NOTE | 2024-10-19 09:21 | P.PNPSI_ITS ---
Subjective Subjective Date of Service: 10/19/24 Reason For Visit: Unspec Anxiety Major Depression Recurrent/Severe Subjective Notes: Conditional Voluntary Interim History: Active on unit. attending some groups. Patient reports feeling good and better today; pt stated, I'm happy I have an interview with [facility] today . Pt focused on interview. denies SI/HI/VH/AH. denies any issues at this time.Continue current tx plan. Medication Compliance: Yes Side effects from medications: No Attending Groups: Intermittent Mental Status Exam Mental Status Exam Narrative: Pt is alert and oriented; behavior is calm and cooperative; dressed in casual attire; mood is described as good ; eye contact appropriate; Speech is normal rate, volume and not pressured; thought process is organized and goal directed; Thought content is on tx; denies SI/HI/VH/AH. Diagnostics Vital Signs (24Hr): Vital Signs - 24 hr 10/18/24 20:00 10/19/24 07:25 Temperature 98.2 F 98.4 F Pulse Rate 74 70 Respiratory Rate 18 18 Blood Pressure 131/66 113/59 L Pulse Oximetry 100 98 Oxygen Delivery Method Room Air Room Air BMI result Body Mass Index 35.3 Medications Medications Current Medications Acetaminophen (Acetaminophen 325 Mg Tablet) 650 mg PO Q6H PRN PRN Reason: Headache/Pain, Scale 1-10 Last Admin: 10/18/24 15:51 Dose: 650 mg Al Hydroxide/Mg Hydroxide (Magnesium Hydrox/Alum Hydrox 30 Ml Oral.Susp) 30 ml PO Q6H PRN PRN Reason: Heartburn/Nausea Benzocaine (Benzocaine 20 % Oral Gel 14 Gm Tube) 1 appl MUCOUS MEM QID PRN; Protocol PRN Reason: Mouth Sore Pain Last Admin: 10/18/24 21:05 Dose: 1 appl Buspirone HCl (Buspirone Hcl 10 Mg Tablet) 20 mg PO TID JENELLE Last Admin: 10/19/24 08:21 Dose: 20 mg Chlorpromazine HCl (Chlorpromazine Hcl 100 Mg Tablet) 100 mg PO DAILY PRN PRN Reason: insomnia Last Admin: 10/16/24 20:54 Dose: 100 mg Escitalopram Oxalate (Escitalopram Oxalate 20 Mg Tablet) 20 mg PO DAILY JENELLE Last Admin: 10/19/24 08:21 Dose: 20 mg Hydroxyzine HCl (Hydroxyzine Hcl 25 Mg Tablet) 25 mg PO Q6H PRN PRN Reason: mild anxiety Last Admin: 10/15/24 13:37 Dose: 25 mg Ibuprofen (Ibuprofen 800 Mg Tablet) 800 mg PO Q8H PRN PRN Reason: tooth pain Last Admin: 10/18/24 14:23 Dose: 800 mg Magnesium Hydroxide (Milk Of Magnesia 30 Ml Oral.Susp) 30 ml PO DAILY PRN PRN Reason: Constipation Metformin HCl (Metformin Hcl 1,000 Mg Tablet) 1,000 mg PO BIDWM [facility] Last Admin: 10/19/24 08:21 Dose: 1,000 mg Methadone HCl (Methadone Hcl 20 Mg/2 Ml Oral.Conc) 190 mg PO DAILY@0800 [facility] Last Admin: 10/19/24 08:20 Dose: 190 mg Mirtazapine (Mirtazapine 15 Mg Tablet) 45 mg PO BEDTIME [facility] Last Admin: 10/18/24 20:41 Dose: 45 mg Nicotine (Nicotine 21 Mg Patch.Td24) 21 mg TRANSDERMA DAILY [facility] Last Admin: 10/19/24 08:26 Dose: Not Given Nicotine Polacrilex (Nicotine Polacrilex 2 Mg Gum) 4 mg BUCCAL Q2H PRN PRN Reason: Nicotine Cravings Last Admin: 10/19/24 08:21 Dose: 4 mg Olanzapine (Olanzapine 7.5 Mg Tablet) 15 mg PO BEDTIME [facility] Last Admin: 10/18/24 20:41 Dose: 15 mg Omeprazole (Omeprazole 20 Mg Capsule.Dr) 20 mg PO BID@0630,1630 [facility] Last Admin: 10/19/24 06:31 Dose: 20 mg Trazodone HCl (Trazodone Hcl 50 Mg Tablet) 150 mg PO BEDTIME PRN PRN Reason: insomnia Last Admin: 10/18/24 20:40 Dose: 150 mg Allergies Allergies Allergy/AdvReac Type Severity Reaction Status Date / Time vancomycin Allergy Severe Rash Verified 06/01/24 07:38 Assessment & Plan Assessment & Plan (1) Major depression, recurrent: Qualifiers: Active/Remission status: currently active Major depression episode severity: moderate Qualified Code(s): F33.1 - Major depressive disorder, recurrent, moderate Status: Acute Code(s): F33.9 - Major depressive disorder, recurrent, unspecified (2) PTSD (post-traumatic stress disorder): Status: Acute Code(s): F43.10 - Post-traumatic stress disorder, unspecified (3) Opioid use disorder: Status: Acute Code(s): F11.90 - Opioid use, unspecified, uncomplicated Assessment and Plan: * a this time, no indication for dose change--peak effect for methadone is usually btwn 2-3 hours following dose administration, and it is not uncommon for patients to report feeling tired during this time period, in particular if they are not engaged in anything. * reinforced with patient, in Colombian, the importance of remaining in the milieu and participating in his treatment. Patient verbalized understanding, and stated that he attended one group earlier today and planned to attend remainder of groups. * with addition of Thorazine, consider updated EKG d/t potential for QT prolongation * if sedation continues to be a concern, consider 5mg decrease. Do not advise decreasing beyond that as alec of overdose increases with ongoing use. (4) Cocaine use disorder: Status: Acute Code(s): F14.10 - Cocaine abuse, uncomplicated (5) Homelessness: Status: Acute Code(s): Z59.00 - Homelessness unspecified Plan Patient is a 39-year-old male with history MDD, opiate use disorder, alcohol use disorder and cocaine use disorder who presented to ER due to suicidal ideation of wanting to jump off a bridge secondary to increased depression. Plan: CV 15 minute safety checks Reviewed medications from previous admission; Continue home medications. obtain collateral encourage groups referral to substance abuse program discharge planning 10/16: Keeping to self. in bed most of day. Pt continues to report feeling depressed; focused on going to [facility], pt stated, I want to go there and stay sober . Encouraged to shower and attend groups. denies SI/HI/VH/AH. He reports sleeping well last night. Continue current tx plan. 10/17: Keeping to self. in bed most of day. difficulty staying awake. addiction medicine consult placed; ? need for adjustment of methadone d/t oversedation. Pt continues to report feeling depressed; encouraged to attend groups, however continues to say later . denies SI/HI/VH/AH. Continue current tx plan. 10/18: Patient continues to report feeling depressed but states he is improving. attending some groups. continues focused on [facility] referral; social service worker aware. denies SI/HI/VH/AH. Continue current tx plan. 10/19: Active on unit. attending some groups. Patient reports feeling good and better today; pt stated, I'm happy I have an interview with [facility] today . Pt focused on interview. denies SI/HI/VH/AH. denies any issues at this time.Continue current tx plan. Patient educated on: diagnosis, medication risk/benefits and therapeutic strategies Reason for continued inpatient stay Substantial Risk for: med/psych decompensation Time Spent With Patient Time: Total time managing care of this patient today _20___ minutes.
[2024-10-19] MEDS: Ibuprofen 800 MG TABLET PO (12:34)
[2024-10-19 20:00] VITALS: BP 138/79; PULSE 74; RESP 18; TEMP 36.8; O2SAT 95
[2024-10-19] MEDS: traZODone HCL 50 MG TABLET 150 MG PO (20:04)
[2024-10-19] MEDS: hydrOXYzine HCL 25 MG TABLET PO (20:04)
[2024-10-19] MEDS: Mirtazapine 15 MG TABLET 45 MG PO (20:04)
[2024-10-19] MEDS: OLANZapine 7.5 MG TABLET 15 MG PO (20:05)
[2024-10-19] MEDS: Acetaminophen 325 MG TABLET 650 MG PO (20:05)
[2024-10-19] MEDS: chlorproMAZINE HCl 100 MG TABLET PO (20:15)
[2024-10-20] MEDS: Omeprazole 20 MG CAPSULE.DR PO ×2 (06:29→16:34)
[2024-10-20] MEDS: Nicotine Polacrilex 2 MG GUM 4 MG BUCCAL ×5 (06:35→20:13)
[2024-10-20] MEDS: Ibuprofen 800 MG TABLET PO ×2 (06:35→15:03)
[2024-10-20 07:30] VITALS: BP 112/61; PULSE 70; RESP 18; TEMP 36.9; O2SAT 94
--- NOTE | 2024-10-20 08:10 | P.PNPSI_ITS ---
Subjective Subjective Date of Service: 10/20/24 Reason For Visit: Unspec Anxiety Major Depression Recurrent/Severe Subjective Notes: Conditional Voluntary Healthcare Proxy: No Guardianship: No Medical Problems Affecting Mental Status: No Interim History: 39 yo with co anxiety - reports overall doing better with depression/sub use co panic , feels hydroxyzine doesn't do much - discussed using non benzo (due to substance use do) for anxiety - like buspar- but could also do well with propranlol possibly for panic- Sleep ok, apt ok - no s/e of meds and denies current si - Medication Compliance: Yes Side effects from medications: No Attending Groups: Yes Review of Systems Acute medical concerns: No Medical Review of Systems: unchanged Mental Status Exam Mental Status Exam Narrative: covered in blanket- in mehnaz- Patient Appearance: Appropriate Patient Orientation: Person, Place, Time and Situation Level of Consciousness: Awake and Alert Patient Behavior: Appropriate, Cooperative and Good Eye Contact Mood Description: Calm Affect Description: Appropriate Patient Cognition Impaired: No Ability to Follow Directions: Good Speech Pattern: Clear Hallucinations: None Delusions: Not Present Thought Content: positive for Intact and positive for Goal Oriented Depressive Symptoms: Increased Anxiety Judgement: Fair Diagnostics Vital Signs (24Hr): Vital Signs - 24 hr 10/19/24 20:00 Temperature 98.2 F Pulse Rate 74 Respiratory Rate 18 Blood Pressure 138/79 Pulse Oximetry 95 Oxygen Delivery Method Room Air BMI result Body Mass Index 35.3 Labs 10/20/24 13:19 Medications Medications Current Medications Acetaminophen (Acetaminophen 325 Mg Tablet) 650 mg PO Q6H PRN PRN Reason: Headache/Pain, Scale 1-10 Last Admin: 10/19/24 20:05 Dose: 650 mg Al Hydroxide/Mg Hydroxide (Magnesium Hydrox/Alum Hydrox 30 Ml Oral.Susp) 30 ml PO Q6H PRN PRN Reason: Heartburn/Nausea Benzocaine (Benzocaine 20 % Oral Gel 14 Gm Tube) 1 appl MUCOUS MEM QID PRN; Protocol PRN Reason: Mouth Sore Pain Last Admin: 10/18/24 21:05 Dose: 1 appl Buspirone HCl (Buspirone Hcl 10 Mg Tablet) 20 mg PO TID JENELLE Last Admin: 10/19/24 20:04 Dose: 20 mg Chlorpromazine HCl (Chlorpromazine Hcl 100 Mg Tablet) 100 mg PO DAILY PRN PRN Reason: insomnia Last Admin: 10/19/24 20:15 Dose: 100 mg Escitalopram Oxalate (Escitalopram Oxalate 20 Mg Tablet) 20 mg PO DAILY [facility] Last Admin: 10/19/24 08:21 Dose: 20 mg Hydroxyzine HCl (Hydroxyzine Hcl 25 Mg Tablet) 25 mg PO Q6H PRN PRN Reason: mild anxiety Last Admin: 10/19/24 20:04 Dose: 25 mg Ibuprofen (Ibuprofen 800 Mg Tablet) 800 mg PO Q8H PRN PRN Reason: tooth pain Last Admin: 10/20/24 06:35 Dose: 800 mg Magnesium Hydroxide (Milk Of Magnesia 30 Ml Oral.Susp) 30 ml PO DAILY PRN PRN Reason: Constipation Metformin HCl (Metformin Hcl 1,000 Mg Tablet) 1,000 mg PO BIDWM [facility] Last Admin: 10/19/24 17:03 Dose: 1,000 mg Methadone HCl (Methadone Hcl 20 Mg/2 Ml Oral.Conc) 190 mg PO DAILY@0800 [facility] Last Admin: 10/19/24 08:20 Dose: 190 mg Mirtazapine (Mirtazapine 15 Mg Tablet) 45 mg PO BEDTIME [facility] Last Admin: 10/19/24 20:04 Dose: 45 mg Nicotine Polacrilex (Nicotine Polacrilex 2 Mg Gum) 4 mg BUCCAL Q2H PRN PRN Reason: Nicotine Cravings Last Admin: 10/20/24 06:35 Dose: 4 mg Olanzapine (Olanzapine 7.5 Mg Tablet) 15 mg PO BEDTIME [facility] Last Admin: 10/19/24 20:05 Dose: 15 mg Omeprazole (Omeprazole 20 Mg Capsule.Dr) 20 mg PO BID@0630,1630 [facility] Last Admin: 10/20/24 06:29 Dose: 20 mg Trazodone HCl (Trazodone Hcl 50 Mg Tablet) 150 mg PO BEDTIME PRN PRN Reason: insomnia Last Admin: 10/19/24 20:04 Dose: 150 mg Allergies Allergies Allergy/AdvReac Type Severity Reaction Status Date / Time vancomycin Allergy Severe Rash Verified 06/01/24 07:38 Assessment & Plan Assessment & Plan (1) Major depression, recurrent: Qualifiers: Active/Remission status: currently active Major depression episode severity: moderate Qualified Code(s): F33.1 - Major depressive disorder, recurrent, moderate Status: Acute Code(s): F33.9 - Major depressive disorder, recurrent, unspecified (2) PTSD (post-traumatic stress disorder): Status: Acute Code(s): F43.10 - Post-traumatic stress disorder, unspecified (3) Opioid use disorder: Status: Acute Code(s): F11.90 - Opioid use, unspecified, uncomplicated Assessment and Plan: * a this time, no indication for dose change--peak effect for methadone is usually btwn 2-3 hours following dose administration, and it is not uncommon for patients to report feeling tired during this time period, in particular if they are not engaged in anything. * reinforced with patient, in E[place], the importance of remaining in the milieu and participating in his treatment. Patient verbalized understanding, and stated that he attended one group earlier today and planned to attend remainder of groups. * with addition of Thorazine, consider updated EKG d/t potential for QT prolongation * if sedation continues to be a concern, consider 5mg decrease. Do not advise decreasing beyond that as alec of overdose increases with ongoing use. (4) Cocaine use disorder: Status: Acute Code(s): F14.10 - Cocaine abuse, uncomplicated (5) Homelessness: Status: Acute Code(s): Z59.00 - Homelessness unspecified Plan Patient is a 39-year-old male with history MDD, opiate use disorder, alcohol use disorder and cocaine use disorder who presented to ER due to suicidal ideation of wanting to jump off a bridge secondary to increased depression. Plan: CV 15 minute safety checks Reviewed medications from previous admission; Continue home medications. obtain collateral encourage groups referral to substance abuse program discharge planning 10/16: Keeping to self. in bed most of day. Pt continues to report feeling depressed; focused on going to [facility], pt stated, I want to go there and stay sober . Encouraged to shower and attend groups. denies SI/HI/VH/AH. He reports sleeping well last night. Continue current tx plan. 10/17: Keeping to self. in bed most of day. difficulty staying awake. addiction medicine consult placed; ? need for adjustment of methadone d/t oversedation. Pt continues to report feeling depressed; encouraged to attend groups, however continues to say later . denies SI/HI/VH/AH. Continue current tx plan. 10/18: Patient continues to report feeling depressed but states he is improving. attending some groups. continues focused on [facility] referral; social work nurse aware. denies SI/HI/VH/AH. Continue current tx plan. 10/19: Active on unit. attending some groups. Patient reports feeling good and better today; pt stated, I'm happy I have an interview with [facility] today . Pt focused on interview. denies SI/HI/VH/AH. denies any issues at this time.Continue current tx plan. 10/20 add in buspar trial for a day - or consider propranlol prn anxiety/panic - Patient educated on: medication risk/benefits and therapeutic strategies Informed Consent: understands Reason for continued inpatient stay Substantial Risk for: rapid decompensation Time Spent With Patient Time: Total time managing care of this patient today ____ minutes.
[2024-10-20] MEDS: methADONE HCl 20 MG/2 ML ORAL.CONC 190 MG PO (08:15)
[2024-10-20] MEDS: busPIRone HCl 10 MG TABLET 20 MG PO ×3 (08:46→20:12)
[2024-10-20] MEDS: metFORMIN HCl 1,000 MG TABLET 1000 MG PO ×2 (08:46→16:34)
[2024-10-20] MEDS: Escitalopram Oxalate 20 MG TABLET PO (08:46)
[2024-10-20 13:45] LABS: Creatinine Clr Calc Pharmacy 137.1; Estimated Glomerular Filt Rate > 60
[2024-10-20] MEDS: Acetaminophen 325 MG TABLET 650 MG PO (14:38)
[2024-10-20] MEDS: Benzocaine 20 % Oral Gel 14 GM TUBE 1 APPL MUCOUS MEM ×2 (14:38→18:12)
[2024-10-20 20:00] VITALS: BP 110/60; PULSE 69; RESP 18; TEMP 36.4; O2SAT 98
[2024-10-20] MEDS: Mirtazapine 15 MG TABLET 45 MG PO (20:12)
[2024-10-20] MEDS: hydrOXYzine HCL 25 MG TABLET PO (20:12)
[2024-10-20] MEDS: traZODone HCL 50 MG TABLET 150 MG PO (20:13)
[2024-10-20] MEDS: OLANZapine 7.5 MG TABLET 15 MG PO (20:13)
[2024-10-20] MEDS: chlorproMAZINE HCl 100 MG TABLET PO (20:13)
[2024-10-21] MEDS: Omeprazole 20 MG CAPSULE.DR PO ×2 (06:41→16:57)
[2024-10-21 08:00] VITALS: BP 129/66; PULSE 67; TEMP 36.7; O2SAT 96
[2024-10-21] MEDS: methADONE HCl 20 MG/2 ML ORAL.CONC 190 MG PO (08:17)
[2024-10-21] MEDS: Ibuprofen 800 MG TABLET PO (08:44)
[2024-10-21] MEDS: metFORMIN HCl 1,000 MG TABLET 1000 MG PO ×2 (08:44→16:57)
[2024-10-21] MEDS: Escitalopram Oxalate 20 MG TABLET PO (08:46)
[2024-10-21] MEDS: busPIRone HCl 10 MG TABLET PO (09:04)
--- NOTE | 2024-10-21 09:05 | PC.NURSE ---
Buspar order clarified with Dr. Lesvia Cat to administer 10mg only.
[2024-10-21] MEDS: Nicotine Polacrilex 2 MG GUM 4 MG BUCCAL ×5 (09:20→19:55)
--- NOTE | 2024-10-21 11:17 | HO.PSYCHPN ---
Subjective Subjective Date of Service: 10/21/24 Reason For Visit: Unspec Anxiety Major Depression Recurrent/Severe Subjective Notes: Conditional Voluntary Healthcare Proxy: No Guardianship: No Medical Problems Affecting Mental Status: No Interim History: 39 yo HM angry at my suggestion of propranlol for panic that he is describing- I had thought I had added buspar but he was already on it so discussed changing dosing- says it doesn't work - so dced- pt called family about propranlol says it is for bp -not panic- attempted to discuss with patient but he was too irritable to continue with provider plans to go to after care for sub abuse Medication Compliance: Yes Side effects from medications: No Attending Groups: Yes Review of Systems Acute medical concerns: No Medical Review of Systems: unchanged Mental Status Exam Mental Status Exam Patient Appearance: Appropriate (though dressed in mehnaz) Patient Orientation: Person, Place and Time Level of Consciousness: Awake Patient Behavior: Appropriate, Cooperative (until angry about provider med suggestion) and Resistive to Care Mood Description: Angry Affect Description: Apprehensive (re dc?) Patient Cognition Impaired: No Ability to Follow Directions: Fair Speech Pattern: Clear Hallucinations: None Delusions: Not Present Thought Process: Intact and Goal Oriented Depressive Symptoms: Increased Irritability Judgement: Fair Diagnostics Vital Signs (24Hr): Vital Signs - 24 hr 10/20/24 20:00 10/21/24 08:00 Temperature 97.6 F 98.1 F Pulse Rate 69 67 Respiratory Rate 18 Blood Pressure 110/60 129/66 Pulse Oximetry 98 96 Oxygen Delivery Method Room Air Room Air BMI result Body Mass Index 35.3 Labs 10/20/24 13:19 Labs: Laboratory Results - last 48 hr 10/20/24 13:19 Creatinine 0.73 Estim Creat Clear Calc 137.1 Estimated GFR > 60 Medications Medications Current Medications Acetaminophen (Acetaminophen 325 Mg Tablet) 650 mg PO Q6H PRN PRN Reason: Headache/Pain, Scale 1-10 Last Admin: 10/20/24 14:38 Dose: 650 mg Al Hydroxide/Mg Hydroxide (Magnesium Hydrox/Alum Hydrox 30 Ml Oral.Susp) 30 ml PO Q6H PRN PRN Reason: Heartburn/Nausea Benzocaine (Benzocaine 20 % Oral Gel 14 Gm Tube) 1 appl MUCOUS MEM QID PRN; Protocol PRN Reason: Mouth Sore Pain Last Admin: 10/20/24 18:12 Dose: 1 appl Buspirone HCl (Buspirone Hcl 10 Mg Tablet) 30 mg PO BID [facility] Chlorpromazine HCl (Chlorpromazine Hcl 100 Mg Tablet) 100 mg PO DAILY PRN PRN Reason: insomnia Last Admin: 10/20/24 20:13 Dose: 100 mg Escitalopram Oxalate (Escitalopram Oxalate 20 Mg Tablet) 20 mg PO DAILY [facility] Last Admin: 10/21/24 08:46 Dose: 20 mg Hydroxyzine HCl (Hydroxyzine Hcl 25 Mg Tablet) 25 mg PO Q6H PRN PRN Reason: mild anxiety Last Admin: 10/20/24 20:12 Dose: 25 mg Ibuprofen (Ibuprofen 800 Mg Tablet) 800 mg PO Q8H PRN PRN Reason: tooth pain Last Admin: 10/21/24 08:44 Dose: 800 mg Magnesium Hydroxide (Milk Of Magnesia 30 Ml Oral.Susp) 30 ml PO DAILY PRN PRN Reason: Constipation Metformin HCl (Metformin Hcl 1,000 Mg Tablet) 1,000 mg PO BIDWM [facility] Last Admin: 10/21/24 08:44 Dose: 1,000 mg Methadone HCl (Methadone Hcl 20 Mg/2 Ml Oral.Conc) 190 mg PO DAILY@0800 [facility] Last Admin: 10/21/24 08:17 Dose: 190 mg Mirtazapine (Mirtazapine 15 Mg Tablet) 45 mg PO BEDTIME [facility] Last Admin: 10/20/24 20:12 Dose: 45 mg Nicotine Polacrilex (Nicotine Polacrilex 2 Mg Gum) 4 mg BUCCAL Q2H PRN PRN Reason: Nicotine Cravings Last Admin: 10/21/24 09:20 Dose: 4 mg Olanzapine (Olanzapine 7.5 Mg Tablet) 15 mg PO BEDTIME [facility] Last Admin: 10/20/24 20:13 Dose: 15 mg Omeprazole (Omeprazole 20 Mg Capsule.Dr) 20 mg PO BID@0630,1630 [facility] Last Admin: 10/21/24 06:41 Dose: 20 mg Trazodone HCl (Trazodone Hcl 50 Mg Tablet) 150 mg PO BEDTIME PRN PRN Reason: insomnia Last Admin: 10/20/24 20:13 Dose: 150 mg Allergies Allergies Allergy/AdvReac Type Severity Reaction Status Date / Time vancomycin Allergy Severe Rash Verified 06/01/24 07:38 Assessment & Plan Assessment & Plan (1) Major depression, recurrent: Qualifiers: Active/Remission status: currently active Major depression episode severity: moderate Qualified Code(s): F33.1 - Major depressive disorder, recurrent, moderate Status: Acute Code(s): F33.9 - Major depressive disorder, recurrent, unspecified (2) PTSD (post-traumatic stress disorder): Status: Acute Code(s): F43.10 - Post-traumatic stress disorder, unspecified (3) Opioid use disorder: Status: Acute Code(s): F11.90 - Opioid use, unspecified, uncomplicated Assessment and Plan: a this time, no indication for dose change--peak effect for methadone is usually btwn 2-3 hours following dose administration, and it is not uncommon for patients to report feeling tired during this time period, in particular if they are not engaged in anything. reinforced with patient, in Malay, the importance of remaining in the milieu and participating in his treatment. Patient verbalized understanding, and stated that he attended one group earlier today and planned to attend remainder of groups. with addition of Thorazine, consider updated EKG d/t potential for QT prolongation if sedation continues to be a concern, consider 5mg decrease. Do not advise decreasing beyond that as alec of overdose increases with ongoing use. (4) Cocaine use disorder: Status: Acute Code(s): F14.10 - Cocaine abuse, uncomplicated (5) Homelessness: Status: Acute Code(s): Z59.00 - Homelessness unspecified Plan Patient is a 39-year-old male with history MDD, opiate use disorder, alcohol use disorder and cocaine use disorder who presented to ER due to suicidal ideation of wanting to jump off a bridge secondary to increased depression. Plan: CV 15 minute safety checks Reviewed medications from previous admission; Continue home medications. obtain collateral encourage groups referral to substance abuse program discharge planning 10/16: Keeping to self. in bed most of day. Pt continues to report feeling depressed; focused on going to [facility], pt stated, I want to go there and stay sober . Encouraged to shower and attend groups. denies SI/HI/VH/AH. He reports sleeping well last night. Continue current tx plan. 10/17: Keeping to self. in bed most of day. difficulty staying awake. addiction medicine consult placed; ? need for adjustment of methadone d/t oversedation. Pt continues to report feeling depressed; encouraged to attend groups, however continues to say later . denies SI/HI/VH/AH. Continue current tx plan. 10/18: Patient continues to report feeling depressed but states he is improving. attending some groups. continues focused on [facility] referral; social media senior associate aware. denies SI/HI/VH/AH. Continue current tx plan. 10/19: Active on unit. attending some groups. Patient reports feeling good and better today; pt stated, I'm happy I have an interview with [facility] today . Pt focused on interview. denies SI/HI/VH/AH. denies any issues at this time.Continue current tx plan. 10/20 add in buspar trial for a day - or consider propranlol prn anxiety/panic - 10/21 accidentally lowered buspar he was already on decided it doesn't work anyway he says unwilling to consider propranlol- Patient educated on: medication risk/benefits and therapeutic strategies Informed Consent: does not understand and further education needed Reason for continued inpatient stay Substantial Risk for: rapid decompensation Time Spent With Patient Time: Total time managing care of this patient today ____ minutes.
[2024-10-21 13:23] VITALS: BP 103/59; PULSE 83
[2024-10-21] MEDS: Propranolol HCL 10 MG TABLET PO (13:23)
[2024-10-21] MEDS: hydrOXYzine HCL 50 MG TABLET PO (14:57)
[2024-10-21] MEDS: OLANZapine 7.5 MG TABLET 15 MG PO (19:52)
[2024-10-21] MEDS: traZODone HCL 50 MG TABLET 150 MG PO (19:54)
[2024-10-21] MEDS: Mirtazapine 15 MG TABLET 45 MG PO (19:54)
[2024-10-21 20:00] VITALS: BP 105/60; PULSE 77; RESP 18; TEMP 36.4; O2SAT 96
[2024-10-21 20:31] LABS: Glucose, Whole Blood 121 mg/dL (60-115)
[2024-10-22] MEDS: chlorproMAZINE HCl 100 MG TABLET PO (01:36)
[2024-10-22] MEDS: Omeprazole 20 MG CAPSULE.DR PO ×2 (06:27→16:55)
[2024-10-22 07:40] VITALS: BP 113/68; PULSE 66; RESP 16; TEMP 36.6; O2SAT 96
[2024-10-22] MEDS: methADONE HCl 20 MG/2 ML ORAL.CONC 190 MG PO (08:06)
[2024-10-22 08:10] LABS: Glucose, Whole Blood 117 mg/dL (60-115)
[2024-10-22] MEDS: metFORMIN HCl 1,000 MG TABLET 1000 MG PO ×2 (08:28→16:55)
[2024-10-22] MEDS: Escitalopram Oxalate 20 MG TABLET PO (08:28)
[2024-10-22] MEDS: Nicotine Polacrilex 2 MG GUM 4 MG BUCCAL ×4 (08:30→17:56)
--- NOTE | 2024-10-22 09:52 | P.PNPSI_ITS ---
Subjective Subjective Date of Service: 10/22/24 Reason For Visit: Unspec Anxiety Major Depression Recurrent/Severe Subjective Notes: Conditional Voluntary Interim History: Active on unit. social with peers. Patient reports feeling good ; he reports sleeping well. per nursing, slept 7 hours. denies SI/HI/VH/AH. court worker awaiting to hear from [facility] if pt was accepted; plan to discharge tomorrow to either [facility] or halfway; pt aware. Medication Compliance: Yes Side effects from medications: No Attending Groups: Yes Mental Status Exam Mental Status Exam Narrative: Pt is alert and oriented; behavior is cooperative and calm; dressed in casual attire; mood is described as good ; eye contact appropriate; Speech is normal rate, volume and not pressured; thought process is organized; Thought content is on tx; denies SI/HI/VH/AH. Diagnostics Vital Signs (24Hr): Vital Signs - 24 hr 10/21/24 13:23 10/21/24 20:00 10/22/24 07:40 Temperature 97.5 F 97.9 F Pulse Rate 83 77 66 Respiratory Rate 18 16 Blood Pressure 103/59 L 105/60 113/68 Pulse Oximetry 96 96 Oxygen Delivery Method Room Air Room Air BMI result Body Mass Index 35.3 Labs 10/20/24 13:19 Labs: Laboratory Results - last 48 hr 10/20/24 10/21/24 10/22/24 13:19 20:28 08:05 Creatinine 0.73 Estim Creat Clear Calc 137.1 Estimated GFR > 60 POC Glucose 121 H 117 H Medications Medications Current Medications Acetaminophen (Acetaminophen 325 Mg Tablet) 650 mg PO Q6H PRN PRN Reason: Headache/Pain, Scale 1-10 Last Admin: 10/20/24 14:38 Dose: 650 mg Al Hydroxide/Mg Hydroxide (Magnesium Hydrox/Alum Hydrox 30 Ml Oral.Susp) 30 ml PO Q6H PRN PRN Reason: Heartburn/Nausea Benzocaine (Benzocaine 20 % Oral Gel 14 Gm Tube) 1 appl MUCOUS MEM QID PRN; Protocol PRN Reason: Mouth Sore Pain Last Admin: 10/20/24 18:12 Dose: 1 appl Chlorpromazine HCl (Chlorpromazine Hcl 100 Mg Tablet) 100 mg PO DAILY PRN PRN Reason: insomnia Last Admin: 10/22/24 01:36 Dose: 100 mg Escitalopram Oxalate (Escitalopram Oxalate 20 Mg Tablet) 20 mg PO DAILY [facility] Last Admin: 10/22/24 08:28 Dose: 20 mg Hydroxyzine HCl (Hydroxyzine Hcl 50 Mg Tablet) 50 mg PO Q6H PRN PRN Reason: mild anxiety Last Admin: 10/21/24 14:57 Dose: 50 mg Ibuprofen (Ibuprofen 800 Mg Tablet) 800 mg PO Q8H PRN PRN Reason: tooth pain Last Admin: 10/21/24 08:44 Dose: 800 mg Magnesium Hydroxide (Milk Of Magnesia 30 Ml Oral.Susp) 30 ml PO DAILY PRN PRN Reason: Constipation Metformin HCl (Metformin Hcl 1,000 Mg Tablet) 1,000 mg PO BIDWM [facility] Last Admin: 10/22/24 08:28 Dose: 1,000 mg Methadone HCl (Methadone Hcl 20 Mg/2 Ml Oral.Conc) 190 mg PO DAILY@0800 [facility] Last Admin: 10/22/24 08:06 Dose: 190 mg Mirtazapine (Mirtazapine 15 Mg Tablet) 45 mg PO BEDTIME [facility] Last Admin: 10/21/24 19:54 Dose: 45 mg Nicotine Polacrilex (Nicotine Polacrilex 2 Mg Gum) 4 mg BUCCAL Q2H PRN PRN Reason: Nicotine Cravings Last Admin: 10/22/24 08:30 Dose: 4 mg Olanzapine (Olanzapine 7.5 Mg Tablet) 15 mg PO BEDTIME [facility] Last Admin: 10/21/24 19:52 Dose: 15 mg Omeprazole (Omeprazole 20 Mg Capsule.Dr) 20 mg PO BID@0630,1630 [facility] Last Admin: 10/22/24 06:27 Dose: 20 mg Propranolol HCl (Propranolol Hcl 10 Mg Tablet) 10 mg PO TID PRN; Protocol PRN Reason: anxiety/restlessness Last Admin: 10/21/24 13:23 Dose: 10 mg Trazodone HCl (Trazodone Hcl 50 Mg Tablet) 150 mg PO BEDTIME PRN PRN Reason: insomnia Last Admin: 10/21/24 19:54 Dose: 150 mg Allergies Allergies Allergy/AdvReac Type Severity Reaction Status Date / Time vancomycin Allergy Severe Rash Verified 06/01/24 07:38 Assessment & Plan Assessment & Plan (1) Major depression, recurrent: Qualifiers: Active/Remission status: currently active Major depression episode severity: moderate Qualified Code(s): F33.1 - Major depressive disorder, recurrent, moderate Status: Acute Code(s): F33.9 - Major depressive disorder, recurrent, unspecified (2) PTSD (post-traumatic stress disorder): Status: Acute Code(s): F43.10 - Post-traumatic stress disorder, unspecified (3) Opioid use disorder: Status: Acute Code(s): F11.90 - Opioid use, unspecified, uncomplicated Assessment and Plan: * a this time, no indication for dose change--peak effect for methadone is usually btwn 2-3 hours following dose administration, and it is not uncommon for patients to report feeling tired during this time period, in particular if they are not engaged in anything. * reinforced with patient, in Italian, the importance of remaining in the milieu and participating in his treatment. Patient verbalized understanding, and stated that he attended one group earlier today and planned to attend remainder of groups. * with addition of Thorazine, consider updated EKG d/t potential for QT prolongation * if sedation continues to be a concern, consider 5mg decrease. Do not advise decreasing beyond that as alec of overdose increases with ongoing use. (4) Cocaine use disorder: Status: Acute Code(s): F14.10 - Cocaine abuse, uncomplicated (5) Homelessness: Status: Acute Code(s): Z59.00 - Homelessness unspecified Plan Patient is a 39-year-old male with history MDD, opiate use disorder, alcohol use disorder and cocaine use disorder who presented to ER due to suicidal ideation of wanting to jump off a bridge secondary to increased depression. Plan: CV 15 minute safety checks Reviewed medications from previous admission; Continue home medications. obtain collateral encourage groups referral to substance abuse program discharge planning 10/16: Keeping to self. in bed most of day. Pt continues to report feeling depressed; focused on going to [facility], pt stated, I want to go there and stay sober . Encouraged to shower and attend groups. denies SI/HI/VH/AH. He reports sleeping well last night. Continue current tx plan. 10/17: Keeping to self. in bed most of day. difficulty staying awake. addiction medicine consult placed; ? need for adjustment of methadone d/t oversedation. Pt continues to report feeling depressed; encouraged to attend groups, however continues to say later . denies SI/HI/VH/AH. Continue current tx plan. 10/18: Patient continues to report feeling depressed but states he is improving. attending some groups. continues focused on [facility] referral; social scientist aware. denies SI/HI/VH/AH. Continue current tx plan. 10/19: Active on unit. attending some groups. Patient reports feeling good and better today; pt stated, I'm happy I have an interview with [facility] today . Pt focused on interview. denies SI/HI/VH/AH. denies any issues at this time.Continue current tx plan. 10/20 add in buspar trial for a day - or consider propranlol prn anxiety/panic - 10/22: Active on unit. social with peers. Patient reports feeling good ; he reports sleeping well. per nursing, slept 7 hours. denies SI/HI/VH/AH. court worker awaiting to hear from [facility] if pt was accepted; plan to discharge tomorrow to either [facility] or halfway; pt aware. Patient educated on: diagnosis, medication risk/benefits and therapeutic strategies Reason for continued inpatient stay Substantial Risk for: stable for discharge Time Spent With Patient Time: Total time managing care of this patient today _20___ minutes.
[2024-10-22] MEDS: hydrOXYzine HCL 50 MG TABLET PO (11:54)
[2024-10-22 14:15] VITALS: BP 111/58; PULSE 80
[2024-10-22] MEDS: Propranolol HCL 10 MG TABLET PO (14:15)
[2024-10-22 19:44] VITALS: BP 127/66; PULSE 73; O2SAT 98
[2024-10-22] MEDS: traZODone HCL 50 MG TABLET 150 MG PO (20:47)
[2024-10-22] MEDS: Mirtazapine 15 MG TABLET 45 MG PO (20:47)
[2024-10-22] MEDS: OLANZapine 7.5 MG TABLET 15 MG PO (20:47)
[2024-10-23 00:11] LABS: Glucose, Whole Blood 88 mg/dL (60-115)
[2024-10-23 04:51] VITALS: BP 122/82; PULSE 69
[2024-10-23] MEDS: Nicotine Polacrilex 2 MG GUM 4 MG BUCCAL ×3 (04:51→10:56)
[2024-10-23] MEDS: Propranolol HCL 10 MG TABLET PO (04:51)
[2024-10-23] MEDS: Omeprazole 20 MG CAPSULE.DR PO (05:57)
[2024-10-23 07:29] VITALS: BP 134/73; PULSE 67; RESP 16; TEMP 36.5; O2SAT 98
[2024-10-23 07:35] LABS: Glucose, Whole Blood 134 mg/dL (60-115)
[2024-10-23] MEDS: methADONE HCl 20 MG/2 ML ORAL.CONC 190 MG PO (08:09)
[2024-10-23] MEDS: Naloxone HCl Nasal TAKE HOME 4 MG SPRAY 8 MG NOSTRILALT (08:10)
[2024-10-23] MEDS: Escitalopram Oxalate 20 MG TABLET PO (08:11)
[2024-10-23] MEDS: metFORMIN HCl 1,000 MG TABLET 1000 MG PO (08:11)
--- NOTE | 2024-10-23 08:54 | P.DS_ITS ---
DS: Providers Provider Date of Service: 10/23/24 Date of admission: 10/15/24 12:54 Date of discharge: 10/23/24 Primary care physician: Fiona Physician Admitting clinician: Saundra Christianson Attending physician on admission: Saji Brown Consults: 10/15/24 13:21 Consult to Hospitalist Routine Comment: Consulting Provider: [facility] Hospitalists Reason For Exam: new admit, H&P 10/17/24 14:29 Addiction Medicine Provider Routine Consulting Provider: Addiction Covering Reason for consultation: ?adjust methadone dose; consistantly sedated Attending physician on discharge: Saji Brown Discharging clinician: Saundra Christianson DS: Diagnosis Discharge Diagnosis (1) Major depression, recurrent: Status: Acute (2) PTSD (post-traumatic stress disorder): Status: Acute (3) Opioid use disorder: Status: Acute (4) Cocaine use disorder: Status: Acute (5) Homelessness: Status: Acute DS: Medications Discharge Medications Home Medications: Previous Rx's ?Medication ?Instructions ?Recorded methadone 10 mg/mL oral 190 mg (19 mL) PO DAILY@0800 #0 mL 08/20/24 concentrate (Methadose) chlorpromazine 100 mg tablet 100 mg PO DAILY PRN insomnia 30 10/22/24 days #30 tabs escitalopram oxalate 20 mg tablet 20 mg PO DAILY 30 days #30 tabs 10/22/24 (Lexapro) hydroxyzine HCl 50 mg tablet 50 mg PO BID PRN moderate to 10/22/24 severe anxiety 30 days #60 tabs metformin 1,000 mg tablet 1,000 mg PO BIDWMEAL 30 days #60 10/22/24 tabs mirtazapine 45 mg tablet 45 mg PO BEDTIME 30 days #30 tabs 10/22/24 olanzapine 15 mg tablet 15 mg PO BEDTIME 30 days #30 tabs 10/22/24 omeprazole 20 mg capsule,delayed 20 mg PO BID@0630,1630 30 days #60 10/22/24 release caps trazodone 150 mg tablet 150 mg PO BEDTIME PRN insomnia 30 10/22/24 days #30 tabs Mental Status Exam Mental Status Exam Narrative: Pt is alert and oriented; behavior is cooperative and calm; dressed in casual attire; mood is described as good ; eye contact appropriate; Speech is normal rate, volume and not pressured; thought process is organized; Thought content is on tx; denies SI/HI/VH/AH. Data Data Completed and Pending Completed studies during hospitalization [Text1]: 10/20/24 10/21/24 10/22/24 13:19 20:28 08:05 Creatinine 0.73 Estim Creat Clear Calc 137.1 Estimated GFR > 60 POC Glucose 121 H 117 H 10/22/24 10/23/24 20:47 07:28 Creatinine Estim Creat Clear Calc Estimated GFR POC Glucose 88 134 H DS: Summary Hospital Course Hospital Course: Patient is a 39-year-old male with history MDD, opiate use disorder, alcohol use disorder and cocaine use disorder who presented to ER due to suicidal ideation of wanting to jump off a bridge secondary to increased depression. Per crisis report, patient presented to [facility] due to suicidal ideation with plan to jump off a bridge due to increased depression and anxiety for the past 2 days. Patient reports he is currently depressed due to being homeless and his grandmother does not want him living with her. He denied HI/VH. He reports auditory hallucinations. Utox positive for cocaine, THC, fentanyl and methadone. History of medication noncompliance. During admission assessment, patient presents alert and oriented x3. Calm and cooperative. Irritable edge. Patient reports feeling depressed; patient stated, I got too many problems and I'm thinking about hanging myself. My mother . My dad got amputated. My dad has housing so I stay with him for 14 days and then I stay on the street. I'm tired of it . Denies HI/VH. He reports auditory hallucinations telling him that he is no good . Patient reports he has not been taking medications since being discharged from the hospital. Patient reports he goes to [facility] walk-in hours for his psychiatric medications. He reports he would like a referral to [facility] for substance treatment. Plan: CV 15 minute safety checks Reviewed medications from previous admission; Continue home medications. obtain collateral encourage groups referral to substance abuse program discharge planning Keeping to self. in bed most of day. Pt continues to report feeling depressed; focused on going to [facility], pt stated, I want to go there and stay sober . Encouraged to shower and attend groups. denies SI/HI/VH/AH. He reports sleeping well last night. Continue current tx plan. Keeping to self. in bed most of day. difficulty staying awake. addiction medicine consult placed; ? need for adjustment of methadone d/t oversedation. Pt continues to report feeling depressed; encouraged to attend groups, however continues to say later . denies SI/HI/VH/AH. Continue current tx plan. Patient continues to report feeling depressed but states he is improving. attending some groups. continues focused on [facility] referral; social sciences professor aware. denies SI/HI/VH/AH. Continue current tx plan. Active on unit. attending some groups. Patient reports feeling good and better today; pt stated, I'm happy I have an interview with [facility] today . Pt focused on interview. denies SI/HI/VH/AH. denies any issues at this time.Continue current tx plan. add in buspar trial for a day - or consider propranlol prn anxiety/panic - Active on unit. social with peers. Patient reports feeling good ; he reports sleeping well. per nursing, slept 7 hours. denies SI/HI/VH/AH. workers' compensation mediator awaiting to hear from [facility] if pt was accepted; plan to discharge tomorrow to either [facility] or halfway; pt aware. Patient reports feeling good ; he was accepted to [facility]. Pt reports feeling ready for discharge. denies SI/HI/VH/AH. Pt reports he plans on following up with his outpatient providers. Status at Discharge Cognitive/behavioral status at discharge: Patient has insight and demonstrates good judgment in terms of wanting to pursue treatment. Patient has a safety plan that includes presenting to the closest ER or calling 911 if feeling unsafe. Functional status at discharge: independent ambulation Overall status at discharge: patient is back to baseline Time Spent with Patient Time attestation: Total time managing care of this patient today _20___ minutes. Time spent: Less than 30 minutes Discharge Plan Discharge Anticipated Discharge Date/Time: 10/23/24 11:00 Patient Disposition: Home, Self-Care Discharge Diagnosis: MDD,PTSD, Cocaine use d/o, Opioid use d/o, Alcohol use d/o Referrals: [facility] ([facility]) [Other] - 1 Week (*You have been accepted to the [facility] CSS Program. Please work with staff at the program regarding aftercare. ) Physician,None [Primary Care Provider] - 1 Week Discharge Medications: Continued chlorpromazine 100 mg Tablet 100 mg PO DAILY PRN (Reason: insomnia) 30 Days Qty: 30 0RF hydroxyzine HCl 50 mg tablet 50 mg PO BID PRN (Reason: moderate to severe anxiety) 30 Days Qty: 60 0RF trazodone 150 mg tablet 150 mg PO BEDTIME PRN (Reason: insomnia) 30 Days Qty: 30 0RF omeprazole 20 mg Capsule,Delayed Release(Dr/Ec) 20 mg PO BID@0630,1630 30 Days Qty: 60 0RF mirtazapine 45 mg tablet 45 mg PO BEDTIME 30 Days Qty: 30 0RF olanzapine 15 mg tablet 15 mg PO BEDTIME 30 Days Qty: 30 0RF escitalopram oxalate [Lexapro] 20 mg Tablet 20 mg PO DAILY 30 Days Qty: 30 0RF metformin 1,000 mg tablet 1,000 mg PO BIDWMEAL 30 Days Qty: 60 0RF methadone [Methadose] 10 mg/mL Concentrate 190 mg PO DAILY@0800 Qty: 0 0RF Rx Instructions: Partial Fill upon patient request. Discontinued nicotine (polacrilex) 4 mg Gum 4 mg BUCCAL Q1H Qty: 110 0RF buspirone 10 mg tablet 20 mg PO TID gabapentin 300 mg capsule 300 mg PO TID 30 Days Qty: 90 0RF Discharge Orders: Discharge Order (Routine); Ordered 10/23/24 Ordered By: Saundra Christianson Diet: Regular diet Activity on Discharge: As tolerated Stand Alone Forms: Patient Portal Discharge page, Community Support Print Language: Frisian Care Plan Goals: Maintain mood and safe behaviors Take medications as prescribed Continue to pursue sobriety Practice coping skills Continue with outpatient providers and reach out to them as needed Health Concerns: Mood stability and behaviors Sobriety Plan of Treatment: Follow up with your PCP, psychiatric provider and other outpatient providers regarding above concerns Take medications as prescribed Assessment: Patient has insight and demonstrates good judgment in terms of wanting to pursue treatment. Patient has a safety plan that includes presenting to the closest ER or calling 911 if feeling unsafe.
== END 2024-10-23 12:03 | disposition home or self-care (01) | DRG 751 ==
PROVIDERS: Admitting Provider Psychiatry & Neurology Psychiatry; Responsible Provider Registered Nurse; Visit Provider Psychiatry & Neurology Psychiatry
DX: F33.9 Major depressive disorder, recurrent, unspecified (principal); R45.851 Suicidal ideations; E11.42 Type 2 diabetes mellitus with diabetic polyneuropathy; F11.20 Opioid dependence, uncomplicated; F43.10 Post-traumatic stress disorder, unspecified; F17.210 Nicotine dependence, cigarettes, uncomplicated; Z59.02 Unsheltered homelessness; F14.10 Cocaine abuse, uncomplicated; F19.10 Other psychoactive substance abuse, uncomplicated; Z71.6 Tobacco abuse counseling; Z79.84 Long term (current) use of oral hypoglycemic drugs; Z79.899 Other long term (current) drug therapy
CPT/HCPCS: 36415; 82565; 82947

== ENCOUNTER → 2024-10-15 12:54 | Outpatient (BNV) | payer OTHER, SELFPAY | PROVIDERS: Admitting Provider Psychiatry & Neurology Psychiatry; Responsible Provider Registered Nurse; Visit Provider Registered Nurse | DX: F33.1 Major depressive disorder, recurrent, moderate (principal); F14.10 Cocaine abuse, uncomplicated; F11.90 Opioid use, unspecified, uncomplicated; F43.11 Post-traumatic stress disorder, acute; Z59.00 Homelessness unspecified | CPT/HCPCS: 99231; 99233; 99499 ==

== ENCOUNTER → 2024-10-15 12:54 | Outpatient (BNV) | payer MEDICARE, SELFPAY | PROVIDERS: Admitting Provider Psychiatry & Neurology Psychiatry; Visit Provider Nurse Practitioner Family | DX: E11.9 Type 2 diabetes mellitus without complications (principal) | CPT/HCPCS: 99221 ==